=== PATIENT | female | born 1970 | race Caucasian/White ===

== ENCOUNTER 2017-05-15 08:30 | Outpatient (RCR) | payer OTHER, SELFPAY ==
--- NOTE | 2017-04-20 08:26 | HP.PTEVAL_ITS ---
Patient's Visit Information TYE XIE is a 47 year old F referred to Physical Therapy by Hal WHITEHEAD with a diagnosis of Plantarfasciitis. Date of Evaluation: 04/20/17 Physical Therapist: Mp Rivera DPT, OC - Visit Plan Frequency: one visit when orthotics Plan: Call when orthotics are in and fit to shoe. - Subjective Subjective: Chronic PFitis. Orthotics keep it away. Old orhtotics wearing out. R PFitis, L is OK. Since I got orthotics I have not needed injections. Old orhtotics are worn out and had them a year and a half. - Pain R heel pain. Pain Intensity (Out of 10): 1 Pain Intensity Range: 1, 2 - Objective Unremarkabkle frontal plane in feet. Walks I and Transfers I. Good PROm at ankle with finding subtalar neutral. - Goals Goal 1:: Fit for and I in the use of her noew orthotics. Goal Time Frame: 2-4 Weeks - Rehabilitation Potential Physical Therapy Diagnosis: Plantarfasciitis. Rehabilitation Potential: Fair - Anticipated Interventions Patient/Client Instruction: Educate patient on: Condition Comments: wean orhtotics and use of. For the Purpose of:: To decrease pain Orthotics: Shoe insert For the Purpose of:: To decrease pain Thank you for the opportunity to evaluate your patient. For Medicare and Medicare HMO plans, please review the plan of care and approve it. It will need to be FAXED BACK to us at [phone] for Medicare purposes. Please let me know if there are questions or concerns regarding this plan of care. Physician Signature: Date:
--- NOTE | 2017-05-15 09:07 | HP.PTDCSUM ---
HP - PT D/C Summary It has been my pleasure to treat TYE XIE under orders from DR.SBROWN Kashif for the diagnosis of Plantarfasciitis for a total of 2 visit(s). Discharge Date: Please see the following information for a summary of their discharge status. - Subjective Subjective: Pt excited to get orthotics - Pain R heel pain. Pain Intensity (Out of 10): 0 - Objective Objective/Function: Orthotics provided immediate relief for pt - Goals Goal 1:: Fit for and I in the use of her noew orthotics. Goal Progress: Goal Met - Plan Plan: Discharge - D/C Information If there are questions or concerns regarding this patient's physical therapy, please feel free to call me at [phone]. Thank you for the referral of this patient. Sincerely, Radames Waldrop, PT,
== END 2017-05-15 19:00 | disposition home or self-care (01) ==
LOC: PT 08:30
PROVIDERS: Family Provider Family Medicine; PCP Family Medicine; Visit Provider Family Medicine
DX: M72.2 Plantar fascial fibromatosis (principal)
CPT/HCPCS: 97161; 97760; 97763

== ENCOUNTER → 2017-11-16 07:43 | Outpatient (CLI) | payer OTHER, SELFPAY ==
[2017-11-16 08:48] LABS: Bilirubin, Direct 0.11 mg/dL (0.00-0.30)
== END ==
PROVIDERS: Family Provider Family Medicine; PCP Family Medicine; Visit Provider Family Medicine
DX: Z13.220 Encounter for screening for lipoid disorders (principal)
CPT/HCPCS: 36415; 82248

== ENCOUNTER → 2017-11-19 07:36 | Outpatient (CLI) | payer OTHER, SELFPAY ==
[2017-11-20 09:08] LABS: Vitamin D,25 Hydroxy 9.6 ng/mL (29.95-100.01)
== END ==
PROVIDERS: Family Provider Family Medicine; PCP Family Medicine; Visit Provider Family Medicine
DX: M77.9 Enthesopathy, unspecified (principal); Z13.220 Encounter for screening for lipoid disorders
CPT/HCPCS: 36415; 73110; 82306

== ENCOUNTER 2018-01-11 13:00 | Outpatient (RCR) | payer OTHER, SELFPAY ==
--- NOTE | 2017-12-23 08:22 | HP.OTEVAL ---
Patient's Visit Information TYE XIE is a 47 year old F, referred to Occupational Therapy by Hal Canchola, with a diagnosis of left wrist tendonitis. Date of Evaluation: 12/22/17 Occupational Therapist: Magaly Tang, MARCIA/Josefa, CHT - Subjective Subjective: Pt states prio to her vacation in September she started having pain. pt did take anti-inflamitory- pt then returned to drMaura and told to wear a brace on Nov.24. pt arrives with left wrist cock up brace- states she is unable to wear the brace at work. states she continues to have pain with some movements but most pain is after work. pt states she did try ice but it made her wrist stiff.pt would like to return to her PLOF - Pain left wrist 0 Pain Intensity Range: 0, 4 - ROM Forearm: right/left forearm sup is WNL Wrist: right 70/70 left 45/70 ROM Comments: pt demo left forearm pronation with pain at end range of motion-. Right RD/UD. Left RD 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 Goal:: Pt will demo an increase in wrist ROM equal to unaffected wrist to return pt to PLOF with grooming, dressing and home mtg tasks by D/C. Goal:: Pt will report pain no greater than 1/10 with use of affected hand with BADLs and IADLs by d/c. Goal:: Pt will demo understanding of work/lifting and carry ergonomics to decrease stress on tendons to increase pts ind. with ADLs and IADLS and work tasks by d/c. - Rehabilitation General Assessment: Pt demo with increase pain with resisitive wrist flex and ulnar deviations- symptoms consisitant with flexor ulnaris tendonitis. Pain, limited ROM, and weakness limits pts ind. with ADLS and IADls. pt also having ddifficulty performing job tasks without having pain. pt would benefit from skilled OT services 2x week for 4 weeks to decrease pain, ed. pt on work ergo. and increase pts functional strength to return pt to PLOF with ADLs, IADLs and work tasks. Rehabilitation Potential: Good - Anticipated Interventions Anticipated Interventions: A/AAROM/PROM, Strengthening, Triggerpoint Release, Modalities, Orthoses, Joint Protection/Energy Conservation, Ergonomic Education - Visit Plan Frequency: 2x /Week Duration: 4 Weeks TEXT: Thank you for the opportunity to evaluate your patient. For Medicare and Medicare HMO plans, please review the plan of care and approve it. It will need to be FAXED BACK to us at [phone] for Medicare purposes. Please let me know if there are questions or concerns regarding this plan of care. Physician Signature: Date:
--- NOTE | 2018-06-28 14:43 | HP.OT.NRP ---
HP - Discharge Summary - Patient Information TYE XIE was seen in my office for initial evaluation on 12/22/17. The following Plan of Care was established for this patient: Initial Frequency: 2x /Week Initial Duration: 4 Weeks Plan: US. STEVE PROM - Anticipated Interventions Anticipated Interventions: A/AAROM/PROM, Strengthening, Triggerpoint Release, Modalities, Orthoses, Joint Protection/Energy Conservation, Ergonomic Education This patient was last seen in our office 01/11/19. Pertinent comments regarding their Occupational therapy will appear below: Pt was seen for 2 visits with no change in her pain. Pt did not schedule further apts and is D/C due to timelapse in therapy services. At this point I will be discontinuing this patient from occupational therapy. I would be happy to see this patient again in the future if found appropriate by the physician. Thank you! Magaly Tang, OTR/L, CHT
== END 2018-01-11 19:00 | disposition home or self-care (01) ==
LOC: OT 13:00
PROVIDERS: Family Provider Family Medicine; PCP Family Medicine; Visit Provider Family Medicine
DX: M77.8 Other enthesopathies, not elsewhere classified (principal)
CPT/HCPCS: 97035; 97140; 97166; 97760

== ENCOUNTER → 2018-01-11 14:06 | Outpatient (CLI) | payer OTHER, SELFPAY ==
--- NOTE | 2018-01-11 14:16 | BI_ITS ---
MAMMOGRAPHY - UNILATERAL DIAGNOSTIC: LEFT BREAST REASON FOR EXAM: Female, 47 years old. Six-month follow-up for ultrasound guided left breast biopsy. PERTINENT HISTORY: Mother with breast cancer. TECHNIQUE: Digital unilateral breast keaton (3D mammographic acquisition) in the CC and MLO projections. 2-D mediolateral oblique (MLO) and craniocaudad (CC) views of both breasts were obtained. CAD: Full Field Digital Mammography with Computer Added Detection was performed. COMPARISON: Comparison is made with prior study dated March 04, 2017 and July 14, 2016. FINDINGS: Breast Composition: The breasts are heterogeneously dense, which may obscure small masses. There are no dominant masses or suspicious calcifications. A tissue clip marker from prior biopsy is seen in the deep upper lateral portion of the left breast. No mass lesion or clustered calcifications present. No other significant abnormalities are identified. There has been no significant change since the prior study. BI/DIAG MAMM W/CAD, UNILAT IMPRESSION: Stable unilateral diagnostic mammogram. One year follow-up mammogram recommended. (A) ASSESSMENT CATEGORY: BIRADS Category 2: Benign. A letter regarding these results will be sent to the patient by the facility within 30 days. Approximately 10% of breast cancers are not detected by mammography. A normal mammogram should not delay biopsy of a clinically suspicious abnormality. Electronically Signed: Vitaly Ventura MD at 12:09 EDT Tel [phone], Service support ,
== END ==
PROVIDERS: Family Provider Family Medicine; PCP Family Medicine; Referring Provider Obstetrics & Gynecology; Visit Provider Obstetrics & Gynecology
DX: Z51.89 Encounter for other specified aftercare (principal)
CPT/HCPCS: 77061; 77065; G0279

== ENCOUNTER → 2018-02-24 07:33 | Outpatient (CLI) | payer OTHER, SELFPAY ==
[2018-02-24 10:50] LABS: Vitamin D,25 Hydroxy 35.6 ng/mL (29.95-100.01)
== END ==
PROVIDERS: Family Provider Family Medicine; PCP Family Medicine; Referring Provider Family Medicine; Visit Provider Family Medicine
DX: E55.9 Vitamin D deficiency, unspecified (principal)
CPT/HCPCS: 36415; 82306

== ENCOUNTER → 2018-08-21 | Outpatient (CLI) | payer OTHER, SELFPAY ==
[2018-08-23 09:51] LABS: Vitamin D,25 Hydroxy 27.6 ng/mL (29.95-100.01)
== END | disposition home or self-care (01) ==
PROVIDERS: Family Provider Family Medicine; PCP Family Medicine; Referring Provider Family Medicine; Visit Provider Family Medicine
DX: E55.9 Vitamin D deficiency, unspecified (principal)
CPT/HCPCS: 36415; 82306

== ENCOUNTER → 2018-11-08 | Outpatient (CLI) | payer OTHER, SELFPAY ==
[2018-11-11 17:28] LABS: Vitamin D,25 Hydroxy 29.6 ng/mL (29.95-100.01)
== END | disposition home or self-care (01) ==
LOC: LAB 13:33
PROVIDERS: Family Provider Family Medicine; PCP Family Medicine; Referring Provider Family Medicine; Visit Provider Family Medicine
DX: E55.9 Vitamin D deficiency, unspecified (principal)
CPT/HCPCS: 36415; 82306

== ENCOUNTER → 2019-01-19 | Outpatient (CLI) | payer OTHER, SELFPAY ==
[2018-11-11 13:00] VITALS: BMI 41.5
--- NOTE | 2019-01-19 15:25 | BI_ITS ---
MAMMOGRAPHY - BILATERAL SCREENING REASON FOR EXAM: Female, 48 years old. Routine annual screening examination. PERTINENT HISTORY: Mother with breast cancer. Prior right and left breast biopsies. TECHNIQUE: Digital bilateral breast mary jo (3D mammographic acquisition) in the CC and MLO projections. 2-D mediolateral oblique (MLO) and craniocaudad (CC) views of both breasts were obtained. CAD: Full Field Digital Mammography with Computer Added Detection was performed. COMPARISON: Comparison is made with prior study dated March 04, 2017 and July 14, 2016. FINDINGS: Breast Composition: The breasts are heterogeneously dense, which may obscure small masses. There are no dominant masses or suspicious calcifications. A tissue clip marker is once again seen in the upper outer quadrant of the right breast as well as in the left breast. Stable appearance of the small bilateral axillary lymph nodes. No other significant abnormalities are identified. There has been no significant change since the prior study. BI/SCREEN MAMM (CAD) W/MARY JO BILAT IMPRESSION: Stable bilateral screening mammogram. Yearly follow-up mammogram recommended. (A) ASSESSMENT CATEGORY: BIRADS Category 2: Benign. A letter regarding these results will be sent to the patient by the facility within 30 days. Approximately 10% of breast cancers are not detected by mammography. A normal mammogram should not delay biopsy of a clinically suspicious abnormality. [id number] Electronically Signed: Vitaly Ventura, at 8:28 EDT , Service support ,
== END | disposition home or self-care (01) ==
LOC: OPBI 15:24
PROVIDERS: Family Provider Family Medicine; PCP Family Medicine; Referring Provider Nurse Practitioner Women's Health; Visit Provider Nurse Practitioner Women's Health
DX: Z12.31 Encounter for screening mammogram for malignant neoplasm of breast (principal)
CPT/HCPCS: 77063; 77067

== ENCOUNTER → 2019-03-14 07:58 | Outpatient (CLI) | payer OTHER, SELFPAY ==
[2018-11-11 13:00] VITALS: BMI 41.5
[2019-03-14 09:16] LABS: Vitamin D,25 Hydroxy 27.5 ng/mL (29.95-100.01)
== END ==
PROVIDERS: Family Provider Family Medicine; PCP Family Medicine; Referring Provider Family Medicine; Visit Provider Family Medicine
DX: E55.9 Vitamin D deficiency, unspecified (principal)
CPT/HCPCS: 36415; 82306

== ENCOUNTER 2019-03-23 03:41 | Outpatient (RCR) | payer OTHER, SELFPAY | END 2019-04-22 23:59 | LOC: LABSPEC 03:41 | PROVIDERS: PCP Family Medicine; Visit Provider Family Medicine Geriatric Medicine | DX: Z03.818 Encounter for observation for suspected exposure to other biological agents ruled out (principal) | CPT/HCPCS: 87426 ==

== ENCOUNTER 2019-06-09 16:41 | Emergency (ER) | payer OTHER, SELFPAY ==
[2019-05-31 17:53] VITALS: BMI 41.5
[2019-06-09 16:44] VITALS: BP 150/94; PULSE 106; RESP 20; TEMP 37.7; O2SAT 97; BMI 41.9
--- NOTE | 2019-06-09 17:06 | CT_ITS ---
STUDY: CT ABDOMEN AND PELVIS WITH CONTRAST REASON FOR EXAM: Female, 49 years old. ABDOMEN PAIN X 3 DAYS RADIATION DOSAGE (If Supplied By Facility): CTDIvol = ( 15.71 ) mGy, DLP = ( 1047.25 ) mGycm TECHNIQUE: Transaxial images were obtained from the dome of the diaphragm to the symphysis pubis without oral contrast. Oral and amp; IV Gastrografin and amp; 100mL Isovue-300 was administered. Sagittal and coronal images were reconstructed. Individualized dose optimization techniques were used for this CT. COMPARISON: None. FINDINGS: The visualized lung bases are unremarkable. The visualized portions of the heart are within normal limits. Normal liver. Normal gallbladder and extrahepatic biliary system. Normal spleen. Normal pancreas. Normal bilateral adrenal glands. Normal right kidney. Normal left kidney. Normal visualized stomach. Normal small intestine. Normal colon. There is non-visualization of the appendix. Normal abdominal aorta. Normal inferior vena cava. Normal retroperitoneum. Normal urinary bladder. Prominent lower uterine segment/cervix with a cystic structure measuring 1.4 cm may indicate a nabothian cyst. There is a small umbilical hernia containing fat. Normal osseous structures. CT/Abdomen/Pelvis WITH Contrast IMPRESSION: Prominent lower uterine segment/cervix with a cystic structure measuring 1.4 cm may indicate a nabothian cyst. This may be further assessed with a pelvic sonogram and/or gynecologic evaluation. Otherwise no acute process is identified within the abdomen or pelvis. Electronically Signed: Chirag García, at 19:38 EDT Tel , Service support ,
--- NOTE | 2019-06-09 17:07 | ED.DCSUM_ITS ---
- ER Visit Summary Date of Service: 06/09/19 Chief Complaint: Abdominal pain History of Present Illness: The patient is a 49 F who presents with abdominal pain that has been getting worse over the past 3 days. Patient states it is gradually gotten worse. Patient states the pain is worse over the left upper quadrant. Patient states the pain is worse when she pushes on the area. Patient describes her pain as dull. Patient states she has been having some nausea and vomiting. Patient states she tried to eat applesauce but was unable to keep that down. Patient denies any hematemesis or coffee-ground emesis. Patient denies any diarrhea, melena, or hematochezia. Patient denies any dysuria or hematuria. Physical Examination: Vital signs are stable except for a mild tachycardia of 106. Patient is afebrile. Patient is in no acute distress. Oral mucosa is pink and moist. Neck is supple. Trachea is midline. There is no JVD. Heart was regular rate and rhythm. Lungs are clear and equal bilaterally. Abdomen is soft. Bowel sounds are normal. There is left upper quadrant tenderness. There is some mild epigastric tenderness. There is no rebound or guarding noted. Cranial nerves II through XII are intact. There are no focal motor or sensory deficits. Test Results: CBC and comprehensive metabolic profile were obtained and were within normal limits. Urinalysis shows leukocyte esterase of 100 with 5-10 white blood cells, 0-5 epithelial cells, and 2+ bacteria. Urine culture was obtained. hCG was negative. CT scan of the abdomen and pelvis was obtained. There is no acute abnormality. This was interpreted by the radiologist and nini walters. Emergency Department Course and Treatment: Patient was given Zofran and morphine initially. Patient was given a repeat dose of Zofran. Patient was also given an injection of Toradol. Patient was given a prescription for Zofran. Patient was instructed to start with a liquid diet and advance as tolerated. Patient was instructed to return if worse in any way. Patient was instructed to follow- up with her primary care physician in 3 to 5 days. Patient understood and was agreeable with the plan. All questions were answered. Disposition: Discharge home Impression: Left upper quadrant abdominal pain This note was generated with [employer] software. It may contain incorrect words, spelling, and punctuation that were not noted in review of the chart prior to signing ED Disposition - Plan for ED Patient: Disposition: Home or Assisted Living Diagnosis: Left upper quadrant abdominal pain of unknown etiology Instructions: ABDOMINAL PAIN, Unknown Cause, (Female) Prescriptions: Ondansetron [Zofran Odt] 4 mg PO Q8H PRN PRN #10 tab PRN Reason: Nausea Transmission Status: Pending to [id number] Referrals: Hal Canchola [Primary Care Provider] - 3-5 Days
[2019-06-09] MEDS: 0.9% Normal Saline 1,000 ML 1000 ML IV (17:17)
[2019-06-09] MEDS: Morphine 4 MG/ML Syringe IV (17:17)
[2019-06-09] MEDS: Ondansetron 4 MG/2 ML Vial IV ×2 (17:17→18:17)
[2019-06-09 17:39] LABS: Absolute Lymphocyte Count 0.64 X10^3/uL (0.83-4.51); Absolute Neutrophil Count 6.8 X10^3/uL (2.0-7.7); Basophil# 0.01 X10^3/uL; Basophil% 0.1 % (0-1); Eosinophil# 0.06 X10^3/uL; Eosinophils% 0.7 % (0-5); Hematocrit 43.3 % (37-47); Hemoglobin 14.7 g/dL (12.0-15.0); Lymphocyte # 0.64 X10^3/ul (4.0); Lymphocyte % 7.8 % (19-41); Mean Corp Hgb Conc 33.9 g/dL (32-36); Mean Corpuscular Hgb 30.6 pg (27.0-32.0); Mean Platelet Vol. 8.7 fl (6.2-12.0); Monocyte# 0.62 X10^3/uL; Monocyte% 7.6 % (0-10); NRBC Flagged by Analyzer 0 % (0-5); Neutrophil # 6.84 X10^3/uL (2.7-7.7); Neutrophil % 83.3 % (47-70); Platelet Count 306 K/mm3 (150-450); RBC Distribution Width CV 11.9 % (11.6-14.6); RBC Distribution Width SD 39.5 fl (35.1-43.9); Red Blood Count 4.81 M/mm3 (4.2-5.4); White Blood Count 8.2 K/mm3 (4.4-11.0)
[2019-06-09 18:00] LABS: AST(SGOT) 23 U/L (15-37); Alanine Aminotransfer ALT/SGPT 26 U/L (13-56); Albumin, Serum 3.4 g/dL (3.2-5.0); Alkaline Phosphatase 60 U/L (45-117); Anion Gap 5 (5-15); BUN 20 mg/dL (7-18); BUN/Creat Ratio 23.6 RATIO (10-20); Calcium,Total 8.4 mg/dL (8.5-10.1); Chloride 109 mmol/L (98-107); Creatinine, Serum 0.85 mg/dL (0.55-1.02); EST Glomerular Filtration Rate 76 mL/min (>60); Est Glom Filt Rate - Afr Amer 92 mL/min (>60); Estimated Creatinine Clearance 58.77 ml/min; Globulin 3.5 g/dL (2.2-4.2); Glucose 107 mg/dL (74-106); Lipase 142 U/L (73-393); Potassium 3.9 mmol/L (3.5-5.1); Protein, Total 6.9 g/dL (6.4-8.2); Sodium Level 139 mmol/L (136-145)
[2019-06-09 18:24] LABS: Internal QC Validated? YES +Cl - CLEAR BKGD; Pregnancy, Serum, hCG Quali. NEGATIVE Negative
[2019-06-09 18:36] LABS: Red Blood Cells-Urine 0 SEEN /hpf (0-5)
[2019-06-09 18:42] LABS: Color, Urine Yellow (Yellow); Glucose, Dipstick Normal (Normal); Leukocyte Esterase-Dipstick 100 /ul (Negative); Nitrite-Dipstick Negative (Negative); Occult Blood-Urine Negative /ul (Negative); Protein-Dipstick 15 mg/dl (Negative); Urine Clarity Cloudy (Clear); Urine Urobilinogen 1 mg/dl (Normal)
[2019-06-09 18:50] LABS: Urine Bilirubin Dipstick 3 mg/dL (Negative)
[2019-06-09 18:51] LABS: Ketone-Dipstick 150 mg/dl (Negative)
[2019-06-09 18:52] LABS: Mucous, Urine 2+ /hpf (<or=2+); Squamous Epithelial Cells - UA 0-5 SEEN /hpf (5-10)
[2019-06-09 18:55] LABS: Bacteria 2+ /hpf (None Seen); White Blood Cells 5-10 SEEN /hpf (0-5)
[2019-06-09 19:29] VITALS: BP 158/77; PULSE 88; RESP 16; O2SAT 99
[2019-06-09] MEDS: Ketorolac 30 MG/ML Syringe IV (20:39)
[2019-06-09 20:49] VITALS: BP 158/77; PULSE 88; RESP 16; O2SAT 99
== END 2019-06-09 20:51 | disposition home or self-care (01) ==
PROVIDERS: Emergency Provider Emergency Medicine; PCP Family Medicine
DX: R10.12 Left upper quadrant pain (principal); E66.9 Obesity, unspecified; F41.9 Anxiety disorder, unspecified; F32.9 Major depressive disorder, single episode, unspecified; Z79.899 Other long term (current) drug therapy
CPT/HCPCS: 74177; 80053; 81001; 83690; 84703; 85025; 96361; 96374; 96375; 96376; 99283; J7030; Q9967; A4216; J2405

== ENCOUNTER → 2019-10-05 | Outpatient (CLI) | payer OTHER, SELFPAY ==
[2019-10-05 10:16] LABS: Vitamin D,25 Hydroxy 58.8 ng/mL
== END | disposition home or self-care (01) ==
LOC: LAB 07:30
PROVIDERS: PCP Family Medicine; Referring Provider Family Medicine; Visit Provider Family Medicine
DX: E55.9 Vitamin D deficiency, unspecified (principal)
CPT/HCPCS: 36415; 82306

== ENCOUNTER → 2020-02-07 | Outpatient (CLI) | payer OTHER, SELFPAY | END | disposition home or self-care (01) | LOC: LABSPEC 22:50 | PROVIDERS: PCP Family Medicine; Visit Provider Family Medicine Geriatric Medicine | DX: Z03.818 Encounter for observation for suspected exposure to other biological agents ruled out (principal) | CPT/HCPCS: 87426 ==

== ENCOUNTER 2020-02-08 11:43 | Outpatient (RCR) | payer OTHER, SELFPAY | END 2020-02-20 23:59 | LOC: LABSPEC 11:43 | PROVIDERS: PCP Family Medicine; Visit Provider Family Medicine Geriatric Medicine | DX: Z03.818 Encounter for observation for suspected exposure to other biological agents ruled out (principal) ==

== ENCOUNTER → 2020-02-27 | Outpatient (CLI) | payer OTHER, SELFPAY ==
[2020-02-27 13:17] VITALS: BMI 42.7
[2020-03-02 06:21] LABS: HPV APTIMA, High Risk Negative (Negative)
== END | disposition home or self-care (01) ==
LOC: LABSPEC 16:57
PROVIDERS: PCP Family Medicine; Visit Provider Obstetrics & Gynecology
DX: Z12.4 Encounter for screening for malignant neoplasm of cervix (principal)
CPT/HCPCS: 87624; 88175; G0145

== ENCOUNTER 2020-04-16 01:44 | Outpatient (RCR) | payer OTHER, SELFPAY ==
[2020-02-27 13:17] VITALS: BMI 42.7
== END 2020-04-22 23:59 ==
LOC: LABSPEC 01:44
PROVIDERS: PCP Family Medicine; Visit Provider Family Medicine Geriatric Medicine
DX: Z03.818 Encounter for observation for suspected exposure to other biological agents ruled out (principal)
CPT/HCPCS: 87426

== ENCOUNTER → 2020-05-10 00:23 | Outpatient (CLI) | payer OTHER, SELFPAY ==
--- NOTE | 2020-05-10 00:26 | RAD_ITS ---
HISTORY: C/O MUSCLE SPASMS AND PAIN AREA OF RT POSTERIOR -LATERAL MID-LOWER RIB CAGE X 3 MONTHSNKI ADDITIONAL HISTORY: None provided. EXAMINATION/TECHNIQUE: XR Spine Lumbar Min 4 Views Number of images including paperwork: 5 COMPARISON: None FINDINGS: VERTEBRAE: No acute fracture. VERTEBRAL ALIGNMENT: No traumatic subluxation. DISKS AND JOINTS: Lumbar disc heights relatively well maintained. Anterior osteophytes. Facet arthropathy. SOFT TISSUES: Unremarkable paraspinous soft tissues. RAD/L/S Spine Min 4 Views IMPRESSION: No acute findings. at 0231 Reported and signed by: Holly Hammer MD Electronically Signed: Holly Hammer MD at 2:31 EST Tel , Service support ,
--- NOTE | 2020-05-10 00:26 | RAD_ITS ---
HISTORY: C/O MUSCLE SPASMS AND PAIN AREA OF RT POSTERIOR -LATERAL MID-LOWER RIB CAGE X 3 MONTHSNKI ADDITIONAL HISTORY: None provided. EXAMINATION/TECHNIQUE: XR Spine Thoracic 3 Views Number of images including paperwork: 3 COMPARISON: None FINDINGS: VERTEBRAE: No acute fracture. VERTEBRAL ALIGNMENT: No traumatic subluxation. DISKS AND JOINTS: Mild to moderate multilevel discogenic degenerative changes. SOFT TISSUES: Unremarkable paraspinous soft tissues. RAD/Thoracic Spine 3 Views IMPRESSION: No acute findings. Degenerative changes. at 0232 Reported and signed by: Holly Hammer MD Electronically Signed: Holly Hammer MD at 2:32 EST Tel , Service support ,
--- NOTE | 2020-05-10 08:37 | RAD_ITS ---
STUDY: X-RAY - UNILATERAL RIBS ( RIGHT ) WITH CHEST REASON FOR EXAM: Female, 50 years old. Right posterior rib/back pain -- started in February, getting worse -- unsure of injury TECHNIQUE - RIBS: 4 view(s) of the ribs. TECHNIQUE - CHEST: Single PA view of the chest. COMPARISON: None. FINDINGS - RIBS: Normal visualized ribs without a demonstrated fracture. FINDINGS - CHEST: The lungs are clear and expanded. There is no demonstrated pleural abnormality. Normal size heart. Normal mediastinum and greyson. Normal visualized pulmonary arteries. Normal visualized aortic arch and descending thoracic aorta. Normal visualized thoracic spine. Normal visualized ribs, clavicles, and shoulders. There is no demonstrated abnormality of the visualized soft tissue structures of the upper abdomen. RAD/Ribs Uni Min 3V w/PA Chest IMPRESSION: RIBS: Normal x-ray examination of the ribs. CHEST: Normal x-ray examination of the chest. Electronically Signed: Vitaly Ventura MD at 15:17 EST , Service support ,
== END ==
PROVIDERS: PCP Family Medicine; Referring Provider Physician Assistant; Visit Provider Physician Assistant
DX: R07.81 Pleurodynia (principal); M54.5 Low back pain; M54.6 Pain in thoracic spine
CPT/HCPCS: 71101; 72072; 72110

== ENCOUNTER 2020-05-15 07:03 | Outpatient (RCR) | payer OTHER, SELFPAY ==
[2020-04-03 08:15] VITALS: BMI 43.8
== END 2020-05-20 23:59 ==
LOC: EMPH 07:03
PROVIDERS: Visit Provider Family Medicine Geriatric Medicine
DX: Z03.818 Encounter for observation for suspected exposure to other biological agents ruled out (principal)
CPT/HCPCS: 87426

== ENCOUNTER → 2020-08-17 07:40 | Outpatient (CLI) | payer OTHER, SELFPAY ==
--- NOTE | 2020-08-17 07:52 | RAD_ITS ---
STUDY: X-RAY - PELVIS AND LEFT HIP REASON FOR EXAM: Female, 50 years old. Right hip pain. Patient relates history of surgery on left hip 8 years ago. Recently developed marked pain. TECHNIQUE: 3 views of the pelvis and hip. COMPARISON: 06/14/2015. FINDINGS: There is a non-specific bowel gas pattern. Normal visualized soft tissue structures. There is absence of the IUD seen on the previous examination. Stable bilateral iliac wings, sacroiliac joints and visualized sacrum. Normal bilateral superior and inferior pubic rami. Normal pubic symphysis. Normal bilateral ischial tuberosities. Stable degenerative changes of the right hip. There are osteoarthritic changes of the left femoral head with marginal osteophyte formation. There is osteoarthritic spur formation of the left acetabular rim. There is moderate articular joint space narrowing of the left hip. RAD/HIP, UNI W/ Pelvis 2-3 Views IMPRESSION: Degenerative changes of the left hip. The findings appear stable when compared to 06/14/2015. Electronically Signed: Farhat Chavis DO at 17:00 EDT Tel [phone], Service support ,
== END ==
PROVIDERS: PCP Family Medicine; Referring Provider Family Medicine; Visit Provider Family Medicine
DX: M25.552 Pain in left hip (principal)
CPT/HCPCS: 73502

== ENCOUNTER → 2020-09-28 12:01 | Outpatient (CLI) | payer OTHER, SELFPAY ==
[2020-02-27 13:17] VITALS: BMI 42.7
[2020-04-03 08:15] VITALS: BMI 43.8
--- NOTE | 2020-09-28 12:01 | BI_ITS ---
MAMMOGRAPHY - BILATERAL SCREENING REASON FOR EXAM: Female, 50 years old. Routine annual screening examination. PERTINENT HISTORY: Mother with breast cancer. Prior bilateral needle breast biopsies. TECHNIQUE: Digital bilateral breast mary jo (3D mammographic acquisition) in the CC and MLO projections. 2-D mediolateral oblique (MLO) and craniocaudad (CC) views of both breasts were obtained. CAD: Full Field Digital Mammography with Computer Added Detection was performed. COMPARISON: Comparison is made with prior study dated 01/19/2019 and 03/04/2017. FINDINGS: Breast Composition: The breasts are heterogeneously dense, which may obscure small masses. There are no dominant masses or suspicious calcifications. A tissue clip marker is seen in the deep upper lateral portion of the left breast. A tissue clip marker is also seen in the central upper aspect of the right breast. No other significant abnormalities are identified. There has been no significant change since the prior study. BI/SCRN MAMM (CAD)W/MARY JO BILAT IMPRESSION: Stable bilateral screening mammogram. Yearly follow-up mammogram recommended. (A) ASSESSMENT CATEGORY: BIRADS Category 2: Benign. A letter regarding these results will be sent to the patient by the facility within 30 days. Approximately 10% of breast cancers are not detected by mammography. A normal mammogram should not delay biopsy of a clinically suspicious abnormality. [id number] Electronically Signed: Vitaly Ventura MD at 13:02 EDT , Service support ,
== END ==
PROVIDERS: PCP Family Medicine; Referring Provider Obstetrics & Gynecology; Visit Provider Obstetrics & Gynecology
DX: Z12.31 Encounter for screening mammogram for malignant neoplasm of breast (principal)
CPT/HCPCS: 77063; 77067

== ENCOUNTER 2020-10-01 08:08 | Outpatient (RCR) | payer OTHER, SELFPAY ==
[2020-04-03 08:15] VITALS: BMI 43.8
== END 2020-10-20 23:59 ==
LOC: EMPH 08:08
PROVIDERS: PCP Family Medicine; Referring Provider Family Medicine Geriatric Medicine; Visit Provider Family Medicine Geriatric Medicine
DX: Z03.818 Encounter for observation for suspected exposure to other biological agents ruled out (principal)
CPT/HCPCS: 87426

== ENCOUNTER → 2020-10-04 09:57 | Outpatient (CLI) | payer OTHER, SELFPAY ==
[2020-10-04 11:26] LABS: Vitamin D,25 Hydroxy 25.8 ng/mL
== END ==
PROVIDERS: PCP Family Medicine; Referring Provider Family Medicine; Visit Provider Family Medicine
DX: E55.9 Vitamin D deficiency, unspecified (principal)
CPT/HCPCS: 36415; 82306

== ENCOUNTER 2020-11-07 08:30 | Outpatient (RCR) | payer OTHER, SELFPAY ==
--- NOTE | 2020-08-31 09:37 | HP.PTEVAL ---
Patient's Visit Information TYE XIE is a 50 year old F referred to Physical Therapy by Dr. Hal Canchola MD with a diagnosis of L hip pain acute. Date of Evaluation: 08/31/20 Physical Therapist: Mp Rivera DPT, OCS, CSCS - Visit Plan Frequency: 2-3x /Week Duration: 4-6 Weeks Plan: Start with 5 visits in pool to teach hip ROM flexion and ext rotation, stretching of quad adn pirifromis and HS and hip flexors and hip strengthening(pt has pool at home and can progress to I with these. Then likely will see for manual therapy on land after I in pool. - Subjective H/o hip problems. But was doing good. 2015 started steroid injections and usually only painful with ext rotation. Controllable with advil and injections now and then but it had 18 months. In February pain moved to front of hip and it hurts to sit and pull knee up or lifting leg as to get in car. Went back to [facility] who injected her which helped for two weeks and then it started get rodrigo locke. Waited 3 months and got another injection in July 16 which did not help at all. Hurts to sit and lean forward. Went to PCP who did x ray in july and shows osteophytes adn spurs in hip joint and OA in L hip. Pain is anterior L hip dialy to 9 for a moment with hip flexion or a sharp turn. Will see ortho September 20 for possible labral tear. No MRI yet. Sleep is not a problem very often, maybe once int he past if she turned to right. Geenerally aches some of time. Worse if on it all day. 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 End of day /. Activities at home are putting socks and shoes on are hard and needs to leverage ext rotation to get them on. Enjoys hiking and did 4 miles the other day but it hurt. - Pain L anterior hip pain. Pain Intensity (Out of 10): 9 Pain Intensity Range: 1 - Objective Stays leaned back in chair. Walks wtih only slight L antalgia and I. Trasnfers I but hard to shift weight FW in chair without pain due to limited hip fexion L. Steps reciprocal without increased pain but slightly harder to ascend using L. sensation LE WNL to gross light touch. reflexes 2/3 patella and achilles. Strength knee flex ext 4 with some slight pain L quad in hip. ankles ROM WFL and no pain with resisted movements at 4+/5. R hip is WFL 15 ext, 25 abd, 110 flexion without pain. L hip to 90 flexion and 15 abd and 8 ext and ext rotation 38 adn IR 5 all limited by pain in flexion, rotations. + L FADDIR, + MARCI, + hip scour L. L hip - Goals Goal 1:: 45 ext rotation and 105 flexion without pain to help don shoes withotu pain Goal Time Frame: 4-6 Weeks Goal 2:: I appropr HEP to limit future problems Goal Time Frame: 4-6 Weeks Goal 3:: Tolerate 12 hour shift at work with no more than 2/10 pain Goal Time Frame: 4-6 Weeks Goal 4:: LEFS score 65+ Goal Time Frame: 4-6 Weeks - Rehabilitation Potential Physical Therapy Diagnosis: L hip pain limiting function likely degenerative in nature. Rehabilitation Potential: Fair - Anticipated Interventions Patient/Client Instruction: Educate patient on: Condition, Plan of Care For the Purpose of:: To decrease pain, To increase ROM, To improve muscle performance and motor function, To improve ability to perform ADL's, To improve ability of physical actions for home/community/work/leisure Therapeutic Exercise to Include: Strength training, Flexibilty training, Gait and locomotor training, In an aquatic setting, Passive ROM, Active ROM For the Purpose of:: To decrease pain, To increase ROM, To improve muscle performance and motor function, To improve performance and independence with ADL's, To improve ability of physical actions for home/community/work/leisure, To improve gait and locomotor functions Manual Therapy Techniques to Include: Mobilization, Passive ROM, Soft tissue mobilization For the Purpose of:: To decrease pain, To increase ROM, To improve muscle performance and motor function Thank you for the opportunity to evaluate your patient. For Medicare and Medicare HMO plans, please review the plan of care and approve it. It will need to be FAXED BACK to us at [phone] for Medicare purposes. For Medicare only, by signing this I certify the plan of care. Please let me know if there are questions or concerns regarding this plan of care. Physician Signature: Date:
--- NOTE | 2020-09-26 09:06 | HP.PTREVAL ---
Dr. Hal Canchola MD, It has been my pleasure to treat TYE XIE over the last 7 visits for L hip pain acute. Please see the progress note below for an update on the physical therapy plan of care! Subjective: Pool treated her OK. Pool is helpful, feels more mobile in L hip. Has soreness and tolerable achiness but much less severe sharp pains. Feels like she can do the pool exercise at home in her pool. Push mowed 2 acre yard yesterday adn was a little sore. Saw ortho and no other options other than PT and pain management. No replacement yet, no nlabral options. Sees Basali and had injections end July adn did not help. Objective/Function: 50 AROM ext rotation hip, 95 flexion 5 ext. Walking well today with just some avoidance of hip ext L causing pelvic rotation. Overall feeling sharee she is slowly improving . Willing to continue water ex I 4-6x week at home pool and continue stretching at home. Wants manual and land strength for when pool closes and due to being no other options from ortho and pain injections not being helpful. Plan Plan: Pt to do water ex at home 4-6x/week. In clinic please do manual therapy with leg pull, PROM L hip and belted hip mobs L. also progress to home strengthening NWB to WB( pt bisi likely want home ex but can do machines if she decides going to a gym is realistic.) Goals Goal 1:: 45 ext rotation and 105 flexion without pain to help don shoes withotu pain Goal Time Frame: 4-6 Weeks Goal Progress: Progressing Goal 2:: I appropr HEP to limit future problems Goal Time Frame: 4-6 Weeks Goal Progress: Goal Met Goal 3:: Tolerate 12 hour shift at work with no more than 2/10 pain Goal Time Frame: 4-6 Weeks Goal Progress: 4/10 after shift. Goal 4:: LEFS score 65+ Goal Time Frame: 4-6 Weeks Anticipated Interventions Patient/Client Instruction: Educate patient on: Condition, Plan of Care For the Purpose of:: To decrease pain, To increase ROM, To improve muscle performance and motor function, To improve ability to perform ADL's, To improve ability of physical actions for home/community/work/leisure Therapeutic Exercise to Include: Strength training, Flexibilty training, Gait and locomotor training, In an aquatic setting, Passive ROM, Active ROM For the Purpose of:: To decrease pain, To increase ROM, To improve muscle performance and motor function, To improve performance and independence with ADL's, To improve ability of physical actions for home/community/work/leisure, To improve gait and locomotor functions Manual Therapy Techniques to Include: Mobilization, Passive ROM, Soft tissue mobilization For the Purpose of:: To decrease pain, To increase ROM, To improve muscle performance and motor function Please do not hesitate to contact me at [phone] by phone or if you have questions or concerns regarding this new plan of care! Sincerely, Mp Rivera, LUIST, OCS, CSCS
--- NOTE | 2020-10-26 09:00 | HP.PTREVAL ---
Dr. Hal Canchola MD, It has been my pleasure to treat TYE XIE over the last 15 visits for L hip pain acute. Please see the progress note below for an update on the physical therapy plan of care! Subjective: Was doing OK until this week. Just started hurting this week for no apparent reason. This week pain is 1 at rest but snags to 8/10 and doesn't linger for too long. Did hike at [facility]. Last week was much better adn pain stayed at 1/10. Was 50% better last week and this week is 20% better. No f/u scheduled with Dr. Ramirez but hip replacement is only option and she is too young for that. Had injection in July and will have another one next week. Some days at work better than others especially worse if she standsmore at work. Pt says there are no other surgical options for her according to two doctors. Objective/Function: ROM L hip 45 ext rot, 100 flexion, 10 ext without increased pain today. Walks normal at this point, steps slightly painful with L but would not have been last week. Pt is worse this week for unknown reason. Will have injection Thursday and continue with HEP adn call if need s more manua therapy prior to f/u in two weeks. Plan Plan: f/u two weeks for d/c if doing better or continue manual if no other options. Balance/Gait/Functional tests - Balance/Special Test Scores Lower Extremity Functional Score: 56 Goals Goal 1:: 45 ext rotation and 105 flexion without pain to help don shoes withotu pain Goal Time Frame: 4-6 Weeks Goal Progress: near met and functional Goal 2:: I appropr HEP to limit future problems Goal Time Frame: 4-6 Weeks Goal Progress: Goal Met Goal 3:: Tolerate 12 hour shift at work with no more than 2/10 pain Goal Time Frame: 4-6 Weeks Goal Progress: up and down. Goal 4:: LEFS score 65+ Goal Time Frame: 4-6 Weeks Goal Progress: Progressing Goal 5:: Goal: maintain pain 0-1/10 at all times for two weeks with just HEP Goal Time Frame: NEW GOAL Anticipated Interventions Patient/Client Instruction: Educate patient on: Condition, Plan of Care For the Purpose of:: To decrease pain, To increase ROM, To improve muscle performance and motor function, To improve ability to perform ADL's, To improve ability of physical actions for home/community/work/leisure Therapeutic Exercise to Include: Strength training, Flexibilty training, Gait and locomotor training, In an aquatic setting, Passive ROM, Active ROM For the Purpose of:: To decrease pain, To increase ROM, To improve muscle performance and motor function, To improve performance and independence with ADL's, To improve ability of physical actions for home/community/work/leisure, To improve gait and locomotor functions Manual Therapy Techniques to Include: Mobilization, Passive ROM, Soft tissue mobilization For the Purpose of:: To decrease pain, To increase ROM, To improve muscle performance and motor function Please do not hesitate to contact me at [phone] by phone or if you have questions or concerns regarding this new plan of care! Sincerely, Mp Rivera, DPT, OCS, CSCS
--- NOTE | 2020-11-07 09:00 | HP.PTDCSUM_ITS ---
It has been my pleasure to treat TYE XIE referred by Dr. Hal Canchola MD, with the diagnosis of L hip pain acute for a total of 16 visit(s). Discharge Date: 11/07/20 Please see the following information for a summary of their discharge status. Subjective: Was painfree that night upon waking and for 3 days. Saw Basali that next thursday as pain started to return and scheduled injection. Maintained very low level of pain since injection. Nerve block may be next step if pain returns. HEP going well without a problem. L anterior hip pain. Pain Intensity (Out of 10): 1 % Improvement: 65 Objective/Function: 110 flexion, 10 ext and 20 abd today withonly end chris fl exion slight pain. Walking is without antalgia. Steps are reciprocal without rail.. Overall doing significantly better Goal 1:: 45 ext rotation and 105 flexion without pain to help don shoes withotu pain Goal Progress: Goal Met Goal 2:: I appropr HEP to limit future problems Goal Progress: Goal Met Goal 3:: Tolerate 12 hour shift at work with no more than 2/10 pain Goal Progress: Goal Met Goal 4:: LEFS score 65+ Goal Progress: Progressing Goal 5:: Goal: maintain pain 0-1/10 at all times for two weeks with just HEP Goal Progress: one week plus. Plan: d/c, pt can be sent back if needed in the future for intermittent manual therapy. If there are questions or concerns regarding this patient's physical therapy, please feel free to call me at [phone]. Thank you for the referral of this patient. Sincerely, Mp Rivera, DPT, OCS, CSCS Balance/Gait/Functional tests - Balance/Special Test Scores Lower Extremity Functional Score: 56
== END 2020-11-07 12:57 | disposition home or self-care (01) ==
LOC: PT 08:30
PROVIDERS: PCP Family Medicine; Visit Provider Family Medicine
DX: M25.552 Pain in left hip (principal)
CPT/HCPCS: 87426; 97110; 97113; 97140; 97162; 97164; 97530

== ENCOUNTER → 2020-11-23 07:34 | Outpatient (CLI) | payer OTHER, SELFPAY ==
--- NOTE | 2020-11-23 07:38 | MRI_ITS ---
STUDY: MRI LEFT HIP REASON FOR EXAM: Female, 50 years old. LEFT HIP PAIN, prior surgery 2007 TECHNIQUE: Standardized fat and water weighted pulse sequences were obtained in all 3 orthogonal planes. COMPARISON: 10/18/2016. FINDINGS: Mild/moderate cartilage loss at the bilateral hips predominantly superior laterally. Reactive bone marrow edema/contusion at the left acetabulum (coronal image 18 series 5). Bilateral hip labral generation with tiny left-sided tear (coronal image 18 series 5). Capsular ligaments are intact. Trace left hip joint effusion. No acute fracture line. No acute dislocation. No acute bone destruction. Mild pubic symphysis arthrosis. Normal sacroiliac joints. Normal lumbar spine. Minimal gluteus medius/minimus insertional tendinosis. Normal iliopsoas tendon. No trochanteric, iliopsoas or iliopectineal bursitis. Normal superior and inferior pubic rami. Normal pubic symphysis. Normal ischial tuberosity. Normal origin of the hamstring tendons. Normal visualized iliac wing, sacroiliac joint, and sacral ala. Distended endometrial canal. Cervical cysts. Small bilateral cystic adnexa, MRI/Lower Ext Joint Only (Routine) IMPRESSION: Mild/moderate bilateral hip cartilage loss with trace left hip joint effusion Left acetabulum bone marrow edema/contusion (statistically reactive/degenerative) Bilateral hip labral degeneration with tiny left-sided labral tear Minimal gluteus medius/minimus insertional tendinosis [employer] findings statistically physiologic (correlate cycle timing and ultrasound as clinically necessary) Electronically Signed: Mp Foster DO at 10:55 EDT Tel , Service support ,
== END ==
PROVIDERS: PCP Family Medicine; Referring Provider Family Medicine; Visit Provider Family Medicine
DX: M25.552 Pain in left hip (principal)
CPT/HCPCS: 73721

== ENCOUNTER 2021-04-09 17:32 | Outpatient (CLI) | payer OTHER, SELFPAY ==
[2021-04-09 17:46] VITALS: BP 175/99; PULSE 80; RESP 16; TEMP 36.6; O2SAT 100; BMI 42.0
[2021-04-09] MEDS: 0.9% Saline Lock 10 ML Syringe IV (17:50)
[2021-04-09 18:22] VITALS: BP 155/94; PULSE 69; RESP 16; TEMP 36.6; O2SAT 98
[2021-04-09 19:21] VITALS: BP 156/91; PULSE 64; RESP 16; TEMP 36.4; O2SAT 100
== END 2021-04-09 23:59 | disposition home or self-care (01) ==
LOC: MS3OUT 17:32 → MS3 17:33
PROVIDERS: PCP Family Medicine; Referring Provider Nurse Practitioner Adult Health; Visit Provider Nurse Practitioner Adult Health
DX: Z23 Encounter for immunization (principal); Z68.41 Body mass index [BMI] 40.0-44.9, adult; U07.1 COVID-19; E66.9 Obesity, unspecified
CPT/HCPCS: J7050; M0245; Q0245; A4216

== ENCOUNTER 2021-06-25 00:57 | Outpatient (CLI) | payer OTHER, SELFPAY | END 2021-06-25 23:59 | disposition home or self-care (01) | LOC: LAB 00:58 | PROVIDERS: PCP Family Medicine; Visit Provider Specialist | DX: Z01.818 Encounter for other preprocedural examination (principal); Z01.810 Encounter for preprocedural cardiovascular examination ==

== ENCOUNTER 2021-06-26 07:41 | Outpatient (CLI) | payer OTHER, SELFPAY ==
[2021-06-26 09:26] LABS: Vitamin D,25 Hydroxy 47.3 ng/mL
== END 2021-06-26 23:59 | disposition home or self-care (01) ==
LOC: LAB 07:43
PROVIDERS: PCP Family Medicine; Referring Provider Family Medicine; Visit Provider Family Medicine
DX: E55.9 Vitamin D deficiency, unspecified (principal)
CPT/HCPCS: 36415; 82306

== ENCOUNTER 2021-06-28 12:30 | Outpatient (RCR) | payer OTHER, SELFPAY ==
--- NOTE | 2021-05-30 18:17 | HP.PTEVAL_ITS ---
Patient's Visit Information TYE XIE is a 51 year old F referred to Physical Therapy by Dr. Moe Trent MD with a diagnosis of L hip Primary OA. Date of Evaluation: 05/30/21 Physical Therapist: Mp Rivera, DPT, OCS, CSCS - Visit Plan Frequency: 3x /Week Duration: 4-6 Weeks Plan: 3x/week for 4-6 weeks for. aquatic therapy for Hip ROM flex, rotation and ext. Hip and core strengthening aggressively as tolerated. - Subjective L hip hurt long time and has OA. Saw [facility]ar at [facility] after therapy last year. Had x ray and still had cartilage back in September. worked alot last December thru February and hip got worse and worse due to mandatory overtime. Doctor said last year she needed labral repair. With increased pain went to see other ortho surgeon and did another x ray. Has alot of OA and recommended hip replacement. ADLS are hard, muscles are weakening and has tendonosis in hips. Pt is miserable. Recommended NENO and sent to Dr. Trent. Will have L NENO 07/17 anterior approach if all goes well. Doctor wants her to be stronger and have aquatic therapy before surgery but no land therapy. Pain now is daily but 1/10 at rest and minimal walking in straight line. Turning, bending, sit to stand, pushing is up to 7/10. Sleep is interrupted when she turns it catches and hurts. 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 Wants to be able to put shoes and socks on herself. R hip is good. Sees Basali for hip. - Pain L hip Pain Intensity (Out of 10): 1 Pain Intensity Range: 1, 7 - Objective Walks slowly but I with L antalgia, careful not to twist or pivot. Uses UE to trasnfer chair and bed. Painful with bed trasnfers. Steps are reciprocal up and down with two rails. unable to reach L shoe or sock bending or elevating L LE. + L hip scour and MARCI and FADDIR. L hip AROM very limited vs R at er 40 and IR to neutral limited by pain. Flexion to 90 on L and 115 on R. extension to 5 L and 10 R. Abduction at 12 L and 22 R. sensation WNL to gross light touch in LE. Knee strength 5/5 flex and ext B, ankle 4+/5 B. Hip strength abd L 3+ and R 4-, extension l 3 and R 3+, flexion 3+ and pain L and 4- R. - Balance/Special Test Scores Lower Extremity Functional Score: 44 - Goals Goal 1:: I approp water ex program to strengthen Goal Time Frame: 4-6 Weeks Goal 2:: Pain 0-3/10 at worst at all times Goal Time Frame: 4-6 Weeks Goal 3:: Patient reach L shoe and sock to help with ADLS Goal Time Frame: 6-8 Weeks Goal 4:: Sleep without waking when rolling Goal Time Frame: 4-6 Weeks - Rehabilitation Potential Physical Therapy Diagnosis: L hip OA limiting funciton and ADLS Rehabilitation Potential: Fair - Anticipated Interventions Patient/Client Instruction: Educate patient on: Condition, Plan of Care For the Purpose of:: To decrease pain, To increase ROM, To improve muscle performance and motor function Therapeutic Exercise to Include: Strength training, Flexibilty training, In an aquatic setting, Passive ROM, Active ROM For the Purpose of:: To decrease pain, To increase ROM, To improve muscle performance and motor function Thank you for the opportunity to evaluate your patient. For Medicare and Medicare HMO plans, please review the plan of care and approve it. It will need to be FAXED BACK to us at [phone] for Medicare purposes. For Medicare only, by signing this I certify the plan of care. Please let me know if there are questions or concerns regarding this plan of care. Physician Signature:__ Date:
--- NOTE | 2021-09-03 18:23 | HP.PT.NRP ---
TYE XIE was seen in my office for initial evaluation on 05/30/21. The following Plan of Care was established for this patient: Initial Frequency: 3x /Week Initial Duration: 4-6 Weeks Patient/Client Instruction: Educate patient on: Condition, Plan of Care For the Purpose of:: To decrease pain, To increase ROM, To improve muscle performance and motor function Therapeutic Exercise to Include: Strength training, Flexibilty training, In an aquatic setting, Passive ROM, Active ROM For the Purpose of:: To decrease pain, To increase ROM, To improve muscle performance and motor function This patient was last seen in our office 06/28/21. Pertinent comments regarding their Physical therapy will appear below: Pt seen 10 visits of POC and then had surgery. she has been rehabbed from that surgery on a different chart and i will discontinue this chart. At this point I will be discontinuing this patient from physical therapy. I would be happy to see this patient again in the future if found appropriate by the physician. Thank you! Mp Rivera, DPT, OCS, CSCS Balance/Gait/Functional tests - Balance/Special Test Scores Lower Extremity Functional Score: 38
== END 2021-06-28 19:00 | disposition home or self-care (01) ==
LOC: PT 12:30
PROVIDERS: PCP Family Medicine; Referring Provider Specialist; Visit Provider Specialist
DX: M16.12 Unilateral primary osteoarthritis, left hip (principal); M25.552 Pain in left hip; E66.8 Other obesity
CPT/HCPCS: 97113; 97161

== ENCOUNTER 2021-07-03 07:02 | Observation (INO) | payer OTHER, SELFPAY ==
--- NOTE | 2021-06-20 21:46 | HP.PCM_ITS ---
History and Physical History and Physical [facility] Patient Name: Floridalma Gannon : 1970 From: JU PACHECO PA-C DATE OF SURGERY: 07/17/2021 SCHEDULED PROCEDURE: left total hip arthroplasty HISTORY OF PRESENT ILLNESS: Preoperative history and physical exam was performed on June 20, 2021. This is a 51-year-old female who has been having ongoing pain in her left hip since 2017. Patient has previous history of left hip arthroscopy with labral repair. Patient's pain has been constant, intermittent, dull, aching, sharp, sore. She has difficulty getting dressed secondary to the pain. She has difficulty with sleeping, yardwork, heavy lifting, bending, twisting and trying to pick things up off the floor. She also feels unsafe with ladders and stools. Patient states the pain does awaken her at nighttime. Patient does perceive the affected leg is shorter than the other. Previous treatments include cortisone injections, previous hip arthroscopy, physical therapy, rest, activity modification. After failing conservative measures and discussing treatment options, the patient does wish to proceed with a left total hip arthroplasty. 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 She currently denies any recent chest pain, shortness of breath, fevers chills or recent infections. She has a medical history for vitamin D deficiency, depression, chronic migraines. We have obtain surgical clearance from the primary care physician Dr. Hal Canchola. We will undergo preoperative lab work, EKG. REVIEW OF SYSTEMS: Review Of Systems: Constitutional: Denies change in appetite, fever and weight change. Cardiovasular: Denies chest pain, heart murmur and irregular heartbeat. Respiratory: Denies cough, pneumonia, shortness of breath, tuberculosis and wheezing. Gastrointestinal: Denies constipation, diarrhea, heartburn, nausea, rectal itching, bloody stools and vomiting. Genitourinary: Reports irregular menstrual periods. Denies incontinence. Musculoskeletal: Reports gait disturbance, trouble walking and weakness, but denies leg swelling and pain. Skin: Denies Raynaud's, history of shingles and tattoo. Neurological: Reports numbness/tingling but denies ambulatory dysfunction, dizziness and tremor. Psychiatric: Reports anxiety, but denies insomnia and stress. Hematologic/Lymphatic: Denies anemia, bleeding/bruising tendency and past transfusion. Reviewed, no changes. PAST MEDICAL HISTORY: Advance Care Plan: No Advance Directives Effective Date: 05/27/2021 Past Medical History: Medical Problems: Depression, Chronic Migraines, Vitamin D Deficiency Accidents: None Surgical Hx: Tonsillectomy - (1990) [facility] Hip Arthroscopy - (2007) [facility] Anesthesia Complications: None Assistive Devices: Glasses Reviewed and updated. 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 Personal Habits: Cigarette Use: Former.Smokeless Tobacco: Never Used Smokeless Tobacco.E-Cigarette Use: Never used.Alcohol: Occasionally.Drug Use: Denies Use.Enjoy Exercising: Exercises 1-3 X/Week. Reviewed, no changes. VITALS: Ht: 61 Wt: 220lb Wt k.792 BMI: 41.6 BP: 138/78 Pulse: 85 T: 98.0 T: 36.7C Pain Level: 3 O2SatR: 100 ALLERGIES: Penicillins - Hives Oxycodone - Itching/ Rash MEDICATIONS: Wellbutrin XL 300 mg 1 by mouth every day, Mobic 7.5 mg 1 by mouth twice a day, PRN, Tylenol Extra Strength 500 mg 2 by mouth every 8 hours, Glucosamine Chondroitin 1500 Complex 1500 Com as directed on bottle, Centrum Women 1po qday, Airborne daily, Vitamin D3 50 mcg (2000 Ut) 1 by mouth every day, Tramadol HCL 50 mg 1-2 by mouth as needed pain PRE-OP EXAM: General appearance:NORMAL Other: Eyes: Conjunctivae and lids: NORMAL Pupils: ERR Ears, Nose, Mouth, and Throat: NORMAL Other: Inspection of lips, teeth and gums: NORMAL Other: Neck: Examination of neck: no masses noted. Respiratory: Assessment of respiratory effort: NORMAL Other: Auscultation of lungs: clear to auscultation no wheezes, rhonchi or rales. Cardiovascular: Auscultation of heart: regular rate and rhythm, no murmurs, gallops or rubs. PHYSICAL EXAMINATION: She does walk with an antalgic gait. Left hip is cool to touch. Flexion 90, internal rotation 20, external rotation 40 on the right hip. Left hip has flexion to 45 with obligatory external rotation, internal rotation to neutral, external rotation 20 with increased pain. Sensation intact to light touch. IMAGING STUDIES: Previous x-rays and MRI of the left hip are consistent with degenerative changes with bony edema. Most recent x-rays reveal moderate to severe joint space narrowing with subchondral sclerosis with cam lesion on the femoral head with worsening osteophyte. IMPRESSION: 1. Left hip osteoarthritis 2. Depression 3. Chronic migraines 4. Vitamin D deficiency PLAN: Dr. Moe Trent did discuss and review with the patient all treatment options including surgical versus nonsurgical options. Patient does wish to proceed with the above-stated procedure. Potential risks, benefits, and complications of the procedure were discussed in detail including but not limited to , infection, nerve and blood vessel damage, persistent pain, numbness, tingling, paresthesias, blood clot, pulmonary embolism, and requirement for possible further surgery. The patient expressed full understanding and has no further questions for the doctor. Patient does agree to proceed with the above-stated procedure and has signed the surgery consent form. We discussed the current risks associated with COVID 19. This does include the risk of exposure while in the hospital. Patient was reassured local hospitals have low infection rates and are taking all necessary precautions to avoid exposure to patients. In addition, we discussed strategies that can be used to help limit exposure including those that limit the patient's time in the hospital. Also using strategies to limit the patient's need for continued inpatient services after being discharged from the hospital. Patient was notified that we will need to comply with any screening or testing the hospital wishes to perform or that surgery may be delayed for any positive results. This dictation was created using voice recognition software. Phonetic and/or grammatical errors may exist. ___ I have re-examined the patient. There are no clinical changes since date of exam. ___ See progress notes for changes. ___ Dictated on admission Date: Time: Signature:
--- NOTE | 2021-06-25 07:07 | EKG12_ITS ---
Test Reason : PREOP Blood Pressure : / mmHG Vent. Rate : 079 BPM Atrial Rate : 079 BPM P-R Int : 190 ms QRS Dur : 098 ms QT Int : 378 ms P-R-T Axes : 053 086 040 degrees QTc Int : 433 ms Normal sinus rhythm Normal ECG Confirmed by ANGÉLICA DAO, VIRGINIA ([id number]), videotape editor OCTAVIO LOWERY ([id number]) on 06/26/2021 11:39:43 AM Referred By: MICKIE Confirmed By:VIRGINIA LINDSAY MD
[2021-06-25 07:18] LABS: Basophil# 0.08 X10^3/uL; Eosinophil# 0.15 X10^3/uL; Eosinophils% 1.9 % (0-5); Hematocrit 39.3 % (37-47); Hemoglobin 13.5 g/dL (12.0-15.0); Lymphocyte % 37.2 % (19-41); Mean Corp Hgb Conc 34.4 g/dL (32-36); Mean Corpuscular Hgb 31.4 pg (27.0-32.0); Mean Corpuscular Volume 91.4 fL (81-99); Mean Platelet Vol. 8.8 fl (6.2-12.0); Monocyte# 0.64 X10^3/uL; Monocyte% 8.2 % (0-10); NRBC Flagged by Analyzer 0 % (0-5); Neutrophil # 4.01 X10^3/uL (2.7-7.7); Neutrophil % 51.4 % (47-70); Platelet Count 352 K/mm3 (150-450); RBC Distribution Width CV 11.9 % (11.6-14.6); RBC Distribution Width SD 39.8 fl (35.1-43.9); White Blood Count 7.8 K/mm3 (4.4-11.0)
[2021-06-25 07:55] LABS: Magnesium 1.7 mg/dL (1.6-2.6)
[2021-06-25 08:02] LABS: Albumin, Serum 3.9 g/dL (3.2-5.0); Anion Gap 3 (5-15); BUN 20 mg/dL (7-18); BUN/Creat Ratio 23.5 RATIO (10-20); Calcium,Total 9.5 mg/dL (8.5-10.1); Chloride 106 mmol/L (98-107); Creatinine, Serum 0.85 mg/dL (0.55-1.02); EST Glomerular Filtration Rate 76 mL/min (>60); Est Glom Filt Rate - Afr Amer 91 mL/min (>60); Glucose 88 mg/dL (74-106); Potassium 3.8 mmol/L (3.5-5.1); Sodium Level 138 mmol/L (136-145)
[2021-07-03] VITALS (14 sets, daily range): BP systolic 124–154; BP diastolic 48–89; PULSE 66–90; RESP 16–24; TEMP 36.2–37.4; O2SAT 93–100; BMI 43.4
[2021-07-03 06:49] LABS: Internal QC Validated? YES +Cl - CLEAR BKGD; Pregnancy, Urine Negative Negative
[2021-07-03] MEDS: Lactated Ringers 1,000 ML 999 ML IV ×2 (07:06→09:00)
[2021-07-03] MEDS: Gabapentin 600 MG Tablet PO (07:07)
[2021-07-03] MEDS: Acetaminophen 500 MG Tablet 1000 MG PO (07:07)
[2021-07-03] MEDS: Scopolamine 1mg/72hr Patch 1 PATCH TD (07:08)
--- NOTE | 2021-07-03 07:11 | PCM.OPRPT ---
Report of Operation Date of Procedure: 07/03/21 Pre-Operative Diagnosis: Left hip primary osteoarthritis Post-Operative Diagnosis: Left hip primary osteoarthritis Surgery/Procedure Performed:: Left minimally invasive direct anterior hip replacement Description of Surgical Findings:: Stable hip with equal leg lengths Surgeon: Moe Trent cashier payments received: Hemanth Guillermo Type of Anesthesia: Spinal Special Medications: 2 g Ancef, 1 g TXA at incision, 1 g TXA closure, 10 mg Decadron, joint cocktail (5 mg Duramorph, 30 mL of 0.5% Ropivicaine, 1000 units of epinephrine, 30 mg of Toradol) Specimen's removed: Bony cuts Estimated Blood Loss (mL): 350 Fluids Replaced: 1400 Description of Procedure: Components used: 1. Accolade 2 Mcdaniels femoral stem size 2 127? 2. Mcdaniels trident 2 acetabular shell size 48 mm 3. Mcdaniels X3 polyethylene MDM outer liner 4. Shayna Biolox delta 22.2mm, 3mm femoral head 5. Mcdaniels MDM metal shell alpha code D Brief history operative indications: 51 yo f who failed conservative measures for their hip osteoarthritis. X-rays were consistent with osteoarthritis including joint space narrowing, osteophyte formation and subchondral cysts. Total hip replacement was discussed with the patient with risks and benefits including but not limited to blood loss, DVTs, PEs, neurovascular damage, dislocation, general risks of anesthesia including loss of life. Patient demonstrated an understanding medical clearance is obtained the patient was consented for surgery. Procedure: On the date of procedure the patient's L hip was marked in the preoperative area. Patient was then taken back to the operating room where anesthesia assumed control of the C-spine and airway and administered anesthetic. Patient was transferred to the operating table and placed in the supine position. The hips were placed at the break of the bed and a sacral bump was placed. L The lower extremity was then prepped out in a sterile fashion using chlorhexidine while the surgeon scrubbed. The PA was vital in the positioning of the patient. Upon reentering the room the left lower extremity was draped in the standard orthopedic fashion and the incision was marked. A timeout was called and everyone agreed upon the side, the site, the procedure be performed, antibody given, and patient's identity. At this time incision was made through skin, subcutaneous tissue, and fat down to fascia. The fascia was then incised and the TFL was retracted laterally. A retractor was placed on the lateral border of the femoral neck. Attention was directed to the inferior portion of the approach and all crossing vessels were identified and appropriately coagulated. A retractor was then placed on the medial portion of the femoral neck. The anterior capsule was then cleared of all soft tissue and then H shaped capsulotomy was made. The retractors were then placed inside the capsule. The femoral neck was identified and a cleanup cut was made. At this time a power corkscrew was used to remove the femoral head. Attention was then turned toward the acetabulum where the soft tissues were appropriately retracted and the acetabulum was sequentially reamed to 48 mm. A 48 mm cup was then selected and impacted into place. Acetabular liner was impacted into place and locking mechanism was verified. The position of the acetabular cup was then verified under live fluoroscopy. Attention was then turned to the femur. Soft tissue releases on the medial and lateral femoral neck were appropriately done, the leg was externally rotated and lateralized. A Watkins retractor was placed medially and proximally to the greater trochanter this allowed appropriate visualization and exposure of the femoral canal. Rongeour was then used to remove excess lateral bone. A canal finder and entry broach were used to open the proximal canal. Once we verified we were down the femoral canal we subsequently broached up to a size 2 femur. The appropriate neck was placed in the previously selected head was trialed with a 3 mm neck. Traction was pulled and the hip was reduced with internal rotation. Once it was appropriately reduced and stability was checked. There was minimal shuck, equal leg lengths and appropriate stability with hyperextension and external rotation as well as with 90? flexion and internal rotation. Fluoroscopy was then also used to verify the position of the components and leg lengths using the contralateral side for comparison. The trial components were then dislocated the proximal femur was again exposed and the components were removed from the wound. The final components were verified and opened. The wound was copiously irrigated out with normal saline. The acetabulum was checked for any residual debris. The final components were placed and impacted. Traction and internal rotation were again used to reduce the hip. After adequate reduction the hip remained stable with appropriate leg lengths. The final components were once again checked with live fluoroscopy and were found to be satisfactory. The wound was then copiously irrigated with normal saline once more, and hemostasis was obtained. Closure was then done using #1 Vicryl runner to close the fascia. A 2-0 vicryl interuppted sutures were used to close the subcutaneous skin. A 3-0 Monocryl and Steri-Strips were used for final skin closure. A Silverlon dressing was placed. Patient was awakened by anesthesia and transferred to the [facility]. Patient was then transferred to the PACU for recovery. Patient will be placed on 2 weeks of postoperative doxycycline due to high risks related to BMI of 43. During the course of the procedure the physician aircraft landing gear inspector (PE) played a vital role. Their intimate knowledge of my steps in the procedure aided in safe and expedient completion of the procedure. The PE played a vital rolls in positioning particularly in obtaining the appropriate positioning of the sacral bump. The PE was also vital in the retraction of soft tissues during the exposure and especially the femoral work as this is a vital part of the procedure to prevent complications and fractures. The PE was also vital and protecting soft tissues during times of bony cuts and reaming. He also played a vital role in closure with my direct supervision. The PE was also important during reduction and dislocation of the joint and trials intraoperatively. Postoperative plan: Patient will get 24 hours postop antibiotics. Patient will get in-house physical therapy and will be weight-bear as tolerated. Patient will follow up in office in 2 weeks for a wound check and x-rays. Aspirin 81 mg twice daily. Complications No intraoperative complications Admit VTE Documentation VTE Present on Admission: No VTE Mechan Device Prophylaxis: SCD's and Thigh High AUDREY Hose VTE Pharm Prophylaxis ordered?: Yes
[2021-07-03 07:41] LABS: Bedside Glucose 91 mg/dL (74-106)
[2021-07-03] MEDS: Ondansetron 4 MG/2 ML Vial IV (08:12)
--- NOTE | 2021-07-03 08:45 | RAD_ITS ---
STUDY: X-RAY - PELVIS AND LEFT HIP REASON FOR EXAM: Intraoperative fluoroscopy for left hip arthroplasty. TECHNIQUE: 6 intraoperative images of the pelvis and hip. COMPARISON: Radiographs 08/11/2020. FINDINGS: There is a left hip arthroplasty without evidence of complication. 5.5 seconds of fluoroscopy time was used. Electronically Signed: Bertram Emerson MD at 14:52 EDT , RAD/Hip 1 view with Pelvis
[2021-07-03] MEDS: Cefazolin 2 GM in 0.9% Normal Saline 100 ML IV (08:56)
[2021-07-03] MEDS: TXA 1000mg in NS100 100ml (IVPB at Incision) 660 MG IV (09:10)
[2021-07-03] MEDS: TXA 1000mg in NS100 100ml (IVPB at Closure) 660 MG IV (10:30)
--- NOTE | 2021-07-03 11:30 | RAD_ITS ---
STUDY: X-RAY - PELVIS AND LEFT HIP REASON FOR EXAM: Postoperative evaluation of left hip arthroplasty. TECHNIQUE: 2 views of the pelvis and hip. COMPARISON: Radiographs 08/11/2020. FINDINGS: There is postoperative gas in the soft tissues. There is a left hip arthroplasty without evidence of complication. RAD/Hip Min 2 Views (Portable) IMPRESSION: Uncomplicated left hip arthroplasty. Electronically Signed: Bertram Emerson MD at 12:14 EDT ,
[2021-07-03] MEDS: Lactated Ringers 1,000 ML 125 ML IV (13:10)
[2021-07-03] MEDS: Cefazolin 1 GM/50 ML BAG IV ×2 (14:28→20:51)
--- NOTE | 2021-07-03 14:28 | PN.HOSP_ITS ---
Documented by User: Sharon Tran NP, MUD MIXER OPERATOR-C 07/03/21 15:31 Subjective Subjective Patient seen and examined. Underwent left hip replacement secondary to primary osteoarthritis. Hospitalist services consulted for medical management. Pain currently controlled. Denies other symptoms or complaints. Objective Data Objective Data Vital Signs: Vital Signs Temp Pulse Resp BP Pulse Ox 97.4 F L 66 16 150/70 H 93 07/03/21 13:27 07/03/21 13:27 07/03/21 13:27 07/03/21 13:27 07/03/21 13:27 Oxygen Flow Rate (L/min) 4 Oxygen Delivery Method Room Air Weight: 222 lb 10.67 oz Body Mass Index (BMI) 43.4 Intake & Output: Intake and Output for Last 24 Hours 07/01/21 07/02/21 07/03/21 23:59 23:59 23:59 Intake Total 2434 / 2434 Balance 2434 / 2434 Lab / Micro Data Result Diagrams: 06/25/21 06:33 06/25/21 06:33 Labs: Laboratory Results - last 24 hr 07/03/21 06:40: Urine Test Negative 07/03/21 06:49: POC Glucose 91 Micro: Microbiology 06/25/21 06:33 Swab (Method) Nasal Screen MRSA/MSSA - Final Radiography Diagnostic Testing: Radiology Impression Hip X-Ray 07/03/21 11:30 IMPRESSION: Uncomplicated left hip arthroplasty. Electronically Signed: Bertram Emerson MD at 12:14 EDT Reading Location ID and State: [address] [place] [address] Tel , Service support , Physical Exam Const alert, oriented x3 and no apparent distress Orientation / Consciousness: awake, oriented to person, oriented to place and oriented to time HEENT normocephalic and moist oral mucous membranes Eyes PERRL, EOMs intact bilaterally and conjunctivae normal Neck no lymphadenopathy Resp normal respiratory effort and clear to auscultation bilaterally Cardio regular rate, regular rhythm and no murmurs Peripheral Pulses: pulses 2+ throughout GI normal to inspection, nondistended, normoactive bowel sounds, non-tender and non-distended Extremity normal to inspection Skin no rashes or lesions noted Lesions: no lesions Rashes: no rashes Trauma: no lacerations or abrasions Neuro CN's II-XII intact bilaterally, no focal motor deficits, no sensory deficits noted and deep tendon reflexes 2+ bilaterally Psych mental status grossly normal and affect normal Assessment & Plan Assessment/Plan (1) Hip osteoarthritis: PLAN: 1. Left hip primary osteoarthritis status post left hip replacement-management per orthopedic medicine. PT/OT. As needed pain regimen. 2. Anxiety/depression-on bupropion, as needed Ativan. 3. Chronic migraines-continue home regimen. 4. Vitamin D deficiency-continue supplementation. 5. Obesity-BMI 43. Encouraged diet and lifestyle modifications. DVT prophylaxis- aspirin BID This patient was seen by SAIDA Santiago under the supervision of Dr. Valadez. Time spent examining patient, reviewing data and subsequent management of care: 11 minutes Documented by User: Dr. Nathan Valadez MD 07/03/21 15:46 Objective Data Lab / Micro Data Result Diagrams: 06/25/21 06:33 06/25/21 06:33 Charges/Coding Addendum Addendum: Dr. Valadez: I personally reviewed the chart and examined the patient, and agree with the above findings. 51-year-old female presents for medical management after left total hip replacement for osteoarthritis. She denies any changes in her medications. She is on atenolol and Wellbutrin which will be continued here. Pain management per primary. Clinical time spent in all aspects of patient care: 15 minutes Visit Charges OBSV E&M: 24948 Subsequent observation care L2
[2021-07-03] MEDS: Famotidine 20 MG Tablet PO (17:15)
[2021-07-03] MEDS: buPROPion (XL) 300 MG TABLET.XL PO (17:16)
[2021-07-03] MEDS: Ensure Surgery 237 ML LIQUID PO (17:19)
[2021-07-03] MEDS: Senna/Docusate Sodium 1 Tablet 2 TABLET PO (20:50)
[2021-07-03] MEDS: Aspirin 81 MG TAB.CHEW PO (20:51)
[2021-07-03] MEDS: Ketorolac 15 MG/ML Vial IV (20:51)
[2021-07-03] MEDS: 0.9% Saline Lock 10 ML Syringe IV (20:52)
[2021-07-03] MEDS: HYDROcodone Bitartrate/Apap 5/325 Tablet PO (22:37)
[2021-07-04 03:13] VITALS: BP 131/72; PULSE 91; RESP 18; TEMP 37.1; O2SAT 99
[2021-07-04] MEDS: Ketorolac 15 MG/ML Vial IV ×2 (03:22→09:30)
[2021-07-04] MEDS: 0.9% Saline Lock 10 ML Syringe IV (03:23)
[2021-07-04 06:04] LABS: Hematocrit 31.7 % (37-47); Hemoglobin 10.7 g/dL (12.0-15.0); Mean Corp Hgb Conc 33.8 g/dL (32-36); Mean Corpuscular Hgb 31.6 pg (27.0-32.0); Mean Corpuscular Volume 93.5 fL (81-99); Platelet Count 265 K/mm3 (150-450); RBC Distribution Width CV 11.9 % (11.6-14.6); RBC Distribution Width SD 40.8 fl (35.1-43.9); Red Blood Count 3.39 M/mm3 (4.2-5.4); White Blood Count 7.4 K/mm3 (4.4-11.0)
[2021-07-04 06:39] LABS: Anion Gap 5 (5-15); BUN 11 mg/dL (7-18); BUN/Creat Ratio 13.2 RATIO (10-20); Calcium,Total 7.9 mg/dL (8.5-10.1); Chloride 108 mmol/L (98-107); Creatinine, Serum 0.83 mg/dL (0.55-1.02); EST Glomerular Filtration Rate 78 mL/min (>60); Est Glom Filt Rate - Afr Amer 94 mL/min (>60); Estimated Creatinine Clearance 58.89 ml/min; Glucose 127 mg/dL (74-106); Potassium 3.8 mmol/L (3.5-5.1); Sodium Level 139 mmol/L (136-145)
[2021-07-04] MEDS: HYDROcodone Bitartrate/Apap 5/325 Tablet PO ×2 (06:51→12:55)
[2021-07-04 09:15] VITALS: BP 155/76; PULSE 88; RESP 17; TEMP 37; O2SAT 97
[2021-07-04] MEDS: Ensure Surgery 237 ML LIQUID PO ×2 (09:31→12:55)
[2021-07-04] MEDS: Multivitamins,Ther W-Minerals Tablet 1 TABLET PO (09:32)
[2021-07-04] MEDS: Aspirin 81 MG TAB.CHEW PO (09:32)
[2021-07-04] MEDS: Doxycycline 100 MG CAPSULE PO (09:33)
[2021-07-04] MEDS: Famotidine 20 MG Tablet PO (09:33)
[2021-07-04] MEDS: Ascorbic Acid 500 MG Tablet PO (09:34)
[2021-07-04] MEDS: Senna/Docusate Sodium 1 Tablet 2 TABLET PO (09:34)
[2021-07-04] MEDS: Cholecalciferol (VIT D3) 25 MCG TABLET (1,000 UNITS) 50 MCG PO (09:34)
[2021-07-04] MEDS: buPROPion (XL) 300 MG TABLET.XL PO (09:35)
--- NOTE | 2021-07-04 10:01 | PN.ORTHO_ITS ---
Subjective Subjective The patient was sitting in bedside chair upon examination in which she just finished physical therapy. Patient denies any chest pain, shortness of breath, dizziness, lightheadedness, nausea or vomiting, or calf pain. No adverse overnight events. Patient's left hip is doing well. She has some generalized soreness in the thigh. She is tolerating physical therapy. Patient is wishing to be discharged home today. She has outpatient physical therapy established. Patient has been following with Dr. Merchant for pain in the hip. She reports that she has not any pain contract. She has used occasional tramadol preoperatively. Objective Data Objective Data Vital Signs: Vital Signs Temp Pulse Resp BP Pulse Ox 98.6 F 88 17 155/76 H 97 07/04/21 09:15 07/04/21 09:15 07/04/21 09:15 07/04/21 09:15 07/04/21 09:15 Oxygen Flow Rate (L/min) 2 Oxygen Delivery Method Room Air Weight: 101 kg Body Mass Index (BMI) 43.4 Intake & Output: Intake and Output for Last 24 Hours 07/02/21 07/03/21 07/04/21 23:59 23:59 23:59 Intake Total 4034 / 4034 Balance 4034 / 4034 Lab / Micro Data Result Diagrams: 07/04/21 05:24 07/04/21 05:24 Labs: Laboratory Results - last 24 hr 07/04/21 05:24: WBC 7.4, RBC 3.39 L, Hgb 10.7 L, Hct 31.7 L, MCV 93.5, MCH 31.6, MCHC 33.8, RDW Std Deviation 40.8, RDW Coeff of Pepito 11.9, Plt Count 265, MPV 9.0 07/04/21 05:24: Sodium 139, Potassium 3.8, Chloride 108 H, Carbon Dioxide 26.0, Anion Gap 5, BUN 11, Creatinine 0.83, Estim Creat Clear Calc 58.89, Est GFR (MDRD) Af Amer 94, Est GFR (MDRD) Non-Af 78, BUN/Creatinine Ratio 13.2, Glucose 127 H, Calcium 7.9 L Micro: Microbiology 06/25/21 06:33 Swab (Method) Nasal Screen MRSA/MSSA - Final Radiography Diagnostic Testing: Radiology Impression Hip/Pelvis X-Ray 07/03/21 08:45 Hip X-Ray 07/03/21 11:30 IMPRESSION: Uncomplicated left hip arthroplasty. Electronically Signed: Bertram Emerson MD at 12:14 EDT , Physical Exam Narrative Vital signs stable and afebrile. Patient is able to plantarflex and dorsiflex actively. Sensation is intact to light touch to saphenous, sural, superficial and deep peroneal, and tibial distribution. Dressing is clean dry and intact. Negative Homans bilaterally, negative signs and symptoms of DVT. Const alert, oriented x3 and no apparent distress Assessment & Plan Assessment/Plan (1) S/P total left hip arthroplasty: PLAN: 1. S/P left direct anterior total hip arthroplasty POD #1 2. Continue Pain Medications: [place], patient was instructed not to combine tram adol at home with any [place]. She reports to me that she has not in any pain contract. She will not take more than 3000 mg Tylenol in a 24-hour period. 3. DVT Prophylaxis: Take 81 mg aspirin twice daily for 4 weeks postoperatively for DVT prophylaxis 4. PT/OT: Weightbearing as tolerated with walker 5. H & H: 10.7/31.7, asymptomatic. Postoperative anemia secondary to acute blood loss from surgery without any intra operative complications. 6. Continue antibiotic 2 weeks postoperatively: Currently on doxycycline due to high risk related to BMI of 43 7. Encouraged Incentive Spirometry 8. Continue postoperative medical management per medicine: Case discussed with medicine and they are okay with discharge home today 9. Disposition: Plan will be for discharge home today. Patient is orth opedically stable. Prescriptions will be [facility] scrib[facility] to [facility]. She will follow-up per postop instructions. Patient has outpatient physical therapy established. She will contact orthopedics upon discharge with any concerns or questions. I have reviewed the [place] Automated Rx Reporting System (OARRS) report for this patient for refill pattern and other prescriber involvement as part of the appropriate surveillance for the provision of acute and chronic controlled medications. The report was requested and reviewed on the date of this entry and was considered in the prescribing process.
--- NOTE | 2021-07-04 10:07 | DCINST_ITS ---
Discharge Instructions Diet Discharge Diet: No restrictions Activity Discharge Activity: May Not Drive (while taking narcotic pain medications.) and May Shower (Do not submerge underwater for 6 weeks postoperatively) May shower in (days): 1 (only if incision is dry and without drainage. Do NOT soak/submerge in tub/pool/viera/stream/hot tub.)) Ice area for (Minutes): 20 (Every 1-2 hours while awake[address] barrier between ice and skin.) Weight Bearing Status: Weight bearing as tolerated Keep extremity elevated above heart level: Operative Extremity Dressing / Incision Call your doctor if your incision/area has: Continuous Slow Oozing, Sudden Increased Bleeding, Increased Pain/ Swelling, Increased Redness and Foul Sme lling Discharge Call your doctor if you observe: Fever of 101 or Higher, Shortness of breath, Chest pain, Calf discomfort and Uncontrolled pain Remove Dressing in: 4 days (Okay to remove dressing on July 08, 2021) Additional Dressing/Incision Instructions:: Follow [facility] Post-op Instructions. Once postoperative dressing has been removed, only use gentle soap and water over the incision. Do not use any ointments, Neosporin, salves, alcohol pads over the incision for 6 weeks postoperatively. Do not submerge underwater for 6 weeks postoperatively. Continue with AUDREY hose/elastic stockings for 2 weeks postoperatively. May remove at nighttime but needs to be placed back on the leg during the day. Do NOT use alcohol with narcotic pain medication. Do NOT make important decisions while taking narcotic medication. If you have problems with taking your medication (rash, itching, nausea, etc.) call the office at once. Follow Up Care Test Results: Test results from this visit will be discussed in further detail at your follow-up appointment, if applicable. Discharge Plan Admission Admit Date/Time: 07/03/21 07:02 Attending Provider: Moe Trent Primary Care Provider: Hal Canchola Consulting Providers: Nathan Valadez Discharge Orders/Prescriptions Prescriptions: New doxycycline monohydrate 100 mg Capsule 100 mg PO BID 14 Days Qty: 28 RF: 0 aspirin 81 mg Tablet,Chewable 81 mg PO BID 30 Days Qty: 60 RF: 0 famotidine 20 mg Tablet 20 mg PO DAILY 30 Days Qty: 30 RF: 0 hydrocodone-acetaminophen 5-325 mg Tablet 2 tab PO Q6H PRN PRN (Reason: Pain Score 6-10) 6 Days Qty: 48 RF: 0 sennosides-docusate sodium [Stool Softener-Stimulant Laxat] 8.6-50 mg Tablet 2 tab PO BID 3 Days Qty: 12 RF: 0 meloxicam 7.5 mg Tablet 7.5 mg PO BID 30 Days Qty: 60 RF: 0 Continued cholecalciferol (vitamin D3) 50 mcg (2,000 unit) capsule 50 mcg PO DAILY RF: 0 ascorbate calcium (vitamin C) 500 mg tablet 500 mg PO DAILY RF: 0 ascorbic acid-elderberry fruit [Airborne (elderberry)] 100-50 mg tablet,chewable 100 tab PO DAILY RF: 0 elderberry fruit 200 mg capsule 200 mg capsule 200 mg PO DAILY RF: 0 zinc 50 mg tablet 50 mg PO DAILY RF: 0 multivitamin,rx-nkwt-yoffewdu tablet 1 tab PO DAILY RF: 0 bupropion HCl 300 MG tablet extended release 24 hr 300 mg PO DAILY RF: 0 atenolol 25 mg tablet 25 mg PO DAILY PRN (Reason: MIGRAINES) RF: 0 tramadol [Ultram] 50 mg Tablet 50 mg PO TID PRN (Reason: Pain) RF: 0 lorazepam [Ativan] 0.5 mg Tablet 0.5 mg PO TID PRN (Reason: Anxiety) RF: 0 acetaminophen 500 mg Tablet 1,000 mg PO Q6H PRN (Reason: Pain) Qty: 0 RF: 0 Referrals / Follow Up: Physical,Therapy [Other] - 07/08/21 Hal Canchola MD [Primary Care Provider] - Hemanth Guillermo PA-C [PHYSICIAN BASE DRAW OPERATOR] - 07/18/21 2:45 pm Disposition Disposition (needs filled in before D/C Order can be placed): Home, Self Care
--- NOTE | 2021-07-04 10:19 | PCM.PN.HOSP ---
Subjective Subjective Patient states she is feeling well today. No issues overnight. Plan is for home-going later today. Objective Data Objective Data Vital Signs: Vital Signs Temp Pulse Resp BP Pulse Ox 98.6 F 88 17 155/76 H 97 07/04/21 09:15 07/04/21 09:15 07/04/21 09:15 07/04/21 09:15 07/04/21 09:15 Oxygen Flow Rate (L/min) 2 Oxygen Delivery Method Room Air Weight: 101 kg Body Mass Index (BMI) 43.4 Intake & Output: Intake and Output for Last 24 Hours 07/02/21 07/03/21 07/04/21 23:59 23:59 23:59 Intake Total 4034 / 4034 Balance 4034 / 4034 Lab / Micro Data Result Diagrams: 07/04/21 05:24 07/04/21 05:24 Labs: Laboratory Results - last 24 hr 07/04/21 05:24: WBC 7.4, RBC 3.39 L, Hgb 10.7 L, Hct 31.7 L, MCV 93.5, MCH 31.6, MCHC 33.8, RDW Std Deviation 40.8, RDW Coeff of Pepito 11.9, Plt Count 265, MPV 9.0 07/04/21 05:24: Sodium 139, Potassium 3.8, Chloride 108 H, Carbon Dioxide 26.0, Anion Gap 5, BUN 11, Creatinine 0.83, Estim Creat Clear Calc 58.89, Est GFR (MDRD) Af Amer 94, Est GFR (MDRD) Non-Af 78, BUN/Creatinine Ratio 13.2, Glucose 127 H, Calcium 7.9 L Micro: Microbiology 06/25/21 06:33 Swab (Method) Nasal Screen MRSA/MSSA - Final Radiography Diagnostic Testing: Radiology Impression Hip/Pelvis X-Ray 07/03/21 08:45 Hip X-Ray 07/03/21 11:30 IMPRESSION: Uncomplicated left hip arthroplasty. Electronically Signed: Bertram Emerson MD at 12:14 EDT , Physical Exam Const alert, oriented x3, no apparent distress, healthy appearing and well nourished Constitutional Narrative: Obese middle-aged white female sitting up in a chair with a visitor at the bedside and multiple people from therapy services in the room, patient appears comfortable and nontoxic Exam Limitations: no limitations Nutritional Appearance: morbidly obese HEENT head/scalp atraumatic and moist oral mucous membranes Head and Scalp: normocephalic Resp normal respiratory effort, no retractions, no use of accessory muscles and clear to auscultation bilaterally Auscultation: Negative for crackles, rales, rhonchi or wheezes Cardio regular rate, regular rhythm, S1 normal heart sound, S2 normal heart sound, no murmurs, no rub, no gallops, no clicks and no JVD GI normal to inspection, nondistended, normoactive bowel sounds, soft to palpation, non-tender and non-distended Extremity no clubbing, cyanosis or edema Extremity Narrative: Bilateral lower extremity AUDREY hose in place, dressing on left hip surgical incision-clean dry and intact Peripheral Pulses: Yes pulses 2+ throughout Neuro oriented x3, CN's II-XII intact bilaterally, moves all extremities and no focal motor deficits Neuro Narrative: Limited left lower extremity strength secondary to recent surgery Sensorium / Orientation: awake and alert Speech: speech normal Psych affect normal Assessment & Plan Assessment/Plan (1) Hip osteoarthritis: (2) S/P total left hip arthroplasty: PLAN: Left hip osteoarthritis -Postop day 1 total left hip replacement -Management per primary service -PT OT -Pain management per primary -Recommend bowel regimen -Medically stable for discharge home later today if okay with orthopedic surgery Vitamin D deficiency -Continue home supplementation History of migraines -Continue home regimen Anxiety/depression -Continue home Wellbutrin Morbid obesity -BMI still 43 -Encourage diet and lifestyle modifications for weight loss -Complicates treatment, prognosis, outcomes DVT prophylaxis -Aspirin 81 mg p.o. twice daily per orthopedic surgery Dispo: Medically stable for discharge Charges/Coding Visit Charges Inpatient E&M: 27938 Subs Hosp L2
--- NOTE | 2021-07-04 10:30 | CASEMGMT ---
RN CM INSURANCE WRITER CM to room to meet with patient for initial transition planning/care coordination assessment. RN PREETI introduced self and role at [facility]. Pt voices understanding and consents to assessment at this time. Pt resting in bed in no distress at this time. Significant other/POA, Madelin, @ bedside. Pt is A/O at this time and answers all questions appropriately. Care providers, pharmacy, and demographics verified/updated at this time. PCP: Dr Canchola Specialists: Dr Trent--ortho Preferred Pharmacy: [facility] Retail Insurance: [facility] [employer] Prescription Benefit: Yes Living Will/HPOA: Has both LW and HPOA, who is her sig other, Madelin. LNOK: SO, Madelin Living Arrangements: Lives w/Madelin in 2-story home. Bedroom and shower on 2nd floor, but plans to stay on first floor while recovering. Plans to shower @ [facility] after therapy. Madelin taking time off of work and able to assist pt as needed. Transportation: Pt and Madelin DME: [facility] has the following DME: borrowed walker, shoe horn, general science teacher, sock aide, polar care. Pt would like another WW so has one on both floor. Denies preference of DME co. Script obtained for WW and faxed to [facility]. [facility]i to deliver walker to pt's room today. HHC/SNF: No hx of either. No needs identified. Pt plans to do OP therapy @ [facility]. Per pt, 1st appt scheduled for tomorrow 07/05 @ 2 PM. Pt wishes to return home and states has no concerns with going home at time of discharge. CM to follow for any further discharge planning/needs. Pt voices no further concerns/needs at this time. Advised pt to ask for CM if any further questions/concerns/needs arise. Voices understanding. PLAN: Home w/OP therapy @ [facility] and support of sig other. WW to be delivered to pt's room Ever STANFORD RN, CM
[2021-07-04 13:39] VITALS: BP 141/80; PULSE 90; RESP 14; TEMP 37; O2SAT 98
== END 2021-07-04 13:46 | disposition home or self-care (01) ==
LOC: SDC 08:31 → MS3 08:31
PROVIDERS: Anesthesiology; Admitting Provider Specialist; PCP Family Medicine; Referring Provider Specialist; Visit Provider Specialist
PROC: (CPT 27284; principal; 2021-07-03 08:20)
DX: M16.12 Unilateral primary osteoarthritis, left hip (principal); Z68.41 Body mass index [BMI] 40.0-44.9, adult; E66.01 Morbid (severe) obesity due to excess calories; F17.210 Nicotine dependence, cigarettes, uncomplicated; G43.709 Chronic migraine without aura, not intractable, without status migrainosus; F32.A Depression, unspecified; E55.9 Vitamin D deficiency, unspecified; Z79.899 Other long term (current) drug therapy; Z86.16 Personal history of COVID-19; M99.03 Segmental and somatic dysfunction of lumbar region; M99.05 Segmental and somatic dysfunction of pelvic region; F41.9 Anxiety disorder, unspecified
CPT/HCPCS: 27130; 01214; 36415; 73501; 73502; 76000; 80048; 81025; 82040; 82962; 83735; 85025; 85027; 87081; 93005; 96361; 96365; 96366; 96376; 97110; 97162; 97166; 97530; 97535; 99218; 99251; C1776; J7120; A4216; G0378; G0463; J2405

== ENCOUNTER 2021-09-03 16:00 | Outpatient (RCR) | payer OTHER, SELFPAY ==
--- NOTE | 2021-07-05 14:56 | HP.PTEVAL_ITS ---
Patient's Visit Information TYE XIE is a 51 year old F referred to Physical Therapy by John Guillermo PA-C with a diagnosis of L NENO 07/03 anterior approach, hip OA. Date of Evaluation: 07/05/21 Physical Therapist: Mp Rivera, DPT, OCS, CSCS - Visit Plan Frequency: 3x /Week Duration: 4-6 Weeks Plan: 3x/weeek for 4-6 weeks for. 1. L hip ROM(ant hip precautions) stretch quad. 2. L hip strength and LE strength. 3. Gait training decreasing device to tolerance and steps. 4. ice as needed(pt has polarcare at home) - Subjective Two days ago had NENO L anterior approach. Pain level is 1/10 at rest, 2/10 with walking. Using wh walker to get around. On pain meds with norco adn tylenol and mobic and flexeril. Sleep is interrupted with pain in the hip and difficulty moving. 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 Dresses self today. Showers is on second floor. 5 steps to get down with assist sideways. Wants to hike again. Hip has not felt good in 6 months. HEP : QS , AP,. SLR, HS with sheet assist, GS - Pain L hip Pain Intensity (Out of 10): 1 Pain Intensity Range: 0, 2 - Objective Walks with wh walker back to PT with good gait pattern. Trasnfers utilizing UE I. Bed trasnfers moving L LE with R is I obeying precaution. Steps are using R only with two hands on rail up and down sideways. SLR not able L, can bent leg raise. knee aROM L 0-90 and R 0-110. AROM L hip 0 ext to 90 flexion, rotations not tested, abduction to 25 PROM. L hip strength 51 ext adn 15 flexion pounds. TUG 19 sec. ankle movements WNL and strength 4+, knee strength 4+/5 HS, 3 l quad and 4+ r quad. sensation LE WNL to gross light touch. Overal able to ambulate with decent gait pattern without AD 200 feet. Standing balance with ec I romberg. - Balance/Special Test Scores WOMAC Total Score: 59 WOMAC Percentatge: 38.5500 - Goals Goal 1:: Walk without AD I in community safe and I without pain Goal Time Frame: 4-6 Weeks Goal 2:: Up and down steps reciprocally with one rail Goal Time Frame: 4-6 Weeks Goal 3:: Pain 0/10 with normal daily activities Goal Time Frame: 4-6 Weeks Goal 4:: Plan to return to work Goal Time Frame: 4-6 Weeks Goal 5:: <10 WOMAC score Goal Time Frame: 4-6 Weeks - Rehabilitation Potential Physical Therapy Diagnosis: s/p L NENO Rehabilitation Potential: Good - Anticipated Interventions Patient/Client Instruction: Educate patient on: Condition, Plan of Care For the Purpose of:: To decrease pain, To increase ROM, To improve muscle perfor gibran and motor function, To improve gait and locomotor functions Therapeutic Exercise to Include: Strength training, Balance training, Gait and locomotor training, Passive ROM, Active ROM For the Purpose of:: To decrease pain, To increase ROM, To improve muscle performance and motor function, To increase tolerance to activity/condition/position, To improve ability of physical actions for home/community/work/leisure, To improve gait and locomotor functions Manual Therapy Techniques to Include: Passive ROM For the Purpose of:: To decrease pain Thank you for the opportunity to evaluate your patient. For Medicare and Medicare HMO plans, please review the plan of care and approve it. It will need to be FAXED BACK to us at [phone] for Medicare purposes. For Medicare only, by signing this I certify the plan of care. Please let me know if there are questions or concerns regarding this plan of care. Physician Signature: Date:
--- NOTE | 2021-08-02 12:32 | HP.PTREVAL ---
John Guillermo PA-C, It has been my pleasure to treat TYE XIE over the last 13 visits for L NENO 07/03 anterior approach, hip OA. Please see the progress note below for an update on the physical therapy plan of care! Subjective: Nearly fell on steps straining quad. Still can't put shoes on herself but did get sock on. Uses shoehorn. 04/01 quad L coming in today. Almost fall on steps caused that. Sleep is Ok, almost on L side. Objective/Function: Much better gait without post L rotating pelvis today, no antlagi. Steps reciprocal with one rail, weakness noted L descending. ROM hip ext L 8 and flexion to 105. Improving strength and gait and steps. Pt needs to be on feet all day at work in 8 weeks and will need more strength, appropriate to cotninue POC with fair prognosis. Plan Plan: 2x/week for 4 weeks for. 1. functional strength progression L hip. 2. continue L hip ext and flexion and ext rot ROM to facilitate donning shoes. Progress HEP Balance/Gait/Functional tests - Balance/Special Test Scores WOMAC Total Score: 11 WOMAC Percentage: 88.5500 Goals Goal 1:: Walk without AD I in community safe and I without pain Goal Time Frame: 4-6 Weeks Goal Progress: Goal Met Goal 2:: Up and down steps reciprocally with one rail Goal Time Frame: 4-6 Weeks Goal Progress: Goal Met Goal 3:: Pain 0/10 with normal daily activities Goal Time Frame: 4-6 Weeks Goal Progress: Goal Met Goal 4:: Plan to return to work Goal Time Frame: 4-6 Weeks Goal Progress: Progressing Goal 5:: <10 WOMAC score Goal Time Frame: 4-6 Weeks Goal Progress: Progressing Goal 6:: down steps without railing with good strength Goal Time Frame: 2-4 Weeks Goal Progress: NEW GOAL Anticipated Interventions Patient/Client Instruction: Educate patient on: Condition, Plan of Care For the Purpose of:: To decrease pain, To increase ROM, To improve muscle performance and motor function, To improve gait and locomotor functions Therapeutic Exercise to Include: Strength training, Balance training, Gait and locomotor training, Passive ROM, Active ROM For the Purpose of:: To decrease pain, To increase ROM, To improve muscle performance and motor function, To increase tolerance to activity/condition/position, To improve ability of physical actions for home/community/work/leisure, To improve gait and locomotor functions Manual Therapy Techniques to Include: Passive ROM For the Purpose of:: To decrease pain Please do not hesitate to contact me at [phone] by phone or if you have questions or concerns regarding this new plan of care! Sincerely, Mp Rivera, DPT, OCS, CSCS
--- NOTE | 2021-09-03 16:21 | HP.PTDCSUM ---
It has been my pleasure to treat TYE XIE referred by John Guillermo PA-C, with the diagnosis of L NENO 07/03 anterior approach, hip OA for a total of 21 visit(s). Discharge Date: 09/03/21 Please see the following information for a summary of their discharge status. Subjective: Doing well. No pain over the weekend. Worked out at [employer] and did fine. Sleep is OK. Back to work in 3 weeks. L hip Pain Intensity (Out of 10): 0 % Improvement: 90 Objective/Function: 10 extension and 110 flexion today. strength is 4+ flexion and extension, unable to use dynomometer as it will not register today. Walks without antalgia. Steps reciprocally without rail easily. touches floor easily. crosses legs to put on shoes tight but can do. Transfers I. Goal 1:: Walk without AD I in community safe and I without pain Goal Progress: Goal Met Goal 2:: Up and down steps reciprocally with one rail Goal Progress: Goal Met Goal 3:: Pain 0/10 with normal daily activities Goal Progress: Goal Met Goal 4:: Plan to return to work Goal Progress: Goal Met Goal 5:: <10 WOMAC score Goal Progress: Goal Met Goal 6:: down steps without railing with good strength Goal Progress: Goal Met Plan: d/c If there are questions or concerns regarding this patient's physical therapy, please feel free to call me at [phone]. Thank you for the referral of this patient. Sincerely, Mp Rivera, DPT, OCS, CSCS Balance/Gait/Functional tests - Balance/Special Test Scores Lower Extremity Functional Score: 59 TUG Test Time Seconds: 6 WOMAC Total Score: 8 WOMAC Percentage: 91.6700
== END 2021-09-03 19:00 | disposition home or self-care (01) ==
LOC: PT 16:00
PROVIDERS: PCP Family Medicine; Referring Provider Physician Assistant Surgical; Visit Provider Physician Assistant Surgical
DX: M16.12 Unilateral primary osteoarthritis, left hip (principal); Z47.1 Aftercare following joint replacement surgery; Z96.642 Presence of left artificial hip joint
CPT/HCPCS: 97110; 97113; 97140; 97161; 97164

== ENCOUNTER → 2021-11-14 | Outpatient (CLI) | payer OTHER, SELFPAY ==
--- NOTE | 2021-11-14 07:33 | BI_ITS ---
MAMMOGRAPHY - BILATERAL SCREENING REASON FOR EXAM: Female, 51 years old. Routine annual screening examination. PERTINENT HISTORY: Mother with breast cancer. Prior left ultrasound-guided breast biopsy. TECHNIQUE: Digital bilateral breast mary jo (3D mammographic acquisition) in the CC and MLO projections. 2-D mediolateral oblique (MLO) and craniocaudad (CC) views of both breasts were obtained. CAD: Full Field Digital Mammography with Computer Added Detection was performed. COMPARISON: Comparison is made with prior study dated 09/28/2020 and 01/19/2019. FINDINGS: Breast Composition: The breasts are heterogeneously dense, which may obscure small masses. There are no dominant masses or suspicious calcifications. A tissue clip marker is once again seen in the deep upper lateral portion of the left breast. A tissue clip marker is also seen in the upper central portion of the right breast No other significant abnormalities are identified. There has been no significant change since the prior study. BI/SCRN MAMM (CAD)W/MARY JO BILAT IMPRESSION: Stable bilateral screening mammogram. Yearly follow-up mammogram recommended. (A) ASSESSMENT CATEGORY: BIRADS Category 2: Benign. A letter regarding these results will be sent to the patient by the facility within 30 days. Approximately 10% of breast cancers are not detected by mammography. A normal mammogram should not delay biopsy of a clinically suspicious abnormality. [id number] Electronically Signed: Vitaly Ventura MD at 8:38 EDT ,
== END | disposition home or self-care (01) ==
PROVIDERS: PCP Family Medicine; Visit Provider Family Medicine
DX: Z12.31 Encounter for screening mammogram for malignant neoplasm of breast (principal); Z80.3 Family history of malignant neoplasm of breast
CPT/HCPCS: 77063; 77067

== ENCOUNTER → 2022-01-14 | Outpatient (CLI) | payer OTHER, SELFPAY | END | disposition home or self-care (01) | LOC: LABSPEC 01-15 09:19 | PROVIDERS: PCP Family Medicine; Referring Provider Nurse Practitioner Women's Health; Visit Provider Nurse Practitioner Women's Health | DX: N89.8 Other specified noninflammatory disorders of vagina (principal) | CPT/HCPCS: 87070; 87205 ==

== ENCOUNTER → 2022-01-22 | Outpatient (CLI) | payer OTHER, SELFPAY ==
--- NOTE | 2022-01-22 15:59 | US_ITS ---
INDICATION: AUB EXAMINATION: Ultrasound US Transvaginal Non-OB TECHNIQUE: Transvaginal (for optimal evaluation of the adnexa) pelvic ultrasound was performed. Grayscale, spectral waveform, and color flow Doppler evaluation of the adnexa. COMPARISON: Transabdominal ultrasound January 22, 2022. December 13, 2012 ultrasound. FINDINGS: UTERUS: Anteverted. The uterus measures 9.4 x 3.7 x 5.3cm. Right uterine body 0.8 cm hypoechoic fibroid, mostly myometrial with less than 50% submucosal component suggested. Posterior uterine body myometrial 1.1 cm hypoechoic fibroid. Fundal 1.3 cm hypoechoic mostly myometrial fibroid with small submucosal component. Posterior lower uterine segment hypoechoic 1.4cm fibroid, predominantly myometrial with small exophytic subserosal component The endometrial stripe measures 5 mm in AP diameter which is within normal limits. Multiple anechoic nabothian cysts up to 1.7 cm. 1.3 cm likely complex nabothian cyst with internal thin-walled daughter cyst and layering debris. RIGHT OVARY: 2.2 x 1.4 x 1.5 cm. Non-enlarged, normal echogenicity. Limited Doppler assessment, possibly due to location. LEFT OVARY: 2.3 x 0.9 x 1.5 cm with dominant 9 mm follicle. Limited Doppler assessment, possibly due to location. FREE FLUID: None. US/Transvaginal Non- IMPRESSION: Multi fibroid uterus as above, predominantly myometrial with small submucosal and subserosal components. Multiple chronic nabothian cysts with increased size and complexity within one cyst. No suspicious vascular nodularity is seen. Would ensure currency of cervical cancer screening. Ultrasound follow-up may be obtained as clinically indicated. Normal ovarian morphology. Doppler assessment is limited, possibly due to position of the ovaries. Electronically Signed: Curt Buckley MD at 20:14 EDT ,
--- NOTE | 2022-01-22 15:59 | US_ITS ---
INDICATION: AUB EXAMINATION: Ultrasound US Transvaginal Non-OB TECHNIQUE: Transvaginal (for optimal evaluation of the adnexa) pelvic ultrasound was performed. Grayscale, spectral waveform, and color flow Doppler evaluation of the adnexa. COMPARISON: Transabdominal ultrasound January 22, 2022. December 13, 2012 ultrasound. FINDINGS: UTERUS: Anteverted. The uterus measures 9.4 x 3.7 x 5.3cm. Right uterine body 0.8 cm hypoechoic fibroid, mostly myometrial with less than 50% submucosal component suggested. Posterior uterine body myometrial 1.1 cm hypoechoic fibroid. Fundal 1.3 cm hypoechoic mostly myometrial fibroid with small submucosal component. Posterior lower uterine segment hypoechoic 1.4cm fibroid, predominantly myometrial with small exophytic subserosal component The endometrial stripe measures 5 mm in AP diameter which is within normal limits. Multiple anechoic nabothian cysts up to 1.7 cm. 1.3 cm likely complex nabothian cyst with internal thin-walled daughter cyst and layering debris. RIGHT OVARY: 2.2 x 1.4 x 1.5 cm. Non-enlarged, normal echogenicity. Limited Doppler assessment, possibly due to location. LEFT OVARY: 2.3 x 0.9 x 1.5 cm with dominant 9 mm follicle. Limited Doppler assessment, possibly due to location. FREE FLUID: None. US/Pelvic (Non ) IMPRESSION: Multi fibroid uterus as above, predominantly myometrial with small submucosal and subserosal components. Multiple chronic nabothian cysts with increased size and complexity within one cyst. No suspicious vascular nodularity is seen. Would ensure currency of cervical cancer screening. Ultrasound follow-up may be obtained as clinically indicated. Normal ovarian morphology. Doppler assessment is limited, possibly due to position of the ovaries. Electronically Signed: Curt Buckley MD at 20:14 EDT ,
== END | disposition home or self-care (01) ==
LOC: US 15:58
PROVIDERS: PCP Family Medicine; Referring Provider Nurse Practitioner Women's Health; Visit Provider Nurse Practitioner Women's Health
DX: N93.9 Abnormal uterine and vaginal bleeding, unspecified (principal)
CPT/HCPCS: 76830; 76856

== ENCOUNTER → 2022-02-28 | Outpatient (CLI) | payer OTHER, SELFPAY ==
[2022-02-28 10:41] LABS: Absolute Neutrophil Count 4.6 X10^3/uL (2.0-7.7); Basophil# 0.08 X10^3/uL; Basophil% 0.9 % (0-1); Eosinophil# 0.22 X10^3/uL; Eosinophils% 2.4 % (0-5); Hematocrit 41.8 % (37-47); Hemoglobin 13.8 g/dL (12.0-15.0); Lymphocyte % 38.5 % (19-41); Mean Corpuscular Hgb 30.6 pg (27.0-32.0); Mean Corpuscular Volume 92.7 fL (81-99); Mean Platelet Vol. 8.8 fl (6.2-12.0); Monocyte# 0.63 X10^3/uL; Monocyte% 6.9 % (0-10); NRBC Flagged by Analyzer 0 % (0-5); Neutrophil # 4.64 X10^3/uL (2.7-7.7); Neutrophil % 51.1 % (47-70); Platelet Count 403 K/mm3 (150-450); RBC Distribution Width SD 41.1 fl (35.1-43.9); Red Blood Count 4.51 M/mm3 (4.2-5.4); White Blood Count 9.1 K/mm3 (4.4-11.0)
[2022-02-28 11:20] LABS: Thyroid Stim Hormone (TSH) 4.53 uIU/mL (0.358-3.74)
[2022-03-09 14:21] LABS: HPV APTIMA, High Risk Negative (Negative)
== END | disposition home or self-care (01) ==
LOC: LAB 15:02 → LABSPEC 15:02
PROVIDERS: PCP Family Medicine; Referring Provider Obstetrics & Gynecology; Visit Provider Obstetrics & Gynecology
DX: N93.9 Abnormal uterine and vaginal bleeding, unspecified (principal); E03.9 Hypothyroidism, unspecified; Z12.4 Encounter for screening for malignant neoplasm of cervix
CPT/HCPCS: 36415; 84439; 84443; 85025; 87624; 88175; G0145

== ENCOUNTER → 2022-05-29 | Outpatient (CLI) | payer OTHER, SELFPAY ==
[2022-05-29 08:39] LABS: T4 Free Direct 0.86 ng/dL (0.76-1.46)
[2022-05-31 01:07] LABS: Thyroid Peroxidase AB < 9 IU/mL (0-34)
[2022-05-31 12:38] LABS: Thyroglobulin Antibody < 1.0 IU/mL (0.0-0.9)
== END | disposition home or self-care (01) ==
LOC: LAB 07:41
PROVIDERS: PCP Family Medicine; Visit Provider Obstetrics & Gynecology
DX: R94.6 Abnormal results of thyroid function studies (principal)
CPT/HCPCS: 36415; 84439; 84443; 86376; 86800

== ENCOUNTER 2022-06-24 14:00 | Outpatient (RCR) | payer OTHER, SELFPAY ==
--- NOTE | 2022-06-13 09:41 | HP.PTEVAL ---
Patient's Visit Information TYE XIE is a 52 year old F referred to Physical Therapy by John Guillermo PA-C with a diagnosis of presence L artificial hip. Date of Evaluation: 06/13/22 Physical Therapist: Mp Rivera, DPT, OCS, CSCS - Visit Plan Frequency: 2-3x /Week Duration: 4-6 Weeks Plan: f/u in a week to check ex [id number] will see as needed 2x/week for 4-6 weeks for... 1. progression of eccentric hip flexion, rollout quad and psoas DTR, stretch same. hip strength to toleranceL - Subjective About two months ago slipped on ice and L hip went backwards. Hurts since . Waited 7 weeks to see doctor. Doctor gave medrol pack and sent for PT. medrol helped 60%. Pain this week is in L hip to 4/10, this happens getting in car with L foot planted. No pain at rest. Walking not a problem. Sore easier. Went to [place] 2 weeks ago and walked alot and did OK. Pain is anterior at hip. Sleep is fine. Tugs if rolls R. work is fine. Putting on sock hurts a bit . Steps can be tender at times. - Pain L hip Pain Intensity (Out of 10): 0 Pain Intensity Range: 0, 4 - Objective Walks I in adn out of PT without pain or antalgia. Trasnfers I but has pain lifting to flex L hip actively. Steps are reciprocal with rail and hurts to elevate L knee to net step transiently. Tender to palpation at L ASIS and into quad tendon, deeper into psoas on L moderately. SLR is painful in anterior L hip and hesitant, bent leg raise is better. Strength L hip flexion 3, R 4, other hip motions 4 on L, knee and ankle 4+. 100 AROM L hip flexion with pain, better passively pain [place]. Tight in quad and psoas L with pain anterior hip on stretch. knee and ankle aROM and strength WFL B. reflexes 2/3 patella and achilles B. Sensation LE WNL to gross light touch B LE. Much more pain with knee flexion and hip extension L ant hip vs R and worse then with hip in neutral. - Balance/Special Test Scores Oswestry Low Back Score: 8 - Goals Goal 1:: steps and get into car with pain 1/10 at worst Goal Time Frame: 4-6 Weeks Goal 2:: patient feel 80% better in overall pain and I in management with ex Goal Time Frame: 4-6 Weeks Goal 3:: oswestry score 4 or better Goal Time Frame: 4-6 Weeks - Rehabilitation Potential Physical Therapy Diagnosis: L hip flexor tendonitis/strain. limiting mobility Rehabilitation Potential: Fair - Anticipated Interventions Patient/Client Instruction: Educate patient on: Condition, Plan of Care For the Purpose of:: To decrease pain, To increase ROM, To improve nutrient delivery to tissue, To improve muscle performance and motor function, To increase tolerance to activity/condition/position Therapeutic Exercise to Include: Strength training, Flexibilty training, Gait and locomotor training, Passive ROM, Active ROM For the Purpose of:: To decrease pain, To increase ROM, To improve nutrient delivery to tissue, To improve muscle performance and motor function Manual Therapy Techniques to Include: Soft tissue mobilization For the Purpose of:: To decrease pain, To increase ROM, To improve nutrient delivery to tissue Thank you for the opportunity to evaluate your patient. For Medicare and Medicare HMO plans, please review the plan of care and approve it. It will need to be FAXED BACK to us at [phone] for Medicare purposes. For Medicare only, by signing this I certify the plan of care. Please let me know if there are questions or concerns regarding this plan of care. Physician Signature: Date:
--- NOTE | 2022-09-09 11:34 | HP.PT.NRP ---
TYE XIE was seen in my office for initial evaluation on 06/13/22. The following Plan of Care was established for this patient: Initial Frequency: 2-3x /Week Initial Duration: 4-6 Weeks Patient/Client Instruction: Educate patient on: Condition, Plan of Care For the Purpose of:: To decrease pain, To increase ROM, To improve nutrient delivery to tissue, To improve muscle performance and motor function, To increase tolerance to activity/condition/position Therapeutic Exercise to Include: Strength training, Flexibilty training, Gait and locomotor training, Passive ROM, Active ROM For the Purpose of:: To decrease pain, To increase ROM, To improve nutrient delivery to tissue, To improve muscle performance and motor function Manual Therapy Techniques to Include: Soft tissue mobilization For the Purpose of:: To decrease pain, To increase ROM, To improve nutrient delivery to tissue This patient was last seen in our office 06/24/22. Pertinent comments regarding their Physical therapy will appear below: Pt seen for two visits of HEP instruct for her hip and was much better at her second f/u. She was to follow up one more time to ensure progress but did not schedule or attend that visit. at this point, it has been over two months and I will discontinue from my care. At this point I will be discontinuing this patient from physical therapy. I would be happy to see this patient again in the future if found appropriate by the physician. Thank you! Mp Rivera, DPT, OCS, CSCS Balance/Gait/Functional tests - Balance/Special Test Scores Oswestry Low Back Score: 8
== END 2022-06-24 19:00 | disposition home or self-care (01) ==
LOC: PT 14:00
PROVIDERS: PCP Family Medicine; Referring Provider Physician Assistant Surgical; Visit Provider Physician Assistant Surgical
DX: Z47.1 Aftercare following joint replacement surgery (principal); Z96.642 Presence of left artificial hip joint; M16.12 Unilateral primary osteoarthritis, left hip
CPT/HCPCS: 97110; 97140; 97161

== ENCOUNTER → 2022-10-11 | Outpatient (CLI) | payer OTHER, SELFPAY ==
[2022-10-13 08:22] LABS: Vitamin D,25 Hydroxy 25.2 ng/mL
== END | disposition home or self-care (01) ==
LOC: LAB 07:10
PROVIDERS: PCP Family Medicine; Referring Provider Family Medicine; Visit Provider Family Medicine
DX: E55.9 Vitamin D deficiency, unspecified (principal); Z13.220 Encounter for screening for lipoid disorders; Z13.1 Encounter for screening for diabetes mellitus
CPT/HCPCS: 36415; 80053; 80061; 82306

== ENCOUNTER → 2023-01-12 | Outpatient (CLI) | payer OTHER, SELFPAY ==
--- NOTE | 2023-01-12 15:06 | BI_ITS ---
MAMMOGRAPHY - BILATERAL SCREENING REASON FOR EXAM: Female, 52 years old. Routine annual screening examination. PERTINENT HISTORY: Mother with breast cancer. History of prior right breast biopsies. TECHNIQUE: Digital bilateral breast mary jo (3D mammographic acquisition) in the CC and MLO projections. 2-D mediolateral oblique (MLO) and craniocaudad (CC) views of both breasts were obtained. CAD: Full Field Digital Mammography with Computer Added Detection was performed. COMPARISON: Comparison is made with prior study dated November 14, 2021 and September 28, 2020. FINDINGS: Breast Composition: The breasts are heterogeneously dense, which may obscure small masses. There are no dominant masses or suspicious calcifications. A tissue clip marker is once again seen in the deep upper lateral portion of the left breast. A tissue clip marker is also seen in the upper central portion of the right breast. Stable small benign-appearing bilateral axillary lymph nodes. No other significant abnormalities are identified. There has been no significant change since the prior study. BI/SCRN MAMM (CAD)W/MARY JO BILAT IMPRESSION: Stable bilateral screening mammogram. Yearly follow-up mammogram recommended. (A) ASSESSMENT CATEGORY: BIRADS Category 2: Benign. A letter regarding these results will be sent to the patient by the facility within 30 days. Approximately 10% of breast cancers are not detected by mammography. A normal mammogram should not delay biopsy of a clinically suspicious abnormality. [id number] Electronically Signed: Vitaly Ventura MD at 15:49 EDT ,
== END | disposition home or self-care (01) ==
LOC: OPBI 15:05
PROVIDERS: PCP Family Medicine; Referring Provider Obstetrics & Gynecology; Visit Provider Obstetrics & Gynecology
DX: Z12.31 Encounter for screening mammogram for malignant neoplasm of breast (principal); Z80.3 Family history of malignant neoplasm of breast
CPT/HCPCS: 77063; 77067

== ENCOUNTER → 2023-08-07 | Outpatient (CLI) | payer OTHER, SELFPAY ==
--- NOTE | 2023-08-07 18:04 | RAD_ITS ---
INDICATION: COUGH EXAMINATION/TECHNIQUE: X-RAY - XR Chest 2 Views COMPARISON: None. FINDINGS: LINES/DEVICES: None. LUNGS: No consolidation, edema or effusion. No pneumothorax. MEDIASTINUM AND CARDIOVASCULAR STRUCTURES: Cardiac silhouette not enlarged. BONES AND SOFT TISSUES: Unremarkable. RAD/Chest PA and Lateral IMPRESSION: No radiographic evidence of acute cardiopulmonary disease. Electronically Signed: Curt Buckley MD at 18:58 EDT ,
== END | disposition home or self-care (01) ==
PROVIDERS: PCP Family Medicine
DX: R05.9 Cough, unspecified (principal)
CPT/HCPCS: 71046

== ENCOUNTER → 2023-11-16 | Outpatient (CLI) | payer OTHER, SELFPAY ==
[2023-11-16 12:10] LABS: Estradiol < 11.0 pg/mL; Follicle Stimulating Hormone 70.5 mIU/mL
[2023-11-20 10:09] LABS: HPV APTIMA, High Risk Negative (Negative)
== END | disposition home or self-care (01) ==
PROVIDERS: PCP Family Medicine; Referring Provider Obstetrics & Gynecology; Visit Provider Obstetrics & Gynecology
DX: Z12.4 Encounter for screening for malignant neoplasm of cervix (principal); N93.9 Abnormal uterine and vaginal bleeding, unspecified
CPT/HCPCS: 36415; 82670; 83001; 87624; 88175; G0145

== ENCOUNTER → 2023-11-26 | Outpatient (CLI) | payer OTHER, SELFPAY ==
--- NOTE | 2023-11-26 17:14 | US_ITS ---
INDICATION: AUB EXAMINATION: Ultrasound US Pelvis Non OB Complete With Transvaginal Imaging COMPARISON: Pelvic ultrasound 01/22/2022. FINDINGS: 95 grayscale ultrasound images of the pelvis obtained both transabdominally and transvaginally. Suboptimal secondary to overlying bowel gas. UTERUS: Uterus measures : 7.4 x 3.1 x 4.6 cm. Endometrial thickness of 0.1 cm. Nabothian cysts, largest measuring up to 1.3 cm. Subcentimeter intramural level right anterior as well as right posterior hypoattenuating lesions, measuring up to 0.9 cm, consistent with uterine fibroids. ADNEXA: Bilateral ovaries are not visualized. No significant free fluid. URINARY BLADDER: Adequately distended urinary bladder is unremarkable, 155 cc volume. US/Pelvic w/ Transvaginal IMPRESSION: Bilateral ovaries are not visualized. Few subcentimeter intramural uterine fibroids. Electronically Signed: Santiago Colón MD at 2:41 EDT ,
== END | disposition home or self-care (01) ==
LOC: US 17:13
PROVIDERS: PCP Family Medicine; Referring Provider Obstetrics & Gynecology; Visit Provider Obstetrics & Gynecology
DX: N93.9 Abnormal uterine and vaginal bleeding, unspecified (principal)
CPT/HCPCS: 76830; 76856

== ENCOUNTER → 2024-01-21 | Outpatient (CLI) | payer OTHER, SELFPAY ==
--- NOTE | 2024-01-21 07:31 | BI_ITS ---
MAMMOGRAPHY - BILATERAL SCREENING REASON FOR EXAM: Female, 53 years old. Routine annual screening examination. PERTINENT HISTORY: Mother with breast cancer. Remote left ultrasound-guided breast biopsy. TECHNIQUE: Digital bilateral breast mary jo (3D mammographic acquisition) in the CC and MLO projections. 2-D mediolateral oblique (MLO) and craniocaudad (CC) views of both breasts were obtained. CAD: Full Field Digital Mammography with Computer Added Detection was performed. COMPARISON: Comparison is made with prior study January 12, 2023 and November 14, 2021. FINDINGS: Breast Composition: The breasts are heterogeneously dense, which may obscure small masses. There are no dominant masses or suspicious calcifications. A tissue clip marker is once again seen in the upper deep lateral aspect of the left breast. A tissue clip marker is also seen in the upper central portion of the right breast. Stable small bilateral axillary lymph nodes. No other significant abnormalities are identified. There has been no significant change since the prior study. BI/SCRN MAMM (CAD)W/MARY JO BILAT IMPRESSION: Stable bilateral screening mammogram. Yearly follow-up mammogram recommended. (A) ASSESSMENT CATEGORY: BIRADS Category 2: Benign. A letter regarding these results will be sent to the patient by the facility within 30 days. Approximately 10% of breast cancers are not detected by mammography. A normal mammogram should not delay biopsy of a clinically suspicious abnormality. [id number] Electronically Signed: Vitaly Ventura MD at 8:37 EDT ,
== END | disposition home or self-care (01) ==
LOC: OPBI 07:31
PROVIDERS: PCP Family Medicine; Referring Provider Obstetrics & Gynecology; Visit Provider Obstetrics & Gynecology
DX: Z12.31 Encounter for screening mammogram for malignant neoplasm of breast (principal); Z80.3 Family history of malignant neoplasm of breast
CPT/HCPCS: 77063; 77067

== ENCOUNTER → 2024-08-12 | Outpatient (CLI) | payer OTHER, SELFPAY | END | disposition home or self-care (01) | LOC: LABSPEC 11:23 | PROVIDERS: PCP Family Medicine; Referring Provider Obstetrics & Gynecology; Visit Provider Obstetrics & Gynecology | DX: N89.8 Other specified noninflammatory disorders of vagina (principal) | CPT/HCPCS: 87070; 87205 ==

== ENCOUNTER → 2024-09-27 | Outpatient (CLI) | payer OTHER, SELFPAY ==
[2024-09-27 10:16] LABS: AST(SGOT) 25 U/L (<=31); Alanine Aminotransfer ALT/SGPT 29 U/L (<=34); Albumin, Serum 4.2 g/dL (3.5-5.0); Alkaline Phosphatase 71 U/L (35-104); Anion Gap 11 (5-15); BUN 15 mg/dL (4-19); BUN/Creat Ratio 15.7 RATIO (10-20); Calcium,Total 9.7 mg/dL (7.6-11.0); Carbon Dioxide 26.0 mmol/L (21.0-32.0); Chloride 103 mmol/L (98-108); Globulin 3.0 g/dL (2.2-4.2); Glucose 85 mg/dL (70-99); Potassium 4.2 mmol/L (3.3-5.1); Vitamin D,25 Hydroxy 26.4 ng/mL (30-100)
== END | disposition home or self-care (01) ==
LOC: LAB 07:40
PROVIDERS: PCP Family Medicine; Referring Provider Family Medicine; Visit Provider Family Medicine
DX: Z13.220 Encounter for screening for lipoid disorders (principal); Z13.1 Encounter for screening for diabetes mellitus; E55.9 Vitamin D deficiency, unspecified
CPT/HCPCS: 36415; 80053; 82306

== ENCOUNTER 2024-10-21 09:08 | Emergency (ER) | payer OTHER, SELFPAY ==
[2024-10-21 09:10] VITALS: BP 161/97; PULSE 80; RESP 16; TEMP 36.7; O2SAT 99; BMI 45.0
--- NOTE | 2024-10-21 09:49 | EKG12_ITS ---
Test Reason : Blood Pressure : */* mmHG Vent. Rate : 67 BPM Atrial Rate : 67 BPM P-R Int : 218 ms QRS Dur : 98 ms QT Int : 418 ms P-R-T Axes : 47 75 50 degrees QTcB Int : 441 ms Sinus rhythm with 1st degree A-V block Otherwise normal ECG Confirmed by RADHIKA DAO, SHARON ([id number]), scientific editor OCTAVIO LOWERY ([id number]) on 10/24/2024 6:57:39 AM Referred By: Confirmed By: SHARON GARRIDO MD
--- NOTE | 2024-10-21 09:49 | CT_ITS ---
PROCEDURE: CTA HEAD AND NECK W/ CONTRAST N/A REASON FOR EXAM: HEADACHE Neck pain. TECHNIQUE: CTA HEAD AND NECK W/ CONTRAST Multiplanar Sagittal and Coronal images were obtained. CONTRAST: Isovue 370 VOLUME: 100 mL One or more dose reduction techniques were used (e.g., Automated exposure control, adjustment of the mA and/or kV according to patient size, use of iterative reconstruction technique). RADIATION DOSE SUMMARY: CTDlvol: 27 mGy DLP: 1554.22 mGycm COMPARISON: None FINDINGS: Aortic Arch: Normal size and branching pattern. No significant atherosclerotic plaque. Brachiocephalic and Subclavians: Unremarkable RIGHT Carotid: Right CCA: Unremarkable. Right ICA: Unremarkable. Right ECA: Unremarkable. LEFT Carotid: Left CCA: Unremarkable. Left ICA: Unremarkable. Left ECA: Unremarkable. Vertebrals: Dominant left vertebral artery. RIGHT Vertebral: Unremarkable. LEFT Vertebral: Unremarkable. Anatomy: Kiana of Crane anatomy is normal. Aneurysm or avm: No intracranial aneurysms or large vascular malformations are identified. Anterior cerebral arteries: Unremarkable: Middle cerebral arteries: Unremarkable. Basilar artery: Unremarkable. Posterior cerebral arteries: Unremarkable. Other major branches of the posterior circulation: Unremarkable. Major venous structures: Unremarkable. Other findings: Unenhanced images of the brain shows no acute abnormalities. Hyperostosis frontalis interna. CT/CTA Head AND Neck W/ Contrast IMPRESSION: No significant abnormality is seen. Reading Location: [id number]
[2024-10-21 10:00] LABS: Hematocrit 40.6 % (37-47); Hemoglobin 13.9 g/dL (12.0-15.0); Immature Granulocytes Count 0.010 X10^3/uL (0.0-0.0); Mean Corp Hgb Conc 34.2 g/dL (32-36); Mean Corpuscular Volume 89.8 fL (81-99); Mean Platelet Vol. 8.9 fl (6.2-12.0); NRBC Flagged by Analyzer 0 % (0-5); Platelet Count 310 K/mm3 (150-450); RBC Distribution Width CV 12.1 % (11.6-14.6); RBC Distribution Width SD 39.8 fl (35.1-43.9); Red Blood Count 4.52 M/mm3 (4.2-5.4); White Blood Count 7.0 K/mm3 (4.4-11.0)
[2024-10-21] MEDS: 0.9% Normal Saline (1000mL) 1,000 ML 999 ML IV (10:10)
--- NOTE | 2024-10-21 10:12 | EX.ED.GENINJ ---
HPI History of Present Illness Chief Complaint: Other, Pain/Inj Narrative Narrative: Patient is a 54-year-old female with past medical history of migraine headache, anxiety, depression who presents to the emergency department with a chief complaint of headache. Patient states that on Thursday while at work she developed a sharp pain in her head that started in the back of her head and radiated to the front. She states that she has tried all her migraine medications and noted that this did not help the pain. Patient notes that she has also tried Robaxin as she is also complaining of some neck pain associate with this. States that she has been having trouble with double vision since July and saw her eye doctor for this they noted that since she was under a lot of stress they would give this time to see if this improves. She states that since Thursday when her pain was onset she noted that she had some worsening double vision again. Patient states that she tried to get some rest yesterday and was not able to do so and tried several different positions of comfort however this did not help prompting her to come here for further evaluation management. [facility] Medical History Wears glasses Alcohol use History of steroid therapy Arthritis Non-smoker Shortness of breath on exertion History of pain when walking Cardiology follow-up encounter Hay fever Migraine Anxiety Depression Home Medications ?Medication ?Instructions ?Recorded ?Last Taken ?Type multivitamin,[id number] 1 tab PO DAILY 02/27/20 07/02/21 History (Complete Multivitamin tablet) lorazepam 0.5 mg tablet (Ativan) 0.5 mg PO TID PRN Anxiety 06/24/21 07/02/21 History acetaminophen 500 mg tablet 1,000 mg (2 x 500 mg) PO Q6H PRN 07/04/21 07/03/21 00:00 Rx Pain #0 tabs atenolol 25 mg tablet 25 mg PO DAILY PRN MIGRAINES #30 06/19/23 Unknown Rx tabs bupropion HCl 300 mg 24 hr tablet, 450 mg PO DAILY 08/12/24 Unknown History extended release cyclobenzaprine 10 mg tablet 10 mg PO TID PRN muscle spasm #14 10/21/24 Unknown Rx tabs prednisone 50 mg tablet 50 mg PO DAILY 4 days #4 tabs 08/01/25 Unknown Rx Allergy/AdvReac Type Severity Reaction Status Date / Time oxycodone HCl (From Percocet) Allergy Itching Verified 10/21/24 09:49 Penicillins (PCN) Allergy Rash Verified 10/21/24 09:49 acyclovir AdvReac Diarrhea Verified 10/21/24 09:49 Family History Mother Breast cancer Hypertension COPD (chronic obstructive pulmonary disease) CVA (cerebral vascular accident) Father Heart disease Hypertension Other CHF (congestive heart failure) Diabetes MONICA (obstructive sleep apnea) Surgical History History of hip surgery History of tonsillectomy and adenoidectomy S/P breast biopsy, right Status post arthroscopy of hip S/P LASIK surgery Social History Smoking Status: Never smoker alcohol intake: current alcohol intake frequency: holidays/special occasions only details: social substance use type: does not use caffeine: Yes what type of physical activity do you participate in: walking seatbelt use: always do you feel safe at home: Yes 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 [employer] ROS ROS ED ROS Narrative Constitutional: Denies any fevers, chills, dizziness Eyes: Complains of double vision as noted above this has been going on since July Cardiovascular: Denies chest pain or palpitations Respiratory: Denies coughing wheezing shortness of breath Abdomen: Denies abdominal pain nausea vomit diarrhea : Denies any urinary symptoms Neurological: Denies any numbness, wheeze, tingling Musculoskeletal: Denies back pain Skin: Denies any rashes or lesions EXAM Physical Exam Narrative Exam Narrative: General: Patient was lying in bed rest comfortably did not appear to be acute distress Head: Atraumatic, normocephalic Eyes: PERRL bilaterally, EOMI blood, no conjunctival injection noted Neck: Soft, supple, trachea midline Cardiovascular: Regular in rhythm Respiratory: Clear to auscultation bilaterally Abdomen: Soft, nondistended, Extremities: +5 system strength noted in the bilateral upper and lower extremities, radial pulse +2/4 in bilateral upper extremities, Neurological: Patient follow commands that she was at [facility] year is 2024. NIH of 0 GCS 15 Skin: Warm, dry, tact no rashes or lesions noted Const Vital Signs: 10/21/24 09:10 10/21/24 09:49 10/21/24 11:09 Temperature 98.1 F Temperature Source Temporal Pulse Rate 80 75 Respiratory Rate 16 16 Respiratory Effort Normal Respiratory Pattern Normal Blood Pressure 161/97 H 142/78 H Blood Pressure Mean 118 99 Pulse Ox 99 98 Oxygen Delivery Method Room Air Room Air 10/21/24 13:00 10/21/24 15:00 Temperature Temperature Source Pulse Rate 90 85 Respiratory Rate 16 15 Respiratory Effort Respiratory Pattern Blood Pressure 166/84 H 141/78 H Blood Pressure Mean 111 99 Pulse Ox 98 99 Oxygen Delivery Method Room Air Room Air MDM MDM MDM Narrative Medical decision making narrative: Patient is a 54-year-old female who presented to the emergency department chief complaint of headache. On differential diagnose includes but not limited to migraine headache, tension headache, aneurysm, carotid artery dissection, intracranial hemorrhage. Once workup is obtained and reviewed she will be reevaluated. Patient be given IV fluids and Reglan. Patient CBC reviewed showed no evidence leukocytosis white blood count normal at 7, hemoglobin was 13.9, platelet count was 310. Patient sodium 139, potassium normal 3.9, creatinine normal at 1. Patient's AST normal at 27 ALT normal at 28. Patient's urinalysis reviewed and showed 500 leukocyte esterase 10-25 white cells with no bacteria this will be sent for culture she is not have any urinary symptoms at this point time. Patient's CT head CTA head and neck were reviewed and showed no acute abnormalities identified. Patient still complained of pain therefore she was given Toradol. She was then observed. Patient still complain of pain she is given oral Valium. States that she was starting to feel slightly better and wants to go home at this point in time. Patient was inquiring about steroids which will be given a dose here as well as prescription. Patient will be given a prescription for prednisone as well. She is advised to follow-up with her doctor in the outpatient setting and return with worsening symptoms or other concerns. She is advised to rotate Tylenol and ibuprofen [id number]. All question concerns answered she was discharged home in stable condition. Lab Data Labs: Laboratory Results - last 24 hr 10/21/24 10/21/24 09:54 10:46 WBC 7.0 RBC 4.52 Hgb 13.9 Hct 40.6 MCV 89.8 MCH 30.8 MCHC 34.2 RDW Std Deviation 39.8 RDW Coeff of Pepito 12.1 Plt Count 310 MPV 8.9 Immature Gran % (Auto) 0.100 Neut % (Auto) 50.3 Lymph % (Auto) 37.2 Guthrie % (Auto) 8.8 Eos % (Auto) 2.7 Baso % (Auto) 0.9 Absolute Neuts (auto) 3.5 Absolute Lymphs (auto) 2.61 Nucleated RBC % 0 Sodium 139 Potassium 3.9 Chloride 104 Carbon Dioxide 23.4 Anion Gap 12 BUN 16 Creatinine 1.00 Estim Creat Clear Calc 71.83 Est GFR (MDRD) Non-Af 68 BUN/Creatinine Ratio 16.0 Glucose 89 Calcium 9.5 Total Bilirubin 0.33 AST 27 ALT 28 Alkaline Phosphatase 69 Total Protein 7.0 Albumin 4.3 Globulin 2.7 Albumin/Globulin Ratio 1.6 Urine Color Yellow Urine Clarity Sl. Cloudy Urine pH 5.0 Ur Specific Hunter 1.030 Urine Protein 30 H Urine Glucose (UA) Normal Urine Ketones Negative Urine Occult Blood 10 H Urine Nitrite Negative Urine Bilirubin Negative Urine Urobilinogen Normal Ur Leukocyte Esterase 500 H Urine RBC 0 SEEN Urine WBC 10-25 SEEN Ur Squamous Epith Cells 0-5 SEEN Urine Bacteria 0 SEEN Urine Mucus 1+ Radiography Diagnostic Testing: Clinical Impression(s) from Imaging Studies Head/Neck CTA 10/21/24 09:49 IMPRESSION: No significant abnormality is seen. Reading Location: [facility] Discharge Plan Triage Chief Complaint: Other, Pain/Inj ED Provider: Junaid Keating Dx/Rx/DC Orders Clinical Impression: Headache, Changes in vision, History of migraine Prescriptions: New cyclobenzaprine 10 mg tablet 10 mg PO TID PRN (Reason: muscle spasm) Qty: 14 0RF prednisone 50 mg tablet 50 mg PO DAILY 4 Days Qty: 4 0RF No Action Complete Multivitamin Tablet 1 tab PO DAILY bupropion HCl 300 mg tablet extended release 24 hr 450 mg PO DAILY lorazepam [Ativan] 0.5 mg Tablet 0.5 mg PO TID PRN (Reason: Anxiety) acetaminophen 500 mg Tablet 1,000 mg PO Q6H PRN (Reason: Pain) Qty: 0 0RF Rx Instructions: Do not take more than 3000 mg Tylenol in a 24-hour period. atenolol 25 mg tablet 25 mg PO DAILY PRN (Reason: MIGRAINES) Qty: 30 6RF Primary Care Provider: Hal Canchola Referrals: Hal Canchola MD [Primary Care Provider] - Activity Restrictions/Additional Instructions: Follow-up your doctor in outpatient setting. Your CTA head and neck did not show any acute findings your blood work did not show any acute findings. Rotate Tylenol and I Profen [id number] when you do this you take something every 3 hours for pain max dose Tylenol in 24 hours 4000 mg. Max dose of ibuprofen in 24 hours 3200 mg. Do not take the cyclobenzaprine if you are going to take Robaxin. Follow-up and urine culture with your doctor. Print Language: Maldivian Disposition Disposition: Home, Self Care
[2024-10-21 10:37] LABS: AST(SGOT) 27 U/L (<=31); Alanine Aminotransfer ALT/SGPT 28 U/L (<=34); Albumin, Serum 4.3 g/dL (3.5-5.0); Alkaline Phosphatase 69 U/L (35-104); Anion Gap 12 (5-15); BUN 16 mg/dL (4-19); BUN/Creat Ratio 16.0 RATIO (10-20); Calcium,Total 9.5 mg/dL (7.6-11.0); Carbon Dioxide 23.4 mmol/L (21.0-32.0); Chloride 104 mmol/L (98-108); Estimated Creatinine Clearance 71.83 ml/min (50-250); Globulin 2.7 g/dL (2.2-4.2); Glucose 89 mg/dL (70-99); Potassium 3.9 mmol/L (3.3-5.1)
[2024-10-21 10:49] LABS: Red Blood Cells-Urine 0 SEEN /hpf (0-5)
[2024-10-21 11:05] LABS: Color, Urine Yellow (Yellow); Glucose, Dipstick Normal (Normal); Ketone-Dipstick Negative (Negative); Leukocyte Esterase-Dipstick 500 /ul (Negative); Nitrite-Dipstick Negative (Negative); Occult Blood-Urine 10 /ul (Negative); Protein-Dipstick 30 mg/dl (Negative); Specific Gravity, Urine 1.030 (1.002-1.030); Urine Bilirubin Dipstick Negative (Negative)
[2024-10-21 11:09] VITALS: BP 142/78; PULSE 75; RESP 16; O2SAT 98
[2024-10-21 11:24] LABS: Mucous, Urine 1+ /hpf (<or=2+); Squamous Epithelial Cells - UA 0-5 SEEN /hpf (5-10)
[2024-10-21 13:00] VITALS: BP 166/84; PULSE 90; RESP 16; O2SAT 98
[2024-10-21] MEDS: DiphenhydrAMINE 50 MG/ML Syringe 25 MG IV (13:09)
[2024-10-21] MEDS: Ketorolac 30 MG/ML Syringe IV (13:47)
[2024-10-21 15:00] VITALS: BP 141/78; PULSE 85; RESP 15; O2SAT 99
[2024-10-21] MEDS: Orphenadrine 60 MG/2 ML Ampul 30 MG IV (15:38)
[2024-10-21 15:47] VITALS: BP 141/78; PULSE 85; RESP 15; TEMP 36.8; O2SAT 99
== END 2024-10-21 15:48 | disposition home or self-care (01) ==
PROVIDERS: Emergency Provider Emergency Medicine; PCP Family Medicine; Visit Provider Emergency Medicine
DX: R51.9 Headache, unspecified (principal); F32.A Depression, unspecified; Z79.899 Other long term (current) drug therapy; H53.9 Unspecified visual disturbance
CPT/HCPCS: 70496; 70498; 80053; 81001; 85025; 87086; 87088; 93005; 96361; 96374; 96375; 99283; Q9967; A4216

== ENCOUNTER → 2024-10-26 | Outpatient (CLI) | payer OTHER, SELFPAY ==
[2024-10-27 14:09] LABS: Lyme Scn Total Ab w/Rflx Negative (Negative)
== END | disposition home or self-care (01) ==
LOC: LAB 09:12
PROVIDERS: PCP Family Medicine; Referring Provider Student in an Organized Health Care Education/Training Program; Visit Provider Student in an Organized Health Care Education/Training Program
DX: R51.9 Headache, unspecified (principal)
CPT/HCPCS: 36415; 86618

== ENCOUNTER → 2024-10-28 | Outpatient (CLI) | payer OTHER, SELFPAY ==
--- NOTE | 2024-10-28 10:55 | MRI_ITS ---
PROCEDURE: BRAIN W/WO CONTRAST 10/28/2024 REASON FOR EXAM: HEADACHE TECHNIQUE: BRAIN W/WO CONTRAST Multiplanar and multisequence images were obtained. CONTRAST: Clariscan VOLUME: 21 mL COMPARISON: None. FINDINGS: Brain: Few foci of hyperintense signal on T2 and FLAIR in the white matter which are nonspecific but most likely due to chronic small-vessel ischemia. No restricted diffusion. No hemorrhage. No mass-effect or midline shift. Diffusion: No restricted diffusion. Ventricles: No ventriculomegaly. Major Intracranial Vessels: Patent. Sinuses: Clear. Mastoids: Clear MRI/Brain W/WO Contrast IMPRESSION: No acute brain abnormalities or abnormal enhancement. Minimal white matter changes which are nonspecific but most likely due to chron ic small-vessel ischemia. Reading Location: [id number]
--- NOTE | 2024-10-28 10:55 | MRI_ITS ---
PROCEDURE: BRAIN W/WO CONTRAST 10/28/2024 REASON FOR EXAM: HEADACHE TECHNIQUE: BRAIN W/WO CONTRAST Multiplanar and multisequence images were obtained. CONTRAST: Clariscan VOLUME: 21 mL COMPARISON: None. FINDINGS: Brain: Few foci of hyperintense signal on T2 and FLAIR in the white matter which are nonspecific but most likely due to chronic small-vessel ischemia. No restricted diffusion. No hemorrhage. No mass-effect or midline shift. Diffusion: No restricted diffusion. Ventricles: No ventriculomegaly. Major Intracranial Vessels: Patent. Sinuses: Clear. Mastoids: Clear MRI/Brain W/WO Contrast IMPRESSION: No acute brain abnormalities or abnormal enhancement. Minimal white matter changes which are nonspecific but most likely due to chron ic small-vessel ischemia. Reading Location: [id number]
== END | disposition home or self-care (01) ==
LOC: OPMRI 10:22
PROVIDERS: PCP Family Medicine; Referring Provider Physician Assistant; Visit Provider Physician Assistant
DX: R51.9 Headache, unspecified (principal)
CPT/HCPCS: 70553; A9575

== ENCOUNTER 2024-11-01 11:27 | Outpatient (RCR) | payer SELFPAY | END 2024-11-01 19:00 | disposition home or self-care (01) | LOC: PT 11:27 | PROVIDERS: PCP Family Medicine | DX: R51.9 Headache, unspecified (principal) ==

== ENCOUNTER → 2024-11-08 | Outpatient (CLI) | payer OTHER, SELFPAY ==
[2024-11-08 09:41] LABS: CRP 3.59 mg/L (0.0-3.0)
[2024-11-09 14:08] LABS: ANTINUCLEAR ANTIBODIES DIRECT Negative (Negative)
== END | disposition home or self-care (01) ==
LOC: LAB 07:20
PROVIDERS: PCP Family Medicine; Referring Provider Family Medicine; Visit Provider Family Medicine
DX: M54.81 Occipital neuralgia (principal); G44.52 New daily persistent headache (NDPH)
CPT/HCPCS: 36415; 85652; 86038; 86140; 86235

== ENCOUNTER → 2024-12-07 | Outpatient (CLI) | payer OTHER, SELFPAY ==
--- NOTE | 2024-12-07 08:56 | RAD_ITS ---
PROCEDURE: CERV SPINE 2 OR 3 VIEWS 12/07/2024 REASON FOR EXAM: NECK PAIN/BOOKER TECHNIQUE: Procedure Code: RADSPCL Modality: DX Procedure: CERV SPINE 2 OR 3 VIEWS FINDINGS: No evidence of acute fracture or dislocation. Vertebral body heights are maintained. Mild degenerative changes of the visualized spine. Normal alignment. RAD/Cerv Spine 2 or 3 Views IMPRESSION: Mild spondylosis. Disclaimer: Reading Location: [id number]
== END | disposition home or self-care (01) ==
LOC: MTRAD 08:53
PROVIDERS: PCP Family Medicine; Referring Provider Chiropractor; Visit Provider Chiropractor
DX: R51.9 Headache, unspecified (principal); M54.2 Cervicalgia
CPT/HCPCS: 72040

== ENCOUNTER → 2025-01-23 | Outpatient (CLI) | payer OTHER, SELFPAY ==
[2025-01-23 16:20] LABS: Hematocrit 40.0 % (37-47); Hemoglobin 13.7 g/dL (12.0-15.0); Immature Granulocytes Count 0.010 X10^3/uL (0.0-0.0); Mean Corp Hgb Conc 34.3 g/dL (32-36); Mean Corpuscular Volume 91.5 fL (81-99); Mean Platelet Vol. 9.0 fl (6.2-12.0); NRBC Flagged by Analyzer 0 % (0-5); Platelet Count 316 K/mm3 (150-450); RBC Distribution Width CV 12.1 % (11.6-14.6); RBC Distribution Width SD 41.1 fl (35.1-43.9); Red Blood Count 4.37 M/mm3 (4.2-5.4); White Blood Count 5.6 K/mm3 (4.4-11.0)
[2025-01-23 17:26] LABS: CRP 8.30 mg/L (0.0-3.0)
== END | disposition home or self-care (01) ==
LOC: LAB 15:22
PROVIDERS: PCP Family Medicine; Referring Provider Specialist; Visit Provider Specialist
DX: T84.84XA Pain due to internal orthopedic prosthetic devices, implants and grafts, initial encounter (principal); Z96.642 Presence of left artificial hip joint; Y79.2 Prosthetic and other implants, materials and accessory orthopedic devices associated with adverse incidents
CPT/HCPCS: 36415; 85025; 85652; 86140

== ENCOUNTER → 2025-02-01 | Outpatient (CLI) | payer OTHER, SELFPAY ==
--- OUTSIDE RECORDS SUMMARY | 2025-02-01 06:58 | XMS RPT_ITS | CCD ---
Author Organization [facility] Care Team Providers Care Manager Float Name Role Phone BRIDGESNATE Bedoya Maicol Unavailable Unavailable HAL MIMS Unavailable Unavailable Dr. Hal Mims Primary Care Provider [phone] Dr. Hal Mims Referring Provider [phone]([facility])[phone] Paul Heredia Attending Provider Hermann STEINBERG, PA Marques Attending Provider Dr. Toña Jeffries Attending Provider [phone]([facility])[phone] Moe Trent Admit Provider Dr. Moe Trent Referring Provider Dr. Moe Trent Other Provider Dr. Nathan Valadez Other Provider Marc ROVING SIZER, ROVING SIZER-C Sharon Attending Provider Dr. Mavis Steel Attending Provider Dr. Hal Mims Primary Care Provider [phone] Dr. Barber Worley Attending Provider [phone] Moe Trent Referring Provider Dr. Nathan Valadez Attending Provider Dr. Hal Mims Primary Care Provider [phone] Dr. Hal Mims Referring Provider Manav ROVING SIZER, ROVING SIZER-C Arina Attending Provider Dr. Hal Mims Primary Care Provider Dr. Hal Mims Referring Provider 1([facility])[phone] Manav ROVING SIZER, ROVING SIZER-C Arina Attending Provider [phone] Dr. Hal Mims Primary Care Provider Dr. Hal Mims Referring Provider Dr. Kait Zacarias Attending Provider [phone] Dr. Hal Mims Primary Care Provider [phone] Dr. Hal Mims Referring Provider [phone] IDRIS Lyles Attending Provider Sushant DAO, Hal Shepard Unavailable Dr. Moe Trent Unavailable Orthopedic Provider Unavailable Unavailable Xuan DOA ([place]), Dr. Burks Unavailable [phone] [facility], Physical Therapy Unavailable Dr. Nate Bridges MD Unavailable [facility] Orthoped[facility] Unavailable [facility] Unavailable Dr. Rachele Sullivan Unavailable [facility], Occupational Therapy Unavailable Dr. Alexia Merchant MD Unavailable Cade MCDERMOTT, Dr. Jayla Rachel Unavailable Dr. Rachele Person DO Unavailable Isabella DAO, Leann Bedoya Unavailable Robbin DAO, Paul Milian Unavailable Marco Antonio Mendez MD Unavailable Cami Brooks PA-C Unavailable Hemal GRAPHICS MANAGER, Alexandra Unavailable Jessica RN, Linda L Unavailable Unavail able Vess GRAPHICS MANAGER, Neiane L Unavailable Unavailable Giorgi GRAPHICS MANAGER, Vera E Unavailable Unavailable Deysi DALE, Floridalma Heard Unavailable Unavailable Covel GRAPHICS MANAGER, Rosmery Unavailable Unavailab payton Coleman GRAPHICS MANAGER, Jerri Unavailable Unavailkaron Katz PA-C, Herlinda Bernardo Unavailable Cami Quiles RN Unavailable Unavaila ble Mutersbaugh GRAPHICS MANAGER, Franca K Unavailable Unavai lable Mcelroy GRAPHICS MANAGER, Jayla Unavailable Unavailable Vanaman, Ashley A Unavailable Unavailable Rodney GRAPHICS MANAGER, Magaly Unavailable Unavailable Paz GRAPHICS MANAGER, Sil Unavailable Unavailable Abe AGRAWAL, Pretty Unavailable Unavailable Jessica DEVINE, Susanneke E Unavailable Maxim CHIP WASHER, Gris Unavailable Unavailable Gwendolyn MA, Magaly Unavailable Unavailable Leighton GRAPHICS MANAGER, Wilner Unavailable Unavailable Unavailable Unavailable Unavailable Unavailable Donell DEVINE, Liberty J Unavailable Sandi AGRAWAL Demetria Unavailable Unavailable Sushant DAO, Dr. Hong Primary Care Provider Sushant DAO, Dr. Hong Referring Provider Rell DAO, Dr. Carballo Attending Provider [phone] Rell DAO, Dr. Carballo Referring Provider [phone] Sushant DAO, Dr. Hong Attending Provider Assessment, Health Risk Attending Provider Unava ilable Assessment, Health Risk Referring Provider Unava ilable Nicole Vazquez Unavailable Unavailabl e Marques Lyles Attending Provider [phone] Dr. Junaid Keating DO Emergency Provider Ravinder Butcher PA-C R Unavailable [phone] Iveth Lindo Unavailable Unavailable Ravinder Butcher PA-C Attending Provider Ravinder Butcher PA-C Referring Provider Wander Rivera Attending Provider Wander Rivera Referring Provider Referred, Self Attending Provider Unavailable Referred, Self Referring Provider Unavailable Dr. Junaid Keating DO Attending Provider Hal Mims MD Primary Care Provider Kaya DAO, Dr. Guthrie Attending Provider Dr. Jerri Awan MD Referring Provider [phone] Dr. Hal Mims MD Primary Care Physician Rell DAO, Dr. Carballo Attending Physician Sushant DAO, Dr. Hong Attending Physician Assessment, Health Risk Attending Physician Unav ailable Hermann STEINBERG, Marques Attending Physician Zuri HUERTAS, Dr. Quiroga Attending Physician Dr. Junaid Keating DO Emergency Department Physic vanessa Ravinder Butcher PA-C Attending Physician [phone] Wander Rivera Attending Physician Referred, Self Attending Physician Unavailable Kaya DAO, Dr. Guthrie Attending Physician Dossi DC, Dr. Ding Attending Physician Dossi DC, Dr. Ding Referring Provider Sushant DAO, Dr. Hong Primary Care Physician Sushant DAO, Dr. Hong Referring Provider JERRI AWAN Attending Unavailable BROWN, HAL F Primary Care Unavailable RACHELE RANDOLPH Attending Unavailable JERRI AWAN Referring Unavailable BROWN, HAL F Primary Care Unavailable JERRI AWAN Attending Unavailable JERRI AWAN Referring Unavailable BROWN, HAL F Primary Care Unavailable Brown, Hal Primary Care Unavailable Assessment, Health Risk Referring Unavaila ble Assessment, Health Risk Attending Unavaila ble Brown, Hal Primary Care Unavailable Referred, Self Referring Unavailable Referred, Self Attending Unavailable Brown, Hal Primary Care Unavailable Kait Zacarias Referring Unavailable Kait Zacarias Attending Unavailable Brown, Hal Primary Care Unavailable Brown, Hal Referring Unavailable DosToña butterfield Attending Unavailable DosToña butterfield Attending Unavailable Brown, Hal Primary Care Unavailable Brown, Hal Referring Unavailable DossiToña Attending Unavailable Brown, Hal Primary Care Unavailable Brown, Hal Referring Unavailable DossiToña Attending Unavailable Brown, Hal Primary Care Unavailable Brown, Hal Referring Unavailable Brown, Hal Primary Care Unavailable Brown, Hal Referring Unavailable Kait Zacarias Attending Unavailable Brown, Hal Primary Care Unavailable Brown, Hal Referring Unavailable Marques Lyles Attending Unavailable DossiToña Attending Unavailable Brown, Hal Primary Care Unavailable Brown, Hal Referring Unavailable Brown, Hal Attending Unavailable Brown, Hal Primary Care Unavailable Hal Mims Referring Unavailable Sushant, Hal Primary Care Unavailable Ravinder Butcher Referring Unavailable Ravinder Butcher Attending Unavailable Sushant, Hal Primary Care Unavailable Wander Lopez Referring Unavailable Wander Lopez Attending Unavailable Sushant, Hal Primary Care Unavailable Jerri Awan Referring Unavailable Jerri Awan Attending Unavailable Sushant, Hal Primary Care Unavailable Junaid Keating Attending Unavailable Toña Jeffries Attending Unavailable Sushant, Hal Primary Care Unavailable DosToña butterfield Referring Unavailable Sushant, Hal Primary Care Unavailable Moe Trent Attending Unavailable Miley, Moe Referring Unavailable Sushant, Hal Primary Care Unavailable Miley, Moe Referring Unavailable Moe Trent Attending Unavailable Allergies Allergy Classification Reported Allergen(s) Allergy Type Date of Onset Reaction(s) Facility (3 sources) acetaminophen / oxyCODONE; Translations: [OXYCODONE-ACETAMI NOPHEN] Drug Allergy 4 Itching [facility] Repository (1 source) penicillin; Translations: [PENICILLIN G] Drug Allergy 4 AOF [facility] Repository (20 sources) oxyCODONE; Translations: [oxycodone HCl] Drug Allergy 2 Itching [facility] (20 sources) Penicillins; Translations: [PENICILLINS] Allergy to substance 2 Rash [facility] (20 sources) Acetaminophen / oxyCODONE Drug Allergy Itching [facility] ([facility] sources) oxyCODONE Drug Allergy [address] [facility], [place]. (20 sources) Penicillin V Drug [facility]ergy [facility] [place]. (14 sources) Acyclovir; Translations: [ACYCLOVIR] Drug Allergy 5 GI bleeding [facility] Comment on above: gi bleed (2 sources) Benzoyl Peroxide; Translations: [BENZOYL PEROXIDE] Drug Allergy 1 Other [facility] (1 source) oxyCODONE; Translations: [OXYCODONE] Drug Allergy 5 [place] [address] Repository (1 source) Acyclovir Drug Allergy 5 [facility] Repository Medications Current Medications Medication Drug Class(es) Dates Sig (Normalized) Sig (Original) acetaminophen 500 mg oral tablet (20 sources) Start: 07-04-2021 Acetaminophen 500 mg Tablet Active 1000 mg PO EVERY 6 HOURS as needed for Pain 0 0 July 04, 2021 10:16am Do not take more than 3000 mg Tylenol in a 24-hour period. Complies with drug therapy Start: 07-04-2021 take 3000 mg by mout h every six hours Acetaminophen Active 1000 MG PO EVERY 6 HOURS 0 July 04, 2021 9:16am Do not take more than 3000 mg Tylenol in a 24-hour period. Start: 07-03-2021 End: 07-04-2021 take 2 tablets by mouth every six hours as needed for pain Acetaminophen 500 mg Tablet Discontinued 1000 mg PO EVERY 6 HOURS as needed for Pain July 03, 2021 12:00am July 04, 2021 10:16am Start: 07-03-2021 End: 07-04-2021 take 1000 mg by mouth every six hours Acetaminophen Discontinued 1000 MG PO EVERY 6 HOURS July 02, 2021 11:00pm July 04, 2021 9:16am take 1 tablet by hu th twice daily as needed TYLENOL, 325MG (Oral Tablet) ; 1 two times daily, as needed (325 MG) Comments: Medication taken as needed. Comment on above: Medication taken as needed. Ascorbic Acid-Elderberry Fruit (Airborne (Elderberry)) 100-50 mg tablet,chewable (20 sources) Start: 02-27-2020 take 1 tablet by mouth once daily Ascorbic Acid-Elderberry Fruit (Airborne (Elderberry)) 100-50 mg tablet,chewable Active 100 TABLET PO DAILY February 27, 2020 2:19pm Start: 02-27-2020 End: 01-14-2022 Ascorbic Acid-Elderberry Fru it (Airborne (Elderberry)) 100-50 mg tablet,chewable Discontinued 100 {tbl} PO DAILY February 27, 2020 1:00am January 14, 2022 3:25pm Start: 02-27-2020 End: 01-14-2022 take 1 tablet by mouth once daily Ascorbic Acid-Elderberry Fruit (Airborne (Elderberry)) 100-50 mg tablet,chewable Discontinued 100 TABLET PO DAILY February 27, 2020 12:00am January 14, 2022 2:25pm Start: 02-27-2020 End: 01-14-2022 take 1 tablet by mouth once daily Ascorbic Acid-Elderberry Fruit (Airborne (Elderberry)) 100-50 mg tablet,chewable Discontinued 100 TABLET PO DAILY February 27, 2020 1:00am January 14, 2022 3:25pm Start: 02-27-2020 take 1 tablet by hu th once daily Ascorbic Acid-Elderberry Fruit (Airborne (Elderberry)) 100-50 mg tablet,chewable Active 100 TABLET PO DAILY February 27, 2020 1:00am 24 hr buPROPion hydrochloride 300 mg extended release oral tablet (20 sources) Aminoketone Start: 07-18-2024 buPROPion HCL XL 150 mg 24 hr tablet, extended release ; 1 (one) tablet qd for 0 days Quantity: 90 {Tablet} Refills: 1 Ordered: 18-Jul-2024 MD Hal Mims Start: 18-Jul-2024 Comments: Take in addition to 300mg tabs as well Start: 03-21-2024 Bupropion Hcl 300 mg tablet extended release 24 hr Active 450 mg PO DAILY August 12, 2024 10:29am Complies with drug therapy Start: 02-08-2024 buPROPion HCL XL 300 mg 24 hr tablet, extended release ; 1 (one) tablet qd for 0 days Quantity: 30 {Tablet} Refills: 5 Ordered: 08-Feb-2024 MD Hal Mims Start: 08-Feb-2024 Start: 07-16-2023 buPROPion HCL XL 150 mg 24 hr tablet, extended release ; 1 (one) tablet qd for 0 days Quantity: 90 {Tablet} Refills: 1 Ordered: 21-Mar-2024 MD Hal Mims Start: 21-Mar-2024 Start: 07-16-2023 buPROPion HCL XL 300 mg 24 hr tablet, extended release ; 1 (one) tablet qd for 0 days Quantity: 30 {Tablet} Refills: 5 Ordered: 16-Jul-2023 NGHIA Junior Start: 16-Jul-2023 Start: 07-07-2023 End: 07-16-2023 buPROPion HCL XL 450 mg 24 h r tablet, extended release ; 1 (one) tablet qd for 0 days Quantity: 90 {Tablet} Refills: 1 Ordered: 16-Jul-2023 MD Hal Mims Start: 07-Jul-2023 End: 16-Jul-2023 Status: Inactive Start: 06-12-2016 End: 08-12-2024 take 1 tablet by mouth once daily Bupropion Hcl 300 mg tablet extended release 24 hr Discontinued 300 mg PO DAILY January 14, 2022 3:25pm February 28, 2022 10:40am Start: 03-10-2016 End: 09-15-2016 BuPROPion HCl ER (SR) 150 MG Oral Tablet Extended Release 12 Hour ; 1 (one) Tablet ER 12HR bid for 0 days Quantity: 60 {Tablet} Refills: 5 Ordered: 15-Sep-2016 ROSALEE Rand Start: 10-Mar-2016 End: 15-Sep-2016 Status: Inactive Comment on above: Take in addition to 300mg tabs as well cyclobenzaprine hydrochloride 10 mg oral tablet (20 sources) Muscle Relaxant Start: 10-22-19 take 1 tablet by mouth three times daily as needed for muscle spasms Cyclobenzaprine 10 mg tablet Active 10 mg PO THREE TIMES A DAY as needed for muscle spasm 14 0 October 21, 2024 12:00am Complies with drug therapy cyclobenzaprine 10 mg tablet ; 1 tab every 8 hours as needed (10 mg) Comments: Medication taken as needed. Comment on above: Medication taken as needed. [id number] 0.3 ml EPINEPHrine 1 mg/ml auto-injector (20 sources) alpha-Adrenergic Agonist, beta-Adrenergic Agonist, Catecholamine EPIPEN 2-GENARO, 0.3MG/0.3ML (Injection Solution Auto-injector) ; (0.3 MG/0.3ML (1:1000)) esomeprazole 40 mg delayed release oral capsule (1 source) Proton Pump Inhibitor Start: End: take 1 capsule by mouth once daily before mealtime esomeprazole (NexIUM) [address] capsule Indications: Gastroesophageal reflux disease without esophagitis Take 1 capsule (40 mg) by mouth once daily in the morning. Take before meals. Do not open capsule. 30 capsule 12/20/2024 12/20/2025 Active gabapentin 100 mg oral capsule (6 sources) Anti-epileptic Agent Start: End: take 1 capsule by mouth three times daily Gabapentin 100 mg capsule Active 100 mg PO THREE TIMES A DAY December 07, 2024 12:00am Complies with drug therapy indomethacin 75 mg extended release oral capsule (7 sources) Nonsteroidal Anti-inflammatory Drug Start: 025 End: 026 take 1 capsule by mouth twice daily indomethacin SR (Indocin SR) 75 mg ER capsule Indications: New daily persistent headache , Hemicrania continua Take 1 capsule (75 mg) by mouth 2 times daily (morning and late afternoon). Do not crush or chew. 180 capsule 1 12/20/2024 06/18/2025 Active Start: 12-07-2024 Indomethacin 2 5 mg capsule Active mg PO December 07, 2024 12:00am Complies with drug therapy Start: 11-28-2024 End: 12-20-2024 take 3 capsules by mouth three times daily indomethacin (Indocin) 25 mg capsule Indications: New daily persistent headache Take 3 capsules (75 mg) by mouth 3 times daily (morning, midday, late afternoon). 130 capsule 11/28/2024 12/20/2024 Discontinued (Dose adjustment) Start: 11-03-2024 indomethacin ( Indocin) 25 mg capsule Indications: New daily persistent headache Take 25mg three times a day for 1 week, then increase to 50mg three times a day for 1 week, then increase to 75mg three times a day 130 capsule 11/03/2024 Active LORazepam 0.5 mg oral tablet (20 sources) Benzodiazepine Start: 06-24-2021 take 1 tablet by mouth three times daily as needed for anxiety Lorazepam (Ativan) 0.5 mg Tablet Active 0.5 mg PO THREE TIMES A DAY as needed for Anxiety June 24, 2021 12:00am Complies with drug therapy Start: 06-12-2016 End: 07-13-2017 take 1 tablet by mouth twice daily as needed for anxiety Lorazepam 0.5 MG tablet Discontinued 0.5 mg PO TWICE DAILY NEEDED as needed for Anxiety June 12, 2016 12:00am July 13, 2017 10:46am Comment on above: Medication taken as needed. [facility]12/05/2022 Medication taken as needed. OARRS08/22/2024 multivitamin tablet (2 sources) take 1 tablet by mouth once daily multivitamin tablet Take 1 tablet by mouth once daily. Active multivitamin,tx-iro n-minerals (11 sources) Start: 2019 take 1 tablet by mouth once daily multivitamin,tx-ir on-minerals Active 1 TABLET PO DAILY February 27, 2020 2:19pm Start: 02-27-2020 take 1 tablet by hu th once daily multivitamin,gd-xxzx-skdcuyiy Active 1 T ABLET PO DAILY February 27, 2020 12:00am Start: 02-27-2020 take 1 tablet by hu th once daily multivitamin,mh-klnt-wjggvihz Active 1 T ABLET PO DAILY February 27, 2020 1:00am Multivitamin,Qr-Pxly-Hgtzbtl s (Complete Multivitamin) tablet (11 sources) Start: 02-27-2020 Multivitamin,Ev-Nolq-Msbqraq s (Complete Multivitamin) tablet Active 1 {tbl} PO DAILY February 27, 2020 1:00am Complies with drug therapy Start: 02-27-2020 Start: 02-27-2020 Multivitamin,T v-Snlw-Iqgcasgl (Complete Multivitamin) tablet Active 1 {tbl} PO DAILY February 27, 2020 1:00am predniSONE 50 mg oral tablet (20 sources) Start: 10-21-2024 take 1 tablet by mouth once daily Prednisone 50 mg tablet Active 50 mg PO DAILY 4 4 0 October 21, 2024 12:00am Complies with drug therapy Start: 07-19-2023 End: 08-03-2023 Prednisone 10 mg tablet Disc ontinued 10 mg PO .COMPLEX 35 15 0 July 19, 2023 12:00am August 02, 2023 12:00am August 03, 2023 12:06am 10 mg orally; 40mg x5 days, 20mg x5 days, 10mg x5 days Start: 09-27-2021 End: 10-11-2021 take 1 tablet by mouth once daily predniSONE 20 MG Oral Tablet ; 1 Tablet daily for 14 days Quantity: 14 {Tablet} Refills: 0 Ordered: 27-Sep-2021 NILSON Lopez Start: 27-Sep-2021 End: 11-Oct-2021 Status: Inactive Start: 02-20-2021 End: 06-19-2021 take 3 tablets by mouth once daily, then take 2 tablets by mouth once daily, then take 1 tablet by mouth once daily, then take 0.5 tablet by mouth once daily predniSONE 20 MG Oral Tablet ; 1 (one) Tablet as directed in notes for 0 days Quantity: 20 {Tablet} Refills: 0 Ordered: 19-Jun-2021 ROSALEE Stevens Magaly Start: 20-Feb-2021 End: 19-Jun-2021 Status: Inactive Comments: Take 3tabs qd for 3 days thenTake 2tabs qd for 3 days thenTake 1tab qd for 3 days thenTake 1/2tab qd for 4 days. Comment on above: Take 3tabs qd for 3 days thenTake 2tabs qd for 3 days thenTake 1tab qd for 3 days thenTake 1/2tab qd for 4 days. rizatriptan 10 mg disintegrating oral tablet (20 sources) Serotonin-1b and Serotonin-1d Receptor Agonist Start: 07-04-2024 Maxalt-NON DESTRUCTIVE TESTING INSPECTOR 10 mg disintegrating tablet ; 1 (one) Tablet q6hrs prn for 0 days Quantity: 6 {Tablet} Refills: 5 Ordered: 04-Jul-2024 MD Hal Mims Start: 04-Jul-2024 Start: 11-26-2022 Maxalt-NON DESTRUCTIVE TESTING INSPECTOR 10 mg disintegrating tablet ; 1 (one) Tablet q6hrs prn for 0 days Quantity: 6 {Tablet} Refills: 5 Ordered: 26-Nov-2022 MD Hal Mims Start: 26-Nov-2022 Start: 10-13-2017 End: 01-29-2018 take 1 tablet by mouth every two hours Maxalt 10 MG Oral Tablet ; 1 Tablet at onset of headache for 0 days Quantity: 6 {Tablet} Refills: 2 Ordered: 29-Jan-2018 MD Hal Mims Start: 13-Oct-2017 End: 29-Jan-2018 Status: Inactive Comments: may repeat one tablet in 2 hours if no relief Comment on above: may repeat one table t in 2 hours if no relief Zinc (20 sources) Start: 02-27-2020 take 50 mg by mouth once daily Zinc Active 50 MG PO DAILY February 27, 2020 2:19pm Start: 02-27-2020 End: 01-14-2022 take 1 tablet by mouth once daily Zinc 50 mg tablet Discontinued 50 mg PO DAILY February 27, 2020 1:00am January 14, 2022 3:27pm Start: 02-27-2020 End: 01-14-2022 take 50 mg by mouth once daily Zinc Discontinued 50 MG PO DAILY February 27, 2020 12:00am January 14, 2022 2:27pm Start: 02-27-2020 End: 01-14-2022 take 50 mg by mouth once daily Zinc Discontinued 50 MG PO DAILY February 27, 2020 1:00am January 14, 2022 3:27pm Start: 02-27-2020 take 50 mg by mouth once daily Zinc Active 50 MG PO DAILY February 27, 2020 1:00am Completed/Discontinued Medications Medication Drug Class(es) Dates Sig (Normalized) Sig (Original) acetaminophen 325 mg / HYDROcodone bitartrate 5 mg oral tablet (20 sources) Opioid Agonist Start: 10-28-2024 End: 11-04-2024 HYDROcodone 5 mg-acetaminophen 325 mg tablet ; 1 (one) tablet three times daily as needed for 7 days Quantity: 21 {Tablet} Refills: 0 Ordered: 28-Oct-2024 NILSON Butcher Start: 28-Oct-2024 End: 04-Nov-2024 Status: Inactive Comments: Medication taken as needed. 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 OARRS reviewed 10/28/24 acyclovir 800 mg oral tablet (11 sources) Herpesvirus Nucleoside Analog DNA Polymerase Inhibitor, Herpes Simplex Virus Nucleoside Analog DNA Polymerase Inhibitor, Herpes Zoster Virus Nucleoside Analog DNA Polymerase Inhibitor Start: 10-31-19 End: 11-07-19 take 5 tablets by mouth every twenty-four hours Acyclovir 800 mg tablet Discontinued 800 mg PO Q4H 42 7 0 October 31, 2023 12:00am November 06, 2023 12:00am November 07, 2023 12:09am while awake; give 5 doses in 24 hours aspirin 81 mg chewable tablet (20 sources) Platelet Aggregation Inhibitor, Nonsteroidal Anti-inflammatory Drug Start: 07-05-19 End: 01-15-20 take 1 tablet by mouth twice daily Aspirin 81 mg Tablet,Chewable Discontinued 81 mg PO TWICE A DAY 60 30 0 July 04, 2021 12:00am January 14, 2022 3:25pm Take 81 mg aspirin twice daily for 4 weeks postoperatively for DVT prophylaxis atenolol 25 mg oral tablet (20 sources) beta-Adrenergic Arcelia Start: 10-28-19 End: 06-19-19 take 1 tablet by mouth once daily as needed Atenolol 25 mg tablet Discontinued 25 mg PO DAILY as needed for MIGRAINES 30 6 September 15, 2022 6:58pm June 19, 2023 5:03pm Atenolol 25 MG O ral Tablet ; 1/2 daily about 3-5 days prior to menses and then 3 days during period (25 MG) azithromycin 40 mg/ml oral suspension (20 sources) Macrolide Antimicrobial Start: 07-19-2023 End: 07-24-2023 Azithromycin 200 mg/5 mL suspension for reconstitution Discontinued 0 PO .COMPLEX 37.5 5 0 July 19, 2023 12:00am July 23, 2023 12:00am July 24, 2023 12:06am take 12.5 mL (500 mg) by mouth today (day 1), then 6.25 mL (250 mg) daily for 4 days (days 2-5) PO Start: 03-18-2023 End: 07-19-2023 take 2-5 tablets by mouth once daily Azithromycin 250 mg tablet Discontinued 0 PO .COMPLEX 6 0 March 18, 2023 1:00am July 19, 2023 1:37pm take 500 mg today (day 1), then 250 mg for 4 days (days 2-5) PO Start: 04-16-2019 End: 05-31-2019 Azithromycin 250 mg tablet Discontinued 250 mg PO daily 12 April 16, 2019 1:00am May 31, 2019 5:48pm 2 tablets today, then 1 tablet daily on days 2 through 11 Start: 07-13-2017 End: 12-13-2017 Azithromycin 250 mg tablet Discontinued 250 mg PO daily 6 0 July 13, 2017 12:00am December 13, 2017 12:32pm 2 tablets today, then 1 tablet daily on days 2 through 5 benzonatate 200 mg oral capsule (20 sources) Non-narcotic Antitussive Start: 08-10-2023 End: 10-08-2023 benzonatate 200 mg capsule ; 1 (one) Capsule every six hours as needed for 0 days Quantity: 30 {Capsule} Refills: 0 Ordered: 08-Oct-2023 MD Hal Mims Start: 10-Aug-2023 End: 08-Oct-2023 Status: Inactive Comments: Medication taken as needed. Start: 07-23-2023 benzonatate 10 0 mg capsule ; 1 (one) Capsule every six hours as needed for 0 days Quantity: 30 {Capsule} Refills: 0 Ordered: 23-Jul-2023 MD Hal Mims Start: 23-Jul-2023 Comments: Medication taken as needed. Start: 03-18-2023 End: 11-16-2023 take 2 capsules by mouth three times daily as needed for cough Benzonatate 100 mg capsule Discontinued 200 mg PO THREE TIMES A DAY as needed for cough 30 March 18, 2023 1:00am November 16, 2023 8:32am Start: 03-18-2023 take 200 mg by mouth three times daily Benzonatate Active 200 MG PO THREE TIMES A DAY March 18, 2023 12:00am Start: 01-14-2017 End: 09-21-2017 take 1 capsule by mouth every six hours as needed Benzonatate 100 MG Oral Capsule ; 1 (one) Capsule every six hours as needed for 0 days Quantity: 40 {Capsule} Refills: 0 Ordered: 21-Sep-2017 SUYAPA Quiles Start: 14-Jan-2017 End: 21-Sep-2017 Status: Inactive Comments: Medication taken as needed. Comment on above: Medication taken as needed. calcium ascorbate 500 mg oral tablet (20 sources) Start: 0 End: 2 take 1 tablet by mouth once daily Ascorbate Calcium (Vitamin C) 500 mg tablet Discontinued 500 mg PO DAILY February 27, 2020 1:00am January 14, 2022 3:25pm celecoxib (20 sources) Nonsteroidal Anti-inflammatory Drug CeleBREX Status: Inactive cephalexin 50 mg/ml oral suspension (20 sources) Cephalosporin Antibacterial Start: End: take 20 mL by mouth twice daily cephALEXin 250 mg/5 mL oral suspension ; 20 Milliliter bid for 10 days Quantity: 400 {Milliliter} Refills: 0 Ordered: 14-Jul-2023 MD Hal Mims Start: 14-Jul-2023 End: 24-Jul-2023 Status: Inactive Start: 04-03-2020 End: 04-13-2020 take 1 capsule by mouth every twelve hours Cephalexin (Keflex) 500 mg capsule Discontinued 500 mg PO Q12H 20 10 0 April 03, 2020 1:00am April 12, 2020 1:00am April 13, 2020 1:03am Start: 08-13-2018 End: 08-23-2018 take 20 mL by mouth twice daily Cephalexin 250 MG/5ML Oral Suspension Reconstituted ; 20 Milliliter bid for 10 days Quantity: 400 {Milliliter} Refills: 0 Ordered: 13-Aug-2018 MD Hal Mims Start: 13-Aug-2018 End: 23-Aug-2018 Status: Inactive cholecalciferol 0.05 mg oral capsule (20 sources) Vitamin D Start: 02-27-2020 End: 08-12-2024 take 1 capsule by mouth once daily Cholecalciferol (Vitamin D3) 50 mcg (2,000 unit) capsule Discontinued 50 ug PO DAILY February 27, 2020 1:00am August 12, 2024 10:30am Start: 09-10-2018 End: 11-11-2018 take 1 capsule by mouth every week Cholecalciferol (Vitamin D3) 50,000 unit capsule Discontinued 84386 U PO EVERY WEEK September 10, 2018 12:00am November 11, 2018 12:53pm Vitamin D ; 5,00 0 UNITS daily Status: Inactive dexamethasone 4 mg oral tablet (5 sources) Corticosteroid Start: 10-28-2024 End: 11-04-2024 dexAMETHasone 4 mg tablet ; 1 (one) tablet daily for 7 days Quantity: 7 {Tablet} Refills: 0 Ordered: 28-Oct-2024 NILSON Butcher Start: 28-Oct-2024 End: 04-Nov-2024 Status: Inactive docusate sodium 50 mg / sennosides, correction 8.6 mg oral tablet (20 sources) Start: 07-04-2021 End: 01-14-2022 Sennosides-Docusate Sodium (Stool Softener-Stimulant Laxat) 8.6-50 mg Tablet Discontinued 2 {tbl} PO TWICE A DAY 12 3 0 July 04, 2021 12:00am January 14, 2022 3:27pm Take until first bowel movement, then as needed doxycycline monohydrate 100 mg oral tablet (20 sources) Tetracycline-class Drug Start: 08-10-2023 End: 08-17-2023 doxycycline monohydrate 100 mg tablet ; 1 (one) tablet two times daily for 7 days Quantity: 14 {Tablet} Refills: 0 Ordered: 10-Aug-2023 NILSON Marley Start: 10-Aug-2023 End: 17-Aug-2023 Status: Inactive Start: 07-04-2021 End: 01-14-2022 take 1 capsule by mouth twice daily Doxycycline Monohydrate 100 mg Capsule Discontinued 100 mg PO TWICE A DAY 28 14 July 04, 2021 12:00am January 14, 2022 3:26pm Take for 2 weeks postoperatively Start: 09-16-2014 End: 09-26-2014 take 1 capsule by mouth twice daily DOXYCYCLINE HYCLATE, 100MG (Oral Capsule) ; 1 (one) Capsule two times daily for 10 days Quantity: 20 {Capsule} Refills: 0 Ordered: 16-Sep-2014 MD Leann Mason Start: 16-Sep-2014 End: 26-Sep-2014 Status: Inactive Start: 02-01-2014 End: 02-11-2014 take 1 tablet by mouth twice daily DOXYCYCLINE HYCLATE, 100MG (Oral Tablet) ; 1 (one) Tablet BID for 10 days Quantity: 20 {Tablet} Refills: 0 Ordered: 01-Feb-2014 NILSON Katz Start: 01-Feb-2014 End: 11-Feb-2014 Status: Inactive elderberry fruit 200 mg oral capsule (20 sources) Start: 02-27-2020 End: 01-14-2022 take 1 capsule by mouth once daily Elderberry Fruit 200 mg capsule Discontinued 200 mg PO DAILY February 27, 2020 1:00am January 14, 2022 3:26pm ergocalciferol 1.25 mg oral capsule (20 sources) Provitamin D2 Compound Start: 07-18-2019 End: 10-24-2019 take 1 capsule by mouth every week Ergocalciferol 1.25 MG (50189 UT) Oral Capsule ; 1 (one) Capsule q week for 0 days Quantity: 13 {Capsule} Refills: 0 Ordered: 24-Oct-2019 MD Hal Mims Start: 18-Jul-2019 End: 24-Oct-2019 Status: Inactive escitalopram 20 mg oral tablet (20 sources) Serotonin Reuptake Inhibitor Start: 05-30-2015 End: 09-15-2016 take 1 tablet by mouth once daily Lexapro 20 MG Oral Tablet ; 1 Tablet daily for 0 days Quantity: 90 {Tablet} Refills: 1 Ordered: 15-Sep-2016 ROSALEE Rand Start: 30-May-2015 End: 15-Sep-2016 Status: Inactive famotidine 20 mg oral tablet (20 sources) Histamine-2 Receptor Antagonist Start: 07-04-2021 End: 01-14-2022 take 1 tablet by mouth once daily Famotidine 20 mg Tablet Discontinued 20 mg PO DAILY 30 30 0 July 04, 2021 12:00am January 14, 2022 3:26pm fluticasone propionate 0.05 mg/actuat metered dose nasal spray (20 sources) Corticosteroid FLONASE, 50MCG/A CT (Nasal Suspension) ; 2 puffs qd (50 MCG/ACT) Status: Inactive 60 actuat fluticasone propionate 0.25 mg/actuat / salmeterol 0.05 mg/actuat dry powder inhaler (20 sources) Corticosteroid, beta2-Adrenergic Agonist Start: 08-07-2023 End: 10-08-2023 take 2 puff(s) by inhalation once daily Advair Diskus 250 mcg-50 mcg/dose powder for inhalation ; 2 (two) Puff daily for 0 days Quantity: 1 {Each} Refills: 0 Ordered: 08-Oct-2023 MD Hal Mism Start: 07-Aug-2023 End: 08-Oct-2023 Status: Inactive Start: 01-07-2017 End: 09-21-2017 Advair Diskus 250-50 MCG/DOS E Inhalation Aerosol Powder Breath Activated ; 1 (one) Aero Pow Br Act daily for 0 days Quantity: 1 {Disk} Refills: 0 Ordered: 21-Sep-2017 SUYAPA Quiles Start: 07-Jan-2017 End: 21-Sep-2017 Status: Inactive Sjuunnvc-Daag-Bxp5-C-Dontrell-Kam sw (Osteo Bi-Flex Triple Strength) 750 mg-644 mg- 30 mg-1 mg tablet (20 sources) Start: 03-06-2017 End: 09-10-2018 Qeutrxbg-Qysg-Knr8-C-Dontrell-Kam sw (Osteo Bi-Flex Triple Strength) 750 mg-644 mg- 30 mg-1 mg tablet Discontinued TABLET PO March 06, 2017 3:19pm September 10, 2018 9:34am Start: 03-06-2017 End: 09-10-2018 Rjbcfbjt-Keki-Ois9-C-Dontrell-Kam sw (Osteo Bi-Flex Triple Strength) 750 mg-644 mg- 30 mg-1 mg tablet Discontinued {tbl} PO 0 March 06, 2017 1:00am September 10, 2018 9:34am Start: 03-06-2017 End: 09-10-2018 Hfawohta-Oocy-Qnx2-C-Dontrell-Kam sw (Osteo Bi-Flex Triple Strength) 750 mg-644 mg- 30 mg-1 mg tablet Discontinued {tbl} PO March 06, 2017 1:00am September 10, 2018 9:34am Start: 03-06-2017 End: 09-10-2018 Ubkyftzd-Lswi-Hqn1-C-Dontrell-Kam sw (Osteo Bi-Flex Triple Strength) 750 mg-644 mg- 30 mg-1 mg tablet Discontinued TABLET PO March 06, 2017 12:00am September 10, 2018 8:34am Start: 03-06-2017 End: 09-10-2018 Xbtpmbbf-Wyhd-Ewp2-C-Dontrell-Kam sw (Osteo Bi-Flex Triple Strength) 750 mg-644 mg- 30 mg-1 mg tablet Discontinued TABLET PO March 06, 2017 1:00am September 10, 2018 9:34am levoFLOXacin 500 mg oral tablet (20 sources) Quinolone Antimicrobial Start: 03-17-2016 End: 03-24-2016 take 1 tablet by mouth once daily LevoFLOXacin 500 MG Oral Tablet ; 1 (one) Tablet daily for 7 days Quantity: 7 {Tablet} Refills: 0 Ordered: 27-Mar-2016 MD Paul Siegel Start: 17-Mar-2016 End: 24-Mar-2016 Status: Inactive Comments: phoned in per physician Comment on above: phoned in per physic vanessa loratadine 10 mg oral tablet (20 sources) take 1 mg by mouth once daily CLARITIN, 10MG (Oral Tablet) ; qd (10 MG) Status: Inactive meloxicam 7.5 mg oral tablet (20 sources) Nonsteroidal Anti-inflammatory Drug Start: 07-04-2021 End: 02-28-2022 take 1 tablet by mouth twice daily Meloxicam 7.5 mg Tablet Discontinued 7.5 mg PO TWICE A DAY 60 30 0 July 04, 2021 12:00am February 28, 2022 10:20am Do not take any other nonsteroidal anti-inflammatorie s while using meloxicam/Mobic. take 1 tablet by mouth once checo y Mobic 7.5 MG Oral Tablet ; 1 daily (7.5 MG) Status: Inactive Comments: Basali Comment on above: Basali methylPREDNISolone 4 mg oral tablet (20 sources) Corticosteroid Start: End: 020 take 1 tablet by mouth once Methylprednisolone (Medrol (Genaro)) 4 mg tablets,dose pack Discontinued 4 mg PO per package directions 21 5 0 May 31, 2019 12:00am June 04, 2019 12:00am June 05, 2019 12:08am Start: 07-24-2014 End: 07-30-2014 MEDROL (GENARO), 4MG (Oral Tabl et) ; 1 Tab as directed for 6 days Quantity: 1 {Dose_Pack} Refills: 0 Ordered: 24-Jul-2014 ROSALEE Walker Clementina Machuca Start: 24-Jul-2014 End: 30-Jul-2014 Status: Inactive Start: 05-06-2014 End: 05-12-2014 MEDROL (GENARO), 4MG (Oral Tabl et) ; 1 (one) Tablet as directed on pack for 6 days Quantity: 1 {Package} Refills: 0 Ordered: 06-May-2014 MD Paul Siegel Start: 06-May-2014 End: 12-May-2014 Status: Inactive naproxen 500 mg oral tablet (20 sources) Nonsteroidal Anti-inflammatory Drug Start: 03-31-2017 End: 10-24-2019 take 1 tablet by mouth twice daily at mealtime Naproxen 500 MG Oral Tablet ; 1 (one) Tablet Tablet two times daily for 0 days Quantity: 60 {Tablet} Refills: 1 Ordered: 24-Oct-2019 MD Hal Mims Start: 31-Mar-2017 End: 24-Oct-2019 Status: Inactive Comments: Do not exceed labeled dose. Take with food. Start: 03-06-2017 End: 09-10-2018 Naproxen 500 mg tablet Disco ntinued 500 mg PO 1 to 2 times per day as needed March 06, 2017 1:00am September 10, 2018 9:34am take 1 capsule by [facility] twice daily ALEVE, 220MG (Oral Capsule) ; 1 two times daily (220 MG) Status: Inactive Comments: uses occ for plantar fasciitis Comment on above: uses occ for plantar fasciitis Do not exceed labele d dose. Take with food. nitrofurantoin, macrocrystals 25 mg / nitrofurantoin, monohydrate 75 mg oral capsule (20 sources) Nitrofuran Antibacterial Start: 019 End: take 1 capsule by mouth twice daily at mealtime Nitrofurantoin Monohyd/M-Cryst (Macrobid) 100 mg capsule Discontinued 100 mg PO TWICE A DAY November 11, 2018 12:00am April 16, 2019 9:20am must administer with a meal/food ondansetron 4 mg oral tablet (20 sources) Serotonin-3 Receptor Antagonist Start: 022 End: ondansetron HCL 4 mg tablet ; 1 (one) Tablet every six to eight hours PRN nausea for 0 days Quantity: 20 {Tablet} Refills: 3 Ordered: 23-Oct-2022 ROSALEE Stevens Start: 05-Feb-2022 End: 23-Oct-2022 Status: Inactive Start: 06-09-2019 End: 02-27-2020 take 1 tablet by mouth every eight hours as needed for nausea Ondansetron 4 MG tablet Discontinued 4 mg PO EVERY 8 HOURS NEEDED as needed for Nausea June 09, 2019 12:00am February 27, 2020 2:18pm Start: 11-17-2018 End: 10-24-2019 take 1 tablet by mouth every six hours as needed for nausea Ondansetron 4 MG Oral Tablet Disintegrating ; 1 (one) tablet every six hours PRN nausea for 0 days Quantity: 30 {Tablet} Refills: 0 Ordered: 24-Oct-2019 MD Hal Mims Start: 17-Nov-2018 End: 24-Oct-2019 Status: Inactive Comment on above: Medication taken as needed. promethazine hydrochloride 1.25 mg/ml oral solution (20 sources) Phenothiazine Start: 07-17-19 End: 10-08-19 take 5 mL by mouth at bedtime promethazine 6.25 mg/5 mL oral syrup ; 5 Milliliter at bedtime for 0 days Quantity: 30 {Milliliter} Refills: 0 Ordered: 08-Oct-2023 MD Hal Mims Start: 17-Jul-2023 End: 08-Oct-2023 Status: Inactive PHENERGAN, 25MG (Rectal Suppository) ; 1 every eight hours, as needed (25 MG) Status: Inactive Comments: Medication taken as needed. Comment on above: Medication taken as needed. Utxrxvsgh-Atqfrvjuw-M orethindr (16 sources) Start: 02-28-2022 End: 05-01-2022 Igmisulyt-Vadalpmtq-Lrikc hindr (Myfembree) 40-1-0.5 mg tablet Discontinued 1 {tbl} PO DAILY 21 03February 28, 2022 1:00am May 01, 2022 10:15am Start: 02-28-2022 End: 05-01-2022 Tlzxieyny-Ekgemuvqv-Ivrbnuqa dr (Myfembree) 40-1-0.5 mg tablet Discontinued 1 {tbl} PO DAILY February 28, 2022 1:00am May 01, 2022 10:15am Start: 02-28-2022 End: 05-01-2022 take 1 tablet by mouth once daily Ouycbhqcm-Xtghnlsgf-Kkhodqlwtd (Myfembre e) 40-1-0.5 mg tablet Discontinued 1 TABLET PO DAILY February 28, 2022 12:00am May 01, 2022 9:15am Start: 02-28-2022 End: 05-01-2022 take 1 tablet by mouth once daily Wszjcdxau-Fsbbjwdvo-Jwqmytbnnl (Myfembre e) 40-1-0.5 mg tablet Discontinued 1 TABLET PO DAILY February 28, 2022 1:00am May 01, 2022 10:15am sulfamethoxazole 800 mg / trimethoprim 160 mg oral tablet (20 sources) Dihydrofolate Reductase Inhibitor Antibacterial, Sulfonamide Antimicrobial Start: 12-31-2020 End: 01-14-2021 take 1 tablet by mouth twice daily Bactrim DS 800-160 MG Oral Tablet ; 1 Tab two times daily for 14 days Quantity: 28 {Tablet} Refills: 0 Ordered: 31-Dec-2020 MD Hal Mims Start: 31-Dec-2020 End: 14-Jan-2021 Status: Inactive Start: 12-13-2017 End: 09-10-2018 Sulfamethoxazole-Trimethopri m (Bactrim Ds) 800-160 mg tablet Discontinued 1 {tbl} PO TWICE A DAY 20 0 December 13, 2017 12:00am September 10, 2018 9:34am traMADol hydrochloride 50 mg oral tablet (20 sources) Opioid Agonist Start: 06-24-2021 End: 01-14-2022 take 1 tablet by mouth three times daily as needed for pain Tramadol (Ultram) 50 mg Tablet Discontinued 50 mg PO THREE TIMES A DAY as needed for Pain June 24, 2021 12:00am January 14, 2022 3:27pm Start: 07-13-2017 End: 09-10-2018 take 1 tablet by mouth once daily Tramadol 100 mg tablet extended release 24 hr Discontinued 100 mg PO daily July 13, 2017 12:00am September 10, 2018 9:34am take 1 tablet by hu th every six hours as needed Ultram 50 MG Oral Tablet ; 1 every 6 hours prn (50 MG) Status: Inactive Comments: Dr. Merchant Comment on above: Dr. Merchant tranexamic acid 650 mg oral tablet (16 sources) Antifibrinolytic Agent Start: 05-01-2022 End: 11-16-2023 Tranexamic Acid (Lysteda) 650 mg tablet Discontinued 1300 mg PO THREE TIMES A DAY 30 5 4 May 01, 2022 1:00am November 16, 2023 8:33am begin at onset of menstrual bleeding triamcinolone acetonide 1 mg/ml topical cream (20 sources) Corticosteroid Start: 09-27-2021 End: 10-23-2022 triamcinolone acetonide 0.1 % topical cream ; 1 (one) Application(s) two times daily for 0 days Quantity: 80 {Gram} Refills: 0 Ordered: 23-Oct-2022 ROSALEE Stevens Magaly Start: 27-Sep-2021 End: 23-Oct-2022 Status: Inactive Problems Active Problems Problem Classification Problem Date Documented Date Episodic/Chronic Abdominal pain (20 sources) Abdominal pain - cause unknown; Translations: [Left upper quadrant pain] 06-10-2019 Episodic Acute bronchitis (20 sources) Acute bronchitis; Translations: [Acute bronchitis, unspecified] 03-18-2023 Episodic Administrative/social admission (20 sources) Repeated prescription; Translations: [Encounter for issue of repeat prescription] 09-15-2016 Episodic Allergic reactions (20 sources) Contact dermatitis; Translations: [Unspecified contact dermatitis, unspecified cause] 09-27-2021 Episodic Anxiety disorders (20 sources) Posttraumatic stress disorder; Translations: [Post-traumatic stress disorder, unspecified] Onset: 11-07-2024 07-07-2023 Chronic Benign neoplasm of uterus (18 sources) Submucous leiomyoma of uterus; Translations: [Submucous leiomyoma of uterus] 05-01-2022 Episodic Comment on above: lysteda for now and discussed surgery if needed Blindness and vision defects (14 sources) Eye / vision finding; Translations: [Unspecified visual disturbance] Onset: 11-03-2024 10-21-2024 Episodic Chronic obstructive pulmonary disease and bronchiectasis (20 sources) Bronchitis; Translations: [Bronchitis, not specified as acute or chronic] 04-16-2019 Episodic Complication of device; implant or graft (1 source) Pain due to internal orthopedic prosthetic devices, implants and grafts, initial encounter; Translations: [Pain due to internal orthopedic prosthetic devices, implants and grafts, initial encounter] Onset: 01-27-2025 Episodic Esophageal disorders (1 source) Gastroesophageal reflux disease without esophagitis; Translations: [Gastro-esophageal reflux disease without esophagitis] 12-20-2024 Chronic Headache; including migraine (20 sources) Menstrual migraine; Translations: [Menstrual migraine, not intractable, without status migrainosus] Onset: 11-07-2024 09-11-2018 Chronic Comment on above: Pt has done very wel l since getting on Mirena, rarely takes meds now for BOOKER atenolol daily preve ntion, if no improvement recommend ocp progestin, maybe combination- discussed neurologic risks with hormone use Headache; including migraine (20 sources) Headache; Translations: [Headache] Onset: 11-07-2024 10-21-2024 Episodic Headache; including migraine (1 source) Headache; including migraine; Translations: [Headache, unspecified] Onset: 12-13-2024 Inflammation; infection of eye (except that caused by tuberculosis or sexually transmitteddisease) (20 sources) Hordeolum externum of upper eyelid; Translations: [Hordeolum externum right upper eyelid] 07-13-2017 Episodic Inflammatory diseases of female pelvic organs (20 sources) Infection of Bartholin gland; Translations: [Other diseases of Bartholin's gland] 06-09-2019 Episodic Joint disorders and dislocations; trauma-related (20 sources) Acetabular labrum tear; Translations: [Other articular cartilage disorders, left hip] Chronic Menstrual disorders (11 sources) Irregular periods; Translations: [Irregular menstruation, unspecified] 08-12-2024 Chronic Mood disorders (20 sources) Recurrent major depressive episodes, mild ; Translations: [Major depressive disorder, recurrent, mild] Onset: 11-07-2024 07-07-2023 Chronic Mood disorders (1 source) Mood disorders 07-18-2024 Nausea and vomiting (20 sources) Nausea; Translations: [Nausea] 03-15-2016 Episodic Noninfectious gastroenteritis (20 sources) Colitis; Translations: [Noninfective gastroenteritis and colitis, unspecified] 11-02-2023 Episodic Nutritional deficiencies (20 sources) Vitamin D deficiency; Translations: [Vitamin D deficiency, unspecified] Onset: 11-07-2024 07-07-2023 Chronic Osteoarthritis (20 sources) Osteoarthritis of hip; Translations: [Osteoarthritis of hip, unspecified] Onset: 11-07-2024 Chronic Other bone disease and musculoskeletal deformities (20 sources) Segmental and somatic dysfunction; Translations: [Segmental and somatic dysfunction of lumbar region] 11-06-2020 Episodic Other bone disease and musculoskeletal deformities (2 sources) Segmental and somatic dysfunction of lumbar region; Translations: [Nonallopathic lesions, lumbar region] Onset: 01-03-2025 Episodic Other bone disease and musculoskeletal deformities (2 sources) Segmental and somatic dysfunction of pelvic region; Translations: [Nonallopathic lesions, pelvic region] Onset: 01-03-2025 Episodic Other bone disease and musculoskeletal deformities (1 source) Segmental and somatic dysfunction of thoracic region; Translations: [Segmental and somatic dysfunction of thoracic region] Onset: 01-03-2025 Episodic Other bone disease and musculoskeletal deformities (1 source) Segmental and somatic dysfunction of cervical region; Translations: [Segmental and somatic dysfunction of cervical region] Onset: 01-03-2025 Episodic Other circulatory disease (20 sources) Elevated blood pressure; Translations: [Elevated blood-pressure reading, without diagnosis of hypertension] Onset: 11-07-2024 10-11-2024 Episodic Other connective tissue disease (20 sources) History of total hip arthroplasty; Translations: [Presence of left artificial hip joint] Onset: 11-07-2024 07-04-2021 Chronic Other connective tissue disease (4 sources) Presence of left artificial hip joint; Translations: [Hip joint replacement] Onset: 01-27-2025 Chronic Other connective tissue disease (20 sources) Pain in upper limb; Translations: [Pain in arm, unspecified] 08-30-2019 Episodic Other connective tissue disease (20 sources) Foot pain; Translations: [Pain in unspecified foot] 06-09-2019 Episodic Other connective tissue disease (20 sources) Tendinitis; Translations: [Enthesopathy, unspecified] 06-09-2019 Episodic Other connective tissue disease (20 sources) Tendonitis of left wrist; Translations: [Other enthesopathies, not elsewhere classified] 06-09-2019 Episodic Other female genital disorders (20 sources) Abnormal uterine bleeding; Translations: [Abnormal uterine and vaginal bleeding, unspecified] 05-01-2022 Chronic Comment on above: likely secondary to infection, perimenopause, if persistent recommend [place] Other female genital disorders (5 sources) Abnormal uterine and vaginal bleeding, unspecified; Translations: [Unspecified disorders of menstruation and other abnormal bleeding from female genital tract] Onset: 08-12-2024 Chronic Other female genital disorders (20 sources) Vaginal discharge; Translations: [Other specified noninflammatory disorders of vagina] 01-14-2022 Episodic Comment on above: cultures pending Other lower respiratory disease (20 sources) Cough; Translations: [Cough] 07-17-2023 Episodic Other nervous system disorders (20 sources) Carpal tunnel syndrome; Translations: [Carpal tunnel syndrome, right upper limb] 08-30-2019 Chronic Other nervous system disorders (11 sources) Carpal tunnel syndrome of right wrist; Translations: [Carpal tunnel syndrome, right upper limb] 08-30-2019 Chronic Other nervous system disorders (10 sources) H/O: migraine; Translations: [Personal history of other diseases of the nervous system and sense organs] Onset: 11-07-2024 10-21-2024 Episodic Other non-traumatic joint disorders (20 sources) Hip pain; Translations: [Pain in left hip] 09-07-2020 Episodic Other non-traumatic joint disorders (20 sources) Ankle pain; Translations: [Pain in right ankle and joints of right foot] 10-12-2013 Episodic Other nutritional; endocrine; and metabolic disorders (20 sources) Body mass index 40+ - severely obese; Translations: [Body mass index (BMI) 40.0-44.9, adult] 06-09-2019 Chronic Other nutritional; endocrine; and metabolic disorders (20 sources) Obesity; Translations: [Obesity, unspecified] Onset: 11-07-2024 07-07-2023 Chronic Other skin disorders (20 sources) Closed comedone; Translations: [Acne vulgaris] 04-03-2020 Episodic Other upper respiratory disease (20 sources) Respiratory tract congestion; Translations: [Nasal congestion] 01-15-2021 Episodic Other upper respiratory infections (20 sources) Sinusitis; Translations: [Chronic sinusitis, unspecified] 03-17-2016 Chronic Other upper respiratory infections (20 sources) Acute maxillary sinusitis; Translations: [Acute maxillary sinusitis, unspecified] 05-31-2019 Episodic Otitis media and related conditions (20 sources) Otitis media; Translations: [Unspecified nonsuppurative otitis media, right ear] 09-16-2014 Episodic Screening and history of mental health and substance abuse codes (20 sources) Ex-smoker; Translations: [Personal history of nicotine dependence] 07-07-2023 Episodic Skin and subcutaneous tissue infections (20 sources) Abscess of axilla; Translations: [Cutaneous abscess of limb, unspecified] 12-31-2020 Episodic Spondylosis; intervertebral disc disorders; other back problems (10 sources) Degeneration of intervertebral disc; Translations: [Degeneration of intervertebral disc, site unspecified] Onset: 01-03-2025 12-08-2024 Chronic Spondylosis; intervertebral disc disorders; other back problems (20 sources) Low back pain; Translations: [Lumbago] Onset: 11-03-2024 05-06-2014 Episodic Sprains and strains (1 source) Strain of muscle, fascia and tendon of left hip, initial encounter; Translations: [Strain of muscle, fascia and tendon of left hip, initial encounter] Onset: 01-27-2025 Episodic Superficial injury; contusion (20 sources) Contusion of left knee; Translations: [Contusion of left knee, initial encounter] 07-24-2014 Episodic Unclassified (1 source) Unknown / UNK(Unknown) Onset: 12-16-2016 Unclassified (11 sources) Body mass index 40+ - severely obese; Translations: [Body mass index (BMI) greater than 40] 04-08-2021 Unclassified (20 sources) Number of Children 09-27-2021 Comment on above: 0. Unclassified (20 sources) Number of Pregnancies 09-27-2021 Comment on above: 1. Unclassified (20 sources) Hip pain - Note for Hip pain: patient has complaints of chronic Lt hip pain, worse with movement. received steroid injection 07-17-20, Dr Thakkar, pain management office. reviewed by B 08-14-2020 Unclassified (20 sources) Follow up for multiple chronic conditions - The patient is here for follow-up of depression and other condition(s) (PTSD). The patient always takes the prescribed medications. No side effects noted (needs refill). The patient engages in regular exercise program 1-3 times per week (goes to gym twice a week). The patient's out of office blood pressure checks occur rarely. The patient states that weight has increased (3#), they are still having trouble sleeping (reports that she is having trouble with staying asleep. Will wake up after about 3 hours of sleeping. Is sleeping for about 3 to 3 1/2 hours each day. 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 Note for Multiple chronic conditions follow-up: Reports that she needs a referral to Dr. Merchant and Dr. Mohamud. She is currently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 patient sleeps 7 hours per night. Note for Well adult female: reviewed by [facility] 10-11-2024 Unclassified (5 sources) follow up from headache - Pt states that she is still having persistent headache and nothing is helping. Has been taking tylenol, ibuprofen. Had a round of steroids, no improvement. Is still different than her normal migraines. Had MRI that showed nonspecific changes.Pt denies nausea, vomiting. 10-28-2024 Results Test Name Value Interpretation Reference Range Facility CBC W/Diff, Automatedon 11-0 Absolute Lymph 1.72 X10 3/uL Normal 0.83-4.51 [facility] Comment on above: Performed By: #### L 501.6710, L100.0100, L101.9900 #### [facility] [address] [place], [address] Absolute Neut 3.1 X10 3/uL Normal 2.0-7.7 [facility] Comment on above: Performed By: #### L 501.6710, L100.0100, L101.9900 #### [facility] [address] [place], [address] Basophils/100 WBC (Bld) 1.1 % High 0-1 [facility] Comment on above: Performed By: #### L 501.6710, L100.0100, L101.9900 #### [facility] [address] [place], [address] Eosinophils/100 WBC (Bld) 3.0 % Normal 0-5 [facility] Comment on above: Performed By: #### L 501.6710, L100.0100, L101.9900 #### [facility] [address] [place], [address] Erythrocyte distribution width (RBC) [Ratio] 12.1 % Normal 11.6-14.6 [facility] Comment on above: Performed By: #### L 501.6710, L100.0100, L101.9900 #### [facility] [address] [place], [address] Hematocrit (Bld) [Volume fraction] 40.0 % Normal 37-47 [facility] Comment on above: Performed By: #### L 501.6710, L100.0100, L101.9900 #### [facility] [address] [place], [address] Hemoglobin (Bld) [Mass/Vol] 13.7 g/dL Normal 12.0-15.0 [facility] Comment on above: Performed By: #### L 501.6710, L100.0100, L101.9900 #### [facility] [address] [place], [address] IG% 0.200 Normal 0.0-0.9 [facility] Comment on above: Result Comment: IG% - Immature Granulocytes (promyelocytes, myelocytes and metamyelocytes) > 1% indicates that a LEFT SHIFT is Present. Performed By: #### L 501.6710, L100.0100, L101.9900 #### [facility] [address] [place], [address] Lymphocytes/100 WBC (Bld) 30.6 % Normal 19-41 [facility] Comment on above: Performed By: #### L 501.6710, L100.0100, L101.9900 #### [facility] [address] [place], [address] MCH (RBC) [Entitic mass] 31.4 pg Normal 27.0-32.0 [facility] Comment on above: Performed By: #### L 501.6710, L100.0100, L101.9900 #### [facility] [address] [place], [address] MCHC (RBC) [Mass/Vol] 34.3 g/dL Normal 32-36 [facility] Comment on above: Performed By: #### L 501.6710, L100.0100, L101.9900 #### [facility] [address] [place], [address] MCV (RBC) [Entitic vol] 91.5 fL Normal 81-99 [facility] Comment on above: Performed By: #### L 501.6710, L100.0100, L101.9900 #### [facility] [address] [place], [address] Monocytes/100 WBC (Bld) 10.8 % High 0-10 [facility] Comment on above: Performed By: #### L 501.6710, L100.0100, L101.9900 #### [facility] [address] [place], [address] Neutrophils/100 WBC (Bld) 54.3 % Normal 47-70 [facility] Comment on above: Performed By: #### L 501.6710, L100.0100, L101.9900 #### [facility] [address] [place], [address] Nucleated RBC (Bld) [#/Vol] 0 10*3/uL Normal 0-5 [facility] Comment on above: Performed By: #### L 501.6710, L100.0100, L101.9900 #### [facility] [address] [place], [address] Platelet mean volume (Bld) [Entitic vol] 9.0 fL Normal 6.2-12.0 [facility] Comment on above: Performed By: #### L 501.6710, L100.0100, L101.9900 #### [facility] [address] [place], [address] Platelets (Bld) [#/Vol] 316 10*3/uL Normal 150-450 [facility] Comment on above: Performed By: #### L 501.6710, L100.0100, L101.9900 #### [facility] [address] [place], [address] RBC (Bld) [#/Vol] 4.37 10*6/uL Normal 4.2-5.4 [facility] Comment on above: Performed By: #### L 501.6710, L100.0100, L101.9900 #### [facility] [address] [place], [address] RDW SD 41.1 fl Normal 35.1-43.9 [facility] Comment on above: Performed By: #### L 501.6710, L100.0100, L101.9900 #### [facility] [address] [place], [address] WBC (Bld) [#/Vol] 5.6 10*3/uL Normal 4.4-11.0 [facility] Comment on above: Performed By: #### L 501.6710, L100.0100, L101.9900 #### [facility] [address] [place], [address] CRPon 01-23-2025 C-REACTIVE PROT 8.30 mg/L High 0.0-3.0 [facility] Comment on above: Performed By: #### L 501.6710, L100.0100, L101.9900 #### [facility] [address] [place], [address] Erythrocyte Sed Rateon 01-23 SED RATE 2 mm/hr Normal 0-30 [facility] Comment on above: Performed By: #### L 501.6710, L100.0100, L101.9900 #### [facility] [address] [place], [address] Chiropractic Reporton 2024 Chiropractic Report [facility] [address] [place] [address] OFFICE VISIT Date of Service: 01/03/25 MR#: [id number] Acct: [id number] Name: FLORIDALMA XIE Rep #: [id number] : 1970 Provider: CAIN Santillan Age/Sex: 54/F Location: [facility] [place] [facility] Status: Signed Intake Vital Signs 12/07/24 08:43 Height 5 ft Weight: 231 lb BMI 45.1 BP 138/96 H Intake Visit Reasons: BACK PAIN Chief Complaint: neck pain Allergies oxycodone HCl (From Percocet) Allergy (Verified 01/03/25 14:44) Itching Penicillins (PCN) Allergy (Verified 01/03/25 14:44) Rash acyclovir Adverse Reaction (Verified 01/03/25 14:44) Diarrhea Medications ???Medication ???Instructions ???Recorded ???Confirmed ???Type multivitamin,we-awru-qmzehah s 1 tab PO DAILY 02/27/20 01/03/25 H istory (Complete Multivitamin tablet) lorazepam 0.5 mg tablet (Ativan) 0.5 mg PO TID PRN Anxiety 06/24/21 01/03/25 History acetaminophen 500 mg tablet 1,000 mg (2 x 500 mg) PO Q6H PRN 0 07/04/21 01/03/25 Rx Pain #0 tabs atenolol 25 mg tablet 25 mg PO DAILY PRN MIGRAINES #30 0 06/19/23 01/03/25 Rx tabs bupropion HCl 300 mg 24 hr tablet, 450 mg PO DAILY 08/12/24 5 History extended release cyclobenzaprine 10 mg tablet 10 mg PO TID PRN muscle spasm #14 10/21/24 01/03/25 Rx tabs prednisone 50 mg tablet 50 mg PO DAILY 4 days #4 tabs 04/1601/03/25 Rx gabapentin 100 mg capsule 100 mg PO TID 12/07/24 01/03/25 Hi story indomethacin 25 mg capsule mg PO 12/07/24 01/03/25 History PFSH Medical History Wears glasses Alcohol use History of steroid therapy Arthritis Non-smoker Shortness of breath on exertion History of pain when walking Cardiology follow-up encounter Hay fever Migraine Anxiety Depression Surgical History History of hip surgery History of tonsillectomy and adenoidectomy S/P breast biopsy, right Status post arthroscopy of hip S/P LASIK surgery Family History Mother Breast cancer Hypertension COPD (chronic obstructive pulmonary disease) CVA (cerebral vascular accident) Father Heart disease Hypertension Other CHF (congestive heart failure) Diabetes MONICA (obstructive sleep apnea) Social History Smoking Status: Never smoker alcohol intake: current alcohol intake frequency: holidays/special occasions only details: social substance use type: does not use caffeine: Yes what type of physical activity do you participate in: walking seatbelt use: always do you feel safe at home: Yes 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 Pt. advises her last adjustment was helpful. She continues to report neck stiffness, denies vertigo, dizziness or double vision. She states she has not experienced a BOOKER/migraine recently. She treats pain and tightness with massages, taken Tylenol, Motrin, heat and ice. She is also currently taking Gabapentin and Indocin which have been helpful. She denies new injury, numbness, tingling or radiculopathy to her BUE. Pt. reports chiropractic adjustments are helpful but her stiffness gradually returns. Onset: 10/17/24 Location: neck/upper back Duration: intermittent Aggravating or associated factors: stress, work, ROM Relieving factors: chiro Pain Quality: aching and dull Exam Musc General: Yes normal posture, normal gait, joint tenderness and decreased range of motion; No muscle weakness Cervical Spine: Yes loss of normal cervical lordosis, Yes cervical muscular tenderness (improving) right greater than left diffuse , Yes cervical spasm (improving) right greater than left upper pa racervical muscles and intrinsics and Yes misalignment (C0) misalignment: C1 and C2 Thoracic/Lumber: No thoracic and lumbar spine normal to inspection (anterior hd carriage), No pain with thoraco-lumbar ROM, Yes paraspinal tenderness on the right greater than left (upper trap), Yes thoraco-lumbar spasm on the right greater than left (trap) and Yes misalignment T2, T3 and T4 Office Procedures Procedures - Chiropractic Procedures Manipulation: Cervical C1 and Thoracic T2 Manipulation: 1-2 regions Patient Response: positive Assessment and Plan Assessment and Plan (1) Segmental and somatic dysfunction of cervical region: Status: Acute (2) Segmental and somatic dysfunction of thoracic region: Status: Acute (3) DDD (degenerative disc disease): Status: Chronic Qualifiers: Mid-cervical spinal level: C5-C6 Spinal region: mid-cervical Qualified Code( (more content not included)... Normal [facility] Chiropractic Reporton 2024 Chiropractic Report [facility] [address] [place] [address] OFFICE VISIT Date of Service: 12/27/24 MR#: [id number] Acct: [id number] Name: ROJASFLORIDALMAMaicol LEUNG Rep #: [id number] : 1970 Provider: CAIN Santillan Age/Sex: 54/F Location: [facility] [place] [facility] Status: Signed Intake Vital Signs 12/07/24 08:43 Height 5 ft Weight: 231 lb BMI 45.1 BP 138/96 H Intake Visit Reasons: BACK PAIN Chief Complaint: neck pain Allergies oxycodone HCl (From Percocet) Allergy (Verified 12/27/24 15:07) Itching Penicillins (PCN) Allergy (Verified 12/27/24 15:07) Rash acyclovir Adverse Reaction (Verified 12/27/24 15:07) Diarrhea Medications ???Medication ???Instructions ???Recorded ???Confirmed ???Type multivitamin,lo-lekw-qntzajc s 1 tab PO DAILY 02/27/20 12/27/24 H istory (Complete Multivitamin tablet) lorazepam 0.5 mg tablet (Ativan) 0.5 mg PO TID PRN Anxiety 06/24/21 12/27/24 History acetaminophen 500 mg tablet 1,000 mg (2 x 500 mg) PO Q6H PRN 0 07/04/21 12/27/24 Rx Pain #0 tabs atenolol 25 mg tablet 25 mg PO DAILY PRN MIGRAINES #30 0 06/19/23 12/27/24 Rx tabs bupropion HCl 300 mg 24 hr tablet, 450 mg PO DAILY 08/12/24 5 History extended release cyclobenzaprine 10 mg tablet 10 mg PO TID PRN muscle spasm #14 10/21/24 12/27/24 Rx tabs prednisone 50 mg tablet 50 mg PO DAILY 4 days #4 tabs 08/04/1612/27/24 Rx gabapentin 100 mg capsule 100 mg PO TID 12/07/24 12/27/24 Hi story indomethacin 25 mg capsule mg PO 12/07/24 12/27/24 History PFSH Medical History Wears glasses Alcohol use History of steroid therapy Arthritis Non-smoker Shortness of breath on exertion History of pain when walking Cardiology follow-up encounter Hay fever Migraine Anxiety Depression Surgical History History of hip surgery History of tonsillectomy and adenoidectomy S/P breast biopsy, right Status post arthroscopy of hip S/P LASIK surgery Family History Mother Breast cancer Hypertension COPD (chronic obstructive pulmonary disease) CVA (cerebral vascular accident) Father Heart disease Hypertension Other CHF (congestive heart failure) Diabetes MONICA (obstructive sleep apnea) Social History Smoking Status: Never smoker alcohol intake: current alcohol intake frequency: holidays/special occasions only details: social substance use type: does not use caffeine: Yes what type of physical activity do you participate in: walking seatbelt use: always do you feel safe at home: Yes 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 Pt. advises her last adjustment was helpful. She states she has not experienced a BOOKER/migraine recently. She states her neck is mildly tight and denies vertigo, dizziness or double vision. She was seen in neurology and they do not want her to wean off her meds yet. She treats pain and tightness with massages, taken Tylenol, Motrin, heat and ice. She is also currently taking Gabapentin and Indocin which have been helpful. She denies new injury, numbness, tingling or radiculopathy to her BUE. Pt. reports chiropractic adjustments have been helpful in the past. Onset: 10/17/24 Location: neck/upper back Duration: frequent Aggravating or associated factors: stress, work, ROM Relieving factors: chiro Pain Quality: aching and dull Exam Musc General: Yes normal posture, normal gait, joint tenderness and decreased range of motion; No muscle weakness Cervical Spine: Yes loss of normal cervical lordosis, Yes cervical muscular tenderness right greater than left diffuse , Yes cervical spasm right greater than left upper paracervical muscles and intrinsics and Yes misalignment (C0) misalignment: C1 and C2 Thoracic/Lumber: No thoracic and lumbar spine normal to inspection (anterior hd carriage), No pain with thoraco-lumbar ROM, Yes paraspinal tenderness on the right greater than left (upper trap), Yes thoraco-lumbar spasm on the right greater than left (trap) and Yes misalignment T2, T3 and T4 Office Procedures Procedures - Chiropractic Procedures Manipulation: Cervical C1 and Thoracic T2 Manipulation: 1-2 regions Patient Response: positive Assessment and Plan Assessment and Plan (1) Headache: Status: Acute Qualifiers: 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 Normal [facility] Cerv Spine 2 or 3 Viewson Cerv Spine 2 or 3 Views [facility] Imaging Services [address] [place] [address] Cerv Spine 2 or 3 Views MR#: [id number] Acct: [id number] Name: FLORIDALMA XIE Rep #: [id number] : 1970 F 54 From: Curt Pompa MD PCP: Dr. Hal Mims MD Status: REG CLI Study: Cerv Spine 2 or 3 Views Date of Exam: 12/07/24 Exam# [id number] Ordering Dr: Toña Jeffries D.C. PROCEDURE: CERV SPINE 2 OR 3 VIEWS 12/07/2024 REASON FOR EXAM: NECK PAIN/BOOKER TECHNIQUE: Procedure Code: RADSPCL Modality: DX Procedure: CERV SPINE 2 OR 3 VIEWS FINDINGS: No evidence of acute fracture or dislocation. Vertebral body heights are maintained. Mild degenerative changes of the visualized spine. Normal alignment. RAD/Cerv Spine 2 or 3 Views IMPRESSION: Mild spondylosis. Disclaimer: Reading Location: [id number] CC: CAIN Jeffries; Dr. Hal Mims MD Provider Relations Manager: Signed Normal [facility] Chiropractic Reporton 2024 Chiropractic Report [facility] [address] [place] [address] OFFICE VISIT Date of Service: 12/07/24 MR#: [id number] Acct: [id number] Name: FLORIDALMA XIE XOCHITL Rep #: [id number] : 1970 Provider: CAIN Santillan Age/Sex: 54/F Location: [facility] [place] [facility] Status: Signed Intake Vital Signs 11/15/24 15:03 12/07/24 08:43 Height 5 ft 5 ft Weight: 231 lb BMI 45.1 BP 138/96 H Intake Visit Reasons: EST CARE Chief Complaint: neck pain Allergies oxycodone HCl (From Percocet) Allergy (Verified 12/07/24 08:44) Itching Penicillins (PCN) Allergy (Verified 12/07/24 08:44) Rash acyclovir Adverse Reaction (Verified 12/07/24 08:44) Diarrhea Medications ???Medication ???Instructions ???Recorded ???Confirmed ???Type multivitamin,ph-yqrr-ttvrejw s 1 tab PO DAILY 02/27/20 12/07/24 H istory (Complete Multivitamin tablet) lorazepam 0.5 mg tablet (Ativan) 0.5 mg PO TID PRN Anxiety 06/24/21 12/07/24 History acetaminophen 500 mg tablet 1,000 mg (2 x 500 mg) PO Q6H PRN 0 07/04/21 12/07/24 Rx Pain #0 tabs atenolol 25 mg tablet 25 mg PO DAILY PRN MIGRAINES #30 0 06/19/23 12/07/24 Rx tabs bupropion HCl 300 mg 24 hr tablet, 450 mg PO DAILY 08/12/24 5 History extended release cyclobenzaprine 10 mg tablet 10 mg PO TID PRN muscle spasm #14 10/21/24 12/07/24 Rx tabs prednisone 50 mg tablet 50 mg PO DAILY 4 days #4 tabs 08/04/1612/07/24 Rx gabapentin 100 mg capsule 100 mg PO TID 12/07/24 12/07/24 Hi story indomethacin 25 mg capsule mg PO 12/07/24 12/07/24 History PFSH Medical History Wears glasses Alcohol use History of steroid therapy Arthritis Non-smoker Shortness of breath on exertion History of pain when walking Cardiology follow-up encounter Hay fever Migraine Anxiety Depression Surgical History History of hip surgery History of tonsillectomy and adenoidectomy S/P breast biopsy, right Status post arthroscopy of hip S/P LASIK surgery Family History Mother Breast cancer Hypertension COPD (chronic obstructive pulmonary disease) CVA (cerebral vascular accident) Father Heart disease Hypertension Other CHF (congestive heart failure) Diabetes MONICA (obstructive sleep apnea) Social History Smoking Status: Never smoker alcohol intake: current alcohol intake frequency: holidays/special occasions only details: social substance use type: does not use caffeine: Yes what type of physical activity do you participate in: walking seatbelt use: always do you feel safe at home: Yes 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 Pt. was seen back in 2021 for low back pain. Pt. advises she experienced an intense BOOKER/migraine back at the end of September 2024. She states it was the worst BOOKER she had ever had with neck pain, blurred vision, vertigo. She has been seen and treated for this by ED and neurology. She has had numerous tests and imaging done. Her double vision was a result of dry eyes, as dx by a neuro optomologist. She has had massages, taken Tylenol, Motrin, applied heat and ice. She is currently taking Gabapentin and Indocin which have been helpful. She was seen and treated at [facility]. she states she has not experienced a BOOKER and is no longer having neck pain. She does continue to c/o neck tightness which she states is 'normal' for her. She denies back or neck injury or surgery. She denies numbness, tingling or radiculopathy to her BUE. Pt. reports chiropractic adjustments have been helpful in the past. Onset: 10/17/24 Location: neck/upper back Duration: frequent Aggravating or associated factors: stress, work, ROM Relieving factors: anti-inflammatory, massage Pain Quality: aching and dull Exam Musc General: Yes normal posture, normal gait, joint tenderness and decreased range of motion; No muscle weakness Cervical Spine: Yes loss of normal cervical lordosis, Yes cervical muscular tenderness right greater than left diffuse , Yes pain with cervical ROM (pain on R ) with lateral flexion to left, with rotation to left and with rotation to right, Yes cervical spasm right greater than left upper paracervical muscles and intrinsics and Yes misalignment (C0) misalignment: C1 and C2 Thoracic/Lumber: No thoracic and lumbar spine normal to inspection (anterior hd carriage), No pain with thoraco-lumbar ROM, Yes paraspinal tenderness on the right greater than left (upper trap), Yes thoraco-lumbar spasm on the right greater than left (more content not included)... Normal [facility] ANTINUCLEAR ANTIBODIES DIREC Ton 11-09-2024 MIKKI,DIRECT Negative Normal Negative [facility] Comment on above: Result Comment: Perf ormed at: [facility] [address] [id number] Retail Loan Officer: Sang Gonzalez PhD, Phone: [phone] Performed By: #### L 3100.5475, L101.9900, L501.6710, L3410.1110 ####[facility] [id number] [facility] [place], [address] Antiextractable Nu Agon WELFARE ADVISER Ab <0.2 Normal 0.0-0.9 [facility] Comment on above: Result Comment: AMENDED REPORT 11/09/241407 WELFARE ADVISER Ab previously reported as: Test not performed Performed By: #### L 3100.5475, L101.9900, L501.6710, L3410.1110 ####[facility] [id number] [place], [address] IRVING Ab <0.2 Normal 0.0-0.9 [facility] Comment on above: Result Comment: AMENDED REPORT 11/09/241407 IRVING Ab previously reported as: Test not performed Performed By: #### L 3100.5475, L101.9900, L501.6710, L3410.1110 ####[facility] [id number] [place], [address] CRPon 11-08-2024 C-REACTIVE PROT 3.59 mg/L High 0.0-3.0 [facility] Comment on above: Performed By: #### L 3100.5475, L101.9900, L501.6710, L3410.1110 ####[facility] [id number] [place], [address] Erythrocyte Sed Rateon 11-08 SED RATE 1 mm/hr Normal 0-30 [facility] Comment on above: Performed By: #### L 3100.5475, L101.9900, L501.6710, L3410.1110 ####[facility] [id number] [place], [address] Erythrocyte sedimentation ra teOrdered By: Jerri Awan on 11-08-2024 ESR (Bld) [Velocity] 1 mm/h 0-30 [facility] Serum or plasma C reactive p rotein measurement (mass/volume)Ordered By: Jerri Awan on 11-08-2024 CRP [Mass/Vol] 3.59 mg/L High 0.0-3.0 [facility] Brain W/WO Contraston 2024 Brain W/WO Contrast [facility] Imaging Services [address] [place], [place] [address] Brain W/WO Contrast MR#: [id number] Acct: [id number] Name: FLORIDALMA XIE Rep #: [id number] : 1970 F 54 From: Justin Brown MD PCP: Dr. Hal Mims MD Status: REG CLI Study: Brain W/WO Contrast Date of Exam: 10/28/24 Exam# [id number] Ordering Dr: Wander Lopez PROCEDURE: BRAIN W/WO CONTRAST 10/28/2024 REASON FOR EXAM: HEADACHE TECHNIQUE: BRAIN W/WO CONTRAST Multiplanar and multisequence images were obtained. CONTRAST: Clariscan VOLUME: 21 mL COMPARISON: None. FINDINGS: Brain: Few foci of hyperintense signal on T2 and FLAIR in the white matter which are nonspecific but most likely due to chronic small-vessel ischemia. No restricted diffusion. No hemorrhage. No mass-effect or midline shift. Diffusion: No restricted diffusion. Ventricles: No ventriculomegaly. Major Intracranial Vessels: Patent. Sinuses: Clear. Mastoids: Clear MRI/Brain W/WO Contrast IMPRESSION: No acute brain abnormalities or abnormal enhancement. Minimal white matter changes which are nonspecific but most likely due to chronic small-vessel ischemia. Reading Location: [facility] CC: Dr. Hal Mims MD; IDRIS Solis Provider Relations Manager: Signed Normal [facility] Magnetic resonance imaging r eportOrdered By: Justin Brown on 10-28-2024 Study report [facility] Imaging Services [address] [place], [place] [address] Brain W/WO Contrast MR#: [id number] Acct: [id number] Name: FLORIDALMA XIE Rep #: [id number] : 1970 F 54 From: Joe Brown MD PCP: Dr. Hal Mims MD Status: REG CL I Study:Brain W/WO Contrast Date of Exam: 10/28/24 Exam# [id number] Ordering Dr: Wander Blake PROCEDURE: BRAIN W/WO CONTRAST 10/28/2024 REASON FOR EXAM: HEADACHE TECHNIQUE: BRAIN W/WO CONTRAST Multiplanar and multisequence images were obtained. CONTRAST: Clariscan VOLUME: 21 mL COMPARISON: None. FINDINGS: Brain: Few foci of hyperintense signal on T2 and FLAIR in the white matter whichare nonspecific but most likely due to chronic small-vessel ischemia. No restricted diffusion. No hemorrhage. No mass-effector midline shift. Diffusion: No restricted diffusion. Ventricles: No ventriculomegaly. Major Intracranial Vessels: Patent. Sinuses: Clear. Mastoids: Clear MRI/Brain W/WO Contrast IMPRESSION: No acute brain abnormalities or abnormal enhancement. Minimal white matter changes which are nonspecific but most likely due to chronic small-vessel ischemia. Reading Location: [facility] CC: Dr. Hal Mims MD; IDRIS Solis ~ Provider Relations Manager: Signed [facility] Lyme Screen W/Reflex WBon LYME SCREEN Ab Negative Normal Negative [facility] Comment on above: Result Comment: Lyme antibodies not detected. Reflex testing is not indicated. No laboratory evidence of infection with B. burgdorferi (Lyme disease). Negative results may occur in patients recently infected (less than or equal to 14 days) with B. burgdorferi. If recent infection is suspected, repeat testing on a new sample collected in 7 to 14 days is recommended. Performed at: [address] [id number] Retail Loan Officer: Sang Gonzalez PhD, Phone: [phone] Performed By: #### L 7000.5300 #### [facility] [address] [place], [address] Laboratory - Microbiology an d Antimicrobial susceptibilityon 10-26-2024 B. burgdorferi Ab (S) [Interp] Negative Normal [facility] Urine Cultureon 10-24-2024 URC #1 Below infection l evel. 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 Submit a new specimen if indicated. Normal [facility] Comment on above: Performed By: #### M 100.2200 #### [facility] [address] [place], [place], [address] 12 Lead EKGon 10-21-2024 12 Lead EKG [facility] Cardiovascular Services [address] [place] [address] 12 Lead EKG 10/21/24 1021 MR#: [id number] Acct: [id number] Name: FLORIDALMA XIE Rep #: [id number] : 1970 54 From: James Cartagena MD Attending Dr: Status: DEP ER Ordering Dr: Junaid Keating DO Date: 10/21/24 Location: ED Sex: F C Admitted: Test Reason : Blood Pressure : */* mmHG Vent. Rate : 67 BPM Atrial Rate : 67 BPM P-R Int : 218 ms QRS Dur : 98 ms QT Int : 418 ms P-R-T Axes : 47 75 50 degrees QTcB Int : 441 ms Sinus rhythm with 1st degree A-V block Otherwise normal ECG Confirmed by RADHIKA DAO, JAMES ([id number]), material expeditor OCTAVIO LOWERY ([id number]) on 10/24/2024 6:57:39 AM Referred By: Confirmed By: JAMES CARTAGENA MD 10/24/2457 Date James Cartagena MD CC: Dr. Hal Mims MD; Dr. Junaid Keating, DO Signed Normal [facility] Absolute lymphocyte countOrd ered By: Junaid Keating on 10-21-2024 Lymphocytes Auto (Unsp spec) [#/Vol] 2.61 10*3/uL 0.83-4.51 [facility] Absolute neutrophil countOrd ered By: Junaid Keating on 10-21-2024 Neutrophils (Bld) [#/Vol] 3.5 10*3/uL 2.0-7.7 [facility] Anion gap in Serum or Plasma Ordered By: Junaid Keating on 10-21-2024 Anion gap [Moles/Vol] 12 mmol/L 5-15 [facility] Automated blood erythrocyte countOrdered By: Junaid Keating on 10-21-2024 RBC (Bld) [#/Vol] 4.52 10*6/uL Normal 4.2-5.4 [facility] Comment on above: Performed By: #### L 100.0100, L500.7648 #### [facility] [address] [place], [address] Automated blood hematocrit ( percentage)Ordered By: Junaid Keating on 10-21-2024 Hematocrit (Bld) [Volume fraction] 40.6 % Normal 37-47 [facility] Comment on above: Performed By: #### L 100.0100, L500.4050 #### [facility] [address] [place], [address] Automated lymphocyte count a s percentage of total leukocytesOrdered By: Junaid Keating on 10-21-2024 Lymphocytes/100 WBC Auto (Unsp spec) 37.2 % 19- [facility] BUN/creatinine ratioOrdered By: Junaid Keating on 10-21-2024 Urea nitrogen/Creatinine [Mass ratio] 16.0 mg/mg 10-20 [facility] Basophil percentageOrdered B y: Junaid Keating on 10-21-2024 Basophils/100 WBC (Bld) 0.9 % Normal 0-1 [facility] Comment on above: Performed By: #### L 100.0100, L500.4050 #### [facility] [address] [place], [address] Bilirubin Test strip Ql (U)O rdered By: Junaid Keating on 10-21-2024 Bilirubin Ql (U) Negative Negative [facility] Bilirubin, totalOrdered By: Junaid Keating on 10-21-2024 Bilirubin [Mass/Vol] 0.33 mg/dL 0.00-1.30 [facility] CBC W/Diff, Automatedon Absolute Lymph 2.61 X10 3/uL Normal 0.83-4.51 [facility] Comment on above: Performed By: #### L 100.0100, L500.4050 #### [facility] [address] [place], [address] Absolute Neut 3.5 X10 3/uL Normal 2.0-7.7 [facility] Comment on above: Performed By: #### L 100.0100, L500.4050 #### [facility] [address] [place], [address] IG% 0.100 Normal 0.0-0.9 [facility] Comment on above: Result Comment: IG% - Immature Granulocytes (promyelocytes, myelocytes and metamyelocytes) > 1% indicates that a LEFT SHIFT is Present. Performed By: #### L 100.0100, L500.4050 #### [facility] [address] [place], [address] Lymphocytes/100 WBC (Bld) 37.2 % Normal 19-41 [facility] Comment on above: Performed By: #### L 100.0100, L500.4050 #### [facility] [address] [place], [address] Nucleated RBC (Bld) [#/Vol] 0 10*3/uL Normal 0-5 [facility] Comment on above: Performed By: #### L 100.0100, L500.4050 #### [facility] [address] [place], [address] RDW SD 39.8 fl Normal 35.1-43.9 [facility] Comment on above: Performed By: #### L 100.0100, L500.4050 #### [facility] [address] [place], [address] CTA Head AND Neck W/ Contras ton 10-21-2024 CTA Head AND Neck W/ Contrast [facility] Imaging Services [address] [place] [address] CTA Head AND Neck W/ Contrast MR#: [id number] Acct: [id number] Name: FLORIDALMA XIE Rep #: [id number] : 1970 F 54 From: Vitaly valentin MD PCP: Dr. Hal Mims MD Status: REG ER Study: CTA Head AND Neck W/ Contrast Date of Exam: Exam# [id number] Ordering Dr: Junaid Keating DO PROCEDURE: CTA HEAD AND NECK W/ CONTRAST N/A REASON FOR EXAM: HEADACHE Neck pain. TECHNIQUE: CTA HEAD AND NECK W/ CONTRAST Multiplanar Sagittal and Coronal images were obtained. CONTRAST: Isovue 370 VOLUME: 100 mL One or more dose reduction techniques were used (e.g., Automated exposure control, adjustment of the mA and/or kV according to patient size, use of iterative reconstruction technique). RADIATION DOSE SUMMARY: CTDlvol: 27 mGy DLP: 1554.22 mGycm COMPARISON: None FINDINGS: Aortic Arch: Normal size and branching pattern. No significant atherosclerotic plaque. Brachiocephalic and Subclavians: Unremarkable RIGHT Carotid: Right CCA: Unremarkable. Right ICA: Unremarkable. Right ECA: Unremarkable. LEFT Carotid: Left CCA: Unremarkable. Left ICA: Unremarkable. Left ECA: Unremarkable. Vertebrals: Dominant left vertebral artery. RIGHT Vertebral: Unremarkable. LEFT Vertebral: Unremarkable. Anatomy: Branscomb of Crane anatomy is normal. Aneurysm or avm: No intracranial aneurysms or large vascular malformations are identified. Anterior cerebral arteries: Unremarkable: Middle cerebral arteries: Unremarkable. Basilar artery: Unremarkable. Posterior cerebral arteries: Unremarkable. Other major branches of the posterior circulation: Unremarkable. Major venous structures: Unremarkable. Other findings: Unenhanced images of the brain shows no acute abnormalities. Hyperostosis frontalis interna. CT/CTA Head AND Neck W/ Contrast IMPRESSION: No significant abnormality is seen. Reading Location: [facility] CC: Dr. Hal Mims MD; Dr. Junaid Keating DO Provider Relations Manager: Signed Normal [facility] Carbon dioxide, total [Moles /volume] in Central venous bloodOrdered By: Junaid Keating on 10-21-2024 CO2 [Moles/Vol] 23.4 mmol/L 21.0-32.0 [facility] Chloride assayOrdered By: Osmany Keating on 10-21-2024 Chloride [Moles/Vol] 104 mmol/L 98-108 [facility] Comprehensive Metabolic Prof ilon 10-21-2024 Albumin [Mass/Vol] 4.3 g/dL Normal 3.5-5.0 [facility] Comment on above: Performed By: #### L 100.0100, L500.4050 #### [facility] [place], [address] Albumin/Globulin [Mass ratio] 1.6 {ratio} Normal 0.9-2.4 [facility] Comment on above: Performed By: #### L 100.0100, L500.4050 #### [facility] [address] [place], [address] ALK PHOS 69 U/L Normal 35-104 [facility] Comment on above: Performed By: #### L 100.0100, L500.4050 #### [facility] [address] [place], [address] ALT [Catalytic activity/Vol] 28 U/L Normal <=34 [facility] Comment on above: Performed By: #### L 100.0100, L500.4050 #### [facility] [address] [place], [address] AST [Catalytic activity/Vol] 27 U/L Normal <=31 [facility] Comment on above: Performed By: #### L 100.0100, L500.4050 #### [facility] [address] [place], [address] Bilirubin [Mass/Vol] 0.33 mg/dL Normal 0.00-1.30 [facility] Comment on above: Performed By: #### L 100.0100, L500.4050 #### [facility] [address] [place], [address] BUN/CRE 16.0 RATIO Normal 10-20 [facility] Comment on above: Performed By: #### L 100.0100, L500.4050 #### [facility] [address] [place], [address] Calcium [Mass/Vol] 9.5 mg/dL Normal 7.6-11.0 [facility] Comment on above: Performed By: #### L 100.0100, L500.4050 #### [facility] [address] [place], [address] Chloride [Moles/Vol] 104 mmol/L Normal 98-108 [facility] Comment on above: Performed By: #### L 100.0100, L500.4050 #### [facility] [address] [place], [address] CO2 [Moles/Vol] 23.4 mmol/L Normal 21.0-32.0 [facility] Comment on above: Performed By: #### L 100.0100, L500.4050 #### [facility] [address] [place], [address] Creatinine [Mass/Vol] 1.00 mg/dL Normal 0.70-1.20 [facility] Comment on above: Performed By: #### L 100.0100, L500.4050 #### [facility] [address] [place], [address] ECRCL 71.83 ml/min Normal 50-250 [facility] Comment on above: Performed By: #### L 100.0100, L500.4050 #### [facility] [address] [place], [address] GAP 12 Normal 5-15 [facility] Comment on above: Performed By: #### L 100.0100, L500.4050 #### [facility] [address] [place], [address] GFR/1.73 sq M.predicted among non-blacks MDRD (S/P/Bld) [Vol rate/Area] 68 mL/min/{1.73_m2} Normal >60 [facility] Comment on above: Result Comment: mL/m in/1.73m2 CKD-EPI Creatinine Equation (2020) Performed By: #### L 100.0100, L500.4050 #### [facility] [address] [place], [address] Globulin (S) [Mass/Vol] 2.7 g/dL Normal 2.2-4.2 [facility] Comment on above: Performed By: #### L 100.0100, L500.4050 #### [facility] [address] [place], [address] Glucose [Mass/Vol] 89 mg/dL Normal 70-99 [facility] Comment on above: Performed By: #### L 100.0100, L500.4050 #### [facility] [address] [place], [address] Potassium [Moles/Vol] 3.9 mmol/L Normal 3.3-5.1 [facility] Comment on above: Performed By: #### L 100.0100, L500.4050 #### [facility] [address] [place], [address] Sodium [Moles/Vol] 139 mmol/L Normal 133-145 [facility] Comment on above: Performed By: #### L 100.0100, L500.4050 #### [facility] [address] [place], [address] T PROT 7.0 g/dL Normal 5.9-8.4 [facility] Comment on above: Performed By: #### L 100.0100, L500.4050 #### [facility] [address] [place], [address] Urea nitrogen [Mass/Vol] 16 mg/dL Normal 4-19 [facility] Comment on above: Performed By: #### L 100.0100, L500.4050 #### [facility] [address] [place], [address] Emergency Department Summary on 10-21-2024 Emergency Department Summary [facility] Medical Records Department [address] [place] [address] Emergency Department Summary 10/21/24 MR#: [id number] Acct: [id number] Name: ROJASFLORIDALMA XOCHITL Rep #: [id number] : 1970 54 From: Junaid Keating DO PCP: Dr. Hal Mims MD Status:REG ER Location: ED ADDENDUM by Dr. Junaid Keating DO on 10/21/24 at 1531 Patient's EKG showed sinus rhythm with a rate of 67 bpm first-degree AV block MD interval 218. 10/21/24 1531 Cosigner Signature (if applicable): cc: Dr. Hal Mims MD * Signed HPI History of Present Illness Chief Complaint: Other, Pain/Inj Narrative Narrative: Patient is a 54-year-old female with past medical history of migraine headache, anxiety, depression who presents to the emergency department with a chief complaint of headache. Patient states that on Thursday while at work she developed a sharp pain in her head that started in the back of her head and radiated to the front. She states that she has tried all her migraine medications and noted that this did not help the pain. Patient notes that she has also tried Robaxin as she is also complaining of some neck pain associate with this. States that she has been having trouble with double vision since July and saw her eye doctor for this they noted that since she was under a lot of stress they would give this time to see if this improves. She states that since Thursday when her pain was onset she noted that she had some worsening double vision again. Patient states that she tried to get some rest yesterday and was not able to do so and tried several different positions of comfort however this did not help prompting her to come here for further evaluation management. [facility] Medical History Wears glasses Alcohol use History of steroid therapy Arthritis Non-smoker Shortness of breath on exertion History of pain when walking Cardiology follow-up encounter Hay fever Migraine Anxiety Depression Home Medications ???Medication ???Instructions ???Recorded ???Last Taken ???Type multivitamin,qf-[id number] s 1 tab PO DAILY 02/27/20 07/02/21 H istory (Complete Multivitamin tablet) lorazepam 0.5 mg tablet (Ativan) 0.5 mg PO TID PRN Anxiety 06/24/21 07/02/21 History acetaminophen 500 mg tablet 1,000 mg (2 x 500 mg) PO Q6H PRN 0 07/04/21 07/03/21 00:00 Rx Pain #0 tabs atenolol 25 mg tablet 25 mg PO DAILY PRN MIGRAINES #30 0 06/19/23 Unknown Rx tabs bupropion HCl 300 mg 24 hr tablet, 450 mg PO DAILY 08/12/24 Unknown History extended release cyclobenzaprine 10 mg tablet 10 mg PO TID PRN muscle spasm #14 10/21/24 Unknown Rx tabs prednisone 50 mg tablet 50 mg PO DAILY 4 days #4 tabs 04/16 Unknown Rx Allergy/AdvReac Type Severity Reaction Status Date / Time oxycodone HCl (From Percocet) Allergy Itching Verified 10/21/24 09:49 Penicillins (PCN) Allergy Rash Verified 10/21/24 09:49 acyclovir AdvReac Diarrhea Verified 10/21/24 09:49 Family History Mother Breast cancer Hypertension COPD (chronic obstructive pulmonary disease) CVA (cerebral vascular accident) Father Heart disease Hypertension Other CHF (congestive heart failure) Diabetes MONICA (obstructive sleep apnea) Surgical History History of hip surgery History of tonsillectomy and adenoidectomy S/P breast biopsy, right Status post arthroscopy of hip S/P LASIK surgery Social History Smoking Status: Never smoker alcohol intake: current alcohol intake frequency: holidays/special occasions only details: social substance use type: does not use caffeine: Yes what type of physical activity do you participate in: walking seatbelt use: always do you feel safe at home: Yes 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 ROS ROS ED ROS Narrative Constitutional: Denies any fevers, chills, dizziness Eyes: Complains of double vision as noted above this has been going on since July Cardiovascular: Denies chest pain or palpitations Respiratory: Denies coughing wheezing shortness of breath Abdomen: Denies abdominal pain nausea vomit diarrhea : Denies any urinary symptoms Neurological: Denies any numbness, wheeze, tingling Musculoskeletal: Denies back pain Skin: Denies any rashes or lesions EXAM Physical Exam Narrative Exam Narrative: General: Patient was lying in bed rest comfortably did not appear to be acute distress Head: Atraumatic, normocephalic Eyes: PERRL bilaterally, EOMI blood, no conjunctival injection noted Neck: Soft, supple, trachea midline Cardiovascular: Regular in rhythm Respiratory: Clear to auscultation b (more content not included)... Normal [facility] Eosinophil percentageOrdered By: Junaid Keating on 10-21-2024 Eosinophils/100 WBC (Bld) 2.7 % Normal 0-5 [facility] Comment on above: Performed By: #### L 100.0100, L500.4050 #### [facility] [address] [place], [place], [address] Erythrocyte distribution wid th ratioOrdered By: Junaid Keating on 10-21-2024 Erythrocyte distribution width (RBC) [Ratio] 12.1 % Normal 11.6-14.6 [facility] Comment on above: Performed By: #### L 100.0100, L500.4050 #### [facility] [address] [place], [place], [address] Erythrocyte distribution wid th standard deviationOrdered By: Junaid Keating on 10-21-2024 Erythrocyte distribution width (RBC) [Ratio] 39.8 fl 35.1-43.9 [facility] Glomerular filtration rate ( GFR) estimation/1.73 sq m using serum, plasma, or whole bOrdered By: Junaid Keating on 10-21-2024 GFR/1.73 sq M.predicted among non-blacks MDRD (S/P/Bld) [Vol rate/Area] 68 mL/min/{1.73_m2} >60 [facility] Comment on above: mL/min/1.73m2 CKD-EP I Creatinine Equation (2020) Hemoglobin measurementOrdere d By: Junaid Keating on 10-21-2024 Hemoglobin (Bld) [Mass/Vol] 13.9 g/dL Normal 12.0-15.0 [facility] Comment on above: Performed By: #### L 100.0100, L500.4050 #### [facility] [address] [place], [address] Immature granulocytes/100 WB C Auto (Bld)Ordered By: Junaid Keating on 10-21-2024 Immature granulocytes/100 WBC (Bld) 0.100 % 0.0-0.9 [facility] Comment on above: IG% - Immature Granu locytes (promyelocytes, myelocytes and metamyelocytes) > 1% indicates that a LEFT SHIFT is Present. Ketones Test strip Ql (U)Ord ered By: Junaid Keating on 10-21-2024 Ketones Ql (U) Negative Negative [facility] - Chemistry and C hemistry - challengeOrdered By: Junaid Keating on 10-21-2024 AST [Catalytic activity/Vol] 27 U/L <32 [facility] MCV (mean corpuscular volume ) determinationOrdered By: Junaid Keating on 10-21-2024 MCV (RBC) [Entitic vol] 89.8 fL Normal 81-99 [facility] Comment on above: Performed By: #### L 100.0100, L500.4050 #### [facility] [address] [place], [address] Mean corpuscular hemoglobin (MCH) determinationOrdered By: Junaid Keating on 10-21-2024 MCH (RBC) [Entitic mass] 30.8 pg Normal 27.0-32.0 [facility] Comment on above: Performed By: #### L 100.0100, L500.4050 #### [facility] [address] [place], [address] Mean corpuscular hemoglobin concentration (MCHC) determinationOrdered By: Junaid Keating on 10-21-2024 MCHC (RBC) [Mass/Vol] 34.2 g/dL Normal 32-36 [facility] Comment on above: Performed By: #### L 100.0100, L500.4050 #### [facility] [address] [place], [address] Mean platelet volume determi nationOrdered By: Junaid Keating on 10-21-2024 Platelet mean volume (Bld) [Entitic vol] 8.9 fL Normal 6.2-12.0 [facility] Comment on above: Performed By: #### L 100.0100, L500.4050 #### [facility] [address] [place], [place], [address] Microscopic analysis of urin e for red blood cells (RBC)Ordered By: Junaid Keating on 10-21-2024 Microscopic analysis of urine for red blood cells (RBC) 0 SEEN /hpf 0-5 [facility] Monocyte percentageOrdered B y: Junaid Keating on 10-21-2024 Monocytes/100 WBC (Bld) 8.8 % Normal 0-10 [facility] Comment on above: Performed By: #### L 100.0100, L500.4050 #### [facility] [address] [facility] [place], [place], [id number] Mucus LM Ql (Urine sed)Order ed By: Junaid Keating on 10-21-2024 Mucus Ql (Urine sed) 1+ /hpf [facility] Neutrophil percentageOrdered By: Junaid Keating on 10-21-2024 Neutrophils/100 WBC (Bld) 50.3 % Normal 47-70 [facility] Comment on above: Performed By: #### L 100.0100, L500.4050 #### [facility] [address] [facility] [place], [place], [id number] Nitrite Test strip Ql (U)Ord ered By: Junaid Keating on 10-21-2024 Nitrite Ql (U) Negative Negative [facility] Nucleated red blood cell per centageOrdered By: Junaid Keating on 10-21-2024 Nucleated RBC/100 WBC (Bld) [Ratio] 0 % 0-5 [facility] Platelet countOrdered By: Osmany Keating on 10-21-2024 Platelets (Bld) [#/Vol] 310 10*3/uL Normal 150-450 [facility] Comment on above: Performed By: #### L 100.0100, L500.4050 #### [facility] [place], [address] Potassium measurement (mass/ volume)Ordered By: Junaid Keating on 10-21-2024 Potassium (Unsp spec) [Mass/Vol] 3.9 mmol/L 3.3-5.1 [facility] Protein Test strip Ql (U)Ord ered By: Junaid Keating on 10-21-2024 Protein Ql (U) 30 mg/dl High Negative [facility] Serum creatinine measurement (mass/volume)Ordered By: Junaid Keating on 10-21-2024 Creatinine [Mass/Vol] 1.00 mg/dL 0.70-1.20 [facility] Serum globulin measurementOr dered By: Junaid Keating on 10-21-2024 Globulin (S) [Mass/Vol] 2.7 g/dL 2.2-4.2 [facility] Serum glucose measurement (m ass/volume)Ordered By: Junaid Keating on 10-21-2024 Glucose [Mass/Vol] 89 mg/dL 70-99 [facility] Serum or plasma alanine barragan otransferase (ALT) measurementOrdered By: Junaid Keating on 10-21-2024 ALT [Catalytic activity/Vol] 28 U/L <35 [facility] Serum or plasma albumin isatu urement (mass/volume)Ordered By: Junaid Keating on 10-21-2024 Albumin [Mass/Vol] 4.3 g/dL 3.5-5.0 [facility] Serum or plasma albumin/glob ulin mass ratioOrdered By: Junaid Keating on 10-21-2024 Albumin/Globulin [Mass ratio] 1.6 {ratio} 0.9-2.4 [facility] Serum or plasma alkaline marcus sphatase measurementOrdered By: Junaid Keating on 10-21-2024 ALP [Catalytic activity/Vol] 69 U/L 35-104 [facility] Serum or plasma calcium isatu urement (mass/volume)Ordered By: Junaid Keating on 10-21-2024 Calcium [Mass/Vol] 9.5 mg/dL 7.6-11.0 [facility] Serum or plasma urea nitroge n measurement (mass/volume)Ordered By: Junaid Keating on 10-21-2024 Urea nitrogen [Mass/Vol] 16 mg/dL 4-19 [facility] Sodium levelOrdered By: Rainayris melgar Zuri on 10-21-2024 Sodium [Moles/Vol] 139 mmol/L 133-145 [facility] Squamous epithelial cells de tection in urine sediment by light microscopyOrdered By: Junaid Keating on 10-21-2024 Epithelial cells.squamous LM Ql (Urine sed) 0-5 SEEN /hpf 5-10 [facility] Total proteinOrdered By: Raina ledesma Zuri on 10-21-2024 Protein [Mass/Vol] 7.0 g/dL 5.9-8.4 [facility] Urgent Care Visit Reporton 0 10-21-2024 Urgent Care Visit Report [facility] [address], [address] [place] [address] OFFICE VISIT Date of Service: 10/21/24 MR#: [id number] Acct: [id number] Name: FLORIDALMA XIE Rep #: [id number] : 1970 Provider: IDRIS Regan Age/Sex: 54/F Location: [facility] [place] Status: Signed Intake Vital Signs 08/12/24 10:27 10/21/24 08:22 Height 5 ft BP 120/80 Position Sitting Respiration 76 H Pulse 76 Temp 97.9 F Temp Source Oral Pulse Oximetry (%) 98 Oxygen Delivery Method room air Intake Visit Reasons: HEAD PAIN Chief Complaint: head pain Accompanied by: Self Is patient in pain?: Yes Pain scale (1-10): 4 Allergies oxycodone HCl (From Percocet) Allergy (Verified 10/21/24 09:09) Itching Penicillins (PCN) Allergy (Verified 10/21/24 09:09) Rash acyclovir Adverse Reaction (Verified 10/21/24 09:09) Diarrhea Medications ???Medication ???Instructions ???Recorded ???Confirmed ???Type multivitamin,dr-cpzn-caxxdru s 1 tab PO DAILY 02/27/20 10/21/24 H istory (Complete Multivitamin tablet) lorazepam 0.5 mg tablet (Ativan) 0.5 mg PO TID PRN Anxiety 06/24/21 10/21/24 History acetaminophen 500 mg tablet 1,000 mg (2 x 500 mg) PO Q6H PRN 0 07/04/21 10/21/24 Rx Pain #0 tabs atenolol 25 mg tablet 25 mg PO DAILY PRN MIGRAINES #30 0 06/19/23 10/21/24 Rx tabs bupropion HCl 300 mg 24 hr tablet, 450 mg PO DAILY 08/12/24 5 History extended release Nurse's Note: Patient states she was walking at work on and she got a sharp pain in the back of her neck going up into the top of her head. Patient states it then went to a dull pain. Patient states she works 3rd shift so when she got home thu she took Tylenol and ibuprofen and that didn't' help it. Patient states she took a Mobic and Robaxin and that hasn't helped her. Patient states yesterday morning she was worse . Patient wasn't able to sleep yesterday before work. Patient states that her head is throbbing and consitant pain but she has no ROM issues no numbness or tingiling that goes into her arms. [facility] Medical History Wears glasses Alcohol use History of steroid therapy Arthritis Non-smoker Shortness of breath on exertion History of pain when walking Cardiology follow-up encounter Hay fever Migraine Anxiety Depression Surgical History History of hip surgery History of tonsillectomy and adenoidectomy S/P breast biopsy, right Status post arthroscopy of hip S/P LASIK surgery Family History Mother Breast cancer Hypertension COPD (chronic obstructive pulmonary disease) CVA (cerebral vascular accident) Father Heart disease Hypertension Other CHF (congestive heart failure) Diabetes MONICA (obstructive sleep apnea) Social History Smoking Status: Never smoker alcohol intake: current alcohol intake frequency: holidays/special occasions only details: social substance use type: does not use caffeine: Yes what type of physical activity do you participate in: walking seatbelt use: always do you feel safe at home: Yes 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 Patient states this has been ongoing for the past 3 days. She states that started with a sharp stabbing-like pain and then has been a persistent pain since then. She rates it currently a 4 out of 10 pain. She also states that she is send had worsening double vision since this started with the worst case being 2 days ago. She does report a history of double vision recently and has been under the care of an sewer and drain technician for this. She does state that she has a history of migraines and has taken migraine medications as well as multiple others without relief of the pain. She denies syncopal or near syncopal episodes. No head trauma. No other associated symptoms or alleviating/aggravating factors. ROS Const Constitutional: Positive for other (ROS negative x 6 except what is described above) Exam Const General: cooperative and healthy appearing [facility] Head: normocephalic and atraumatic Ears: hearing grossly normal bilaterally Nose: external nose normal Face and sinus: normal facial exam and face symmetric Eyes General: appearance normal, both eyes and all related structures Pupils: PERRL Resp Effort Inspection: normal respiratory effort Auscultation: Bilateral: Clear to Auscultation Cardio Rate: regular rate Rhythm: regular rhythm Skin General: no rashes or lesions noted Neuro (more content not included)... Normal [facility] Urinalysis, Completeon 10-21 WBC 10-25 SEEN Normal 0-5 [facility] Comment on above: Order Comment: CLEAN CATCH Performed By: #### L 400.0001 #### [facility] [address] [place], [place], [id number] EPI,SQUAMOUS 0-5 SEEN Normal 5-10 [facility] Comment on above: Order Comment: CLEAN CATCH Performed By: #### L 400.0001 #### [facility] [address] [place], [address] Mucus Ql (Urine sed) 1+ /hpf Normal [facility] Comment on above: Order Comment: CLEAN CATCH Performed By: #### L 400.0001 #### [facility] [address] [place], [address] BACTERIA 0 SEEN Normal None Seen [facility] Comment on above: Order Comment: CLEAN CATCH Performed By: #### L 400.0001 #### [facility] [address] [place], [address] RBC 0 SEEN Normal 0-5 [facility] Comment on above: Order Comment: CLEAN CATCH Performed By: #### L 400.0001 #### [facility] [address] [place], [place], [id number] Urine clarityOrdered By: Raina Keating on 10-21-2024 Clarity (U) Sl. 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HPF (Urine sed) [#/Area] 0 /[HPF] None Seen [facility] Urine specific gravity measu rementOrdered By: Junaid Keating on 10-21-2024 Specific gravity (U) [Rel density] 1.030 1.002-1.03 0 [facility] Urine urobilinogen measureme ntOrdered By: Junaid Keating on 10-21-2024 Urobilinogen Ql (U) Normal mg/dl Normal [facility] White blood cell (WBC) count Ordered By: Junaid Keating on 10-21-2024 WBC (Bld) [#/Vol] 7.0 10*3/uL Normal 4.4-11.0 [facility] Comment on above: Performed By: #### L 100.0100, L500.4050 #### [facility] [place], [address] White blood cell countOrdere d By: Junaid Keating on 10-21-2024 White blood cell count 10-25 SEEN /hpf 0-5 [facility] Absolute lymphocyte countOrd ered By: HEALTH ASSESSMENT on 09-27-2024 Lymphocytes Auto (Unsp spec) [#/Vol] 2.80 10*3/uL 0.83-4.51 [facility] Absolute neutrophil countOrd ered By: HEALTH ASSESSMENT on 09-27-2024 Neutrophils (Bld) [#/Vol] 4.5 10*3/uL 2.0-7.7 [facility] Absolute nucleated red blood cell countOrdered By: HEALTH ASSESSMENT on 09-27-2024 Nucleated RBC (Bld) [#/Vol] 0.00 10*3/uL 0- [facility] Anion gap in Serum or Plasma Ordered By: HEALTH ASSESSMENT on 09-27-2024 Anion gap [Moles/Vol] 13 mmol/L 08-04 [facility] Anion gap in Serum or Plasma Ordered By: Hal Mims on 09-27-2024 Anion gap [Moles/Vol] 11 mmol/L 08-04 [facility] Automated lymphocyte count a s percentage of total leukocytesOrdered By: HEALTH ASSESSMENT on 09-27-2024 Lymphocytes/100 WBC Auto (Unsp spec) 34.1 % - [facility] BUN/creatinine ratioOrdered By: HEALTH ASSESSMENT on 09-27-2024 Urea nitrogen/Creatinine [Mass ratio] 15.6 mg/mg - [facility] BUN/creatinine ratioOrdered By: Hal Mims on 09-27-2024 Urea nitrogen/Creatinine [Mass ratio] 15.7 mg/mg - [facility] Basophil percentageOrdered B y: HEALTH ASSESSMENT on 09-27-2024 Basophils/100 WBC (Bld) 1.0 % 0-1 [facility] Bilirubin directOrdered By: HEALTH ASSESSMENT on 09-27-2024 Bilirubin.direct [Mass/Vol] 0.20 mg/dL 0.00-0.30 [facility] Bilirubin, totalOrdered By: HEALTH ASSESSMENT on 09-27-2024 Bilirubin [Mass/Vol] 0.44 mg/dL 0.00-1.30 [facility] Bilirubin, totalon Bilirubin [Mass/Vol] 0.48 mg/dL Normal 0.00-1.30 [facility]. Comment on above: Performed By: #### L 506.1001, L500.4050 ####[facility] [address] [place], [address] CBC W/Diff, Automatedon Absolute Lymph 2.74 X10 3/uL Normal 0.83-4.51 [facility] Comment on above: Performed By: #### L 100.0100, L500.4100, L506.1001, L500.4050 ####[facility] [address] [place], [address] Absolute Neut 4.5 X10 3/uL Normal 2.0-7.7 [facility] Comment on above: Performed By: #### L 100.0100, L500.4100, L506.1001, L500.4050 ####[facility] [address] [place], [address] Basophils/100 WBC (Bld) 1.0 % Normal 0-1 [facility] Comment on above: Performed By: #### L 100.0100, L500.4100, L506.1001, L500.4050 ####[facility] [address] [place], [address] Eosinophils/100 WBC (Bld) 1.9 % Normal 0-5 [facility] Comment on above: Performed By: #### L 100.0100, L500.4100, L506.1001, L500.4050 ####[facility] [address] [place], [address] Erythrocyte distribution width (RBC) [Ratio] 12.0 % Normal 11.6-14.6 [facility] Comment on above: Performed By: #### L 100.0100, L500.4100, L506.1001, L500.4050 ####[facility] [address] [place], [address] Hematocrit (Bld) [Volume fraction] 41.4 % Normal 37-47 [facility] Comment on above: Performed By: #### L 100.0100, L500.4100, L506.1001, L500.4050 ####[facility] [address] [place], [address] Hemoglobin (Bld) [Mass/Vol] 13.7 g/dL Normal 12.0-15.0 [facility] Comment on above: Performed By: #### L 100.0100, L500.4100, L506.1001, L500.4050 ####[facility] [address] [place], [address] IG% 0.200 Normal 0.0-0.9 [facility] Comment on above: Result Comment: IG% - Immature Granulocytes (promyelocytes, myelocytes and metamyelocytes) > 1% indicates that a LEFT SHIFT is Present. Performed By: #### L 100.0100, L500.4100, L506.1001, L500.4050 ####[facility] [address] [place], [address] Lymphocytes/100 WBC (Bld) 34.1 % Normal 19-41 [facility] Comment on above: Performed By: #### L 100.0100, L500.4100, L506.1001, L500.4050 ####[facility] [address] [place], [address] MCH (RBC) [Entitic mass] 30.5 pg Normal 27.0-32.0 [facility] Comment on above: Performed By: #### L 100.0100, L500.4100, L506.1001, L500.4050 ####[facility] [address] [place], [address] MCHC (RBC) [Mass/Vol] 33.1 g/dL Normal 32-36 [facility] Comment on above: Performed By: #### L 100.0100, L500.4100, L506.1001, L500.4050 ####[facility] [address] [place], [address] MCV (RBC) [Entitic vol] 92.2 fL Normal 81-99 [facility] Comment on above: Performed By: #### L 100.0100, L500.4100, L506.1001, L500.4050 ####[facility] [address] [place], [address] Monocytes/100 WBC (Bld) 7.3 % Normal 0-10 [facility] Comment on above: Performed By: #### L 100.0100, L500.4100, L506.1001, L500.4050 ####[facility] [address] [place], [address] Neutrophils/100 WBC (Bld) 55.5 % Normal 47-70 [facility] Comment on above: Performed By: #### L 100.0100, L500.4100, L506.1001, L500.4050 ####[facility] [address] [place], [address] Nucleated RBC (Bld) [#/Vol] 0 10*3/uL Normal 0-5 [facility] Comment on above: Performed By: #### L 100.0100, L500.4100, L506.1001, L500.4050 ####[facility] [address] [place], [address] Platelet mean volume (Bld) [Entitic vol] 9.4 fL Normal 6.2-12.0 [facility] Comment on above: Performed By: #### L 100.0100, L500.4100, L506.1001, L500.4050 ####[facility] [address] [place], [address] Platelets (Bld) [#/Vol] 335 10*3/uL Normal 150-450 [facility] Comment on above: Performed By: #### L 100.0100, L500.4100, L506.1001, L500.4050 ####[facility] [address] [place], [address] RBC (Bld) [#/Vol] 4.49 10*6/uL Normal 4.2-5.4 [facility] Comment on above: Performed By: #### L 100.0100, L500.4100, L506.1001, L500.4050 ####[facility] [address] [place], [address] RDW SD 40.7 fl Normal 35.1-43.9 [facility] Comment on above: Performed By: #### L 100.0100, L500.4100, L506.1001, L500.4050 ####[facility] [address] [place], [address] WBC (Bld) [#/Vol] 8.0 10*3/uL Normal 4.4-11.0 [facility] Comment on above: Performed By: #### L 100.0100, L500.4100, L506.1001, L500.4050 ####[facility] [address] [place], [address] CBC, Employeeon 09-27-2024 Absolute Lymph 2.80 X10 3/uL Normal 0.83-4.51 [facility] Comment on above: Performed By: #### M 100.2200 #### [facility] [address] [place], [address] Absolute Neut 4.5 X10 3/uL Normal 2.0-7.7 [facility] Comment on above: Performed By: #### M 100.2200 #### [facility] [address] [place], [address] Basophils/100 WBC (Bld) 0.9 % Normal 0-1 [facility] Comment on above: Performed By: #### M 100.2200 #### [facility] [address] [place], [address] Eosinophils/100 WBC (Bld) 1.8 % Normal 0-5 [facility] Comment on above: Performed By: #### M 100.2200 #### [facility] [address] [place], [address] Erythrocyte distribution width (RBC) [Ratio] 12.0 % Normal 11.6-14.6 [facility] Comment on above: Performed By: #### M 100.2200 #### [facility] [address] [place], [address] Hematocrit (Bld) [Volume fraction] 40.7 % Normal 37-47 [facility] Comment on above: Performed By: #### M 100.2200 #### [facility] [address] [place], [address] Hemoglobin (Bld) [Mass/Vol] 13.7 g/dL Normal 12.0-15.0 [facility] Comment on above: Performed By: #### M 100.2200 #### [facility] [address] [place], [address] Lymphocytes/100 WBC (Bld) 34.3 % Normal 19-41 [facility] Comment on above: Performed By: #### M 100.2200 #### [facility] [address] [place], [address] MCH (RBC) [Entitic mass] 30.9 pg Normal 27.0-32.0 [facility] Comment on above: Performed By: #### M 100.2200 #### [facility] [address] [place], [address] MCHC (RBC) [Mass/Vol] 33.7 g/dL Normal 32-36 [facility] Comment on above: Performed By: #### M 100.2200 #### [facility] [address] [place], [address] MCV (RBC) [Entitic vol] 91.9 fL Normal 81-99 [facility] Comment on above: Performed By: #### M 100.2200 #### [facility] [address] [place], [address] Monocytes/100 WBC (Bld) 7.7 % Normal 0-10 [facility] Comment on above: Performed By: #### M 100.2200 #### [facility] [address] [place], [address] Neutrophils/100 WBC (Bld) 55.1 % Normal 47-70 [facility] Comment on above: Performed By: #### M 100.2200 #### [facility] [address] [place], [address] NRBC # 0.00 10 3/uL Normal 0-5 [facility] Comment on above: Performed By: #### M 100.2200 #### [facility] [address] [place], [address] Nucleated RBC (Bld) [#/Vol] 0 10*3/uL Normal 0-5 [facility] Comment on above: Performed By: #### M 100.2200 #### [facility] [address] [place], [address] Platelet mean volume (Bld) [Entitic vol] 8.9 fL Normal 6.2-12.0 [facility] Comment on above: Performed By: #### M 100.2200 #### [facility] [address] [place], [address] Platelets (Bld) [#/Vol] 346 10*3/uL Normal 150-450 [facility] Comment on above: Performed By: #### M 100.2200 #### [facility] [address] [place], [address] RBC (Bld) [#/Vol] 4.43 10*6/uL Normal 4.2-5.4 [facility] Comment on above: Performed By: #### M 100.2200 #### [facility] [address] [place], [address] RDW SD 41.0 fl Normal 35.1-43.9 [facility] Comment on above: Performed By: #### M 100.2200 #### [facility] [address] [place], [address] WBC (Bld) [#/Vol] 8.2 10*3/uL Normal 4.4-11.0 [facility] Comment on above: Performed By: #### M 100.2200 #### [facility] [address] [place], [address] Calculated very low density lipoprotein (VLDL) cholesterol measurementOrdered By: HEALTH ASSESSMENT on 09-27-2024 Calculated very low density lipoprotein (VLDL) cholesterol measurement 14 mg/dL 5-40 [facility] Carbon dioxide, total [Moles /volume] in Central venous bloodOrdered By: HEALTH ASSESSMENT on 09-27-2024 CO2 [Moles/Vol] 24.4 mmol/L 21.0-32.0 [facility] Carbon dioxide, total [Moles /volume] in Central venous bloodon 09-27-2024 CO2 [Moles/Vol] 26.0 mmol/L Normal 21.0-32.[address] [facility]; [facility] Comment on above: Performed By: #### L 506.1001, L500.4050 ####[facility] [address] [place], [address] Chloride assayon 09-27-2024 Chloride [Moles/Vol] 103 mmol/L Normal 98-108 [facility]; [facility] Comment on above: Performed By: #### L 100.0100, L500.4100, L506.1001, L500.4050 ####[facility] [address] [place], [address] Performed By: #### L 506.1001, L500.4050 ####[facility] [address] [place], [address] Comprehensive Metabolic Prof ilon 09-27-2024 Albumin [Mass/Vol] 4.3 g/dL Normal 3.5-5.0 [facility] Comment on above: Performed By: #### L 100.0100, L500.4100, L506.1001, L500.4050 ####[facility] [address] [place], [address] ALK PHOS 70 U/L Normal 35-104 [facility] Comment on above: Performed By: #### L 100.0100, L500.4100, L506.1001, L500.4050 ####[facility] [address] [place], [address] ALT [Catalytic activity/Vol] 30 U/L Normal <=34 [facility] Comment on above: Performed By: #### L 100.0100, L500.4100, L506.1001, L500.4050 ####[facility] [address] [place], [address] AST [Catalytic activity/Vol] 28 U/L Normal <=31 [facility] Comment on above: Performed By: #### L 100.0100, L500.4100, L506.1001, L500.4050 ####[facility] [address] [place], [address] Bilirubin [Mass/Vol] 0.46 mg/dL Normal 0.00-1.30 [facility] Comment on above: Performed By: #### L 100.0100, L500.4100, L506.1001, L500.4050 ####[facility] [address] [place], [address] BUN/CRE 15.0 RATIO Normal 10-20 [facility] Comment on above: Performed By: #### L 100.0100, L500.4100, L506.1001, L500.4050 ####[facility] [address] [place], [address] Calcium [Mass/Vol] 9.6 mg/dL Normal 7.6-11.0 [facility] Comment on above: Performed By: #### L 100.0100, L500.4100, L506.1001, L500.4050 ####[facility] [address] [place], [address] CO2 [Moles/Vol] 24.5 mmol/L Normal 21.0-32.0 [facility] Comment on above: Performed By: #### L 100.0100, L500.4100, L506.1001, L500.4050 ####[facility] [address] [place], [address] Creatinine [Mass/Vol] 1.01 mg/dL Normal 0.70-1.20 [facility] Comment on above: Performed By: #### L 100.0100, L500.4100, L506.1001, L500.4050 ####[facility] [address] [place], [address] GAP 13 Normal 5-15 [facility] Comment on above: Performed By: #### L 100.0100, L500.4100, L506.1001, L500.4050 ####[facility] [address] [place], [address] GFR/1.73 sq M.predicted among non-blacks MDRD (S/P/Bld) [Vol rate/Area] 67 mL/min/{1.73_m2} Normal >60 [facility] Comment on above: Result Comment: mL/m in/1.73m2 CKD-EPI Creatinine Equation (2020) Performed By: #### L 100.0100, L500.4100, L506.1001, L500.4050 ####[facility] [address] [place], [address] Glucose [Mass/Vol] 82 mg/dL Normal 70-99 [facility] Comment on above: Performed By: #### L 100.0100, L500.4100, L506.1001, L500.4050 ####[facility] [address] [place], [address] Potassium [Moles/Vol] 4.4 mmol/L Normal 3.3-5.1 [facility] Comment on above: Performed By: #### L 100.0100, L500.4100, L506.1001, L500.4050 ####[facility] [address] [place], [address] T PROT 7.3 g/dL Normal 5.9-8.4 [facility] Comment on above: Performed By: #### L 100.0100, L500.4100, L506.1001, L500.4050 ####[facility] [address] [place], [address] ALK PHOS 71 U/L Normal 35-[address] [facility]; [facility] Comment on above: Performed By: #### L 506.1001, L500.4050 ####[facility] [address] [place], [address] BUN/CRE 15.7 RATIO Normal 10-20 [facility] Comment on above: Performed By: #### L 506.1001, L500.4050 ####[facility] [address] [place], [address] GAP 11 Normal 5-[address] [facility]; [facility] Comment on above: Performed By: #### L 506.1001, L500.4050 ####[facility] [address] [place], [address] Potassium [Moles/Vol] 4.2 mmol/L Normal 3.3-5.1 [facility]; [facility] Comment on above: Performed By: #### L 506.1001, L500.4050 ####[facility] [address] [place], [address] T PROT 7.2 g/dL Normal 5.9-8.[address] [facility]; [facility] Comment on above: Performed By: #### L 506.1001, L500.4050 ####[facility] [address] [place], [address] AST [Catalytic activity/Vol] 25 U/L Normal <=[address] [facility]; [facility] Comment on above: Performed By: #### L 506.1001, L500.4050 ####[facility] [address] [place], [place], [id number] Eosinophil percentageOrdered By: HEALTH ASSESSMENT on 09-27-2024 Eosinophils/100 WBC (Bld) 1.9 % 0-5 [facility] Erythrocyte distribution wid th ratioOrdered By: HEALTH ASSESSMENT on 09-27-2024 Erythrocyte distribution width (RBC) [Ratio] 12.0 % 11.6-14.6 [facility] Erythrocyte distribution wid th standard deviationOrdered By: HEALTH ASSESSMENT on 09-27-2024 Erythrocyte distribution width (RBC) [Ratio] 41.0 fl 35.1-43.9 [facility] Glomerular filtration rate ( GFR) estimation/1.73 sq m using serum, plasma, or whole bOrdered By: HEALTH ASSESSMENT on 09-27-2024 GFR/1.73 sq M.predicted among non-blacks MDRD (S/P/Bld) [Vol rate/Area] 70 mL/min/{1.73_m2} >60 [facility] Comment on above: mL/min/1.73m2 CKD-EP I Creatinine Equation (2020) Glomerular filtration rate ( GFR) estimation/1.73 sq m using serum, plasma, or whole bon 09-27-2024 GFR/1.73 sq M.predicted among non-blacks MDRD (S/P/Bld) [Vol rate/Area] 69 mL/min/{1.73_m2} Normal >60 [facility]. Comment on above: mL/min/1.73m2 CKD-EP I Creatinine Equation (2020) Result Comment: mL/m in/1.73m2 CKD-EPI Creatinine Equation (2020) Performed By: #### L 506.1001, L500.4050 ####[facility] [address] [place], [place], [id number] Hematocrit Auto (Bld) [Volum e fraction]Ordered By: HEALTH ASSESSMENT on 09-27-2024 Hematocrit (Bld) [Volume fraction] 40.7 % 37-47 [facility] Hemoglobin measurementOrdere d By: HEALTH ASSESSMENT on 09-27-2024 Hemoglobin (Bld) [Mass/Vol] 13.7 g/dL 12.0-15.0 [facility] Immature granulocytes/100 WB C Auto (Bld)Ordered By: HEALTH ASSESSMENT on 09-27-2024 Immature granulocytes/100 WBC (Bld) 0.200 % 0.0-0.9 [facility] Comment on above: IG% - Immature Granu locytes (promyelocytes, myelocytes and metamyelocytes) > 1% indicates that a LEFT SHIFT is Present. LDL calc ser/plasOrdered By: HEALTH ASSESSMENT on 09-27-2024 Cholesterol in LDL [Mass/Vol] 97 mg/dL [facility] Comment on above: Rpquobrzol=931-880 m g/dL & Higher Zdws=068 mg/dL or greater Laboratory - Chemistry and C hemistry - challengeOrdered By: HEALTH ASSESSMENT on 09-27-2024 AST [Catalytic activity/Vol] 28 U/L <32 [facility] Lactate dehydrogenase (LDH) measurementOrdered By: HEALTH ASSESSMENT on 09-27-2024 LDH [Catalytic activity/Vol] 337 U/L High 84-246 [facility] Lipid Profileon 09-27-2024 CHOL:HDL 2.95 Normal [facility] Comment on above: Performed By: #### L 100.0100, L500.4100, L506.1001, L500.4050 ####[facility] [address] [place], [place], [id number] Cholesterol [Mass/Vol] 169 mg/dL Normal <=200 [facility] Comment on above: Result Comment: Chol esterol level, Desirable <200 mg/dL Borderline high cholesterol 200-239 mg/dL High cholesterol >=240 mg/dL Recommendations of the NCEP Adult Treatment Panel for the following risk-cutoff thresholds for the [place] population. Performed By: #### L 100.0100, L500.4100, L506.1001, L500.4050 ####[facility] [address] [place], [place], [id number] Cholesterol in HDL [Mass/Vol] 57 mg/dL Normal [facility] Comment on above: Result Comment: Kaitlin onal Cholesterol Education Program (NCEP) guidelines: <40 mg/dL: Low HDL-cholesterol (major risk factor for CHD) >= 60 mg/dL: High HDL-cholesterol (negative risk factor for CHD) HDL-cholesterol is affected by a number of factors, e.g. smoking, exercise, hormones, sex and age. Performed By: #### L 100.0100, L500.4100, L506.1001, L500.4050 ####[facility] [address] [place], [address] Cholesterol in LDL [Mass/Vol] 97 mg/dL Normal [facility] Comment on above: Result Comment: Bord ddorms=172-312 mg/dL Higher Ukgb=292 mg/dL or greater Performed By: #### L 100.0100, L500.4100, L506.1001, L500.4050 ####[facility] [address] [place], [address] Cholesterol in VLDL [Mass/Vol] 14 mg/dL Normal 5-40 [facility] Comment on above: Performed By: #### L 100.0100, L500.4100, L506.1001, L500.4050 ####[facility] [address] [place], [address] MCV (mean corpuscular volume ) determinationOrdered By: HEALTH ASSESSMENT on 09-27-2024 MCV (RBC) [Entitic vol] 91.9 fL 81-99 [facility] Mean corpuscular hemoglobin (MCH) determinationOrdered By: HEALTH ASSESSMENT on 09-27-2024 MCH (RBC) [Entitic mass] 30.9 pg 27.0-32.0 [facility] Mean corpuscular hemoglobin concentration (MCHC) determinationOrdered By: HEALTH ASSESSMENT on 09-27-2024 MCHC (RBC) [Mass/Vol] 33.7 g/dL 32-36 [facility] Mean platelet volume determi nationOrdered By: HEALTH ASSESSMENT on 09-27-2024 Platelet mean volume (Bld) [Entitic vol] 8.9 fL 6.2-12.0 [facility] Monocyte percentageOrdered B y: HEALTH ASSESSMENT on 09-27-2024 Monocytes/100 WBC (Bld) 7.3 % 0-10 [facility] Neutrophil percentageOrdered By: HEALTH ASSESSMENT on 09-27-2024 Neutrophils/100 WBC (Bld) 55.1 % 47-70 [facility] No Panel Informationon 09-27 BUN/CRE 15.7 {RATIO} Normal 10 - 20 {RATIO} [facility].; [facility] Nucleated red blood cell per centageOrdered By: HEALTH ASSESSMENT on 09-27-2024 Nucleated RBC/100 WBC (Bld) [Ratio] 0 % 0-5 [facility] Platelet countOrdered By: PARMJIT ALTH ASSESSMENT on 09-27-2024 Platelets (Bld) [#/Vol] 346 10*3/uL 150-450 [facility] Potassium measurement (mass/ volume)Ordered By: HEALTH ASSESSMENT on 09-27-2024 Potassium (Unsp spec) [Mass/Vol] 4.3 mmol/L 3.3-5.1 [facility] Potassium measurement (mass/ volume)Ordered By: Hal Mims on 09-27-2024 Potassium (Unsp spec) [Mass/Vol] 4.2 mmol/L 3.3-5.1 [facility] RBC Auto (Bld) [#/Vol]Ordere d By: HEALTH ASSESSMENT on 09-27-2024 RBC (Bld) [#/Vol] 4.43 10*6/uL 4.2-5.4 [facility] Screening total cholesterol/ high density lipoprotein (HDL) cholesterol ratioon 09-27-2024 Cholesterol.total/Chol esterol in HDL [Mass ratio] 2.90 {ratio} [facility]. Serum creatinine measurement (mass/volume)on 09-27-2024 Creatinine [Mass/Vol] 0.98 mg/dL Normal 0.70-1.20 [facility], [facility]. Comment on above: Performed By: #### L 506.1001, L500.4050 ####[facility] [address] [place], [place], [id number] Serum globulin measurementon 09-27-2024 Globulin (S) [Mass/Vol] 3.0 g/dL Normal 2.2-4.[address] [facility]; [facility] Comment on above: Performed By: #### L 100.0100, L500.4100, L506.1001, L500.4050 ####[facility] [address] [place], [address] Performed By: #### L 506.1001, L500.4050 ####[facility] [address] [place], [address] Serum glucose measurement (m ass/volume)Ordered By: HEALTH ASSESSMENT on 09-27-2024 Glucose [Mass/Vol] 82 mg/dL 70-99 [facility] Serum glucose measurement (m ass/volume)on 09-27-2024 Glucose [Mass/Vol] 85 mg/dL Normal 70-[address] [facility]; [facility], [facility]. Comment on above: Performed By: #### L 506.1001, L500.4050 ####[facility] [address] [place], [address] Serum or plasma alanine barragan otransferase (ALT) measurementOrdered By: HEALTH ASSESSMENT on 09-27-2024 ALT [Catalytic activity/Vol] 31 U/L <35 [facility] Serum or plasma alanine barragan otransferase (ALT) measurementon 09-27-2024 ALT [Catalytic activity/Vol] 29 U/L Normal <=[address] [facility]; [facility] Comment on above: Performed By: #### L 506.1001, L500.4050 ####[facility] [address] [place], [address] Serum or plasma albumin isatu urement (mass/volume)Ordered By: HEALTH ASSESSMENT on 09-27-2024 Albumin [Mass/Vol] 4.3 g/dL 3.5-5.0 [facility] Serum or plasma albumin isatu urement (mass/volume)on 09-27-2024 Albumin [Mass/Vol] 4.2 g/dL Normal 3.5-5.0 [facility].; [facility], [facility]. Comment on above: Performed By: #### L 506.1001, L500.4050 ####[facility] [address] [place], [address] Serum or plasma albumin/glob ulin mass ratioon 09-27-2024 Albumin/Globulin [Mass ratio] 1.4 {ratio} Normal 0.9-2.4 [facility].; [facility], [facility]. Comment on above: Performed By: #### L 100.0100, L500.4100, L506.1001, L500.4050 ####[facility] [address] [place], [address] Performed By: #### L 506.1001, L500.4050 ####[facility] [address] [place], [address] Serum or plasma alkaline marcus sphatase measurementOrdered By: HEALTH ASSESSMENT on 09-27-2024 ALP [Catalytic activity/Vol] 69 U/L 35104 [facility] Serum or plasma alkaline marcus sphatase measurementOrdered By: Hal Mims on 09-27-2024 ALP [Catalytic activity/Vol] 71 U/L 35104 [facility] Serum or plasma calcium isatu urement (mass/volume)Ordered By: HEALTH ASSESSMENT on 09-27-2024 Calcium [Mass/Vol] 9.6 mg/dL 7.6-11.0 [facility] Serum or plasma calcium isatu urement (mass/volume)on 09-27-2024 Calcium [Mass/Vol] 9.7 mg/dL Normal 7.6-11.0 [facility].; [facility], [facility]. Comment on above: Performed By: #### L 506.1001, L500.4050 ####[facility] [address] [place], [place], [id number] Serum or plasma cholesterol in HDL measurement (mass/volume)on 09-27-2024 Cholesterol in HDL [Mass/Vol] 58 mg/dL >[address] [facility] Comment on above: National Cholesterol Education Program (NCEP) guidelines:<40 mg/dL: Low HDL-cholesterol (major risk factor for CHD)>= 60 mg/dL: High HDL-cholesterol (negative risk factor for CHD)HDL-cholesterol is affected by a number of factors, e.g. smoking, exercise, hormones, sex and age. Serum or plasma cholesterol in LDL measurement (mass/volume)on 09-27-2024 Cholesterol in LDL [Mass/Vol] 96 mg/dL Normal 0-[address] [facility]; [facility] Comment on above: Order Comment: SEND LIPID RESULTS TO DR. HAL MIMS Performed By: #### M 100.2200 #### [facility] [address] [place], [address] Serum or plasma cholesterol measurement (mass/volume)on 09-27-2024 Cholesterol [Mass/Vol] 168 mg/dL <201 [facility]; [facility], [facility] Comment on above: Cholesterol level, D esirable <200 mg/dLBorderline high cholesterol 200-239 mg/dLHigh cholesterol >=240 mg/dLRecommendations of the NCEP Adult Treatment Panel for the following risk-cutoff thresholds for the [place] population. Serum or plasma urea nitroge n measurement (mass/volume)on 09-27-2024 Urea nitrogen [Mass/Vol] 15 mg/dL Normal 4-[address] [facility]; [facility] Comment on above: Performed By: #### L 100.0100, L500.4100, L506.1001, L500.4050 ####[facility] [address] [place], [place], [id number] Performed By: #### L 506.1001, L500.4050 ####[facility] [address] [place], [address] Serum or plasma uric acid me asurement (mass/volume)Ordered By: HEALTH ASSESSMENT on 09-27-2024 Urate [Mass/Vol] 5.6 mg/dL 2.6-6.0 [facility] Comment on above: The drugs N-Acetylcy steine and Metamizole may falsely depress this assay. Sodium levelon 09-27-2024 Sodium [Moles/Vol] 140 mmol/L Normal 133-145 [facility].; [facility] Comment on above: Performed By: #### L 100.0100, L500.4100, L506.1001, L500.4050 ####[facility] [address] [place], [address] Performed By: #### L 506.1001, L500.4050 ####[facility] [address] [place], [address] Total proteinOrdered By: RINKU LUI ASSESSMENT on 09-27-2024 Protein [Mass/Vol] 7.3 g/dL 5.9-8.4 [facility] Total proteinOrdered By: Flower holt Brown on 09-27-2024 Protein [Mass/Vol] 7.2 g/dL 5.9-8.4 [facility] Triglycerides measurementon 09-27-2024 Triglyceride [Mass/Vol] 71 mg/dL Normal [facility].; [facility] Comment on above: The drugs N-Acetylcy steine and Metamizole may falsely depress this assay. Normal range: <150 mg/dLBorderline High: 150-199 mg/dLHigh: 200-499 mg/dLVery High: >500 mg/dL Result Comment: The drugs N-Acetylcysteine and Metamizole may falsely depress this assay. Normal range: <150 mg/dL Borderline High: 150-199 mg/dL High: 200-499 mg/dL Very High: >500 mg/dL Performed By: #### L 100.0100, L500.4100, L506.1001, L500.4050 ####[facility] [address] [place], [place], [id number] Vitamin D,25 Hydroxyon 09-27 Vitamin D 25-OH 27.5 ng/mL Low 30-100 [facility] Comment on above: Result Comment: Misty min D Status Deficiency: <20 ng/mL (50nmol/L) Insufficiency: 20-30 ng/mL (50-75 nmol/L) Sufficiency: 30-100 ng/mL (75-250 nmol/L) Toxicity: >100 ng/mL (>250 nmol/L) Performed By: #### L 100.0100, L500.4100, L506.1001, L500.4050 ####[facility] [address] [place], [place], [id number] Vitamin D 25-OH 26.4 ng/mL Low 30-[address] [facility]; [facility] Comment on above: Result Comment: Misty min D Status Deficiency: <20 ng/mL (50nmol/L) Insufficiency: 20-30 ng/mL (50-75 nmol/L) Sufficiency: 30-100 ng/mL (75-250 nmol/L) Toxicity: >100 ng/mL (>250 nmol/L) Performed By: #### L 506.1001, L500.4050 ####[facility] [address] [place], [place], [address] White blood cell (WBC) count Ordered By: HEALTH ASSESSMENT on 09-27-2024 WBC (Bld) [#/Vol] 8.2 10*3/uL 4.4-11.0 [facility] Genital Culture Comprehensiv javier 08-15-2024 VAC Reason for Exam: vag inal discharge #1 If further studies are desired, please contact the Microbiology Laboratory within 48 hours. Genital Culture Comprehensive Genital Culture Comprehensive No yeast, Gardnerella, Neisseria or beta-hemolytic Streptococcus isolated. 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 [place], [place], [id number] Gram Stainon 08-12-2024 GS Reason for Exam: vag inal discharge Gram Stain Rare Gram positive rods Rare Gram positive cocci No Gram negative diplococci No Epithelial cells Normal [facility] Comment on above: Performed By: #### M 960.8546 #### [facility] [address] [place], [address] Gram stainOrdered By: Kait Zacarias on 08-12-2024 Microscopic observation Gram stain Nom (Unsp spec) [facility] Hose Seamer Office Visit Reporton 08-12-2024 Hose Seamer Office Visit Report [facility] [address], [address] [place] [address] OFFICE VISIT Date of Service: 08/12/24 MR#: [id number] Acct: [id number] Name: FLORIDALMA XIE Rep #: [id number] : 1970 Provider: Dr. Kait horvath MD Age/Sex: 54/F [place] [facility] [place] Signed Intake Vital Signs 11/16/23 08:35 08/12/24 10:27 Height 5 ft 5 ft Weight: 233 lb 6 oz BMI 45.6 BP 126/84 H Intake Visit Reasons: irregular bleeding + odorous vaginal discharge Er Medical Technician Required: No Is patient in pain?: No Allergies oxycodone HCl (From Percocet) Allergy (Verified 08/12/24 10:29) Itching Penicillins (PCN) Allergy (Verified 08/12/24 10:29) Rash acyclovir Adverse Reaction (Verified 08/12/24 10:29) Diarrhea Medications ???Medication ???Instructions ???Recorded ???Confirmed ???Type multivitamin,ok-mety-ccflyyz s 1 tab PO DAILY 02/27/20 08/12/24 H istory (Complete Multivitamin tablet) lorazepam 0.5 mg tablet (Ativan) 0.5 mg PO TID PRN Anxiety 06/24/21 08/12/24 History acetaminophen 500 mg tablet 1,000 mg (2 x 500 mg) PO Q6H PRN 0 07/04/21 08/12/24 Rx Pain #0 tabs atenolol 25 mg tablet 25 mg PO DAILY PRN MIGRAINES #30 0 06/19/23 08/12/24 Rx tabs bupropion HCl 300 mg 24 hr tablet, 450 mg PO DAILY 08/12/24 Histor y extended release Is last menstrual period known: Yes Last Menstrual Period: 06/13/24 (irregular with discharge ) Post menopausal: No Patient : No : No [facility] Medical History Wears glasses Alcohol use History of steroid therapy Arthritis Non-smoker Shortness of breath on exertion History of pain when walking Cardiology follow-up encounter Hay fever Migraine Anxiety Depression Surgical History History of hip surgery History of tonsillectomy and adenoidectomy S/P breast biopsy, right Status post arthroscopy of hip S/P LASIK surgery Family History Mother Breast cancer Hypertension COPD (chronic obstructive pulmonary disease) CVA (cerebral vascular accident) Father Heart disease Hypertension Other CHF (congestive heart failure) Diabetes MONICA (obstructive sleep apnea) Social History Smoking Status: Never smoker alcohol intake: current alcohol intake frequency: holidays/special occasions only details: social substance use type: does not use caffeine: Yes what type of physical activity do you participate in: walking seatbelt use: always do you feel safe at home: Yes 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 she has had discharge for the last few weeks that hasn't gone away even with monistat. she has also had increased stress with the loss of her mother. Female Reproductive History Last Menstrual Period: 06/13/24 (irregular with discharge ) History 0 Elective abortions Hx Para Spontaneous abortions Hx # Term Pregnancies Ectopic pregnancies Hx # Pregnancies Multiple births # of living children ROS Const Constitutional: Denies fatigue, fever(s), headache(s), increased appetite, poor appetite, weight gain or weight loss Cardio Card: Denies chest pain Resp Resp: Denies cough or dyspnea GI GI: Reports as per HPI; Denies abdominal pain, constipation, nausea or vomiting : Reports as per HPI, vaginal discharge, vaginal dryness, vaginal odor and vaginal pruritus; Denies difficulty voiding, dysuria, urinary frequency, urinary incontinence, urinary hesitancy or urinary urgency Skin Skin/Breast: Denies change in hair, breast mass, breast pain or breast skin changes Exam Const General: cooperative, healthy appearing, comfortable, no acute distress and well developed Nutritional Appearance: average body habitus Orientation: alert HENMT Head: normal to inspection and normocephalic Neck Neck: normal visual inspection and trachea midline Thyroid: thyroid normal Resp Effort Inspection: normal respiratory effort GI Inspection: normal to inspection and non-distended Palpation: soft and no hepatosplenomegaly General: bladder normal to palpation External Female Exam: normal external appearance and normal appearance of the urethra Urethra: normal appearance of the urethra, normal palpation and no discharge Speculum Exam - Vagina: normal appearance of the vagina and normal vaginal discharge Spe (more content not included)... Normal [facility] COVID-19 virus antigen assay Ordered By: Abdulaziz Guillaume on 02-24-2023 SARS-CoV-2 (COVID-19) Ag IA.rapid Ql (Resp) [facility] Absolute lymphocyte countOrd ered By: HEALTH ASSESSMENT on 10-11-2022 Lymphocytes Auto (Unsp spec) [#/Vol] 3.10 10*3/uL 0.83-4.51 [facility] Absolute reticulocyte countO rdered By: HEALTH ASSESSMENT on 10-11-2022 Reticulocytes (Bld) [#/Vol] 0.00 10*3/uL 0-5 [facility] Basophil percentageOrdered B y: HEALTH ASSESSMENT on 10-11-2022 Basophil percentage 3.4 mg/dL 2.5-4.9 [facility] Bilirubin [Mass/Vol] 0.20 mg/dL 0.20-1.00 [facility] Comment on above: For patients on eltr ombopag therapy, use of Dimension [place] TBIL is not recommended. Chloride [Moles/Vol] 107 mmol/L 98-107 [facility] Cholesterol [Mass/Vol] 198 mg/dL <200 [facility] Comment on above: <200 mg/dL Desirable 200-240 mg/dL Borderline >240 mg/dL High Risk Glucose [Mass/Vol] 84 mg/dL 74-106 [facility] LDH [Catalytic activity/Vol] 238 U/L 84-246 [facility] Neutrophils (Bld) [#/Vol] 4.5 10*3/uL 2.0-7.7 [facility] Potassium [Moles/Vol] 3.7 mmol/L 3.5-5.1 [facility] Protein [Mass/Vol] 7.5 g/dL 6.4-8.2 [facility] Sodium [Moles/Vol] 138 mmol/L 136-145 [facility] Triglyceride [Mass/Vol] 219 mg/dL <199 [facility] Comment on above: The drugs N-Acetylcy steine and Metamizole may falsely depress this assay.Serum Triglycerides Reference Interval Normal <150 mg/dL Borderline high 150 - 199 mg/dL High 200 - 499 mg/dL Very High > or = 500 mg/dL WBC (Bld) [#/Vol] 8.6 10*3/uL 4.4-11.0 [facility] Blood erythrocytes count (nu mber/volume)Ordered By: HEALTH ASSESSMENT on 10-11-2022 RBC (Bld) [#/Vol] 4.14 10*6/uL 4.2-5.4 [facility] Blood hemoglobin measurement (mass/volume)Ordered By: HEALTH ASSESSMENT on 10-11-2022 Hemoglobin (Bld) [Mass/Vol] 13.4 g/dL 12.0-15.0 [facility] Blood platelet mean volumeOr dered By: HEALTH ASSESSMENT on 10-11-2022 Platelet mean volume (Bld) [Entitic vol] 9.0 fL 6.2-12.0 [facility] Determination of erythrocyte mean corpuscular volume (MCV)Ordered By: HEALTH ASSESSMENT on 10-11-2022 MCV (RBC) [Entitic vol] 93.2 fL 81-99 [facility] Direct bilirubinOrdered By: HEALTH ASSESSMENT on 10-11-2022 Bilirubin.direct [Mass/Vol] 0.08 mg/dL 0.00-0.30 [facility] Hematocrit Auto (Bld) [Volum e fraction]Ordered By: HEALTH ASSESSMENT on 10-11-2022 Hematocrit (Bld) [Volume fraction] 38.6 % 37-47 [facility] Laboratory - Chemistry and C hemistry - challengeOrdered By: HEALTH ASSESSMENT on 10-11-2022 ALP [Catalytic activity/Vol] 65 U/L 45-117 [facility] ALT [Catalytic activity/Vol] 25 U/L 13-56 [facility] Cholesterol.total/Chol esterol in HDL [Mass ratio] 3.70 {ratio} [facility] CO2 [Moles/Vol] 26.0 mmol/L 21.0-32.0 [facility] Globulin (S) [Mass/Vol] 3.7 g/dL 2.2-4.2 [facility] Urea nitrogen/Creatinine [Mass ratio] 19.2 mg/mg 10-20 [facility] - Hematology and Cell countsOrdered By: HEALTH ASSESSMENT on 10-11-2022 Erythrocyte distribution width (RBC) [Entitic vol] 41.8 fL 35.1-43.9 [facility] Erythrocyte distribution width (RBC) [Ratio] 12.2 % 11.6-14.6 [facility] MCH (RBC) [Entitic mass] 32.4 pg 27.0-32.0 [facility] Nucleated RBC/100 WBC (Bld) [Ratio] 0 % 0-5 [facility] MCHC Auto (RBC) [Mass/Vol]Or dered By: HEALTH ASSESSMENT on 10-11-2022 MCHC (RBC) [Mass/Vol] 34.7 g/dL 32-36 [facility] No Panel Informationon 10-11 Vitamin D 25-OH 25.2 ng/mL Normal [facility] No Panel InformationOrdered By: HEALTH ASSESSMENT on 10-11-2022 Estimated GFR (MDRD) Amer 76 mL/min >60 [facility] Comment on above: GFR Calc Estimated GFR (MDRD) Non-Af Amer 63 mL/min >60 [facility] Comment on above: Non- GFR Calc No Panel InformationOrdered By: Hal Mims on 10-11-2022 Vitamin D 25-Hydroxy 25.2 ng/mL [facility] Comment on above: Vitamin D 25(OH) Sta tus Range Deficiency <20 ng/mL (50nmol/L) Insufficiency 20 - 30 ng/mL (50 - 75 nmol/L) Sufficiency 30 - 100 ng/mL (75 - 250 nmol/L) Toxicity >100 ng/mL (>250 nmol/L) Platelets bldOrdered By: RINKU [facility] ASSESSMENT on 10-11-2022 Platelets (Bld) [#/Vol] 366 10*3/uL 150-450 [facility] Segmented neutrophils/100 WB C Auto (Bld)Ordered By: HEALTH ASSESSMENT on 10-11-2022 Segmented neutrophils/100 WBC (Bld) 52.7 % 47-70 [facility] Serum or plasma albumin isatu urement (mass/volume)Ordered By: HEALTH ASSESSMENT on 10-11-2022 Albumin [Mass/Vol] 3.8 g/dL 3.2-5.0 [facility] Serum or plasma albumin/glob ulin mass ratioOrdered By: HEALTH ASSESSMENT on 10-11-2022 Albumin/Globulin [Mass ratio] 1.0 {ratio} 0.9-2.4 [facility] Serum or plasma calcium isatu urement (mass/volume)Ordered By: HEALTH ASSESSMENT on 10-11-2022 Calcium [Mass/Vol] 9.2 mg/dL 8.5-10.1 [facility] Serum or plasma cholesterol in HDL measurement (mass/volume)Ordered By: HEALTH ASSESSMENT on 10-11-2022 Cholesterol in HDL [Mass/Vol] 53 mg/dL >40 [facility] Comment on above: The drugs N-Acetylcy steine and Metamizole may falsely depress this assay. Reference Range HDL <40 mg/dL Low HDL Cholesterol HDL >or= 60 mg/dL High HDL Cholesterol Serum or plasma cholesterol in VLDL measurement (mass/volume)Ordered By: HEALTH ASSESSMENT on 10-11-2022 Cholesterol in VLDL [Mass/Vol] 44 mg/dL 5-40 [facility] Serum or plasma creatinine m easurement (mass/volume)Ordered By: HEALTH ASSESSMENT on 10-11-2022 Creatinine [Mass/Vol] 0.99 mg/dL 0.55-1.02 [facility] Comment on above: The validity of the calculated GFR & GFRAA in patients over 70 years has not been determined. Clinical correlation is essential. Serum or plasma low density lipoprotein (LDL) cholesterol measurement (mass/volume)Ordered By: HEALTH ASSESSMENT on 10-11-2022 Cholesterol in LDL [Mass/Vol] 101 mg/dL 0-130 [facility] Serum or plasma urea nitroge n measurement (mass/volume)Ordered By: HEALTH ASSESSMENT on 10-11-2022 Urea nitrogen [Mass/Vol] 19 mg/dL 7-18 [facility] Serum or plasma uric acid me asurement (mass/volume)Ordered By: HEALTH ASSESSMENT on 10-11-2022 Urate [Mass/Vol] 5.0 mg/dL 2.6-6.0 [facility] Comment on above: The drugs N-Acetylcy steine and Metamizole may falsely depress this assay. Thin prep Papanicolaou smear with manual screeningOrdered By: HEALTH ASSESSMENT on 10-11-2022 Thin prep Papanicolaou smear with manual screening 21 U/L 15-37 [facility] Thin prep Papanicolaou smear with manual screening 5 5-15 [facility] Laboratory - Chemistry and C hemistry - challengeOrdered By: Dr. Zacarias on 05-29-2022 Free T4 [Mass/Vol] 0.86 ng/dL 0.76-1.46 [facility] No Panel InformationOrdered By: Dr. Zacarias on 05-29-2022 Thyroglobulin Antibody < 1.0 IU/mL 0.0-0.9 [facility] Comment on above: Thyroglobulin Antibo dy measured by LightTableMethodologyPerformed at: [facility] - [facility] [address] Director: Sang Gonzalez PhD, Phone: [phone] Thyroid Stimulating Hormone (TSH) 1.20 uIU/mL 0.358-3.74 [facility] Serum or plasma thyroperoxid ase antibody assay (units/volume)Ordered By: Dr. Zacarias on 05-29-2022 TPO Ab Qn [IU]/mL 0-34 [facility] Absolute lymphocyte countOrd ered By: Dr. Zacarias on 02-28-2022 Lymphocytes Auto (Unsp spec) [#/Vol] 3.50 10*3/uL 0.83-4.51 [facility] Basophil percentageOrdered B y: Dr. Zacarias on 02-28-2022 Basophils/100 WBC (Bld) 0.9 % 0-1 [facility] Eosinophils/100 WBC (Bld) 2.4 % 0-5 [facility] Neutrophils (Bld) [#/Vol] 4.6 10*3/uL 2.0-7.7 [facility] Neutrophils/100 WBC (Bld) 51.1 % 47-70 [facility] WBC (Bld) [#/Vol] 9.1 10*3/uL 4.4-11.0 [facility] Blood erythrocytes count (nu mber/volume)Ordered By: Dr. Zacarias on 02-28-2022 RBC (Bld) [#/Vol] 4.51 10*6/uL 4.2-5.4 [facility] Blood hemoglobin measurement (mass/volume)Ordered By: Dr. Zacarias on 02-28-2022 Hemoglobin (Bld) [Mass/Vol] 13.8 g/dL 12.0-15.0 [facility] Blood lymphocytes/100 leukoc ytesOrdered By: Dr. Zacarias on 02-28-2022 Lymphocytes/100 WBC (Bld) 38.5 % 19-41 [facility] Blood monocytes/100 leukocyt esOrdered By: Dr. Zacarias on 02-28-2022 Monocytes/100 WBC (Bld) 6.9 % 0-10 [facility] Blood platelet mean volumeOr dered By: Dr. Zacarias on 02-28-2022 Platelet mean volume (Bld) [Entitic vol] 8.8 fL 6.2-12.0 [facility] Cervical or vagninal specime n microscopic examination by cytology stain (reported asOrdered By: Dr. Zacarias on 02-28-2022 Cytology report Cyto stain Doc (Cvx/Vag) Comment . [facility] Comment on above: The Pap smear is a s creening test designed to aid in thedetection of premalignant and malignant conditions of theuterine cervix. It is not a diagnostic procedure andshould not be used as the sole means of detecting cervicalcancer. Both false-positive and false-negative reports dooccur. Detection in cervical specim en of any of human papilloma virus (HPV) 16, 18, 31, 33,Ordered By: Dr. Zacarias on 02-28-2022 HPV 16+18+31+33+35+39+45+5 1+52+56+58+59+66+68 DNA Probe+sig amp Ql (Cvx) Negative Negative [facility] Comment on above: This nucleic acid am plification test detects fourteen high- risk HPV types (16,18,31,33,35,39,45,51,52,56,58,59,66,68)without differentiation. Determination of erythrocyte mean corpuscular volume (MCV)Ordered By: Dr. Zacarias on 02-28-2022 MCV (RBC) [Entitic vol] 92.7 fL 81-99 [facility] Hematocrit Auto (Bld) [Volum e fraction]Ordered By: Dr. Zacarias on 02-28-2022 Hematocrit (Bld) [Volume fraction] 41.8 % 37-47 [facility] Laboratory - Chemistry and C hemistry - challengeOrdered By: Dr. Zacarias on 02-28-2022 Free T4 [Mass/Vol] 1.10 ng/dL 0.76-1.46 [facility] Laboratory - CytologyOrdered By: Dr. Zacarias on 02-28-2022 [employer] Manager Cyto stain Nom (Cvx/Vag) [ID] Comment . [facility] Comment on above: Shamar Tinsley ytotechnologist ([facility]) Laboratory - Hematology and Cell countsOrdered By: Dr. Zacarias on 02-28-2022 Erythrocyte distribution width (RBC) [Entitic vol] 41.1 fL 35.1-43.9 [facility] Erythrocyte distribution width (RBC) [Ratio] 12.0 % 11.6-14.6 [facility] Immature granulocytes/100 WBC (Bld) 0.200 % 0.0-0.9 [facility] Comment on above: IG% - Immature Granu locytes (promyelocytes, myelocytes and metamyelocytes) > 1% indicates that a LEFT SHIFT is Present. MCH (RBC) [Entitic mass] 30.6 pg 27.0-32.0 [facility] Nucleated RBC/100 WBC (Bld) [Ratio] 0 % 0-5 [facility] Laboratory - Miscellaneous t estsOrdered By: Dr. Zacarias on 02-28-2022 Service comment (Unsp spec) [Interp] Comment . [facility] Comment on above: This liquid based Th inPrep(R) pap test was screened withthe use of an image guided system. Service comment (Unsp spec) [Interp] . . [facility] Liquid-based cerv Pap + CT/G C by MICHELLE w reflex to high-risk HPV for ASCUSOrdered By: Dr. Zacarias on 02-28-2022 Cytology report Cyto stain.thin prep Doc (Cvx/Vag) Comment . [facility] Comment on above: Criteria not met, HP V Genotype not performed.Performed at: [facility] - [facility] [id number] Director: Rose Nolan MD, Phone: [phone] at: =[facility] - [facility] [id number] Director: Rose Nolan MD, Phone: [phone] MCHC Auto (RBC) [Mass/Vol]Or dered By: Dr. Zacarias on 02-28-2022 MCHC (RBC) [Mass/Vol] 33.0 g/dL 32-36 [facility] No Panel InformationOrdered By: Dr. Zacarias on 02-28-2022 Pathology report final diagnosis Narrative Comment . [facility] Comment on above: NEGATIVE FOR INTRAEP ITHELIAL LESION OR MALIGNANCY. Thyroid Stimulating Hormone (TSH) 4.53 uIU/mL 0.358-3.74 [facility] Platelets bldOrdered By: Dr. Zacarias on 02-28-2022 Platelets (Bld) [#/Vol] 403 10*3/uL 150-450 [facility] No Panel Informationon 01-14 POC Bacterial Vaginitis (Rapid) Negative [facility] Work Phone: Absolute lymphocyte counton 10-22-2021 Lymphocytes Auto (Unsp spec) [#/Vol] 2.40 10*3/uL 0.83-4.51 [facility] Work Phone: Absolute reticulocyte counto n 10-22-2021 Reticulocytes (Bld) [#/Vol] 0.00 10*3/uL 0-5 [facility] Work Phone: Basophil percentageon 2021 Basophil percentage 3.7 mg/dL 2.5-4.9 [facility] Work Phone: Bilirubin [Mass/Vol] 0.30 mg/dL 0.20-1.00 [facility] Work Phone: Comment on above: For patients on eltr ombopag therapy, use of Dimension [place] TBIL is not recommended. Chloride [Moles/Vol] 110 mmol/L 98-107 [facility] Work Phone: Cholesterol [Mass/Vol] 185 mg/dL <200 [facility] Work Phone: Comment on above: <200 mg/dL Desirable 200-240 mg/dL Borderline >240 mg/dL High Risk Glucose [Mass/Vol] 92 mg/dL 74-106 [facility] Work Phone: Neutrophils (Bld) [#/Vol] 3.2 10*3/uL 2.0-7.7 [facility] Work Phone: [phone] Potassium [Moles/Vol] 3.6 mmol/L 3.5-5.1 [facility] Work Phone: Protein [Mass/Vol] 7.0 g/dL 6.4-8.2 [facility] Work Phone: Sodium [Moles/Vol] 141 mmol/L 136-145 [facility] Work Phone: Triglyceride [Mass/Vol] 241 mg/dL <199 [facility] Work Phone: Comment on above: The drugs N-Acetylcy steine and Metamizole may falsely depress this assay.Serum Triglycerides Reference Interval Normal <150 mg/dL Borderline high 150 - 199 mg/dL High 200 - 499 mg/dL Very High > or = 500 mg/dL WBC (Bld) [#/Vol] 6.4 10*3/uL 4.4-11.0 [facility] Work Phone: Blood erythrocytes count (nu mber/volume)on 10-22-2021 RBC (Bld) [#/Vol] 4.24 10*6/uL 4.2-5.4 [facility] Work Phone: Blood hemoglobin measurement (mass/volume)on 10-22-2021 Hemoglobin (Bld) [Mass/Vol] 12.9 g/dL 12.0-15.0 [facility] Work Phone: [phone] Blood platelet mean volumeon 10-22-2021 Platelet mean volume (Bld) [Entitic vol] 8.7 fL 6.2-12.0 [facility] Work Phone: [phone] Determination of erythrocyte mean corpuscular volume (MCV)on 10-22-2021 MCV (RBC) [Entitic vol] 92.5 fL 81-99 [facility] Work Phone: Direct bilirubinon Bilirubin.direct [Mass/Vol] 0.06 mg/dL 0.00-0.30 [facility] Work Phone: Hematocrit Auto (Bld) [Volum e fraction]on 10-22-2021 Hematocrit (Bld) [Volume fraction] 39.2 % 37-47 [facility] Work Phone: Laboratory - Chemistry and C hemistry - challengeon 10-22-2021 ALP [Catalytic activity/Vol] 58 U/L 45-117 [facility] Work Phone: ALT [Catalytic activity/Vol] 21 U/L 13-56 [facility] Work Phone: [phone] Cholesterol.total/Chol esterol in HDL [Mass ratio] 3.80 {ratio} [facility] Work Phone: [phone] CO2 [Moles/Vol] 27.0 mmol/L 21.0-32.0 [facility] Work Phone: [phone] Globulin (S) [Mass/Vol] 3.5 g/dL 2.2-4.2 [facility] Work Phone: Urea nitrogen/Creatinine [Mass ratio] 15.5 mg/mg 10-20 [facility] Work Phone: Laboratory - Hematology and Cell countson 10-22-2021 Erythrocyte distribution width (RBC) [Entitic vol] 40.4 fL 35.1-43.9 [facility] Work Phone: Erythrocyte distribution width (RBC) [Ratio] 12.0 % 11.6-14.6 [facility] Work Phone: MCH (RBC) [Entitic mass] 30.4 pg 27.0-32.0 [facility] Work Phone: Nucleated RBC/100 WBC (Bld) [Ratio] 0 % 0-5 [facility] Work Phone: MCHC Auto (RBC) [Mass/Vol]on 10-22-2021 MCHC (RBC) [Mass/Vol] 32.9 g/dL 32-36 [facility] Work Phone: No Panel Informationon 10-22 Estimated GFR (MDRD) Amer 85 mL/min >60 [facility] Work Phone: Comment on above: GFR Calc Estimated GFR (MDRD) Non-Af Amer 70 mL/min >60 [facility] Work Phone: Comment on above: Non- GFR Calc Platelets bldon 10-22-2021 Platelets (Bld) [#/Vol] 322 10*3/uL 150-450 [facility] Work Phone: Segmented neutrophils/100 WB C Auto (Bld)on 10-22-2021 Segmented neutrophils/100 WBC (Bld) 50.4 % 47-70 [facility] Work Phone: Serum or plasma albumin isatu urement (mass/volume)on 10-22-2021 Albumin [Mass/Vol] 3.5 g/dL 3.2-5.0 [facility] Work Phone: Serum or plasma albumin/glob ulin mass ratioon 10-22-2021 Albumin/Globulin [Mass ratio] 1.0 {ratio} 0.9-2.4 [facility] Work Phone: Serum or plasma calcium isatu urement (mass/volume)on 10-22-2021 Calcium [Mass/Vol] 8.6 mg/dL 8.5-10.1 [facility] Work Phone: Serum or plasma cholesterol in HDL measurement (mass/volume)on 10-22-2021 Cholesterol in HDL [Mass/Vol] 49 mg/dL >40 [facility] Work Phone: Comment on above: The drugs N-Acetylcy steine and Metamizole may falsely depress this assay. Reference Range HDL <40 mg/dL Low HDL Cholesterol HDL >or= 60 mg/dL High HDL Cholesterol Serum or plasma cholesterol in VLDL measurement (mass/volume)on 10-22-2021 Cholesterol in VLDL [Mass/Vol] 48 mg/dL 5-40 [facility] Work Phone: Serum or plasma creatinine m easurement (mass/volume)on 10-22-2021 Creatinine [Mass/Vol] 0.91 mg/dL 0.55-1.02 [facility] Work Phone: Comment on above: The validity of the calculated GFR & GFRAA in patients over 70 years has not been determined. Clinical correlation is essential. Serum or plasma low density lipoprotein (LDL) cholesterol measurement (mass/volume)on 10-22-2021 Cholesterol in LDL [Mass/Vol] 88 mg/dL 0-130 [facility] Work Phone: Serum or plasma urea nitroge n measurement (mass/volume)on 10-22-2021 Urea nitrogen [Mass/Vol] 14 mg/dL 7-18 [facility] Work Phone: Serum or plasma uric acid me asurement (mass/volume)on 10-22-2021 Urate [Mass/Vol] 4.1 mg/dL 2.6-6.0 [facility] Work Phone: Comment on above: The drugs N-Acetylcy steine and Metamizole may falsely depress this assay. Thin prep Papanicolaou smear with manual screeningon 10-22-2021 Thin prep Papanicolaou smear with manual screening 19 U/L 15-37 [facility] Work Phone: [phone] Thin prep Papanicolaou smear with manual screening 4 5-15 [facility] Work Phone: Thin prep Papanicolaou smear with manual screening 277 U/L 84-246 [facility] Work Phone: Basophil percentageon 2021 Chloride [Moles/Vol] 108 mmol/L 98-107 [facility] Work Phone: Glucose [Mass/Vol] 127 mg/dL 74-106 [facility] Work Phone: Comment on above: Fasting Glucose resu lt greater than or equal to 126 mg/dL suggests DIABETES MELLITUS per A.D.A. criteria. Potassium [Moles/Vol] 3.8 mmol/L 3.5-5.1 [facility] Work Phone: Sodium [Moles/Vol] 139 mmol/L 136-145 [facility] Work Phone: WBC (Bld) [#/Vol] 7.4 10*3/uL 4.4-11.0 [facility] Work Phone: Blood erythrocytes count (nu mber/volume)on 07-04-2021 RBC (Bld) [#/Vol] 3.39 10*6/uL 4.2-5.4 [facility] Work Phone: Blood hemoglobin measurement (mass/volume)on 07-04-2021 Hemoglobin (Bld) [Mass/Vol] 10.7 g/dL 12.0-15.0 [facility] Work Phone: Blood platelet mean volumeon 07-04-2021 Platelet mean volume (Bld) [Entitic vol] 9.0 fL 6.2-12.0 [facility] Work Phone: Determination of erythrocyte mean corpuscular volume (MCV)on 07-04-2021 MCV (RBC) [Entitic vol] 93.5 fL 81-99 [facility] Work Phone: Hematocrit Auto (Bld) [Volum e fraction]on 07-04-2021 Hematocrit (Bld) [Volume fraction] 31.7 % 37-47 [facility] Work Phone: Laboratory - Chemistry and C hemistry - challengeon 07-04-2021 CO2 [Moles/Vol] 26.0 mmol/L 21.0-32.0 [facility] Work Phone: Urea nitrogen/Creatinine [Mass ratio] 13.2 mg/mg 10-20 [facility] Work Phone: Laboratory - Hematology and Cell countson 07-04-2021 Erythrocyte distribution width (RBC) [Entitic vol] 40.8 fL 35.1-43.9 [facility] Work Phone: Erythrocyte distribution width (RBC) [Ratio] 11.9 % 11.6-14.6 [facility] Work Phone: MCH (RBC) [Entitic mass] 31.6 pg 27.0-32.0 [facility] Work Phone: MCHC Auto (RBC) [Mass/Vol]on 07-04-2021 MCHC (RBC) [Mass/Vol] 33.8 g/dL 32-36 [facility] Work Phone: No Panel Informationon 07-04 Estimated Creatinine Clearance Calc 58.89 ml/min [facility] Work Phone: Estimated GFR (MDRD) Amer 94 mL/min >60 [facility] Work Phone: Comment on above: GFR Calc Estimated GFR (MDRD) Non-Af Amer 78 mL/min >60 [facility] Work Phone: Comment on above: Non- GFR Calc Platelets bldon 07-04-2021 Platelets (Bld) [#/Vol] 265 10*3/uL 150-450 [facility] Work Phone: Serum or plasma calcium isatu urement (mass/volume)on 07-04-2021 Calcium [Mass/Vol] 7.9 mg/dL 8.5-10.1 [facility] Work Phone: Serum or plasma creatinine m easurement (mass/volume)on 07-04-2021 Creatinine [Mass/Vol] 0.83 mg/dL 0.55-1.02 [facility] Work Phone: Comment on above: The validity of the calculated GFR & GFRAA in patients over 70 years has not been determined. Clinical correlation is essential. Serum or plasma urea nitroge n measurement (mass/volume)on 07-04-2021 Urea nitrogen [Mass/Vol] 11 mg/dL 7-18 [facility] Work Phone: Thin prep Papanicolaou smear with manual screeningon 07-04-2021 Thin prep Papanicolaou smear with manual screening 5 5-15 [facility] Work Phone: Glucose Glucometer (BldC) [M ass/Vol]on 07-03-2021 Glucose [Mass/Vol] 91 mg/dL 74-106 [facility] Work Phone: Comment on above: MANAGEMENT OF PATIEN T CARE PER NURSING PROTOCOL Laboratory - Chemistry and C hemistry - challengeon 07-03-2021 HCG ( test) Ql (U) Negative [facility] Work Phone: Comment on above: Very dilute urine sp ecimens, as indicated by a low specificgravity, may not contain contact center representative levels of hCG. If is still suspected, a first morning urinespecimen should be collected 48 hours later and tested. No Panel Informationon 06-26 Vitamin D 25-OH 47.3 ng/mL Normal [facility] Vitamin D 25-Hydroxy 47.3 ng/mL [facility] Work Phone: Comment on above: Vitamin D 25(OH) Sta tus Range Deficiency <20 ng/mL (50nmol/L) Insufficiency 20 - 30 ng/mL (50 - 75 nmol/L) Sufficiency 30 - 100 ng/mL (75 - 250 nmol/L) Toxicity >100 ng/mL (>250 nmol/L) Absolute lymphocyte counton 06-25-2021 Lymphocytes Auto (Unsp spec) [#/Vol] 2.90 10*3/uL 0.83-4.51 [facility] Work Phone: [phone] Basophil percentageon 2021 Basophils/100 WBC (Bld) 1.0 % 0-1 [facility] Work Phone: Eosinophils/100 WBC (Bld) 1.9 % 0-5 [facility] Work Phone: [phone] Neutrophils (Bld) [#/Vol] 4.0 10*3/uL 2.0-7.7 [facility] Work Phone: Neutrophils/100 WBC (Bld) 51.4 % 47-70 [facility] Work Phone: Blood lymphocytes/100 leukoc yteson 06-25-2021 Lymphocytes/100 WBC (Bld) 37.2 % 19-41 [facility] Work Phone: Blood monocytes/100 leukocyt eson 06-25-2021 Monocytes/100 WBC (Bld) 8.2 % 0-10 [facility] Work Phone: Laboratory - Chemistry and C hemistry - challengeon 06-25-2021 Magnesium [Mass/Vol] 1.7 mg/dL 1.6-2.6 [facility] Work Phone: [phone] Laboratory - Hematology and Cell countson 06-25-2021 Immature granulocytes/100 WBC (Bld) 0.300 % 0.0-0.9 [facility] Work Phone: Comment on above: IG% - Immature Granu locytes (promyelocytes, myelocytes and metamyelocytes) > 1% indicates that a LEFT SHIFT is Present. Nucleated RBC/100 WBC (Bld) [Ratio] 0 % 0-5 [facility] Work Phone: No Panel Informationon 06-25 Nasal Screen MRSA/MSSA [facility] Work Phone: Serum or plasma albumin isatu urement (mass/volume)on 06-25-2021 Albumin [Mass/Vol] 3.9 g/dL 3.2-5.0 [facility] Work Phone: Laboratory - Microbiology an d Antimicrobial susceptibilityon 04-05-2021 SARS-CoV-2 (COVID-19) RNA MICHELLE+probe Ql (Unsp spec) Detected [facility] Work Phone: No Panel Informationon 10-04 Vitamin D 25-OH 25.8 ng/mL Normal [employer] No Panel Informationon 10-04 Vitamin D 25-OH 58.8 ng/mL Normal [employer] Work Phone: No Panel Informationon 03-14 Vitamin D 25-OH 27.5 ng/mL Abnormal 29.95 - 100.01 ng/mL [employer]; [employer] No Panel Informationon 11-08 Vitamin D 25-OH 29.6 ng/mL Abnormal 29.95 - 100.01 ng/mL [employer]; [employer] No Panel Informationon 08-21 Vitamin D 25-OH 27.6 ng/mL Abnormal 29.95 - 100.01 ng/mL [employer]; [employer] No Panel Informationon 02-24 Vitamin D 25-OH 35.6 ng/mL Normal 29.95 - 100.01 ng/mL [employer] No Panel Informationon 11-19 Vitamin D 25-OH 9.6 ng/mL Abnormal 29.95 - 100.01 ng/mL [employer]; [employer] Laboratory - Chemistry and C hemistry - challengeon 11-16-2017 Bilirubin.direct [Mass/Vol] 0.11 mg/dL Normal 0.00 - 0.30 mg/dL [employer]; [employer] Work Phone: Laboratory - Microbiology an d Antimicrobial susceptibilityon 01-08-2017 Bacteria identified Cx Nom (Sput) See Note Normal [employer]; [employer] No Panel Informationon 06-25 TSH 1.44 {uIU/mL} Normal 0.358 - 3.74 {uIU/mL} [facility] No Panel Informationon 06-13 MIKKI-DIRECT Negative Normal [facility]; [facility] Work Phone: C-REACTIVE PROT 4.68 mg/L Abnormal 0.0 - 3.0 mg/L [facility]; [facility] RHEUMATOID FAC < 10.[address] [facility]; [facility] Laboratory - Microbiology an d Antimicrobial susceptibilityOrdered By: Franca High on 09-13-2014 S. pyogenes Ag EIA Ql (Throat) Negative Normal [facility]; 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 Hal Mims MD Work Phone: [facility] 12-07-2024 08:43-0400 Body mass index (BMI) [Ratio] 45.1 kg/m2 Dr. Hal Mims MD Work Phone: [facility] 12-07-2024 08:43-0400 Body weight 104.[address] Hal Mims MD Work Phone: [facility] 12-07-2024 08:43-0400 Diastolic blood pressure 96 mm[Hg] Dr. Hal Mims MD Work Phone: [facility] 12-07-2024 08:43-0400 Systolic blood pressure 138 mm[Hg] Dr. Hal Mims MD Work Phone: [facility] 10-28-2024 13:29-0400 Body height 154.94 cm Iveth Denis [facility], [facility] 10-28-2024 13:29-0400 Body mass index (BMI) [Ratio] 44.59 kg/m2 Iveth Denis [facility], [facility]. 10-28-2024 13:29-0400 Body surface area Derived from formula 2.03 m2 Iveth Denis [facility], [facility].; [facility] 10-28-2024 13:29-0400 Body weight 107.05 kg Iveth Denis [facility], [facility].; [place] [employer] [facility]. 10-28-2024 13:29-0400 Diastolic blood pressure 85 mm[Hg] [facility].; [place] [employer]. Comment on above: Patient Position: Sitting; Cuff Location : Left Arm; Cuff Size: Standard 10-28-2024 13:29-0400 Heart rate 75 /min Iveth Denis [facility], [facility].; [employer]. Comment on above: Pattern: Regular 10-28-2024 13:29-0400 Systolic blood pressure 139 mm[Hg] Iveth Denis [facility], [facility].; [place] [employer]. Comment on above: Patient Position: Sitting; Cuff Location : Left Arm; Cuff Size: Standard 10-25-2024 09:39-0400 Diastolic blood pressure 80 mm[Hg] Ravinder Butcher PA-C Work Phone: [facility].; [place] [employer]. Comment on above: Patient Position: Sitting; Cuff Location : Right Arm; Cuff Size: Standard 10-25-2024 09:39-0400 Systolic blood pressure 144 mm[Hg] Ravinder Butcher PA-C Work Phone: [place] [facility] [facility].; [employer]. Comment on above: Patient Position: Sitting; Cuff Location : Right Arm; Cuff Size: Standard 10-25-2024 09:02-0400 Body height 154.94 cm Nicole Vazquez [place] [facility].; [facility] 10-25-2024 09:02-0400 Body mass index (BMI) [Ratio] 43.76 kg/m2 [facility].; [facility] 10-25-2024 09:02-0400 Body surface area Derived from formula 2.[address] [facility].; [facility] 10-25-2024 09:02-0400 Body weight 105.05 kg [facility]; [facility] 10-25-2024 09:02-0400 Diastolic blood pressure 80 mm[Hg] [facility].; [facility]. Comment on above: Patient Position: Sitting; Cuff Location : Left Arm; Cuff Size: Standard 10-25-2024 09:02-0400 Heart rate 97 /min [facility]; [facility]. Comment on above: Pattern: Regular 10-25-2024 09:02-0400 Systolic blood pressure 164 mm[Hg] [facility].; [facility]. Comment on above: Patient Position: Sitting; Cuff Location : Left Arm; Cuff Size: Standard 10-21-2024 15:47-0400 Body temperature 98.2 [degF] Dr. Hal Mims MD Work Phone: [facility] 10-21-2024 15:47-0400 Diastolic blood pressure 78 mm[Hg] Dr. Hal Mims MD Work Phone: [facility] 10-21-2024 15:47-0400 Heart rate 85 /min Dr. Hal Mims MD Work Phone: [facility] 10-21-2024 15:47-0400 Respiratory rate 15 /min Dr. Hal Mims MD Work Phone: [facility] 10-21-2024 15:47-0400 SaO2% (BldA) [Mass fraction] 99 % Dr. Hal Mims MD Work Phone: 3(523)[phone] [place] [address] 10-21-2024 15:47-0400 Systolic blood pressure 141 mm[Hg] Dr. Hal Mims MD Work Phone: 4(129)721-465882 [place] [address] 10-21-2024 09:10-0400 Body height 152.[address] Hal Mims MD Work Phone: 4(836)[phone] [place] [address] 10-21-2024 09:10-0400 Body mass index (BMI) [Ratio] 45 kg/m2 Dr. Hal Mims MD Work Phone: 7(073)404-794982 [place] [address] 10-21-2024 09:10-0400 Body weight 104.[address] Hal Mims MD Work Phone: 6(054)900-774082 [place] [address] 10-21-2024 08:22-0400 Body temperature 97.9 [degF] Dr. Hal Mims MD Work Phone: 9(793)717-052482 [place] [address] 10-21-2024 08:22-0400 Diastolic blood pressure 80 mm[Hg] Dr. Hal Mims MD Work Phone: 7(237)486-728482 [place] [address] 10-21-2024 08:22-0400 Heart rate 76 /min Dr. Hal Mims MD Work Phone: 1(794)916-510382 [place] [address] 10-21-2024 08:22-0400 Respiratory rate 76 /min Dr. Hal Mims MD Work Phone: 3(659)518-558964 [address] 10-21-2024 08:22-0400 SaO2% (BldA) [Mass fraction] 98 % Dr. Hal Mims MD Work Phone: 3(777)992-525864 [address] 10-21-2024 08:22-0400 Systolic blood pressure 120 mm[Hg] Dr. Hal Mims MD Work Phone: 7(437)859-078864 [address] 10-11-2024 08:45-0400 Body height 154.94 cm Hal Mims MD Work Phone: [facility].; [facility]. 10-11-2024 08:45-0400 Body mass index (BMI) [Ratio] 43.51 kg/m2 Hal Mims MD Work Phone: [facility].; [facility]. 10-11-2024 08:45-0400 Body surface area Derived from formula 2.01 m2 Hal Mims MD Work Phone: [facility].; [place] [employer] [facility]. 10-11-2024 08:45-0400 Body weight 104.46 kg Hal Mims MD Work Phone: [facility].; [place] [employer]. 10-11-2024 08:45-0400 Diastolic blood pressure 92 mm[Hg] Hal Mims MD Work Phone: [facility].; [place] [employer]. Comment on above: Patient Position: Sitting; Cuff Location : Left Arm; Cuff Size: Standard 10-11-2024 08:45-0400 Heart rate 84 /min Hal Mims MD Work Phone: [facility].; [place] [employer]. Comment on above: Pattern: Regular 10-11-2024 08:45-0400 Systolic blood pressure 144 mm[Hg] Hal Mims MD Work Phone: [facility].; [place] [employer] [facility]. Comment on above: Patient Position: Sitting; Cuff Location : Left Arm; Cuff Size: Standard 08-12-2024 10:27-0400 Body height 152.[address] Hal Mims MD Work Phone: [facility] 08-12-2024 10:27-0400 Body mass index (BMI) [Ratio] 45.6 kg/m2 Dr. Hal Mims MD Work Phone: [facility] 08-12-2024 10:27-0400 Body weight 105.[address] Hal Mims MD Work Phone: [facility] 08-12-2024 10:27-0400 Diastolic blood pressure 84 mm[Hg] Dr. Hal Mims MD Work Phone: [facility] 08-12-2024 10:27-0400 Systolic blood pressure 126 mm[Hg] Dr. Hal Mims MD Work Phone: [facility] 07-18-2024 13:35-0400 Body height 154.94 cm Magaly Stevens LPN [facility] [employer] 07-18-2024 13:35-0400 Body mass index (BMI) [Ratio] 44.21 kg/m2 Magaly Stevens LPN [facility] [employer] 07-18-2024 13:35-0400 Body surface area Derived from formula 2.02 m2 Magaly Stevens LPN [place] [facility] [employer] 07-18-2024 13:35-0400 Body weight 106.14 kg Magaly Stevens LPN [place] [facility] [employer] 07-18-2024 13:35-0400 Diastolic blood pressure 91 mm[Hg] Magaly Stevens LPN [place] [facility] [employer] Comment on above: Patient Position: Sitting; Cuff Location : Left Arm; Cuff Size: Standard 07-18-2024 13:35-0400 Heart rate 103 /min Magaly Stevens LPN [place] [facility] [employer] Comment on above: Pattern: Regular 07-18-2024 13:35-0400 Systolic blood pressure 152 mm[Hg] Magaly Stevens LPN [place] [facility] [employer] Comment on above: Patient Position: Sitting; Cuff Location : Left Arm; Cuff Size: Standard 11-02-2023 09:34-0400 Body height 154.94 cm Clementina Walker LPN [place] [facility] [employer] 11-02-2023 09:34-0400 Body mass index (BMI) [Ratio] 44.21 kg/m2 Clementina Walker LPN [employer] [facility] [employer] 11-02-2023 09:34-0400 Body surface area Derived from formula 2.02 m2 Clementina Walker LPN [place] [facility] [employer] 11-02-2023 09:34-0400 Body weight 106.14 kg Rosmery Covel [facility], [facility].; [employer]. 11-02-2023 09:34-0400 Diastolic blood pressure 80 mm[Hg] Clementina Walker [facility], [facility].; [employer]. Comment on above: Patient Position: Sitting; Cuff Location : Left Arm; Cuff Size: Large 11-02-2023 09:34-0400 Heart rate 78 /min Clementina Walker [facility], [facility] [employer], [place]. Comment on above: Pattern: Regular 11-02-2023 09:34-0400 Systolic blood pressure 150 mm[Hg] Clementina Walker [facility] [facility] [employer], [place]. Comment on above: Patient Position: Sitting; Cuff Location : Left Arm; Cuff Size: Large 10-08-2023 10:53-0400 Body height 154.94 cm Hal Mims MD Work Phone: [place] [facility], [place].; [employer]. 10-08-2023 10:53-0400 Body mass index (BMI) [Ratio] 44.21 kg/m2 Hal Mims MD Work Phone: [facility] [facility], [place].; [employer]. 10-08-2023 10:53-0400 Body surface area Derived from formula 2.02 m2 Hal Mims MD Work Phone: [employer], [place].; [employer]. 10-08-2023 10:53-0400 Body weight 106.14 kg Hal Mims MD Work Phone: [employer].; [employer]. 10-08-2023 10:53-0400 Diastolic blood pressure 74 mm[Hg] Hal Mims MD Work Phone: [employer].; [employer]. Comment on above: Patient Position: Sitting; Cuff Location : Left Arm; Cuff Size: Standard 10-08-2023 10:53-0400 Heart rate 90 /min Hal iMms MD Work Phone: [employer].; [employer] Comment on above: Pattern: Regular 10-08-2023 10:53-0400 Systolic blood pressure 128 mm[Hg] Hal Mims MD Work Phone: [facility]; [place] [employer]. Comment on above: Patient Position: Sitting; Cuff Location : Left Arm; Cuff Size: Standard 08-07-2023 09:01-0400 Body height 154.94 cm [address]ria Junior MA [facility].; [facility] [employer]. 08-07-2023 09:01-0400 Body mass index (BMI) [Ratio] 44.02 kg/m2 Demetria Junior MA [facility].; [place] [facility]. 08-07-2023 09:01-0400 Body surface area Derived from formula 2.02 [address] [facility].; [place] [employer]. 08-07-2023 09:01-0400 Body temperature 97.5 [degF] Demetria Junior [facility].; [employer]. Comment on above: Method: Tympanic 08-07-2023 09:01-0400 Body weight 105.69 [address] [facility].; [place] [employer]. 08-07-2023 09:01-0400 Diastolic blood pressure 82 mm[Hg] Demetria Junior MA [facility].; [employer]. Comment on above: Patient Position: Sitting; Cuff Location : Left Arm; Cuff Size: Standard 08-07-2023 09:01-0400 Heart rate 83 /min Demetria Junior [facility].; [employer]. Comment on above: Pattern: Regular 08-07-2023 09:01-0400 Inhaled oxygen concentration 21 % Demetria Junior MA [facility].; [employer]. Comment on above: Room air 08-07-2023 09:01-0400 SaO2% (BldA) [Mass fraction] 98 % Demetria Junior MA [facility].; [place] [employer]. 08-07-2023 09:01-0400 Systolic blood pressure 135 mm[Hg] Demetria Junior MA [employer].; [employer]. Comment on above: Patient Position: Sitting; Cuff Location : Left Arm; Cuff Size: Standard 07-23-2023 09:58-0400 Body height 154.94 cm Hal Mims MD Work Phone: [employer]; [employer]. 07-23-2023 09:58-0400 Body mass index (BMI) [Ratio] 43.84 kg/m2 Hal Mims MD Work Phone: [employer]; [employer]. 07-23-2023 09:58-0400 Body surface area Derived from formula 2.01 m2 Hal Mims MD Work Phone: [employer].; [employer]. 07-23-2023 09:58-0400 Body temperature 97.1 [degF] Hal Mims MD Work Phone: [employer]; [employer]. Comment on above: Method: Tympanic 07-23-2023 09:58-0400 Body weight 105.24 kg Hal Mims MD Work Phone: [employer]; [employer]. 07-23-2023 09:58-0400 Diastolic blood pressure 91 mm[Hg] Hal Mims MD Work Phone: [employer].; [employer]. Comment on above: Patient Position: Sitting; Cuff Location : Left Arm; Cuff Size: Standard 07-23-2023 09:58-0400 Heart rate 80 /min Hal Mims MD Work Phone: [employer]; [employer]. Comment on above: Pattern: Regular 07-23-2023 09:58-0400 Inhaled oxygen concentration 21 % Hal iMms MD Work Phone: [employer]; [employer]. Comment on above: Room air 07-23-2023 09:58-0400 SaO2% (BldA) [Mass fraction] 97 % Hal Mims MD Work Phone: [employer]; [employer]. 07-23-2023 09:58-0400 Systolic blood pressure 157 mm[Hg] Hal Mims MD Work Phone: [employer]; [employer]. Comment on above: Patient Position: Sitting; Cuff Location : Left Arm; Cuff Size: Standard 07-14-2023 08:15-0400 Body height 154.94 cm Hal Mims MD Work Phone: [employer]; [employer] 07-14-2023 08:15-0400 Body mass index (BMI) [Ratio] 43.27 kg/m2 Hal Mims MD Work Phone: [employer]; [employer] 07-14-2023 08:15-0400 Body surface area Derived from formula 2 m2 Hal Mims MD Work Phone: [employer]; [employer] 07-14-2023 08:15-0400 Body temperature 98.5 [degF] Hal Mims MD Work Phone: [employer]; [employer]. Comment on above: Method: Tympanic 07-14-2023 08:15-0400 Body weight 103.87 kg Hal Mims MD Work Phone: [employer]; [employer]. 07-14-2023 08:15-0400 Heart rate 82 /min Hal Mims MD Work Phone: [employer]; [employer]. Comment on above: Pattern: Regular 07-14-2023 08:15-0400 Inhaled oxygen concentration 21 % Hal Mims MD Work Phone: [employer]; [employer]. Comment on above: Room air 07-14-2023 08:15-0400 SaO2% (BldA) [Mass fraction] 97 % Hal Mims MD Work Phone: [facility]; [facility] 07-07-2023 08:20-0400 Body height 154.94 cm [facility] Denise [facility]; [facility] 07-07-2023 08:20-0400 Body mass index (BMI) [Ratio] 43.27 kg/m2 [facility]; [facility] 07-07-2023 08:20-0400 Body surface area Derived from formula [address] [facility]; [facility] 07-07-2023 08:20-0400 Body weight 103.87 kg [facility] 07-07-2023 08:20-0400 Diastolic blood pressure 89 mm[Hg] [facility] [place] [facility].; [facility] Comment on above: Patient Position: Sitting; Cuff Location : Left Arm; Cuff Size: Large 07-07-2023 08:20-0400 Heart rate 90 /min [facility]; [facility] Comment on above: Pattern: Regular 07-07-2023 08:20-0400 Systolic blood pressure 158 mm[Hg] [facility]; [facility]. Comment on above: Patient Position: Sitting; Cuff Location : Left Arm; Cuff Size: Large 03-18-2023 08:09-0500 Body temperature 97.6 [degF] Dr. Hal Mims Work Phone: [facility] 03-18-2023 08:09-0500 Diastolic blood pressure 92 mm[Hg] Dr. Hal Mims Work Phone: [facility] 03-18-2023 08:09-0500 Heart rate 79 /min Dr. Hal Mims Work Phone: [facility] 03-18-2023 08:09-0500 Respiratory rate 17 /min Dr. Hal Mims Work Phone: [facility] 03-18-2023 08:09-0500 SaO2% (BldA) [Mass fraction] 98 % Dr. Hal Mims Work Phone: [facility] 03-18-2023 08:09-0500 Systolic blood pressure 142 mm[Hg] Dr. Hal Mims Work Phone: [facility] 10-23-2022 10:02-0400 Body height 154.94 cm Magaly Stevens LPN [facility], [facility].; [facility] 10-23-2022 10:02-0400 Body mass index (BMI) [Ratio] 43.46 kg/m2 Magaly Stevens [facility].; [facility] 10-23-2022 10:02-0400 Body surface area Derived from formula 2 m2 Magaly Stevens GRAPHICS MANAGER [facility].; [facility] 10-23-2022 10:02-0400 Body weight 104.33 kg Magaly Stevens [facility].; [facility] 10-23-2022 10:02-0400 Diastolic blood pressure 79 mm[Hg] Magaly Stevens GRAPHICS MANAGER [facility].; [facility], [facility]. Comment on above: Patient Position: Sitting; Cuff Location : Left Arm; Cuff Size: Standard 10-23-2022 10:02-0400 Heart rate 73 /min Magaly Stevens GRAPHICS MANAGER [facility].; [place] [facility], [facility]. Comment on above: Pattern: Regular 10-23-2022 10:02-0400 Systolic blood pressure 115 mm[Hg] Magaly Stevens [facility].; [place] [employer], [facility]. Comment on above: Patient Position: Sitting; Cuff Location : Left Arm; Cuff Size: Standard 05-01-2022 09:15-0500 Body height 152.[address] Hal Mims Work Phone: [facility] 05-01-2022 09:14-0500 Body mass index (BMI) [Ratio] 45.3 kg/m2 Dr. Hal Mims Work Phone: 4(010)320-501152 [place] [address] 05-01-2022 09:14-0500 Body weight 105.[address] Hal Mims Work Phone: 5(954)295-501982 [place] [address] 05-01-2022 09:14-0500 Diastolic blood pressure 89 mm[Hg] Dr. Hal Mims Work Phone: 0(710)829-590664 [address] 05-01-2022 09:14-0500 Systolic blood pressure 146 mm[Hg] Dr. Hal Mims Work Phone: 0(832)574-754682 [place] [address] 02-28-2022 09:15-0500 Body mass index (BMI) [Ratio] 44.1 kg/m2 Dr. Hal Mims Work Phone: 8(709)493-723282 [place] [address] 02-28-2022 09:15-0500 Body weight 102.[address] Hal Mims Work Phone: 5(809)152-884564 [address] 02-28-2022 09:15-0500 Diastolic blood pressure 84 mm[Hg] Dr. Hal Mims Work Phone: 7(392)786-331764 [address] 02-28-2022 09:15-0500 Systolic blood pressure 137 mm[Hg] Dr. Hal Mims Work Phone: 9(184)771-691082 [place] [address] 01-14-2022 15:31-0400 Body height 152.[address] Hal Mims Work Phone: 0(129)248-720552 [place] [address] Work Phone: 01-14-2022 15:14-0400 Body mass index (BMI) [Ratio] 43 kg/m2 Dr. Hal Mims Work Phone: [facility] Work Phone: 01-14-2022 15:14-0400 Body weight 99.[address] Hal Mims Work Phone: [facility] Work Phone: 01-14-2022 15:14-0400 Diastolic blood pressure 92 mm[Hg] Dr. Hal Mims Work Phone: 0(410)915-738052 [place] [address] Work Phone: 01-14-2022 15:14-0400 Systolic blood pressure 130 mm[Hg] Dr. Hal Mims Work Phone: [facility] Work Phone: 10-22-2021 14:35-0400 Body height 154.94 cm Hal Mims MD Work Phone: [employer].; [employer] 10-22-2021 14:35-0400 Body mass index (BMI) [Ratio] 42.51 kg/m2 Hal Mims MD Work Phone: [employer]; [employer]. 10-22-2021 14:35-0400 Body surface area Derived from formula 1.99 m2 Hal Mims MD Work Phone: [employer]; [employer]. 10-22-2021 14:35-0400 Body weight 102.06 kg Hal Mims MD Work Phone: [employer]; [employer] 10-22-2021 14:35-0400 Diastolic blood pressure 85 mm[Hg] Hal Mims MD Work Phone: [employer].; [employer]. Comment on above: Patient Position: Sitting; Cuff Location : Left Arm; Cuff Size: Standard 10-22-2021 14:35-0400 Heart rate 79 /min Hal Mims MD Work Phone: [employer]; [employer]. Comment on above: Pattern: Regular 10-22-2021 14:35-0400 Systolic blood pressure 142 mm[Hg] Hal Mims MD Work Phone: [employer].; [employer]. Comment on above: Patient Position: Sitting; Cuff Location : Left Arm; Cuff Size: Standard 09-27-2021 13:17-0400 Body height 154.94 cm Gris Pan CMA [employer].; [employer]. 09-27-2021 13:17-0400 Body mass index (BMI) [Ratio] 42.32 kg/m2 Gris Pan [facility].; [employer] [facility]. 09-27-2021 13:17-0400 Body surface area Derived from formula 1.98 m2 Gris Pan [facility].; [employer]. 09-27-2021 13:17-0400 Body weight 101.61 kg Gris Pan [facility].; [employer] [facility]. 09-27-2021 13:17-0400 Diastolic blood pressure 77 mm[Hg] Gris Pan [facility].; [place] [employer] [facility]. Comment on above: Patient Position: Sitting; Cuff Location : Left Arm; Cuff Size: Standard 09-27-2021 13:17-0400 Heart rate 81 /min Gris Pan [facility].; [employer]. Comment on above: Pattern: Regular 09-27-2021 13:17-0400 Systolic blood pressure 137 mm[Hg] Gris Pan [facility].; [employer]. Comment on above: Patient Position: Sitting; Cuff Location : Left Arm; Cuff Size: Standard 07-04-2021 13:39-0400 Body temperature 98.6 [degF] Dr. Hal Mims Work Phone: [facility] Work Phone: 07-04-2021 13:39-0400 Diastolic blood pressure 80 mm[Hg] Dr. Hal Mims Work Phone: [facility] Work Phone: 07-04-2021 13:39-0400 Heart rate 90 /min Dr. Hal Mims Work Phone: [facility] Work Phone: 07-04-2021 13:39-0400 Respiratory rate 14 /min Dr. Hal Mims Work Phone: [facility] Work Phone: 07-04-2021 13:39-0400 SaO2% (BldA) [Mass fraction] 98 % Dr. Hal Mims Work Phone: [facility] Work Phone: 07-04-2021 13:39-0400 Systolic blood pressure 141 mm[Hg] Dr. Hal Mims Work Phone: [facility] Work Phone: 07-03-2021 15:10-0400 Inhaled oxygen flow rate 2 L/min Dr. Hal Mims Work Phone: [facility] Work Phone: 07-03-2021 13:27-0400 Body height 152.[address] Hal Mims Work Phone: [facility] Work Phone: 07-03-2021 13:27-0400 Body mass index (BMI) [Ratio] 43.4 kg/m2 Dr. Hal Mims Work Phone: [facility] Work Phone: 07-03-2021 13:27-0400 Body weight [address] Hal Mims Work Phone: [facility] Work Phone: 06-19-2021 13:06-0400 Body height 154.94 cm Hal Mims MD Work Phone: [employer] [facility].; [employer]. 06-19-2021 13:06-0400 Body mass index (BMI) [Ratio] 41.57 kg/m2 Hal Mims MD Work Phone: [employer] 06-19-2021 13:06-0400 Body surface area Derived from formula 1.97 m2 Hal Mims MD Work Phone: [employer] 06-19-2021 13:06-0400 Body weight 99.79 kg Hal Mims MD Work Phone: [employer]. 06-19-2021 13:06-0400 Diastolic blood pressure 78 mm[Hg] Hal Mims MD Work Phone: [facility].; [facility] Comment on above: Patient Position: Sitting; Cuff Location : Left Arm; Cuff Size: Standard 06-19-2021 13:06-0400 Heart rate 77 /min Hal Mims MD Work Phone: [facility].; [place] [employer]. Comment on above: Pattern: Regular 06-19-2021 13:06-0400 Systolic blood pressure 134 mm[Hg] Hal Mims MD Work Phone: [facility]; [facility] Comment on above: Patient Position: Sitting; Cuff Location : Left Arm; Cuff Size: Standard 04-09-2021 18:21-0500 Body temperature 97.6 [degF] Dr. Hal Mims Work Phone: [facility] Work Phone: 04-09-2021 18:21-0500 Diastolic blood pressure 91 mm[Hg] Dr. Hal Mims Work Phone: [facility] Work Phone: 04-09-2021 18:21-0500 Heart rate 64 /min Dr. Hal Mims Work Phone: [facility] Work Phone: 04-09-2021 18:21-0500 Respiratory rate 16 /min Dr. Hal Mims Work Phone: [facility] Work Phone: 04-09-2021 18:21-0500 SaO2% (BldA) [Mass fraction] 100 % Dr. Hal Mims Work Phone: [facility] Work Phone: 04-09-2021 18:21-0500 Systolic blood pressure 156 mm[Hg] Dr. Hal Mims Work Phone: [facility] Work Phone: 04-09-2021 16:46-0500 Body mass index (BMI) [Ratio] 42 kg/m2 Dr. Hal Mims Work Phone: [facility] Work Phone: 04-09-2021 16:46-0500 Body weight 97.[address] Hal Mims Work Phone: [facility] Work Phone: 04-09-2021 15:59-0500 Body temperature 98.2 [degF] Dr. Hal Mims Work Phone: [facility] Work Phone: 04-09-2021 15:59-0500 Diastolic blood pressure 96 mm[Hg] Dr. Hal Mims Work Phone: [facility] Work Phone: 04-09-2021 15:59-0500 Heart rate 85 /min Dr. Hal Mims Work Phone: [facility] Work Phone: 04-09-2021 15:59-0500 Respiratory rate 16 /min Dr. Hal Mims Work Phone: [facility] Work Phone: 04-09-2021 15:59-0500 SaO2% (BldA) [Mass fraction] 98 % Dr. Hal Mims Work Phone: [facility] Work Phone: 04-09-2021 15:59-0500 Systolic blood pressure 140 mm[Hg] Dr. Hal Mims Work Phone: [facility] Work Phone: 12-17-2020 11:43-0400 Body height 154.94 cm [facility], [facility] [facility], [facility]. 12-17-2020 11:43-0400 Body mass index (BMI) [Ratio] 41 kg/m2 [facility], [facility]. 12-17-2020 11:43-0400 Body surface area Derived from formula 1.96 m2 [facility], [facility].; [employer] [facility], [place]. 12-17-2020 11:43-0400 Body temperature 98 [degF] Clementina Walker [facility], [facility].; [employer] [facility], [place]. Comment on above: Method: Tympanic 12-17-2020 11:43-0400 Body weight 98.43 kg Clementina Walker [facility], [facility].; [employer], [place]. 12-17-2020 11:43-0400 Diastolic blood pressure 87 mm[Hg] Clementina Walker [facility], [facility].; [employer], [place]. Comment on above: Patient Position: Sitting; Cuff Location : Left Arm; Cuff Size: Large 12-17-2020 11:43-0400 Heart rate 95 /min Clementina Walker [facility], [facility].; [employer]. Comment on above: Pattern: Regular 12-17-2020 11:43-0400 Systolic blood pressure 148 mm[Hg] Clementina Walker [facility], [facility].; [employer], [place]. Comment on above: Patient Position: Sitting; Cuff Location : Left Arm; Cuff Size: Large 10-31-2020 08:44-0400 Body height 154.94 cm Hal Mims MD Work Phone: [facility], [facility].; [employer]. 10-31-2020 08:44-0400 Body mass index (BMI) [Ratio] 41.76 kg/m2 Hal Mims MD Work Phone: [facility].; [employer]. 10-31-2020 08:44-0400 Body surface area Derived from formula 1.97 m2 Hal Mims MD Work Phone: [place] [employer] [facility].; [employer]. 10-31-2020 08:44-0400 Body weight 100.25 kg Hal Mims MD Work Phone: [place] [employer] [facility].; [employer]. 10-31-2020 08:44-0400 Diastolic blood pressure 70 mm[Hg] Hal Mims MD Work Phone: [facility].; [employer]. Comment on above: Patient Position: Sitting; Cuff Location : Left Arm; Cuff Size: Standard 10-31-2020 08:44-0400 Heart rate 71 /min Hal Mims MD Work Phone: [facility].; [employer]. Comment on above: Pattern: Regular 10-31-2020 08:44-0400 Systolic blood pressure 126 mm[Hg] Hal Mims MD Work Phone: [facility].; [employer]. Comment on above: Patient Position: Sitting; Cuff Location : Left Arm; Cuff Size: Standard 08-14-2020 13:18-0400 Body height 154.94 cm [address] Fish [facility].; [facility] 08-14-2020 13:18-0400 Body mass index (BMI) [Ratio] 41.38 kg/m2 Pretty Fish [facility].; [employer] [facility], [facility]. 08-14-2020 13:18-0400 Body surface area Derived from formula 1.96 m[address] [facility].; [employer] [facility], [facility]. 08-14-2020 13:18-0400 Body weight 99.34 kg Prettylaura Fish [facility].; [employer] [facility], [facility]. 08-14-2020 13:18-0400 Diastolic blood pressure 76 mm[Hg] Pretty Fish [facility].; [employer]. Comment on above: Patient Position: Sitting; Cuff Location : Left Arm; Cuff Size: Standard 08-14-2020 13:18-0400 Heart rate 88 /min Pretty Fish MA [facility].; [employer]. Comment on above: Pattern: Regular 08-14-2020 13:18-0400 Systolic blood pressure 126 mm[Hg] Pretty Fish [facility].; [employer]. Comment on above: Patient Position: Sitting; Cuff Location : Left Arm; Cuff Size: Standard 10-24-2019 08:12-0400 Body height 154.94 cm Cami Quiles RN [facility].; [employer] [facility]. 10-24-2019 08:12-0400 Body mass index (BMI) [Ratio] 40.43 kg/m2 Cami Quiles [facility].; [employer] 10-24-2019 08:12-0400 Body surface area Derived from formula 1.94 m[address] Qu[address] [facility].; [employer] [facility]. 10-24-2019 08:12-0400 Body weight 97.07 kg Cami Quiles RN [facility].; [employer] [facility]. 10-24-2019 08:12-0400 Diastolic blood pressure 88 mm[Hg] Cami Quiles [facility].; [employer]. Comment on above: Patient Position: Sitting; Cuff Location : Right Arm; Cuff Size: Standard 10-24-2019 08:12-0400 Heart rate 90 /min Cami Quiles RN [place] [employer] [facility].; [employer]. Comment on above: Pattern: Regular 10-24-2019 08:12-0400 Systolic blood pressure 127 mm[Hg] Cami Quiles RN [place] [facility].; [employer]. Comment on above: Patient Position: Sitting; Cuff Location : Right Arm; Cuff Size: Standard 09-03-2019 09:14-0400 Body height 154.94 cm Magaly Stevens LPN [place] [facility].; [employer]. 09-03-2019 09:14-0400 Body mass index (BMI) [Ratio] 40.62 kg/m2 Magaly Stevens LPN [place] [facility].; [employer]. 09-03-2019 09:14-0400 Body surface area Derived from formula 1.95 m[address] L[facility].; [employer]. 09-03-2019 09:14-0400 Body weight 97.52 kg Magaly Stevens LPN [facility], [facility].; [facility] [facility], [facility]. 09-03-2019 09:14-0400 Diastolic blood pressure 84 mm[Hg] Magaly Rodney TURK [facility], [facility].; [employer] [facility], [facility]. Comment on above: Patient Position: Sitting; Cuff Location : Left Arm; Cuff Size: Standard 09-03-2019 09:14-0400 Heart rate 76 /min Magaly Rodney GRAPHICS MANAGER [facility] [employer], [place]. Comment on above: Pattern: Regular 09-03-2019 09:14-0400 Systolic blood pressure 130 mm[Hg] Magaly Rodney TURK [facility], [facility].; [employer], [place]. Comment on above: Patient Position: Sitting; Cuff Location : Left Arm; Cuff Size: Standard 06-09-2019 15:02-0400 Body height 154.94 cm Neilee L Vess [facility], [facility].; [employer], [place]. 06-09-2019 15:02-0400 Body mass index (BMI) [Ratio] 40.43 kg/m2 Neilee L Vess [facility], [facility].; [employer], [place]. 06-09-2019 15:02-0400 Body surface area Derived from formula 1.94 m2 Neilee L Vess GRAPHICS MANAGER [facility], [facility].; [employer], [facility]. 06-09-2019 15:02-0400 Body temperature 98.7 [degF] Coilee L Vess [facility] [employer] [facility], [facility].; [employer], [place]. Comment on above: Method: Tympanic 06-09-2019 15:02-0400 Body weight 97.07 kg Neilee L Vess GRAPHICS MANAGER [facility], [facility].; [employer], [place]. 06-09-2019 15:02-0400 Diastolic blood pressure 87 mm[Hg] Neilee L Vess GRAPHICS MANAGER [place] [employer] [facility], [facility].; [employer], [place]. Comment on above: Patient Position: Sitting; Cuff Location : Left Arm; Cuff Size: Standard 06-09-2019 15:02-0400 Heart rate 108 /min Neilee L Vess GRAPHICS MANAGER [facility] [employer], [place]. Comment on above: Pattern: Regular 06-09-2019 15:02-0400 Systolic blood pressure 137 mm[Hg] Sandeep Garcia LPN [employer].; [employer]. Comment on above: Patient Position: Sitting; Cuff Location : Left Arm; Cuff Size: Standard 11-17-2018 11:51-0400 Body height 154.94 cm Hal Mims MD Work Phone: [employer].; [employer]. 11-17-2018 11:51-0400 Body mass index (BMI) [Ratio] 41.57 kg/m2 Hal Mims MD Work Phone: [employer].; [employer]. 11-17-2018 11:51-0400 Body surface area Derived from formula 1.97 m2 Hla Mims MD Work Phone: [employer].; [employer]. 11-17-2018 11:51-0400 Body weight 99.79 kg Hal Mims MD Work Phone: [employer].; [employer]. 11-17-2018 11:51-0400 Diastolic blood pressure 82 mm[Hg] Hal Mims MD Work Phone: [employer].; [employer]. Comment on above: Patient Position: Sitting; Cuff Location : Left Arm; Cuff Size: Large 11-17-2018 11:51-0400 Heart rate 99 /min Hal Mims MD Work Phone: [employer].; [employer]. Comment on above: Pattern: Regular 11-17-2018 11:51-0400 Systolic blood pressure 130 mm[Hg] Hal Mims MD Work Phone: [employer].; [employer]. Comment on above: Patient Position: Sitting; Cuff Location : Left Arm; Cuff Size: Large 08-13-2018 13:04-0400 Body height 154.94 cm Cami Quiles RN [employer].; [employer]. 08-13-2018 13:04-0400 Body mass index (BMI) [Ratio] 41.38 kg/m2 Cami Quiles RN [employer].; [employer]. 08-13-2018 13:04-0400 Body surface area Derived from formula 1.96 m2 Cami Quiles RN [employer].; [employer]. 08-13-2018 13:04-0400 Body temperature 98.1 [degF] Cami Quiles RN [employer].; [employer]. Comment on above: Method: Tympanic 08-13-2018 13:04-0400 Body weight 99.34 kg Cami Quiles RN [employer].; [employer]. 08-13-2018 13:04-0400 Diastolic blood pressure 84 mm[Hg] Cami Quiles RN [employer].; [employer]. Comment on above: Patient Position: Sitting; Cuff Location : Left Arm; Cuff Size: Large 08-13-2018 13:04-0400 Heart rate 89 /min Cami Quiles RN [employer].; [employer]. Comment on above: Pattern: Regular 08-13-2018 13:04-0400 Systolic blood pressure 132 mm[Hg] Cami Quiles RN [employer].; [employer]. Comment on above: Patient Position: Sitting; Cuff Location : Left Arm; Cuff Size: Large 12-07-2017 09:03-0400 Body height 154.94 cm Hal Mims MD Work Phone: [employer].; [employer]. 12-07-2017 09:03-0400 Body mass index (BMI) [Ratio] 41.76 kg/m2 Hal Mims MD Work Phone: [employer].; [employer]. 12-07-2017 09:03-0400 Body surface area Derived from formula 1.97 m2 Hal Mims MD Work Phone: [employer].; [employer]. 12-07-2017 09:03-0400 Body weight 100.25 kg Hal Mims MD Work Phone: [place] [employer].; [employer]. 12-07-2017 09:03-0400 Diastolic blood pressure 86 mm[Hg] Hal Mims MD Work Phone: [place] [employer].; [employer]. Comment on above: Patient Position: Sitting; Cuff Location : Left Arm; Cuff Size: Large 12-07-2017 09:03-0400 Heart rate 86 /min Hal Mims MD Work Phone: [place] [employer].; [employer]. Comment on above: Pattern: Regular 12-07-2017 09:03-0400 Systolic blood pressure 132 mm[Hg] Hal Mims MD Work Phone: [place] [employer].; [employer]. Comment on above: Patient Position: Sitting; Cuff Location : Left Arm; Cuff Size: Large 11-17-2017 14:17-0400 Body height 154.94 cm RosmeryBrigette Walker [facility] [employer] [facility], [place].; [employer] 11-17-2017 14:17-0400 Body mass index (BMI) [Ratio] 40.81 kg/m2 [facility], [facility].; [employer] 11-17-2017 14:17-0400 Body surface area Derived from formula 1.95 m2 [facility] [employer].; [employer] 11-17-2017 14:17-0400 Body weight 97.98 kg [facility] Denise [facility].; [employer]. 11-17-2017 14:17-0400 Diastolic blood pressure 91 mm[Hg] [facility] Denise [facility].; [employer]. Comment on above: Patient Position: Sitting; Cuff Location : Left Arm; Cuff Size: Large 11-17-2017 14:17-0400 Heart rate 70 /min [facility] Denise [facility].; [employer]. Comment on above: Pattern: Regular 11-17-2017 14:17-0400 Systolic blood pressure 138 mm[Hg] Clementina Walker ROSALEE [place] [employer].; [employer]. Comment on above: Patient Position: Sitting; Cuff Location : Left Arm; Cuff Size: Large 09-21-2017 08:21-0400 Body height 154.94 cm Cami Quiles RN [employer] 09-21-2017 08:21-0400 Body mass index (BMI) [Ratio] 40.81 kg/m2 Cami Quiles RN [employer].; [employer]. 09-21-2017 08:21-0400 Body surface area Derived from formula 1.95 m2 Cami Quiles RN [employer].; [employer]. 09-21-2017 08:21-0400 Body weight 97.98 kg Cami Quiles RN [employer].; [employer]. 09-21-2017 08:21-0400 Diastolic blood pressure 84 mm[Hg] Cami Quiles RN [employer].; [employer]. Comment on above: Patient Position: Sitting; Cuff Location : Right Arm; Cuff Size: Standard 09-21-2017 08:21-0400 Heart rate 75 /min Cami Quiles RN [employer].; [employer]. Comment on above: Pattern: Regular 09-21-2017 08:21-0400 Systolic blood pressure 135 mm[Hg] Cami Quiles RN [employer].; [employer]. Comment on above: Patient Position: Sitting; Cuff Location : Right Arm; Cuff Size: Standard 01-07-2017 14:43-0400 Body height 154.94 cm [facility] Work Phone: [employer].; [employer]. 01-07-2017 14:43-0400 Body mass index (BMI) [Ratio] 40.25 kg/m2 [facility] Work Phone: [employer]; [employer]. 01-07-2017 14:43-0400 Body surface area Derived from formula 1.94 m2 Alexandra Nolascoy GRAPHICS MANAGER Work Phone: [employer]; [employer]. 01-07-2017 14:43-0400 Body temperature 98.3 [degF] Alexandra Nolascoy GRAPHICS MANAGER Work Phone: [employer]; [employer]. Comment on above: Method: Tympanic 01-07-2017 14:43-0400 Body weight 96.62 kg Alexandra Hemal GRAPHICS MANAGER Work Phone: [employer]; [employer]. 01-07-2017 14:43-0400 Diastolic blood pressure 98 mm[Hg] Alexandra Nolascoy GRAPHICS MANAGER Work Phone: [employer]; [employer]. Comment on above: Patient Position: Sitting; Cuff Location : Left Arm; Cuff Size: Large 01-07-2017 14:43-0400 Heart rate 90 /min Alexandra Nolascoy GRAPHICS MANAGER Work Phone: [employer]; [employer]. Comment on above: Pattern: Regular 01-07-2017 14:43-0400 Systolic blood pressure 142 mm[Hg] Alexandra Nolascoy GRAPHICS MANAGER Work Phone: [employer]; [employer]. Comment on above: Patient Position: Sitting; Cuff Location : Left Arm; Cuff Size: Large 11-21-2016 09:48-0400 Body height 154.94 cm Hal Mims MD Work Phone: [employer]; [employer]. 11-21-2016 09:48-0400 Body mass index (BMI) [Ratio] 40.25 kg/m2 Hal Mims MD Work Phone: [employer]; [employer]. 11-21-2016 09:48-0400 Body surface area Derived from formula 1.94 m2 Hal Mims MD Work Phone: [employer].; [employer]. 11-21-2016 09:48-0400 Body weight 96.62 kg Hal Mims MD Work Phone: [employer].; [employer]. 11-21-2016 09:48-0400 Diastolic blood pressure 78 mm[Hg] Hal Mims MD Work Phone: [employer].; [employer]. Comment on above: Patient Position: Sitting; Cuff Location : Left Arm; Cuff Size: Standard 11-21-2016 09:48-0400 Heart rate 84 /min Hal Mims MD Work Phone: [employer].; [employer]. Comment on above: Pattern: Regular 11-21-2016 09:48-0400 Systolic blood pressure 138 mm[Hg] Hal Mims MD Work Phone: [employer].; [employer]. Comment on above: Patient Position: Sitting; Cuff Location : Left Arm; Cuff Size: Standard 09-15-2016 10:08-0400 Body weight 97.52 kg Vera Rand LPN [employer].; [employer]. 09-15-2016 10:08-0400 Diastolic blood pressure 84 mm[Hg] Vera Rand LPN [employer].; [employer]. Comment on above: Patient Position: Sitting; Cuff Location : Left Arm; Cuff Size: Standard 09-15-2016 10:08-0400 Heart rate 74 /min Vera Rand LPN [employer].; [employer]. Comment on above: Pattern: Regular 09-15-2016 10:08-0400 Systolic blood pressure 152 mm[Hg] Vera Rand LPN [employer].; [employer]. Comment on above: Patient Position: Sitting; Cuff Location : Left Arm; Cuff Size: Standard 03-14-2016 13:54-0500 Body height 154.94 cm Hal Mims MD Work Phone: [employer].; [employer]. 03-14-2016 13:54-0500 Body mass index (BMI) [Ratio] 42.14 kg/m2 Hal Mims MD Work Phone: [employer]; [employer]. 03-14-2016 13:54-0500 Body surface area Derived from formula 1.98 m2 Hal Mims MD Work Phone: [employer]; [employer]. 03-14-2016 13:54-0500 Body temperature 97.9 [degF] Hal Mims MD Work Phone: [employer]; [employer]. Comment on above: Method: Tympanic 03-14-2016 13:54-0500 Body weight 101.15 kg Hal Mims MD Work Phone: [employer]; [employer] 03-14-2016 13:54-0500 Diastolic blood pressure 74 mm[Hg] Hal Mims MD Work Phone: [employer]; [employer]. Comment on above: Patient Position: Sitting; Cuff Location : Left Arm; Cuff Size: Large 03-14-2016 13:54-0500 Heart rate 82 /min Hal Mims MD Work Phone: [employer]; [employer] Comment on above: Pattern: Regular 03-14-2016 13:54-0500 Inhaled oxygen concentration 21 % Hal Mims MD Work Phone: [employer]; [employer] Comment on above: Room air 03-14-2016 13:54-0500 SaO2% (BldA) [Mass fraction] 97 % Hal Mims MD Work Phone: [employer]; [employer]. 03-14-2016 13:54-0500 Systolic blood pressure 141 mm[Hg] Hal Mims MD Work Phone: [employer]; [employer] Comment on above: Patient Position: Sitting; Cuff Location : Left Arm; Cuff Size: Large 03-10-2016 08:17-0500 Body weight 101.61 kg Vera Rand LPN [employer]. 03-10-2016 08:17-0500 Diastolic blood pressure 85 mm[Hg] Vera Rand LPN [employer]. Comment on above: Patient Position: Sitting; Cuff Location : Left Arm; Cuff Size: Standard 03-10-2016 08:17-0500 Heart rate 98 /min Vera Rand LPN [employer]. Comment on above: Pattern: Regular 03-10-2016 08:17-0500 Systolic blood pressure 136 mm[Hg] Vera Rand LPN [employer], [place].; [employer]. Comment on above: Patient Position: Sitting; Cuff Location : Left Arm; Cuff Size: Standard 12-10-2015 09:41-0400 Body height 154.94 cm Hal Mims MD Work Phone: [employer].; [employer]. 12-10-2015 09:41-0400 Body mass index (BMI) [Ratio] 41.95 kg/m2 Hal Mims MD Work Phone: [employer].; [employer]. 12-10-2015 09:41-0400 Body surface area Derived from formula 1.97 m2 Hal Mims MD Work Phone: [employer].; [employer]. 12-10-2015 09:41-0400 Body weight 100.7 kg Hal Mims MD Work Phone: [employer].; [employer]. 12-10-2015 09:41-0400 Diastolic blood pressure 82 mm[Hg] Hal Mims MD Work Phone: [employer].; [employer]. Comment on above: Patient Position: Sitting; Cuff Location : Left Arm; Cuff Size: Standard 12-10-2015 09:41-0400 Heart rate 70 /min Hal Mims MD Work Phone[facility].; [employer]. Comment on above: Pattern: Regular 12-10-2015 09:41-0400 Systolic blood pressure 132 mm[Hg] Hal Mims MD Work Phone: [facility], [place].; [employer]. Comment on above: Patient Position: Sitting; Cuff Location : Left Arm; Cuff Size: Standard 11-27-2015 08:30-0400 Body height 154.94 cm Clementina Walker [facility], [place].; [employer]. 11-27-2015 08:30-0400 Body mass index (BMI) [Ratio] 43.08 kg/m2 Clementina Walker [facility], [place].; [employer], [place]. 11-27-2015 08:30-0400 Body surface area Derived from formula 2 m2 [facility] Denise [facility] [facility], [place].; [employer], [place]. 11-27-2015 08:30-0400 Body weight 103.42 kg Clementina Walker [facility] [employer] [facility], [place].; [employer]. 11-27-2015 08:30-0400 Diastolic blood pressure 82 mm[Hg] Clementina Walker [facility], [place].; [employer]. Comment on above: Patient Position: Sitting; Cuff Location : Left Arm; Cuff Size: Large 11-27-2015 08:30-0400 Heart rate 83 /min Clementina Walker [facility], [place].; [employer]. Comment on above: Pattern: Regular 11-27-2015 08:30-0400 Systolic blood pressure 140 mm[Hg] Clementina Walker [facility] [employer] [facility], [place].; [employer]. Comment on above: Patient Position: Sitting; Cuff Location : Left Arm; Cuff Size: Large 06-06-2015 08:45-0400 Body height 154.94 cm Clementina Walker [facility] [employer] [facility], [place].; [employer]. 06-06-2015 08:45-0400 Body mass index (BMI) [Ratio] 42.89 kg/m2 Clementina Machuca Denise [facility], Inc.; [employer] 06-06-2015 08:45-0400 Body surface area Derived from formula 1.99 m2 [facility] [employer] 06-06-2015 08:45-0400 Body weight 102.97 kg [facility] [employer] [facility], [facility].; [employer] 06-06-2015 08:45-0400 Diastolic blood pressure 68 mm[Hg] [facility] Denise [facility] [employer] [facility], [facility].; [employer], [place]. Comment on above: Patient Position: Sitting; Cuff Location : Left Arm; Cuff Size: Large 06-06-2015 08:45-0400 Heart rate 72 /min [facility] [employer]. Comment on above: Pattern: Regular 06-06-2015 08:45-0400 Systolic blood pressure 121 mm[Hg] [facility] Denise [facility] [employer] [facility], [facility].; [employer]. Comment on above: Patient Position: Sitting; Cuff Location : Left Arm; Cuff Size: Large 12-06-2014 08:44-0400 Body height 154.94 cm Hal Mims MD Work Phone: [employer], [place].; [employer]. 12-06-2014 08:44-0400 Body mass index (BMI) [Ratio] 41.95 kg/m2 Hal Mims MD Work Phone: [employer].; [employer]. 12-06-2014 08:44-0400 Body surface area Derived from formula 1.97 m2 Hal Mims MD Work Phone: [employer].; [employer]. 12-06-2014 08:44-0400 Body weight 100.7 kg Hal Mims MD Work Phone: [employer].; [employer]. 12-06-2014 08:44-0400 Diastolic blood pressure 78 mm[Hg] Hal Mims MD Work Phone: [employer].; [employer]. Comment on above: Patient Position: Sitting; Cuff Location : Left Arm; Cuff Size: Large 12-06-2014 08:44-0400 Heart rate 67 /min Hal Mims MD Work Phone: [employer].; [employer]. Comment on above: Pattern: Regular 12-06-2014 08:44-0400 Systolic blood pressure 122 mm[Hg] Hal Mims MD Work Phone: [employer].; [employer]. Comment on above: Patient Position: Sitting; Cuff Location : Left Arm; Cuff Size: Large 09-16-2014 08:55-0400 Body height 154.94 cm Floridalma Jo RN [employer].; [employer]. 09-16-2014 08:55-0400 Body mass index (BMI) [Ratio] 41.89 kg/m2 Floridalma Jo RN [employer].; [employer]. 09-16-2014 08:55-0400 Body surface area Derived from formula 1.97 m2 Floridalma Jo RN [employer].; [employer]. 09-16-2014 08:55-0400 Body temperature 98.9 [degF] Floridalma Jo RN [employer].; [employer]. Comment on above: Method: Tympanic 09-16-2014 08:55-0400 Body weight 100.56 kg Floridalma Jo RN [employer].; [employer]. 09-16-2014 08:55-0400 Diastolic blood pressure 72 mm[Hg] Floridalma Jo RN [employer].; [employer]. Comment on above: Patient Position: Sitting; Cuff Location : Left Arm; Cuff Size: Standard 09-16-2014 08:55-0400 Heart rate 86 /min Floridalma Jo RN [employer].; [employer]. Comment on above: Pattern: Regular 09-16-2014 08:55-0400 Inhaled oxygen concentration 21 % Floridalma Jo RN [facility], [facility].; [employer], [place]. Comment on above: Room air 09-16-2014 08:55-0400 SaO2% (BldA) [Mass fraction] 98 % Floridalma Jo RN [facility], [facility].; [employer], [place]. 09-16-2014 08:55-0400 Systolic blood pressure 155 mm[Hg] Floridalma Jo RN [facility], [facility].; [employer]. Comment on above: Patient Position: Sitting; Cuff Location : Left Arm; Cuff Size: Standard 09-13-2014 15:58-0400 Body height 154.94 cm Franca Arcelia Carlyersbaugh GRAPHICS MANAGER [facility], [facility].; [employer], [place]. 09-13-2014 15:58-0400 Body mass index (BMI) [Ratio] 42.32 kg/m2 Franca K Mutersbaugh GRAPHICS MANAGER [facility], [facility].; [employer] 09-13-2014 15:58-0400 Body surface area Derived from formula 1.98 m2 Franca K Mutersbaugh GRAPHICS MANAGER [facility], [facility].; [employer], [place]. 09-13-2014 15:58-0400 Body temperature 98.8 [degF] Franca K Mutersbaugh GRAPHICS MANAGER [facility] [employer] 09-13-2014 15:58-0400 Body weight 101.61 kg Franca K Mutersbaugh GRAPHICS MANAGER [facility] [employer], [place]. 09-13-2014 15:58-0400 Diastolic blood pressure 85 mm[Hg] Franca K Mutersbaugh GRAPHICS MANAGER [place] [employer] [facility], [facility] [employer]. Comment on above: Patient Position: Sitting; Cuff Location : Left Arm; Cuff Size: Standard 09-13-2014 15:58-0400 Heart rate 77 /min Franca K Mutersbaugh GRAPHICS MANAGER [place] [employer], [facility] [employer]. Comment on above: Pattern: Regular 09-13-2014 15:58-0400 Systolic blood pressure 129 mm[Hg] Franca K Mutersbaugh GRAPHICS MANAGER [place] [employer] [facility], [facility] [place] [facility], [place]. Comment on above: Patient Position: Sitting; Cuff Location : Left Arm; Cuff Size: Standard 08-16-2014 13:42-0400 Body height 149.86 cm Clementina Walker [facility], [facility] [place] [facility], [place]. 08-16-2014 13:42-0400 Body mass index (BMI) [Ratio] 46.25 kg/m2 Clementina Walker [facility].; [place] [employer] [facility] 08-16-2014 13:42-0400 Body surface area Derived from formula 1.95 m2 Clementina Walker [facility] [place] [employer], [place]. 08-16-2014 13:42-0400 Body temperature 98.2 [degF] Clementina Walker [facility] [employer], [place]. Comment on above: Method: Tympanic 08-16-2014 13:42-0400 Body weight 103.87 kg Clementina Walker [facility], [facility].; [place] [facility], [facility] 08-16-2014 13:42-0400 Diastolic blood pressure 87 mm[Hg] Clementina Walker [facility] [employer], [place]. Comment on above: Patient Position: Sitting; Cuff Location : Left Arm; Cuff Size: Large 08-16-2014 13:42-0400 Heart rate 85 /min Clementina Walker [facility] [place] [employer], [place]. Comment on above: Pattern: Regular 08-16-2014 13:42-0400 Systolic blood pressure 129 mm[Hg] Clementina Walker [facility] [employer], [place]. Comment on above: Patient Position: Sitting; Cuff Location : Left Arm; Cuff Size: Large 07-18-2014 10:56-0400 Body height 149.86 cm Jerri Virginia GRAPHICS MANAGER [facility] [place] [employer], [place]. 07-18-2014 10:56-0400 Body mass index (BMI) [Ratio] 47.36 kg/m2 Jerri Virginia [facility] 07-18-2014 10:56-0400 Body surface area Derived from formula 1.97 m2 Jer[address] Juarezfaby TURK [facility] 07-18-2014 10:56-0400 Body weight 106.37 kg Jerri Juarezfaby TURK [facility] [place] [facility], [facility] 07-18-2014 10:56-0400 Diastolic blood pressure 91 mm[Hg] Jerri Juarezfaby TURK [facility], [facility].; [employer] [facility] Comment on above: Patient Position: Sitting; Cuff Location : Left Arm; Cuff Size: Standard 07-18-2014 10:56-0400 Heart rate 76 /min Jerri Juarezfaby TURK [facility] [place] [employer] Comment on above: Pattern: Regular 07-18-2014 10:56-0400 Systolic blood pressure 140 mm[Hg] Jerri Juarezfaby TURK [facility] [employer] Comment on above: Patient Position: Sitting; Cuff Location : Left Arm; Cuff Size: Standard 05-06-2014 09:56-0500 Body height 149.86 cm Clementina Mooreuckey GRAPHICS MANAGER [facility] [place] [facility] 05-06-2014 09:56-0500 Body mass index (BMI) [Ratio] 47.26 kg/m2 Clementina Machuca Covel GRAPHICS MANAGER [facility] [place] [employer] 05-06-2014 09:56-0500 Body surface area Derived from formula 1.97 m[address] ROSALEE [facility] [place] [employer] [facility], [facility] 05-06-2014 09:56-0500 Body weight 106.14 kg Clementina Mooreuckey [facility] [place] [employer] 05-06-2014 09:56-0500 Diastolic blood pressure 84 mm[Hg] Clementina Mooreuckey GRAPHICS MANAGER [facility] [employer] Comment on above: Patient Position: Sitting; Cuff Location : Left Arm; Cuff Size: Large 05-06-2014 09:56-0500 Heart rate 76 /min Clementina Walker GRAPHICS MANAGER [place] [employer]. Comment on above: Pattern: Regular 05-06-2014 09:56-0500 Systolic blood pressure 139 mm[Hg] Clementina Walker GRAPHICS MANAGER [place] [employer], [place]. Comment on above: Patient Position: Sitting; Cuff Location : Left Arm; Cuff Size: Large 02-01-2014 09:45-0500 Body height 149.86 cm Jerri Coleman LPN [place] [employer] [facility], [facility] [employer]. 02-01-2014 09:45-0500 Body mass index (BMI) [Ratio] 46.28 kg/m2 Jerrigiovanni Coleman [facility] [employer] 02-01-2014 09:45-0500 Body surface area Derived from formula 1.95 m2 [facility]ri [facility] [employer], [employer], [place]. 02-01-2014 09:45-0500 Body temperature 98.1 [degF] [facility]ri [facility]aby [facility], [place].; [employer]. Comment on above: Method: Tympanic 02-01-2014 09:45-0500 Body weight 103.93 kg Jrerigiovanni Coleman LPN [employer] 02-01-2014 09:45-0500 Diastolic blood pressure 92 mm[Hg] Jerri Coleman [facility], Inc.; [employer]. Comment on above: Patient Position: Sitting; Cuff Location : Left Arm; Cuff Size: Standard 02-01-2014 09:45-0500 Heart rate 75 /min Jerri Coleman LPN [employer] [place].; [employer]. Comment on above: Pattern: Regular 02-01-2014 09:45-0500 Systolic blood pressure 141 mm[Hg] Jerri Coleman LPPresbyterian HospitalBubbleball, Inc.; [employer]. Comment on above: Patient Position: Sitting; Cuff Location : Left Arm; Cuff Size: Standard 12-14-2013 10:38-0400 Body height 149.86 cm Jerri Coleman ROSALEE [place] [employer] [place] [employer] 12-14-2013 10:38-0400 Body mass index (BMI) [Ratio] 45.65 kg/m2 Jerri Juarezfaby TURK [facility] [place] [employer] 12-14-2013 10:38-0400 Body surface area Derived from formula 1.94 m2 Jerri Juarezfaby [employer]K [place] [facility] [employer] 12-14-2013 10:38-0400 Body weight 102.51 kg Jerri Juarezfaby [facility] [employer] [facility] [employer] 12-14-2013 10:38-0400 Diastolic blood pressure 81 mm[Hg] Jerri Juarezfaby [facility] [employer] Comment on above: Patient Position: Sitting; Cuff Location : Left Arm; Cuff Size: Standard 12-14-2013 10:38-0400 Heart rate 62 /min Jerri Juarezfaby [facility], [facility] [employer] Comment on above: Pattern: Regular 12-14-2013 10:38-0400 Systolic blood pressure 118 mm[Hg] Jerri Coleman ROSALEE [place] [facility], [facility] [employer] Comment on above: Patient Position: Sitting; Cuff Location : Left Arm; Cuff Size: Standard 10-12-2013 09:32-0400 Body height 149.86 cm Clementina Walker GRAPHICS MANAGER [place] [facility], [facility] [employer] 10-12-2013 09:32-0400 Body mass index (BMI) [Ratio] 43.83 kg/m2 Rosmery Denise GRAPHICS MANAGER [place] [employer], [facility] [employer] 10-12-2013 09:32-0400 Body surface area Derived from formula 1.91 m2 Rosmery Covel GRAPHICS MANAGER [place] [facility] [employer], [place]. 10-12-2013 09:32-0400 Body weight 98.43 kg Clementina Walker ROSALEE [facility] [employer] 10-12-2013 09:32-0400 Diastolic blood pressure 66 mm[Hg] Clementina Walker ROSALEE [facility] [employer] Comment on above: Patient Position: Sitting; Cuff Location : Left Arm; Cuff Size: Large 10-12-2013 09:32-0400 Heart rate 86 /min Clementina Walker ROSALEE [facility] [employer] Comment on above: Pattern: Regular 10-12-2013 09:32-0400 Systolic blood pressure 135 mm[Hg] Clementina Walker ROSALEE [place] [facility] [employer] Comment on above: Patient Position: Sitting; Cuff Location : Left Arm; Cuff Size: Large 09-21-2013 10:28-0400 Body height 149.86 cm Jerri Coleman LPN [place] [facility] [employer] 09-21-2013 10:28-0400 Body mass index (BMI) [Ratio] 43.02 kg/m2 [facility]ri [facility] [employer] 09-21-2013 10:28-0400 Body surface area Derived from formula 1.89 m2 Jerri Coleman LPN [place] [facility] [employer] 09-21-2013 10:28-0400 Body weight 96.62 kg Jerri Coleman LPN [place] [facility] [employer] 09-21-2013 10:28-0400 Diastolic blood pressure 76 mm[Hg] Jerri Coleman [facility] Hospital [employer] [facility] [employer], [place]. Comment on above: Patient Position: Sitting; Cuff Location : Left Arm; Cuff Size: Standard 09-21-2013 10:28-0400 Heart rate 64 /min Jerri Coleman LPN [place] [employer], [facility] [employer] Comment on above: Pattern: Regular 09-21-2013 10:28-0400 Systolic blood pressure 126 mm[Hg] Jerri Coleman LPN [facility]. Comment on above: Patient Position: Sitting; Cuff Location : Left Arm; Cuff Size: Standard Encounters Encounter Date Encounter Type Care Provider Facility Start: 02-07-2025 ambulatory Hal Mims Facility:[facility] Start: 01-31-2025 ambulatory Hal Mims Facility:[facility] Start: 01-23-2025 [facility]ulatory [facility] Start: 01-03-2025 End: 01-03-[address] Toña Jeffries DC -[facility] Work Phone: Start: 01-03-2025 End: 01-03-[address] Hal Mims MD Work Phone: [facility] Start: 12-27-2024 End: 12-27-[address] Toña Jeffries DC -[facility] Work Phone: Start: 12-27-2024 End: 12-27-[address] Hal Mims MD Work Phone: -[facility] Start: 12-20-2024 End: 12-20-2024 Office outpatient visit 40 minutes Jerri Awan APRN-[facility] Work Phone: [facility] Comment on above: Hemicrania continua (Primary Dx); New daily persistent headache; Diplopia; Occipital neuralgia of right side; Gastroesophageal reflux disease without esophagitis Start: 12-20-2024 End: 12-20-2024 ambulatory [facility] Start: 12-07-2024 End: 12-07-[address] Toña Jeffries DC -[facility] Work Phone: Start: 12-07-2024 End: 12-07-[address] Hal Mims MD Work Phone: -[facility] Start: 12-07-2024 End: 12-07-2024 ambulatory Toña Jeffries Facility:[facility] Start: 11-24-2024 End: 11-24-2024 ambulatory [facility] Ambulatory Start: 11-08-2024 End: 11-08-[address] Hal Mims MD Work Phone: -Laboratory Start: 11-08-2024 End: 11-08-[address] Jerri Awan MD -Laboratory Work Phone: Start: 11-08-2024 End: 11-08-2024 ambulatory Hal Mims Facility:[facility] Start: 11-03-2024 End: 11-03-2024 ambulatory JERRI L [facility] Ambulatory Start: 11-03-2024 End: 11-03-2024 Office outpatient new 60 minutes Jerri Awan MOBILITY SPECIALIST-COMMUNICATIONS OPERATOR Work Phone: [facility] Comment on above: New daily persistent headache (Primary Dx); Diplopia; Occipital neuralgia of right side Start: 11-01-2024 Registered Recurring Self Referred - Physical Therapy Work Phone: Start: 11-01-2024 ambulatory Hal Mims Facility:[facility] Start: 10-28-2024 End: 10-28-2024 Office outpatient visit 15 minutes Hal Mims MD Work Phone: [facility] Start: 10-28-2024 End: 10-28-[address] Hal Mims MD Work Phone: [facility] Start: 10-28-2024 End: 10-28-2024 Patient encounter procedure Wander Lopez PA -[facility] Work Phone: Start: 10-28-2024 End: 10-28-2024 ambulatory Hal Mims Facility:[facility] Start: 10-26-2024 End: 10-26-[address] Hal Mims MD Work Phone: -Laboratory Start: 10-26-2024 End: 10-26-2024 Patient encounter procedure Ravinder Butcher PA-C -Laboratory Work Phone: Start: 10-26-2024 End: 10-26-2024 ambulatory Hal Mims Facility:[facility] Start: 10-25-2024 End: 10-25-2024 Orders Hal Mims MD Work Phone: [employer] Start: 10-25-2024 End: 10-25-2024 Office outpatient visit 15 minutes Hal Mims MD Work Phone: [employer] Start: 10-24-2024 End: 10-24-2024 Telephone follow-up Hal Mims MD Work Phone: [employer] Start: 10-21-2024 End: 10-21-2024 Emergency department patient visit Dr. Hal Mims MD Work Phone: -Emergency Department Work Phone: Start: 10-21-2024 End: 10-21-2024 Patient encounter procedure Marques Mccrary [facility] -[facility] Work Phone: Start: 10-21-2024 End: 10-21-[address] Hal Mims MD Work Phone: [facility] Start: 10-11-2024 Review Hal Mims MD Work Phone: [employer] Start: 10-11-2024 End: 10-11-2024 Periodic preventive med est patient 40-64yrs Hal Mims MD Work Phone: [employer] Start: 10-11-2024 End: 10-11-2024 Physical examination Hal Mims MD Work Phone: [employer]; [employer] Start: 09-27-2024 Registered Referred [facility] Start: 09-27-2024 End: 09-27-[address] Hal Mims MD Work Phone: -Laboratory Start: 09-27-2024 End: 09-27-[address] Hal Mims MD -Laboratory Work Phone: Start: 09-27-2024 End: 09-27-2024 ambulatory Hal Mims Facility:[facility] Start: 08-22-2024 End: 08-23-2024 Orders Hal Mims MD Work Phone: [employer] Start: 08-12-2024 End: 08-12-[address] Hal Mims MD Work Phone: [facility] Work Phone: Start: 08-12-2024 End: 08-12-[address] Kait Zacarias MD -Laboratory Specimen Work Phone: Start: 08-12-2024 End: 08-12-[address] Kait Zacarias MD -[facility] Work Phone: Start: 08-12-2024 End: 08-12-2024 ambulatory Hal Mims Facility:[facility] Start: 08-12-2024 End: 08-12-2024 ambulatory Hal Mims Facility:[facility] Start: 07-18-2024 End: 07-18-2024 Office outpatient visit 15 minutes Hal Mims MD Work Phone: [employer] Start: 07-18-2024 Follow-up encounter Hal keating MD Work Phone: [employer]. Start: 11-02-2023 End: 11-02-2023 Office outpatient visit 15 minutes Hal Mims MD Work Phone: [employer]. Start: 10-08-2023 End: 10-08-2023 Patient encounter procedure Hal Mims MD Work Phone: [employer]; [employer]. Start: 10-08-2023 End: 10-08-2023 Periodic preventive med est patient 40-64yrs Hal Mims MD Work Phone: [employer]. Start: 08-10-2023 End: 08-10-2023 Medication Hal Mims MD Work Phone: [employer]. Start: 08-07-2023 End: 08-07-2023 Office outpatient visit 15 minutes Hal Mims MD Work Phone: [employer] Start: 07-23-2023 End: 07-23-2023 Office outpatient visit 15 minutes Hal Mims MD Work Phone: [employer]. Start: 07-17-2023 End: 07-17-2023 Orders Hal Mims MD Work Phone: [employer]. Start: 07-16-2023 End: 07-16-2023 Medication Hal Mims MD Work Phone: [employer] Start: 07-14-2023 End: 07-14-2023 Office outpatient visit 15 minutes Hal Mims MD Work Phone: [employer] Start: 07-07-2023 End: 07-07-2023 Office outpatient visit 15 minutes Hal Mims MD Work Phone: [employer] Start: 03-18-2023 End: 03-18-[address] Hal Mims Work Phone: [facility] Work Phone: Start: 02-24-2023 End: 03-22-[address] Hal Mims Work Phone: [facility] Work Phone: Start: 02-24-2023 End: 03-22-[address] Hal Mims Work Phone: [facility] Start: 01-12-2023 End: 01-12-2023 ambulatory [facility] Work Phone: Start: 01-12-2023 End: 01-12-2023 Patient encounter procedure [facility]-Outpatient [facility] Imaging Work Phone: Start: 10-23-2022 End: 10-23-2022 Patient encounter procedure Hal Mims MD Work Phone: [employer]; [employer]. Start: 10-23-2022 End: 10-23-2022 Periodic preventive med est patient 40-64yrs Hal Mims MD Work Phone: [facility]. Start: 10-11-2022 End: 10-11-2022 ambulatory [facility] Work Phone: Start: 10-11-2022 End: 10-11-2022 Patient encounter procedure [facility]-Laboratory Work Phone: Start: 10-11-2022 Registered Referred [facility] Start: 09-30-2022 End: 09-30-2022 Orders Hal Mims MD Work Phone: [facility] Start: 06-24-2022 End: 06-24-2022 ambulatory [facility] Work Phone: Start: 06-24-2022 End: 06-24-2022 Discharged Recurring [facility]-Physical Therapy Start: 05-29-2022 End: 05-29-[address] Hal Mims Work Phone: [facility] Work Phone: Start: 05-29-2022 End: 05-29-[address] Hal Mims Work Phone: [facility]-Laboratory Start: 05-01-2022 End: 05-01-[address] Hal Mims Work Phone: [facility] Start: 02-28-2022 End: 02-28-[address] Hal Mims Work Phone: [facility]-Laboratory, Specimen Start: 02-28-2022 End: 02-28-[address] Hal Mims Work Phone: [facility] Start: 01-22-2022 End: 01-22-[address] Hal Mims Work Phone: [facility] Work Phone: Start: 01-22-2022 End: 01-22-[address] Hal Mims Work Phone: [facility]-Ultrasound, [facility] Start: 01-14-2022 End: 01-14-[address] Hal Mims Work Phone: [facility] Start: 01-14-2022 End: 01-14-[address] Hal Mims Work Phone: [facility] Work Phone: Start: 01-14-2022 End: 01-14-[address] Hal Mims Work Phone: [facility]-Laboratory, Specimen Start: 11-21-2021 End: 11-21-2021 Orders Hal Mims MD Work Phone: [place] [employer] Start: 11-14-2021 End: 11-14-2021 ambulatory [facility] Work Phone: Start: 11-14-2021 End: 11-14-2021 Patient encounter procedure [facility]-Outpatient Breast Imaging Start: 10-22-2021 End: 10-22-2021 Initial preventive medicine new patient 40-64yrs Hal Mims MD Work Phone: [employer] Start: 10-22-2021 End: 10-22-2021 Physical examination Hal Mims MD Work Phone: [employer]; [employer]. Start: 10-22-2021 Registered Referred [facility] Start: 10-07-2021 End: 10-20-[address] Hal Mims Work Phone: [facility] Start: 10-01-2021 End: 10-01-2021 Orders Hal Mims MD Work Phone: [employer]. Start: 09-27-2021 End: 09-27-2021 Office outpatient visit 15 minutes Hal Mims MD Work Phone: [employer] Start: 09-03-2021 End: 09-03-[address] Hal Mims Work Phone: [facility]Physical Therapy Start: 07-04-2021 Non-patient / Non-visit Dr. Hal Mims Work Phone: [facility] Start: 07-03-2021 Non-patient / Non-visit Dr. Hal Mims Work Phone: [facility] Start: 07-03-2021 End: 07-04-2021 Evaluation and management of [facility] Start: 06-28-2021 End: 06-28-[address] [facility] Start: 06-28-[address] [facility] Start: 06-26-2021 End: 06-26-[address] Hal Mims Work Phone: [facility]Laboratory Start: 06-25-2021 End: 06-25-2021 Orders [facility] Start: 06-25-2021 End: 06-25-[address] Hal Mims Work Phone: [facility]Laboratory Start: 06-25-2021 Non-patient / Non-visit Dr. Hal Mims Work Phone: [facility] Start: 06-19-2021 End: 06-19-2021 Office outpatient visit 25 minutes Hal Mims MD Work Phone: [place] [facility] [facility] Start: 06-19-2021 End: 06-19-2021 Physical examination [facility] MD [facility] [employer]. Start: 05-09-2021 End: 05-09-[address] Hal Mims Work Phone: [facility] Start: 05-07-2021 End: 05-07-2021 Orders Hal Mims MD Work Phone: [employer]. Start: 04-09-2021 End: 04-09-[address] Hal Mims Work Phone: [facility] 3 Outp Start: 04-09-2021 End: 04-09-[address] Hal M[facility] Work Phone: [facility] Start: 04-05-2021 End: 04-05-[address] Hal Mims Work Phone: [facility] Start: 12-31-2020 End: 12-31-2020 Medication Hal Mims MD Work Phone: [employer]. Start: 12-17-2020 End: 12-17-2020 Office outpatient visit 15 minutes Hal Mims MD Work Phone: [employer]. Start: 12-11-2020 End: 12-11-2020 Orders Hal Mims MD Work Phone: [employer]. Start: 10-31-2020 End: 10-31-2020 Initial preventive medicine new patient 40-64yrs Hal Mims MD Work Phone: [employer]. Start: 10-31-2020 End: 10-31-2020 Patient encounter procedure Hal Mims MD Work Phone: [employer] Start: 10-24-2020 End: 10-24-2020 Orders Hal Mims MD Work Phone: [employer]. Start: 10-04-2020 End: 10-04-2020 Orders Hal Mims MD Work Phone: [employer]. Start: 10-02-2020 End: 10-02-2020 Orders Hal Mims MD Work Phone: [employer]. Start: 09-07-2020 End: 09-07-2020 Medication Hal Mims MD Work Phone: [employer]. Start: 08-21-2020 End: 08-21-2020 Orders Hal Mims MD Work Phone: [employer]. Start: 08-14-2020 End: 08-14-2020 Office outpatient visit 15 minutes Hal Mims MD Work Phone: [employer]. Start: 03-21-2020 End: 03-21-2020 Medication Hal Mims MD Work Phone: [employer]. Start: 03-19-2020 End: 03-19-2020 Orders Hal Mims MD Work Phone: [employer]. Start: 10-26-2019 End: 10-26-2019 Orders Hal Mims MD Work Phone: [employer]. Start: 10-24-2019 End: 10-24-2019 Patient encounter procedure Hal Mims MD Work Phone: [employer] Start: 10-24-2019 End: 10-24-2019 Periodic preventive med est patient 40-64yrs Hal Mims MD Work Phone: [employer]. Start: 09-21-2019 End: 09-21-2019 Orders Hal Mims MD Work Phone: [employer]. Start: 09-03-2019 End: 09-03-2019 Office outpatient visit 15 minutes Hal Mims MD Work Phone: [employer]. Start: 07-21-2019 End: 07-22-2019 Orders Hal Mims MD Work Phone: [employer]. Start: 06-15-2019 End: 06-15-2019 Telephone follow-up Hal Mims MD Work Phone: [employer] Start: 06-09-2019 End: 06-09-2019 Patient encounter procedure Hal Mims MD Work Phone: [employer]. Start: 03-07-2019 End: 03-07-2019 Orders Hal Mims MD Work Phone: [employer]. Start: 11-17-2018 End: 11-17-2018 Initial preventive medicine new patient 40-64yrs Hal Mims MD Work Phone: [employer]. Start: 11-17-2018 End: 11-17-2018 Patient encounter procedure Hal Mims MD Work Phone: [employer] Start: 11-08-2018 End: 11-08-2018 Orders Hal Mims MD Work Phone: [employer]. Start: 08-23-2018 End: 08-23-2018 Orders Hal Mims MD Work Phone: [employer]. Start: 08-13-2018 End: 08-13-2018 Office outpatient visit 15 minutes Hal Mims MD Work Phone: [employer]. Start: 01-29-2018 End: 01-29-2018 Medication Hal Mims MD Work Phone: [employer]. Start: 12-07-2017 End: 12-07-2017 Patient encounter procedure Hal Mims MD Work Phone: [employer] Start: 12-07-2017 End: 12-07-2017 Periodic preventive med est patient 40-64yrs Hal Mims MD Work Phone: [employer]. Start: 12-01-2017 End: 12-01-2017 Orders Hal Mims MD Work Phone: [employer]. Start: 11-17-2017 End: 11-17-2017 Office outpatient visit 15 minutes Hal Mims MD Work Phone: [employer]. Start: 11-13-2017 End: 11-13-2017 Orders Hal Mims MD Work Phone: [employer]. Start: 11-09-2017 End: 11-09-2017 Orders Hal Mims MD Work Phone: [employer] Start: 09-24-2017 End: 09-24-2017 Orders Hal Mims MD Work Phone: [employer]. Start: 09-21-2017 End: 09-21-2017 Office outpatient visit 15 minutes Hal Mims MD Work Phone: [employer]. Start: 01-14-2017 End: 01-27-2017 Orders Hal Mims MD Work Phone: [employer]. Start: 01-07-2017 End: 01-07-2017 Patient encounter procedure Hal Mims MD Work Phone: [employer]. Start: 12-30-2016 End: 12-30-2016 Orders Hal Mims MD Work Phone: [employer]. Start: 12-17-2016 End: 12-17-2016 Orders Hal Mims MD Work Phone: [employer]. Start: 12-16-2016 Ambulatory NATE Maicol BRIDGES [facility] Start: 11-21-2016 End: 11-21-2016 Patient encounter procedure Hal Mims MD Work Phone: [employer].; [employer] Start: 11-21-2016 End: 11-21-2016 Periodic preventive med est patient 40-64yrs Hal Mims MD Work Phone: [employer]. Start: 09-15-2016 End: 09-15-2016 Office outpatient visit 15 minutes Hal Mims MD Work Phone: [employer]. Start: 08-27-2016 End: 08-27-2016 Orders Hal Mims MD Work Phone: [employer]. Start: 07-14-2016 End: 07-14-2016 Orders Hal Mims MD Work Phone: [employer]. Start: 05-07-2016 End: 05-07-2016 Medication Hal Mims MD Work Phone: [employer]. Start: 03-17-2016 End: 03-17-2016 Patient encounter procedure Hal Mims MD Work Phone: [employer]. Start: 03-14-2016 End: 03-15-2016 Medication Hal Mims MD Work Phone: [employer]. Start: 03-14-2016 End: 03-14-2016 Patient encounter procedure Hal Mims MD Work Phone: [employer]. Start: 03-10-2016 End: 03-10-2016 Office outpatient visit 15 minutes Hal Mims MD Work Phone: [employer]. Start: 12-10-2015 End: 12-10-2015 Patient encounter procedure Hal Mims MD Work Phone: [employer].; [employer]. Start: 12-10-2015 End: 12-10-2015 Periodic preventive med est patient 40-64yrs Hal Mims MD Work Phone: [employer]. Start: 11-27-2015 End: 11-27-2015 Office outpatient visit 15 minutes Hal Mims MD Work Phone: [employer]. Start: 11-02-2015 End: 11-05-2015 Orders Hal Mims MD Work Phone: [employer]. Start: 10-29-2015 End: 11-02-2015 Orders Hal Mims MD Work Phone: [employer]. Start: 10-05-2015 End: 10-05-2015 Historical Summary Hal Mims MD Work Phone: [employer]. Start: 07-10-2015 End: 07-10-2015 Medication Hal Mims MD Work Phone: [employer]. Start: 07-09-2015 End: 07-09-2015 Orders Hal Mims MD Work Phone: [employer]. Start: 07-02-2015 End: 07-02-2015 Medication Hal Mims MD Work Phone: [employer]. Start: 06-25-2015 End: 06-26-2015 Orders Hal Mims MD Work Phone: [employer]. Start: 06-22-2015 End: 06-22-2015 Orders Hal Mims MD Work Phone: [employer]. Start: 06-06-2015 End: 06-06-2015 Office outpatient visit 15 minutes Hal Mims MD Work Phone: [employer]. Start: 12-06-2014 End: 12-06-2014 Patient encounter procedure Hal Mims MD Work Phone: [employer] Start: 12-06-2014 End: 12-06-2014 Periodic preventive med est patient 40-64yrs Hal Mims MD Work Phone: [employer]. Start: 11-14-2014 End: 11-14-2014 Medication Hal Mims MD Work Phone: [employer]. Start: 09-16-2014 End: 09-16-2014 Office outpatient visit 15 minutes Hal Mims MD Work Phone: [employer]. Start: 09-13-2014 End: 09-13-2014 Patient encounter procedure Hal Mims MD Work Phone: [employer]. Start: 08-16-2014 End: 08-16-2014 Office outpatient visit 15 minutes Hal Mims MD Work Phone: [employer]. Start: 08-12-2014 End: 08-15-2014 Orders Hal Mims MD Work Phone: [employer]. Start: 07-24-2014 End: 07-24-2014 Medication Hal Mims MD Work Phone: [employer]. Start: 07-18-2014 End: 07-18-2014 Office outpatient visit 15 minutes Hal Mims MD Work Phone: [employer]. Start: 05-06-2014 End: 05-06-2014 Office outpatient visit 15 minutes Hal Mims MD Work Phone: [employer]. Start: 04-21-2014 End: 04-21-2014 Medication Hal Mims MD Work Phone: [employer]. Start: 02-01-2014 End: 02-01-2014 Patient encounter procedure Hal Mims MD Work Phone: [employer]. Start: 12-28-2013 End: 12-28-2013 Medication Hal Mims MD Work Phone: [employer]. Start: 12-14-2013 End: 12-14-2013 Patient encounter procedure Hal Mims MD Work Phone: [employer]. Start: 10-12-2013 End: 10-12-2013 Office outpatient visit 15 minutes Hal Mims MD Work Phone: [employer] Start: 09-21-2013 End: 09-21-2013 Office outpatient visit 15 minutes Hal Mims MD Work Phone: [employer] Patient encounter procedure Hal Mims MD Work Phone: [employer] [employer]. Patient encounter procedure Hal Mims MD Work Phone: [employer].; [employer]. Physical examination [facility] N [facility].; [employer]. Physical examination [facility] N [facility].; [employer]. Procedures Date Procedure Procedure Detail Performing Clinician Start: 12-07-2024 X-ray of cervical spine Dr. Hal Mims MD Work Phone: Start: 11-08-[address] Flower Mims MD Work Phone: Comment on above: Performed at: [address] [id number] Director: Sang Gonzalez PhD, Phone: [phone] Start: 11-08-2024 Antibody to extracta ble nuclear antigen measurement Dr. aHl Mims MD Work Phone: Comment on above: Previous reported re sult: TNP AIEdited by: JOSE on 11/09/24:1408 AMENDED REPORT 11/09/24 1408 IRVING Ab previously reported as: Test not performed Start: 11-08-2024 WELFARE ADVISER antibody measurement Dr. Hal Mims MD Work Phone: Comment on above: Previous reported re sult: TNP AIEdited by: JOSE on 11/09/24:1408 AMENDED REPORT 11/09/24 140 WELFARE ADVISER Ab previously reported as: Test not performed Start: 10-28-2024 End: 10-28-2024 Dexamethasone sodium phos Ravinder Butcher PA-C Work Phone: Start: 10-28-2024 MRI of brain with contrast Dr. Hal Mims MD Work Phone: Start: 10-26-2024 Measurement of Borre kee burgdorferi antibody Dr. Hal Mims MD Work Phone: Comment on above: Lyme antibodies not detected. Reflex testing is notindicated.No laboratory evidence of infection with B. burgdorferi(Lyme disease). Negative results may occur in patientsrecently infected (less than or equal to 14 days) with B.burgdorferi. If recent infection is suspected, repeattesting on a new sample collected in 7 to 14 days isrecommended.Performed at: [address] [id number] Director: Sang Gonzalez PhD, Phone: [phone] Start: 10-21-[address] Hal Mims MD Work Phone: Start: 10-21-2024 Urnls dip stick/tabl et reagent auto microscopy Dr. Hal Mims MD Work Phone: Start: 10-21-[address] Hal Mims MD Work Phone: Start: 10-21-2024 CT angiography of he ad and neck Dr. Hal Mims MD Work Phone: Start: 10-11-2024 End: 10-10-2024 Depression screening Hal Mims MD Work Phone: Start: 10-11-2024 End: 07-21-2025 Pos clin depres scrn f/u doc Hal squires MD Work Phone: Start: 10-11-2024 End: 10-10-2024 Scr dep neg, no plan reqd Hal Mims MD Work Phone: Start: 09-27-2024 End: 09-27-2024 Lab findings surveillance Nicole singleton Comment on above: CMP 85 Start: 09-27-2024 End: 09-27-2024 Lipid panel results documented & reviewed Nicole Vazquez Comment on above: TC 168, HDL 58, TRI 71, LDL 96 Start: 09-27-2024 End: 09-27-2024 Vitamin D Nicole Vazquez Comment on above: 26.4 Start: 09-27-2024 Serum inorganic phos phate measurement Dr. Hal Mims MD Work Phone: Start: 09-27-2024 End: 09-27-2024 Vitamin D, 25-hydroxy measurement Dr. Hal Mims MD Work Phone: Comment on above: Vitamin D StatusDefi ciency: <20 ng/mL (50nmol/L)Insufficiency: 20-30 ng/mL (50-75 nmol/L)Sufficiency: 30-100 ng/mL (75-250 nmol/L)Toxicity: >100 ng/mL (>250 nmol/L) Start: 09-27-2024 Lipid 1996 panel - S saloni or Plasma Jerri Awan MOBILITY SPECIALIST-COMMUNICATIONS OPERATOR Work Phone: Start: 08-12-2024 Gram stain microscopy Donald Mims MD Work Phone: Start: 08-12-2024 End: 08-12-2024 Microscopic examination of cervical Papanicolaou smear Nicole Vazquez Comment on above: [facility] Start: 08-12-2024 End: 08-12-[address] Hal Mims MD Work Phone: Start: 10-08-2023 End: 10-08-2023 Depression screening Hal Mims MD Work Phone: Start: 10-08-2023 End: 10-08-2023 Scr dep neg, no plan reqd Hal Mims MD Work Phone: Start: 10-01-2023 End: 10-01-2023 Lab findings surveillance Wilner Rivero PN Comment on above: CMP 95 Start: 10-01-2023 End: 10-01-2023 Lipid panel results documented & reviewed Wilner Manzanares LPN Comment on above: TC 203, HDL 55, TRI 106, LDL 127 Start: 08-07-2023 End: 08-10-2023 Chest x-ray Liberty Marley PA-C Work Phone: Start: 02-24-[address] Hal Mims Work Phone: Start: 01-12-2023 Screening mammography Start: 10-23-2022 End: 10-22-2022 Depression screening Hal Mims MD Work Phone: Start: 10-23-2022 End: 10-22-2022 Scr dep neg, no plan reqd Hal Mims MD Work Phone: Start: 01-22-[address] Ora Mims Work Phone: Start: 01-22-[address] Hal Mims Work Phone: Start: 11-21-2021 End: 11-21-2021 FIT DNA test Clementina Walker LP N Comment on above: Negative Finding. Ayala laura Cologkandi Start: 11-14-2021 End: 11-14-2021 Screening mammography Clementina Walker GRAPHICS MANAGER Comment on above: Normal. Start: 10-22-2021 End: 10-22-2021 Depression screening Hal Mims MD Work Phone: Start: 10-22-2021 End: 11-21-2021 Oncology colorectal screening sammie 10 dna markrs Hal Mims MD Work Phone: Start: 10-22-2021 End: 10-22-2021 Scr dep neg, no plan reqd Hal Mims MD Work Phone: Start: 10-22-2021 End: 11-14-2021 Screening digital breast tomosynthesis bi Hal Mims MD Work Phone: Start: 07-03-2021 Plain X-ray of hip Dr. Hal Mims Work Phone: Start: 07-03-2021 Fluoroscopic guidance Donald Mims Work Phone: Start: 07-03-2021 Plain x-ray of pelvi s and lower extremity Dr. Hal Mims Work Phone: Start: 07-03-2021 Total replacement of hip Dr. Hal Mims Work Phone: Start: 06-25-2021 Nasal Screen MRSA/MSSA Dr. Hal Mims Work Phone: Start: 10-31-2020 End: 10-31-2020 Depression screening Hal Mims MD Work Phone: Start: 10-31-2020 End: 10-31-2020 Scr dep neg, no plan reqd Hal Mims MD Work Phone: Start: 10-24-2020 End: 11-28-2020 Mri lower extrem oth/thn jt w/o contr matrl Hal Mims MD Work Phone: Start: 08-14-2020 End: 08-21-2020 Radex hip unilateral with pelvis 2-3 views Hal Mims MD Work Phone: Start: 10-24-2019 End: 10-24-2019 Depression screening Hal Mims MD Work Phone: Start: 10-24-2019 End: 10-24-2019 Scr dep neg, no plan reqd Hal Mims MD Work Phone: Start: 10-05-2019 End: 10-05-2019 Lipid panel results documented & reviewed RosmeryBrigette Walker GRAPHICS MANAGER Start: 11-17-2018 End: 11-17-2018 Depression screening Hal Mims MD Work Phone: Start: 11-17-2018 End: 11-17-2018 Scr dep neg, no plan reqd Hal Mims MD Work Phone: Start: 11-17-2017 End: 07-09-2021 Radex wrist complete minimum 3 views Hal Mims MD Work Phone: Start: 01-07-2017 End: 01-07-2017 Body mass index documented Marco Antonio murry MD Work Phone: Start: 01-07-2017 End: 01-07-2017 Flu immunize order/admin Marco Antonio friend MD Work Phone: Start: 07-14-2016 End: 07-14-2016 Screening mammography bi 2-view breast inc cad Hal Mims MD Work Phone: Start: 11-27-2015 End: 11-27-2015 Triamcinolone acet inj NOS Hal Mims MD Work Phone: Start: 06-14-2015 End: 06-15-2015 Hip 2-3 Views with Pelvis Hal Mims MD Work Phone: Start: 06-06-2015 End: 06-18-2015 Radex hip unilateral with pelvis 2-3 views Hal Mims MD Work Phone: Start: 12-14-2013 End: 06-29-2015 Mammogram, screening Herlinda Jaimes Work Phone: Start: 09-21-2013 End: 09-26-2013 Radex ankle complete minimum 3 views Hal Mims MD Work Phone: Start: 03-23-2013 End: 03-23-2013 Microscopic examination of cervical Papanicolaou smear Clementina Walker GRAPHICS MANAGER arthroplasty-hip 2007 akrenee Snow MA arthroplasty-hip 2007 cynthia Manzanares GRAPHICS MANAGER arthroplasty-hip 2007 cynthia Vazquez Cytopathology proced ure, preparation of smear, genital source Dr. Hal Mims Work Phone: hysteroscopy D-C 2013 [facility] Atiya Snow MA hysteroscopy D-C 2013 [facility] Luis Miguel Manzanares GRAPHICS MANAGER hysteroscopy D-C 2013 [facility] Romain Vazquez Investigation of tra nsfusion reaction Dr. Hal Mims Work Phone: Nasal Screen MRSA/MSSA Dr. Ora Mims Work Phone: Viral antigen assay Dr. Evangelist Mims Work Phone: Plan of Treatment Date Care Activity Detail Author Start: 09-27-2029 Lipid panel Lipid Panel [facility] Start: 10-12-2025 Yearly Adult Physical Yearly Adult P hysical [facility] Start: 04-21-2025 DTaP/Tdap/Td Vaccine s (4 - Td or Tdap) DTaP/Tdap/Td Vaccines (4 - Td or Tdap) [facility] Start: 12-07-2024 Chiropractic manipulation [facility] Start: 12-07-2024 X-ray of cervical spine Cerv S pine 2 or 3 Views [facility] Start: 12-07-2024 XR Cervical spine 2 or 3 Views [facility] Start: 11-21-2024 COVID-19 Vaccine ( season) COVID-19 Vaccine () [facility] Start: 11-21-2024 Influenza vaccination Influenza Vacc ine (#1) [facility] Start: 11-13-2024 Screening for malign ant neoplasm of colon [facility] Start: 11-03-2024 End: 11-03-2025 C reactive protein [Mass/volume] in Serum or Plasma C-Reactive Protein Lab Routine New daily persistent headache Occipital neuralgia of right side Expected: 11/03/2024 (Approximate), Expires: 11/03/2025 [facility] Work Phone: Comment on above: Expected: 11/03/2024 (Approximate), Expires: 11/03/2025 Start: 11-03-2024 End: 11-03-2025 Erythrocyte sedimentation rate Sedimentation Rate Lab Routine New daily persistent headache Occipital neuralgia of right side Expected: 11/03/2024 (Approximate), Expires: 11/03/2025 [facility] Work Phone: Comment on above: Expected: 11/03/2024 (Approximate), Expires: 11/03/2025 Start: 11-03-2024 End: 11-03-2025 Nuclear Ab [Presence] in Serum by Hep2 substrate MIKKI with Reflex to EL Lab Routine New daily persistent headache Occipital neuralgia of right side Expected: 11/03/2024 (Approximate), Expires: 11/03/2025 [facility] Work Phone: Comment on above: Expected: 11/03/2024 (Approximate), Expires: 11/03/2025 Start: 10-25-2024 End: 10-31-2024 Mri brain brain stem w/o w/contrast material [facility] [employer] Start: 10-25-2024 Antibody borrelia burgdorferi lyme disease Lyme Titer/EIA, reflex IgM and IgG ([id number]) Start: 25-Oct-2024 09:25-04:00 Request [facility].; [employer]. Start: 10-21-2024 [facility] Start: 10-11-2024 Oncology colorectal screening sammie 10 dna markrs COLOGUARD COLON CANCER SCREENING USING STOOL DNA AT POINT OF CARE ([id number]) Start: 11-Oct-2024 Intent [facility].; [employer]. Start: 10-11-2024 Patient encounter procedure Me dical; PHYSICAL - awv [employer]. Start: 11-Oct-2024 08:50-04:00 MD Hal Mims Appointment Request [facility]. Start: 08-22-2024 Comprehensive metabo lic panel CMP w/ GFR* ([id number]) Start: 22-Aug-2024 13:55-04:00 Request [facility].; [employer]. Start: 08-22-2024 Lipid panel LIPID PANEL ([id number]) Start: 22-Aug-2024 13:55-04:00 Request [facility].; [employer]. Start: 08-22-2024 25 hydroxy includes fractions if performed Vitamin D, 25-Hydroxy, LC/MS/MS ([id number]) Start: 22-Aug-2024 13:55-04:00 Request [facility], [place]. Start: 11-22-2023 COVID-19 Vaccine ( season) COVID-19 Vaccine (2023- season) [facility] Start: 10-08-2023 Patient encounter procedure Me dical; [facility] Start: 08-Oct-2023 10:50-04:00 MD Hal Mims Appointment [facility] Start: 08-07-2023 Chest x-ray CHEST X-RAY, P A AND LATERAL ([id number]) Start: 07-Aug-[address] [facility] [employer]. Start: 10-23-2022 25 hydroxy includes fractions if performed Vitamin D, 25-Hydroxy, LC/MS/MS ([id number]) Start: 23-Oct-2022 Request [facility]; [employer]. Start: 10-23-2022 Comprehensive metabo lic panel CMP w/ GFR* ([id number]) Start: 23-Oct-2022 Request [facility]; [employer]. Start: 10-23-2022 Lipid panel LIPID PANEL (8 0061) Start: 23-Oct-2022 Request [facility]; [employer]. Start: 10-22-2022 Screening for malign ant neoplasm of breast Mammogram [facility] Start: 2022 Pneumococcal vaccination Pneum ococcal Vaccine (1 of 1 - PCV) [facility] Start: 2022 Zoster Vaccines (1 of 2) Zoste r Vaccines (1 of 2) [facility] Start: 07-04-2021 [facility] Start: 07-03-2021 Anesthesia open tota l hip arthroplasty ANESTH HIP ARTHROPLASTY [facility] Work Phone: Start: 07-03-2021 Arthrp acetblr/prox fem prostc agrft/algrft TOTAL HIP ARTHROPLASTY [facility] Work Phone: Start: 07-03-2021 Following clinical p athway protocol [facility] Work Phone: Start: 07-03-2021 Provision of overbed trapeze [facility] Work Phone: Start: 07-03-2021 Admission procedure [facility] Work Phone: Start: 07-03-2021 Ambulation therapy management [facility] Work Phone: Start: 07-03-2021 Application of antithromboembolic stockings [facility] Work Phone: Start: 07-03-2021 Application of device [facility] Work Phone: Start: 07-03-2021 Application of inter mittent pneumatic compression device [facility] Work Phone: Start: 07-03-2021 Assessment of risk o f venous thromboembolism [facility] Work Phone: Start: 07-03-2021 Catheterization of vein [facility] Work Phone: Start: 07-03-2021 Consultation [facility] Work Phone: Start: 07-03-2021 Exercises [facility] Work Phone: Start: 07-03-2021 Following clinical p athway protocol [facility] Work Phone: Start: 07-03-2021 Incentive spirometry [facility] Work Phone: Start: 07-03-2021 Introduction of urin elías catheter [facility] Work Phone: Start: 07-03-2021 Measuring intake and output [facility] Work Phone: Start: 07-03-2021 Neurovascular assessment [facility] Work Phone: Start: 07-03-2021 Patient education [facility] Work Phone: Start: 07-03-2021 Procedure discontinued [facility] Work Phone: Start: 07-03-2021 Provision of activit y privileges [facility] Work Phone: Start: 07-03-2021 Referral to occupati onal therapist [facility] Work Phone: Start: 07-03-2021 Referral to service [facility] Work Phone: Start: 07-03-2021 Vital signs measurements [facility] Work Phone: Start: 07-03-2021 Wound care [facility] Work Phone: Start: 07-03-2021 [facility] Work Phone: Start: 12-07-2009 Hepatitis B Vaccines (3 of 3 - 19+ 3-dose series) Hepatitis B Vaccines (3 of 3 - 19+ 3-dose series) [facility] Start: 1993 Screening for malign ant neoplasm of cervix [facility] Start: 1990 Diabetes mellitus screening Diabetes Screening [facility] Start: 1990 Hepatitis C screening Hepatitis C [facility] Start: 1973 MMR Vaccines (1 of 1 - Standard series) MMR Vaccines (1 of 1 - Standard series) [facility] Start: 1972 HIV screening [facility] Start: 1972 Screening for malign ant neoplasm of colon [facility] Patient referral [facility] Work Phone: Urine culture [facility] US Pelvis [facility] Work Phone: US Pelvis transvaginal [facility] Work Phone: dexAMETHasone so d phos (bulk) 100 % powder Ordered: 28-Oct-2024 [facility] Immunizations Immunization Date Immunization Notes Care Provider [facility] 01-05-2025 influenza, seasonal, injectable, preservative free Dr. Hal Mims MD Work Phone: [facility] 12-21-2023 influenza, seasonal, injectable, preservative free Dr. Hal Mims MD Work Phone: [facility] 12-21-2023 influenza virus vaccine, unspecified formulation Jerri Awan MOBILITY SPECIALIST-COMMUNICATIONS OPERATOR Work Phone: [facility] Work Phone: 02-06-2023 influenza, injectabl e, quadrivalent, preservative free Dr. Hal Mims Work Phone: [facility] 12-24-2021 influenza, injectabl e, quadrivalent, preservative free [facility] 12-24-2021 influenza, seasonal, injectable Dr. Hal Mims Work Phone: [facility] 02-05-2021 Covid (Moderna) Dr. Hal Hoyos own Work Phone: [facility] 01-05-2021 influenza, injectabl e, quadrivalent, preservative free [facility] 01-05-2021 influenza, seasonal, injectable Dr. Hal Mims Work Phone: [facility] 04-17-2020 Zackid (Moderna) Dr. Hal Hoyos own Work Phone: [facility] 03-20-2020 Covid (Moderna) Dr. Hal Hoyos own Work Phone: [facility] 01-01-2020 influenza, injectabl e, quadrivalent, preservative free [facility] 01-01-2020 influenza, seasonal, injectable Dr. Hal Mims Work Phone: [facility] 01-09-2019 influenza, injectabl e, quadrivalent, preservative free [facility] 01-09-2019 influenza, seasonal, injectable Dr. Hal Mims Work Phone: [facility] 12-16-2017 influenza, injectabl e, quadrivalent, preservative free [facility] 12-16-2017 influenza, seasonal, injectable Dr. Hal Mims Work Phone: [facility] 12-20-2016 influenza, injectabl e, quadrivalent, contains preservative Hal Mims MD Work Phone: [facility] [place]. Comment on above: at work 12-18-2016 influenza, injectabl e, quadrivalent, preservative free [facility] 12-18-2016 influenza, seasonal, injectable Dr. Hal Mims Work Phone: [facility] 12-31-2015 influenza, injectabl e, quadrivalent, preservative free [facility] 12-31-2015 influenza, seasonal, injectable Dr. Hal Mims Work Phone: [facility] 12-11-2015 influenza, seasonal, injectable Hal Mims MD Work Phone[facility]. Comment on above: received at work. 04-21-2015 tetanus toxoid, redu shira diphtheria toxoid, and acellular pertussis vaccine, adsorbed Dr. Hal Mims Work Phone: [facility] 12-20-2014 influenza, injectabl e, quadrivalent, preservative free [facility] 12-20-2014 influenza, seasonal, injectable Dr. Hal Mims Work Phone: [facility] 12-21-2013 influenza, injectabl e, quadrivalent, preservative free [facility] 12-21-2013 influenza, seasonal, injectable Dr. Hal Mims Work Phone: [facility] 12-21-2012 influenza, seasonal, injectable Hal Mims MD Work Phone: [facility]. 03-23-2005 tetanus toxoid, redu shira diphtheria toxoid, and acellular pertussis vaccine, adsorbed Hal Mims MD Work Phone: [facility] Payers Date Payer Category Payer Self-pay [id number] 2023 Managed Care (Private) [facility] [id number] 2023 Unknown [id number] 2016 Unknown [id number] 1972 Unknown [id number] 1972 Unknown [id number] 1972 Unknown [id number] Unknown [facility] [id number] Unknown [facility] Unknown [id number] 2.16.840.1.584256.3.579.2. 462 Unknown [id number] 2.16.840.1.456056.3.579.2. 462 Unknown [id number] 2.16.840.1.045184.3.579.2. 462 Unknown [id number] 2.16.840.1.706806.3.579.2. 462 Unknown [id number] 2.16.840.1.729395.3.579.2. 462 Unknown [id number] 2.16.840.1.680051.3.579.2. 462 Unknown [id number] 2.16.840.1.331118.3.579.2. 462 Unknown [id number] 2.16.840.1.576765.3.579.2. 462 Unknown [id number] 2.16.840.1.548434.3.579.2. 462 Unknown [id number] 2.16.840.1.458719.3.579.2. 462 Unknown [id number] 2.16.840.1.635499.3.579.2. 462 Unknown [id number] 2.16.840.1.493311.3.579.2. 462 Unknown [id number] 2.16.840.1.213848.3.579.2. 462 Unknown [id number] 2.16.840.1.567353.3.579.2. 462 Unknown [id number] 2.16.840.1.688955.3.579.2. 462 Unknown [id number] 2.16.840.1.236728.3.579.2. 462 Unknown [id number] 2.16.840.1.900655.3.579.2. 462 Unknown [id number] 2.16.840.1.446917.3.579.2. 462 Social History Date Type Detail Facility [facility] Work Phone: Start: 05-09-2021 End: 03-18-2023 Tobacco smoking status NHIS Unknown if ever smoked [facility] Start: 1970 Sex Assigned At Female W [facility] Start: 11-17-2024 End: 11-24-[address] [facility] Marital status: Marital status: ; Single. [facility] Tobacco Use: Tobacco Use: ; F ormer smoker. [facility] [employer] Single [facility] [employer] Work Phone: Start: 11-17-2024 Ex-smoker [facility] Start: 07-19-2023 End: 11-15-2024 Tobacco smoking status NHIS Never smoked tobacco (finding) [facility] Start: 1970 Sex assigned at Not on file [facility] Work Phone: Start: 10-31-2024 Sex Female [facility] Start: 11-24-2024 Gender identity Not on file [facility] History of tobacco use [facility] Work [facility]: History of tobacco use [facility] Work [facility]: Start: 11-17-2024 Tobacco use and exposure Smokeless tobacco non-user [facility] Work Phone: Start: 12-18-2024 Alcoholic beverage intake Current drinker of alcohol (finding) [facility] Work Phone: Start: 11-17-2024 Tobacco Comment i didn't smoke daily i was a social smoker [facility] Work Phone: Start: 11-17-2024 Alcohol Comment 1-2 drinks/jose rter. it's rate [facility] Work Phone: NEGATED: Highlighted row No Social History Information Available No Social History Information Available [facility] Work Phone: Medical Equipment Procedure Code Equipment Code Equipment Origin al Text Equipment Identifier Dates Minimally invasive total replacement of hip joint by anterior approach ([id number]) Acetabular shell ()[id number] FDA Start: 07-03-2021 Minimally invasive total replacement of hip joint by anterior approach ([id number]) Coated hip femur prosthesis, modular ()[id number] FDA Start: 07-03-2021 Minimally invasive total replacement of hip joint by anterior approach ([id number]) Metallic femoral head prosthesis ()[id number] FDA Start: 07-03-2021 Minimally invasive total replacement of hip joint by anterior approach ([id number]) Non-constrained polyethylene acetabular liner ()[id number] FDA Start: 07-03-2021 Minimally invasive total replacement of hip joint by anterior approach ([id number]) Acetabular shell ()[id number] FDA Start: 07-03-2021 Goals Date Patient Goal Desired Activity /State Functional Status Date Assessment Result Facility 07-04-2021 Functional status Chair [facility] Work Phone: 07-03-2021 Functional status Rolling Walker [facility] Work Phone: Mental Status Date Assessment Result Facility 10-21-2024 Cognitive function Level Of Cons ciousness Awake;Alert;Appropriate;Follow s Commands [facility] Work Phone: 07-04-2021 Cognitive function Level Of Cons ciousness Awake;Alert;Appropriate;Follow s Commands [facility] Work Phone: 07-03-2021 Cognitive function Voice/Name [facility] Work Phone: 04-09-2021 Cognitive function Voice/Name;To uch/Shaking;Light Pain;Deep Pain [facility] Work Phone: Clinical Notes 02-28-2022 to 01-03-2025 Note Date & Type Note Facility 01-03-2025 Progress note [facility] 01-03-2025 Progress note Note Date/Time January 03, 2025 2:58pm [facility] [address] [place], [place] [id number] OFFICE VISIT Date of Service: 01/03/25 MR#: [id number] Acct: [id number] Name: FLORIDALMA XIE Rep #: [id number] : 1970 Provider: CAIN Jeffries Age/Sex: 54/F Location: [facility] Status: Signed Intake Vital Signs 12/07/24 08:43 Height 5 ft Weight: 231 lb BMI 45.1 BP 138/96 H Intake Visit Reasons: BACK PAIN Chief Complaint: neck pain Allergies oxycodone HCl (From Percocet) Allergy (Verified 01/03/25 14:44) Itching Penicillins (PCN) Allergy (Verified 01/03/25 14:44) Rash acyclovir Adverse Reaction (Verified 01/03/25 14:44) Diarrhea Medications ?Medication ?Instructions ?Recorded ?Confirmed ?Type multivitamin,ku-ztok-xreuaeew 1 tab PO DAILY 02/27/20 01/03/25 History (Complete Multivitamin tablet) lorazepam 0.5 mg tablet (Ativan) 0.5 mg PO TID PRN Anx iety 06/24/21 01/03/25 History acetaminophen 500 mg tablet 1,000 mg (2 x 500 mg) PO Q 6H PRN 07/04/21 01/03/25 Rx Pain #0 tabs atenolol 25 mg tablet 25 mg PO DAILY PRN MIGRAINES #30 06/19/23 01/03/25 Rx tabs bupropion HCl 300 mg 24 hr tablet, 450 mg PO DAILY 01/03/25 History extended release cyclobenzaprine 10 mg tablet 10 mg PO TID PRN muscle s pasm #14 10/21/24 01/03/25 Rx tabs prednisone 50 mg tablet 50 mg PO DAILY 4 days #4 tab s 10/21/24 01/03/25 Rx gabapentin 100 mg capsule 100 mg PO TID 12/07/2401/03 History indomethacin 25 mg capsule mg PO 12/07/24 01/03/25 His tory [facility] Medical History Wears glasses Alcohol use History of steroid therapy Arthritis Non-smoker Shortness of breath on exertion History of pain when walking Cardiology follow-up encounter Hay fever Migraine Anxiety Depression Surgical History History of hip surgery History of tonsillectomy and adenoidectomy S/P breast biopsy, right Status post arthroscopy of hip S/P LASIK surgery Family History Mother Breast cancer Hypertension COPD (chronic obstructive pulmonary disease) CVA (cerebral vascular accident) Father Heart disease Hypertension Other CHF (congestive heart failure) Diabetes MONICA (obstructive sleep apnea) Social History Smoking Status: Never smoker alcohol intake: current alcohol intake frequency: holidays/special occasions only details: social substance use type: does not use caffeine: Yes what type of physical activity do you participate in: walking seatbelt use: always do you feel safe at home: Yes 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 Pt. advises her last adjustment was helpful. She continues to report neck stiffness, denies vertigo, dizziness or double vision. She states she has not experienced a BOOKER/migraine recently. She treats pain and tightness with massages, taken Tylenol, Motrin, heat and ice. She is also currently taking Gabapentin and Indocin which have been helpful. She denies new injury, numbness, tingling or radiculopathy to her BUE. Pt. reports chiropractic adjustments are helpful but her stiffness gradually returns. Onset: 10/17/24 Location: neck/upper back Duration: intermittent Aggravating or associated factors: stress, work, ROM Relieving factors: chiro Pain Quality: aching and dull Exam Musc General: Yes normal posture, normal gait, joint tenderness and decreased range of motion; No muscle weakness Cervical Spine: Yes loss of normal cervical lordosis, Yes cervical muscular tenderness (improving) right greater than left diffuse , Yes cervical spasm (improving) right greater than left upper paracervical muscles and intrinsics and Yes misalignment (C0) misalignment: C1 and C2 Thoracic/Lumber: No thoracic and lumbar spine normal to inspection (anterior hd carriage), No pain with thoraco-lumbar ROM, Yes paraspinal tenderness on the right greater than left (upper trap), Yes thoraco-lumbar spasm on the right greater than left (trap) and Yes misalignment T2, T3 and T4 Office Procedures Procedures - Chiropractic Procedures Manipulation: Cervical C1 and Thoracic T2 Manipulation: 1-2 regions Patient Response: positive Assessment and Plan Assessment and Plan (1) Segmental and somatic dysfunction of cervical region: Status: Acute (2) Segmental and somatic dysfunction of thoracic region: Status: Acute (3) DDD (degenerative disc disease): Status: Chronic Qualifiers: Mid-cervical spinal level: C5-C6 Spinal region: mid-cervical QualifiedCode(s): M50.322 - Other cervical disc degeneration at C5-C6 level Orders: Orders Chiropractic Treatments Today M50.322 - Other cervical disc degeneration at C5-C6 level, M99.01 - Segmental and somatic dysfunction of cervical region, M99.02 - Segmental and somatic dysfunction of thoracic region, M99.03 - Segmental and somatic dysfunction of lumbar region, M99.05 - Segmental and somatic dysfunctionof pelvic region Plan Patient was treated with Gibbs technique-well tolerated. She has show positive improvement with better alignment and decreased spasm. Follow up in 1 month and monitor patient for symptom stabilization. Instructed to return shouldshe experience any of her previous symptoms. Plan Details Goals & Barriers: Goals Decrease pain Decrease spasm Decrease inflammation Decrease HAs Target Due Date 01/07/25 Barriers Cervical DDD Follow Up: 1 Month Coding Level of Care Code No Charge Diagnoses Segmental and somatic dysfunction of cervical region M99.01 Segmental and somatic dysfunction of thoracic region M99.02 Degeneration of intervertebral disc at C5-C6 level M50.322 Mid-cervical spinal level: C5-C6 Spinal region: mid-cervical CPT Codes Procedures - Manipulation: 1-2 regions (47407) 01/03/25 1645 <Electronically signed by Toña Simmons> Date _ Toña Jeffries D.C. Cosigner Signature: Date (if applicable) CC: ~ [facility] Work Phone: 1(115) 962-232009-30-2025 Evaluation + Plan note* Assessment & Plan Note - TIANNA Saavedra - 12/20/2024 11:00 AM EDTAssociated Problem(s): Headache Orders: Follow Up In Neurology indomethacin SR (Indocin SR) 75 mg ER capsule; Take 1 capsule (75 mg) by mouth 2 times daily (morning and late afternoon). Do not crush or chew. [facility] Work Phone: 1(523) 928-492909-30-2025 Evaluation + Plan note* Assessment & Plan Note - TIANNA Saavedra - 12/20/2024 11:00 AM EDTAssociated Problem(s): Headache Orders: indomethacin SR (Indocin SR) 75 mg ER capsule; Take 1 capsule (75 mg) by mouth 2 times daily (morning and late afternoon). Do not crush or chew. [facility] Work Phone: 1([phone]) 137-438509-30-2025 History of Present illness Narrative* TIANNA Saavedra - 12/20/2024 11:00 AM EDT Chief Complaint Patient presents with Headache Follow up visit Subjective HPI Floridalma Xie is a 54 y.o. year old female who presents with chief complaint Hemicrania continua [G44.51]. PMH anxiety/depression, headaches, menstrual migraine, obesity, vitamin d deficiency, osteoarthritis, and hip pain. PMH of migraines 20+ years. No longer using decadron or other steroids. Once indomethacin was up to 50 mg TID with gabapentin 100 mg TID, but it caused grogginess. She has continued indomethacin 50 mg TID, gabapentin PRN TID. States that although the indomethacin has been effective, she has difficulty taking it 3 times a day with her work schedule. Daily esomeprazole has been effective to reduce GERD symptoms. States she has not had any issues with blood in the stool or abdominal pain. Plans to continue taking the medication while using indomethacin. Floridalma completed the ordered labs outside of , will have the results faxed for us to scan into theEMR. The results that she provided were as follows: ESR- 1 CRP- 3.59 MIKKI- neg WELFARE ADVISER Antibody- <0.2 SNP antibody- <0.[address] Randolph raised no concern for any neuro-ophthalmologic conditions. RECALL: Shingles May 13, 2024. Acyclovir caused GI bleed. Patient stats she has had many life stressors over the last several months. Shingles in April, Acyclovir caused a GI bleed. Mid- July 2024, had blurriness in vision, went to patent lawyer, was told her eyes were mis-aligned, that she needed a prescription with prisms. Social Services Assistant ruled out mis-alignment. Completed full exam with dilation, no concerns on exam for papilledema. (Bilateral Lasik surgery 2000). 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 The pain felt like an electrical shock/ zap that radiated towards the front of the head. She states 1 hour later, started to feel a dull ache in the right occipital area. 10/19/2024: when at home, started to experience double vision (vision was stacked). No associated tinnitus. Went to bed, woke up the next morning, symptoms continued, but were less intense. Symptoms were very intense, she was restless. Had a feeling of a golf ball needing to come out No ipsilateral ptosis, excess lacrimation, rhinorrhea. Endorses puffiness in the back of the head related to the head pain. ED 10/21/24: CT was clear. Was given Reglan/Benadryl/fluids, 30 mg Toradol, valium, prednisone, IM norflex, PO prednisone 50 mg 5-day course. Recently, PCP placed her on cyclobenzaprine and a 7-day course of 4 mg decadron, is at the end of the course. Intermittent double vision since the onset of symptoms in July. Occasional dizziness, but unsure if due to the steroids she has been taking. She denies associated exertional symptoms. She has had ongoing pain 2/ (currently taking 4 mg decadron) states it dull throbbing pressure right occipital. Patient states that her head position does affect the occipital area. States with head back, will feelgreater pressure. Usually left side sleeper. Now prefers right side with firmer pillow (counter- pressure to the occipital area) is helpful. Floridalma has experienced menstrual migraines for more than 20 years. Always triggered by hormone shifts, no aura. Pain 4/10, right frontal, non-radiating (worst on 2nd day of period). Some associated photophobia, nausea, and difficulty with speech. *Associated symptoms worse than the head pain. Rizatri ptan always effective to relieve pain. Hormone status/periods: periods once every 8 to 12 months Endorses regular vision checkups. Endorses regular dental checkups. The patient denies the presence of any associated double vision, speech problems, confusion, facialor extremity weakness or numbness or problems with coordination. Denies other neurological history of seizures, stroke, or TIA. Medications Preventive: Atenolol on first day of menstrual symptoms Indomethacin 50 mg TID Rescue: Rizatriptan- on 2nd day of menstrual cycle Gabapentin 100 mg TID PRN- using sparingly Current Medications[1] RX Allergies[2] Medical History[3] Surgical History[4] Family History[5] brother glioblastoma end of April, doing well with post- radiation MRIs. Social History Tobacco Use Smoking status: Former Current packs/day: 0.25 Average packs/day: 0.3 packs/day for 8.0 years (2.0 ttl pk-yrs) Types: Cigarettes Smokeless tobacco: Never Tobacco comments: i didn't smoke daily i was a social smoker Substance Use Topics Alcohol use: Yes Comment: 1-2 drinks/quarter. it's rate Social History Substance and Sexual Activity Drug Use Never ROS As noted in HPI, otherwise all other systems have been reviewed are negative for complaint. Objective General Appearance: Floridalma is well-developed, well-nourished, 54 y.o. year old female, in no acute distress. Makes good eye contact, is alert, interactive, and cooperative. Demonstrates recent & remote memory recall. Subjective information consistent with objective assessment. Cervicogenic tenderness at base of right occiput. *Awaiting fax of documented lab results. (Patient will inquire with performing lab). ESR 1 CRP 3.59 MIKKI neg WELFARE ADVISER Antibody <0.2 SNP antibody <0.2 RECORDS REVIEW: Previous records (provider notes, laboratory reports, and imaging studies were reviewed and summarized). Brain W/WO Contrast on 10-28-2024 [facility] Imaging Services [address] [place], [place] [address] Brain W/WO Contrast MR#: [id number] Acct: [id number] Name: FLORIDALMA XIE Rep #: [id number] : 1970 F 54 From: Justin Brown MD PCP: Dr. Hal Mims MD Status: REG CLI Study: Brain W/WO Contrast Date of Exam: 10/28/24 Exam# [id number] Ordering Dr: Wander Lopez PROCEDURE: BRAIN W/WO CONTRAST 10/28/2024 REASON FOR EXAM: HEADACHE TECHNIQUE: BRAIN W/WO CONTRAST Multiplanar and multisequence images were obtained. CONTRAST: Clariscan VOLUME: 21 mL COMPARISON: None. FINDINGS: Brain: Few foci of hyperintense signal on T2 and FLAIR in the white matter which are nonspecific but most likely due to chronic small-vessel ischemia. No restricted diffusion. No hemorrhage. No mass-effect or midline shift. Diffusion: No restricted diffusion. Ventricles: No ventriculomegaly. Major Intracranial Vessels: Patent. Sinuses: Clear. Mastoids: Clear MRI/Brain W/WO Contrast IMPRESSION: No acute brain abnormalities or abnormal enhancement. Minimal white matter changes which are nonspecific but most likely due to chronic small-vessel ischemia. Reading Location: [facility] CC: Dr. Hal Mims MD; IDRIS Solis No MRI brain results found for the past [address] head results found for the past [address] Angio Head Results found for the past year No CT Angio Neck Results found for the past year Assessment & Plan New daily persistent headache Orders: Follow Up In Neurology indomethacin SR (Indocin SR) 75 mg ER capsule; Take 1 capsule (75 mg) by mouth 2 times daily (morning and late afternoon). Do not crush or chew. Diplopia Orders: Follow Up In Neurology Occipital neuralgia of right side Orders: Follow Up In Neurology Hemicrania continua Orders: indomethacin SR (Indocin SR) 75 mg ER capsule; Take 1 capsule (75 mg) by mouth 2 times daily (morning and late afternoon). Do not crush or chew. Gastroesophageal reflux disease without esophagitis Orders: esomeprazole (NexIUM) [address] capsule; Take 1 capsule (40 mg) by mouth once daily in the morning. Take before meals. Do not open capsule. ASSESSMENT/PLAN: Continue esomeprazole 40 mg daily We will switch indomethacin to long-acting. Indomethacin SR 75 mg BID. Start a 2- week course of OTC omeprazole or esomeprazole to protect Continue to use gabapentin for breakthrough pain/occipital neuralgia I personally spent 44 minutes today, exclusive of procedures, providing care for this patient, including preparation, face to face time, documentation and other services such as review of medical records, diagnostic result, patient education, counseling, coordination of care as specified in the encounter. Jerri Awan, MOBILITY SPECIALIST-COMMUNICATIONS OPERATOR [1] Current Outpatient Medications: acetaminophen (Tylenol) 500 mg tablet, Take 2 tablets (1,000 mg) by mouth every 6 hours if needed for mild pain (1 - 3)., Disp: , Rfl: atenolol (Tenormin) 25 mg tablet, Take 1 tablet (25 mg) by mouth once daily as needed (for menstrual migraine prevention)., Disp: , Rfl: buPROPion XL (Wellbutrin XL) 150 mg 24 hr tablet, Take 1 tablet (150 mg) by mouth once daily. Do not crush, chew, or split., Disp: , Rfl: buPROPion XL (Wellbutrin XL) 300 mg 24 hr tablet, Take 1 tablet (300 mg) by mouth once daily. Do not crush, chew, or split., Disp: , Rfl: cyclobenzaprine (Flexeril) 10 mg tablet, Take 1 tablet (10 mg) by mouth 3 times a day as needed formuscle spasms., Disp: , Rfl: esomeprazole (NexIUM) [address] capsule, Take 1 capsule (40 mg) by mouth once daily in the morning. Take before meals. Do not open capsule., Disp: 30 capsule, Rfl: 11 famotidine (Pepcid) 20 mg tablet, Take 1 tablet (20 mg) by mouth once daily as needed for heartburn., Disp: , Rfl: gabapentin (Neurontin) 100 mg capsule, Take 1 capsule (100 mg) by mouth 3 times a day., Disp: 90 capsule, Rfl: 2 indomethacin SR (Indocin SR) 75 mg ER capsule, Take 1 capsule (75 mg) by mouth 2 times daily (morning and late afternoon). Do not crush or chew., Disp: 180 capsule, Rfl: 1 LORazepam (Ativan) 0.5 mg tablet, Take 1 tablet (0.5 mg) by mouth 3 times a day as needed for anxiety., Disp: , Rfl: multivitamin tablet, Take 1 tablet by mouth once daily., Disp: , Rfl: predniSONE (Deltasone) 50 mg tablet, Take 1 tablet (50 mg) by mouth once daily., Disp: , Rfl: [2] Allergies Allergen Reactions Oxycodone Itching Penicillins Rash Acyclovir GI bleeding Benzoyl Peroxide Other Facial burn per pt Oxycodone-Acetaminophen Itching [3] Past Medical History: Diagnosis Date Arthritis Migraine Optic neuritis 07/2024 [4] Past Surgical History: Procedure Laterality Date LASIK 11/2019 [5] Family History Problem Relation Name Age of Onset Cancer Mother 60 - 69 Diabetes Mother 70 - 79 Hypertension Mother 50 - 59 Stroke Mother 60 - 69 Thyroid disease Mother Cataracts Mother Hypertension Father 50 - 59 Thyroid disease Father [facility] Phone: 1(508) 503-331109-30-2025 Instructions* Patient Instructions* TIANNA Saavedra - 12/20/2024 11:00 AM EDT Floridalma, Thank you for attending your virtual visit today with [facility]. It was apleasure caring for you today. The best way to contact me for medication refills or questions aboutyour care is through [employer]. Otherwise, you can contact the office by phone: . In-depth discussions about your treatment plan and medication changes will be addressed at follow-up appointments. Please note that when starting new medications, it may take up to a few months to fully evaluate the effectiveness. Test results ordered today will be reviewed with you at your follow up appointment unless there arefindings that require further diagnostics or interventions. JerriTIANNA Perez PLAN: Continue esomeprazole 40 mg daily We will switch indomethacin to long-acting. Indomethacin SR 75 mg BID. Start a 2- week course of OTC omeprazole or esomeprazole to protect Continue to use gabapentin for breakthrough pain/occipital neuralgia documented in this [facility] Work Phone: 1(870) 147-853909-30-2025 Miscellaneous Notes* Assessment & Plan Note - TIANNA Saavedra - 12/20/2024 11:00 AM EDTAssociated Problem(s): Headache Orders: Follow Up In Neurology indomethacin SR (Indocin SR) 75 mg ER capsule; Take 1 capsule (75 mg) by mouth 2 times daily (morning and late afternoon). Do not crush or chew. * Assessment & Plan Note - TIANNA Saavedra - 12/20/2024 11:00 AM EDT Associated Problem(s): Headache Orders: indomethacin SR (Indocin SR) 75 mg ER capsule; Take 1 capsule (75 mg) by mouth 2 times daily (morning and late afternoon). Do not crush or chew. documented in this [facility] Work Phone: 1(794) 730-684209-19-2025 Radiology Diagnostic study note [facility] Imaging Services [address] [place] [address] Cerv Spine 2 or 3 Views MR#: [id number] Acct: [id number] Name: FLORIDALMA XIE Rep #: [id number] : 1970 F 54 From: Markos Pompa MD PCP: Dr. Hal Mims MD Status: REG CL I Study:Cerv Spine 2 or 3 Views Date of Exam: 12/07/24 Exam# [id number] Ordering Dr: Edson Jeffries D.C. PROCEDURE: CERV SPINE 2 OR 3 VIEWS 12/07/2024 REASON FOR EXAM: NECK PAIN/BOOKER TECHNIQUE: Procedure Code: RADSPCL Modality: DX Procedure: CERV SPINE 2 OR 3 VIEWS FINDINGS: No evidence of acute fracture or dislocation. Vertebral body heights are maintained. Mild degenerative changes of the visualized spine. Normal alignment. RAD/Cerv Spine 2 or 3 Views IMPRESSION: Mild spondylosis. Disclaimer: Reading Location: [id number] CC: [place] Dr. Toña Jeffries; Dr. Hal Mims MD ~ Provider Relations Manager: Signed [facility]08-14-2025 Evaluation + Plan note* Assessment & Plan Note - TIANNA Saavedra - 11/03/2024 2:00 PM EDTAssociated Problem(s): Headache Orders: Sedimentation Rate; Future C-Reactive Protein; Future MIKKI with Reflex to EL; Future indomethacin (Indocin) 25 mg capsule; Take 25mg three times a day for 1 week, then increase to 50mgthree times a day for 1 week, then increase to 75mg three times a day Referral to Neurology; Future Follow Up In Neurology; Future [facility] Work Phone: [phone] 115-557208-14-2025 History of Present illness Narrative* TIANNA Saavedra - 11/03/2024 2:00 PM EDT Chief Complaint Patient presents with Headache Subjective HPI Floridalma Xie is a 54 y.o. year old female who presents with chief complaint New daily persistent headache [G44.52] PMH anxiety/depression, headaches, menstrual migraine, obesity, vitamin d deficiency, osteoarthritis, and hip pain. PMH of migraines 20+ years. Shingles May 13, 2024. Acyclovir caused GI bleed. Patient stats she has had many life stressors over the last several months. Shingles in April, Acyclovir caused a GI bleed. Mid- July 2024, had blurriness in vision, went to patent lawyer, was told her eyes were mis-aligned, that she needed a prescription with prisms. Social Services Assistant ruled out mis-alignment. Completed full exam with dilation, no concerns on exam for papilledema. (Bilateral Lasik surgery 2000). 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 The pain felt like an electrical shock/ zap that radiated towards the front of the head. She states 1 hour later, started to feel a dull ache in the right occipital area. 10/19/2024: when at home, started to experience double vision (vision was stacked). No associated tinnitus. Went to bed, woke up the next morning, symptoms continued, but were less intense. Symptoms were very intense, she was restless. Had a feeling of a golf ball needing to come out No ipsilateral ptosis, excess lacrimation, rhinorrhea. Endorses puffiness in the back of the head related to the head pain. ED 10/21/24: CT was clear. Was given Reglan/Benadryl/fluids, 30 mg Toradol, valium, prednisone, IM norflex, PO prednisone 50 mg 5-day course. Recently, PCP placed her on cyclobenzaprine and a 7-day course of 4 mg decadron, is at the end of the course. Intermittent double vision since the onset of symptoms in July. Occasional dizziness, but unsure if due to the steroids she has been taking. She denies associated exertional symptoms. She has had ongoing pain 2/10 (currently taking 4 mg decadron) states it dull throbbing pressure right occipital. Patient states that her head position does affect the occipital area. States with head back, will feelgreater pressure. Usually left side sleeper. Now prefers right side with firmer pillow (counter- pressure to the occipital area) is helpful. Floridalma has experienced menstrual migraines for more than 20 years. Always triggered by hormone shifts, no aura. Pain 4/10, right frontal, non-radiating (worst on 2nd day of period). Some associated photophobia, nausea, and difficulty with speech. *Associated symptoms worse than the head pain. Rizatri ptan always effective to relieve pain. Hormone status/periods: periods once every 8 to 12 months Endorses regular vision checkups. Endorses regular dental checkups. The patient denies the presence of any associated double vision, speech problems, confusion, facialor extremity weakness or numbness or problems with coordination. Denies other neurological history of seizures, stroke, or TIA. Medications Preventive: Atenolol on first day of menstrual symptoms Rescue: Rizatriptan- on 2nd day of menstrual cycle Current Medications[1] RX Allergies[2] Medical History[3] Surgical History[4] Family History[5] brother glioblastoma end of April, doing well with post- radiation MRIs. Social History Tobacco Use Smoking status: Not on file Smokeless tobacco: Not on file Substance Use Topics Alcohol use: Not on file Social History Substance and Sexual Activity Drug Use Not on file ROS As noted in HPI, otherwise all other systems have been reviewed are negative for complaint. Objective General Appearance: Floridalma is well-developed, well-nourished, 54 y.o. year old female, in no acute distress. Makes good eye contact, is alert, interactive, and cooperative. Demonstrates recent & remote memory recall. Subjective information consistent with objective assessment. Cervicogenic tenderness at base of right occiput. Eye Exam OPHTHALMOSCOPIC: The ophthalmoscopic exam was normal. The fundi were well visualized with normal disc margins, clearvessels and vascular pulsations. No disc edema. The cup/disk ratio was not enlarged. No hemorrhagesor exudates were present in the posterior segments that were visualized. Neurological Exam CRANIAL NERVES: CN 2: Visual diego full to confrontation. CN 3, 4, 6: Pupils round, 4 mm in diameter, equally reactive to light. Eyelids symmetric; no ptosis. EOMs normal alignment, full range with normal saccades, pursuit, & convergence. No noted nystagmus. CN 5: Facial sensation intact bilaterally. CN 7: Normal and symmetric facial strength. Nasolabial folds symmetric. CN 8: Hearing intact to conversation and finger rub. CN 9, 10: Palate elevates symmetrically. CN 11: Normal strength of shoulder shrug and neck turning. CN 12: Tongue midline, with normal bulk and strength; no fasciculations. MOTOR: Muscle bulk and tone were normal in both upper and lower extremities. No pronator drift bilaterally. No fasciculations, tremor or other abnormal movements evident with the patient examined clothed. SENSORY: Sensation intact to light touch throughout all extremities REFLEXES: R L Biceps 2 2 Triceps 2 2 Patellar 2 2 RECORDS REVIEW: Previous records (provider notes, laboratory reports, and imaging studies were reviewed and summarized). No MRI brain results found for the past [address] head results found for the past [address] Angio Head Results found for the past year No CT Angio Neck Results found for the past year Assessment & Plan New daily persistent headache Orders: Sedimentation Rate; Future C-Reactive Protein; Future MIKKI with Reflex to EL; Future indomethacin (Indocin) 25 mg capsule; Take 25mg three times a day for 1 week, then increase to 50mgthree times a day for 1 week, then increase to 75mg three times a day Referral to Neurology; Future Follow Up In Neurology; Future Diplopia Orders: Referral to Neurology; Future Follow Up In Neurology; Future Occipital neuralgia of right side Orders: Sedimentation Rate; Future C-Reactive Protein; Future MIKKI with Reflex to EL; Future gabapentin (Neurontin) 100 mg capsule; Take 1 capsule (100 mg) by mouth 3 times a day. Referral to Neurology; Future Follow Up In Neurology; Future ASSESSMENT/PLAN: Start a 2- week course of OTC omeprazole or esomeprazole to protect your GI tract while treating head pain. Take in the morning, 30 minutes prior any other foods. Complete ordered labs. Wean off of decadron Start indomethacin trial Gabapentin for breakthrough pain Make appointment with neuro-ophthalmology. If you need assistance scheduling, please call the [facility] Practical Nurse Clinical Coordinator: The fisheries officer phone number is [phone]. Follow up in 6 weeks I personally spent 104 minutes today, exclusive of procedures, providing care for this patient, including preparation, face to face time, documentation and other services such as review of medical records, diagnostic result, patient education, counseling, coordination of care as specified in the encounter. Jerri Awan, MOBILITY SPECIALIST-COMMUNICATIONS OPERATOR [1] Current Outpatient Medications: acetaminophen (Tylenol) 500 mg tablet, Take 2 tablets (1,000 mg) by mouth every 6 hours if needed for mild pain (1 - 3)., Disp: , Rfl: atenolol (Tenormin) 25 mg tablet, Take 1 tablet (25 mg) by mouth once daily as needed (for menstrual migraine prevention)., Disp: , Rfl: buPROPion XL (Wellbutrin XL) 150 mg 24 hr tablet, Take 1 tablet (150 mg) by mouth once daily. Do not crush, chew, or split., Disp: , Rfl: buPROPion XL (Wellbutrin XL) 300 mg 24 hr tablet, Take 1 tablet (300 mg) by mouth once daily. Do not crush, chew, or split., Disp: , Rfl: cyclobenzaprine (Flexeril) 10 mg tablet, Take 1 tablet (10 mg) by mouth 3 times a day as needed formuscle spasms., Disp: , Rfl: famotidine (Pepcid) 20 mg tablet, Take 1 tablet (20 mg) by mouth once daily as needed for heartburn., Disp: , Rfl: LORazepam (Ativan) 0.5 mg tablet, Take 1 tablet (0.5 mg) by mouth 3 times a day as needed for anxiety., Disp: , Rfl: multivitamin tablet, Take 1 tablet by mouth once daily., Disp: , Rfl: predniSONE (Deltasone) 50 mg tablet, Take 1 tablet (50 mg) by mouth once daily., Disp: , Rfl: gabapentin (Neurontin) 100 mg capsule, Take 1 capsule (100 mg) by mouth 3 times a day., Disp: 90 capsule, Rfl: 2 indomethacin (Indocin) 25 mg capsule, Take 25mg three times a day for 1 week, then increase to 50mgthree times a day for 1 week, then increase to 75mg three times a day, Disp: 130 capsule, Rfl: 0 [2] Allergies Allergen Reactions Oxycodone Itching Penicillins Rash Acyclovir GI bleeding [3] No past medical history on file. [4] No past surgical history on file. [5] No family history on file. [facility] Phone: [phone] Instructions* Patient Instructions* TIANNA Saavedra - 11/03/2024 2:00 PM EDT Dear Floridalma, Thank you for coming to [facility]. It was a pleasure caring for you today. The best way to contact me for medication refills or questions about your care is through [employer]. Otherwise, you can contact the office by phone: . TIANNA Saavedra PLAN: Start a 2- week course of OTC omeprazole or esomeprazole to protect your GI tract while treating head pain. Take in the morning, 30 minutes prior any other foods. Complete ordered labs. Wean off of decadron Start indomethacin trial Gabapentin for breakthrough pain Make appointment with neuro-ophthalmology. If you need assistance scheduling, please call the [facility] Practical Nurse Clinical Coordinator: The fisheries officer phone number is [phone]. Follow up in 6 weeks [facility] Phone: [phone] 475-867808-14-2025 Miscellaneous Notes* Assessment & Plan Note - TIANNA Saavedra - 11/03/2024 2:00 PM EDTAssociated Problem(s): Headache Orders: Sedimentation Rate; Future C-Reactive Protein; Future MIKKI with Reflex to EL; Future indomethacin (Indocin) 25 mg capsule; Take 25mg three times a day for 1 week, then increase to 50mgthree times a day for 1 week, then increase to 75mg three times a day Referral to Neurology; Future Follow Up In Neurology; Future documented in this [facility] Work Phone: [phone]) 440-637708-01-2025 Discharge summary [facility] Medical Records Department [address] [place] [address] Emergency Department Summary 10/21/24 MR#: [id number] Acct: [id number] Name: FLORIDALMA XIE Rep #:[id number] : 1970 54 From: Junaid Keating DO PCP: Dr. Hal Mims MD Status:[facility] ER Location: ED ADDENDUM by Dr. Junaid Keating DO on 10/21/24 at 1531 Patient's EKG showed sinus rhythm with a rate of 67 bpm first-degree AV block PRinterval 218. 10/21/24 1531 Cosigner Signature (if applicable): cc: Dr. Hal Mims MD ~* Signed HPI History of Present Illness Chief Complaint: Other, Pain/Inj Narrative Narrative: Patient is a 54-year-old female with past medical history of migraine headache, anxiety, depressionwho presents to the emergency department with a chief complaint of headache. Patient states that onWednesday while at work she developed a sharp pain in her head that started in the back of her headand radiated to the front. She states that she has tried all her migraine medications and noted that this did not help the pain. Patient notes that she has also tried Robaxin as she is also complaining of some neck pain associate with this. States that she has been having trouble with double visionsince Mayand saw her eye doctor for this they noted that since she was under a lot of stress they would give this time to see if this improves. She states that sinceWednesday when her pain was onset she noted that she had some worsening double vision again. Patient states that she tried to get somerest yesterday and was not able to do so and tried several different positions of comfort however this did not help prompting her to come here for further evaluation management. [facility] Medical History Wears glasses Alcohol use History of steroid therapy Arthritis Non-smoker Shortness of breath on exertion History of pain when walking Cardiology follow-up encounter Hay fever Migraine Anxiety Depression Home Medications ?Medication ?Instructions ?Recorded ?Last Taken ?Type multivitamin,pr-rsyt-izmsrjgo 1 tab PO DAILY 02/27/20 07/02/21 History (Complete Multivitamin tablet) lorazepam 0.5 mg tablet (Ativan) 0.5 mg PO TID PRN Anx iety 06/24/21 07/02/21 History acetaminophen 500 mg tablet 1,000 mg (2 x 500 mg) PO Q 6H PRN 07/04/21 07/03/21 00:00 Rx Pain #0 tabs atenolol 25 mg tablet 25 mg PO DAILY PRN MIGRAINES #30 06/19/23 Unknown Rx tabs bupropion HCl 300 mg 24 hr tablet, 450 mg PO DAILY Unknown History extended release cyclobenzaprine 10 mg tablet 10 mg PO TID PRN muscle s pasm #14 10/21/24 Unknown Rx tabs prednisone 50 mg tablet 50 mg PO DAILY 4 days #4 tab s 10/21/24 Unknown Rx Allergy/AdvReac Type Severity Reaction Status Date / Time oxycodone HCl (From Percocet) Allergy Itching Verified 10/21/24 09:49 Penicillins (PCN) Allergy Rash Verified 10/21/24 09:49 acyclovir AdvReac Diarrhea Verified 10/21/24 09:49 Family History Mother Breast cancer Hypertension COPD (chronic obstructive pulmonary disease) CVA (cerebral vascular accident) Father Heart disease Hypertension Other CHF (congestive heart failure) Diabetes MONICA (obstructive sleep apnea) Surgical History History of hip surgery History of tonsillectomy and adenoidectomy S/P breast biopsy, right Status post arthroscopy of hip S/P LASIK surgery Social History Smoking Status: Never smoker alcohol intake: current alcohol intake frequency: holidays/special occasions only details: social substance use type: does not use caffeine: Yes what type of physical activity do you participate in: walking seatbelt use: always do you feel safe at home: Yes 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 ROS ROS ED ROS Narrative Constitutional: Denies any fevers, chills, dizziness Eyes: Complains of double vision as noted above this has been going on since July Cardiovascular: Denies chest pain or palpitations Respiratory: Denies coughing wheezing shortness of breath Abdomen: Denies abdominal pain nausea vomit diarrhea : Denies any urinary symptoms Neurological: Denies any numbness, wheeze, tingling Musculoskeletal: Denies back pain Skin: Denies any rashes or lesions EXAM Physical Exam Narrative Exam Narrative: General: Patient was lying in bed rest comfortably did not appear to be acute distress Head: Atraumatic, normocephalic Eyes: PERRL bilaterally, EOMI blood, no conjunctival injection noted Neck: Soft, supple, trachea midline Cardiovascular: Regular in rhythm Respiratory: Clear to auscultation bilaterally Abdomen: Soft, nondistended, Extremities: +5 system strength noted in the bilateral upper and lower extremities, radial pulse +2/4 in bilateral upper extremities, Neurological: Patient follow commands that she was at [facility] year is 2024. NIH of 0 GCS 15 Skin: Warm, dry, tact no rashes or lesions noted Const Vital Signs: 10/21/24 09:10 10/21/24 09:49 10/21/24 11:09 Temperature 98.1 F Temperature Source Temporal Pulse Rate 80 75 Respiratory Rate 16 16 Respiratory Effort Normal Respiratory Pattern Normal Blood Pressure 161/97 H 142/78 H Blood Pressure Mean 118 99 Pulse Ox 99 98 Oxygen Delivery Method Room Air Room Air 10/21/24 13:00 10/21/24 15:00 Temperature Temperature Source Pulse Rate 90 85 Respiratory Rate 16 15 Respiratory Effort Respiratory Pattern Blood Pressure 166/84 H 141/78 H Blood Pressure Mean 111 99 Pulse Ox 98 99 Oxygen Delivery Method Room Air Room Air MDM MDM MDM Narrative Medical decision making narrative: Patient is a 54-year-old female who presented to the emergency department chief complaint of headache. On differential diagnose includes but not limited to migraine headache, tension headache, aneurysm, carotid artery dissection, intracranial hemorrhage. Once workup is obtained and reviewed she will be reevaluated. Patient be given IV fluids and Reglan. Patient CBC reviewed showed no evidence leukocytosis white blood count normal at7, hemoglobin was 13.9, platelet count was 310. Patient sodium 139, potassium normal 3.9, creatinine normal at 1. Patient's AST normal at 27 ALT normal at 28. Patient's urinalysis reviewed and showed 500 leukocyte esterase 10-25 whitecells with no bacteria this will be sent for culture she is not have any urinarysymptoms at this point time. Patient's CT head CTA head and neck were reviewed and showed no acute abnormalities identified. Patient still complained of pain therefore she was given Toradol. She was then observed. Patient still complain of pain she is given oral Valium. States that she was starting to feel slightly better and wants to go home at this point in time. Patient was inquiring about steroids which will be given a dose here as well as prescription. Patient will be given a prescription for prednisoneas well. Sheis advised to follow-up with her doctor in the outpatient setting and return with worsening symptoms or other concerns. She is advised to rotate Tylenol andibuprofen [id number]. Allquestion concerns answered she was discharged home in stable condition. Lab Data Labs: Laboratory Results - last 24 hr 10/21/24 10/21/24 09:54 10:46 WBC 7.0 RBC 4.52 Hgb 13.9 Hct 40.6 MCV 89.8 MCH 30.8 MCHC 34.2 RDW Std Deviation 39.8 RDW Coeff of Pepito 12.1 Plt Count 310 MPV 8.9 Immature Gran % (Auto) 0.100 Neut % (Auto) 50.3 Lymph % (Auto) 37.2 [place] % (Auto) 8.8 Eos % (Auto) 2.7 Baso % (Auto) 0.9 Absolute Neuts (auto) 3.5 Absolute Lymphs (auto) 2.61 Nucleated RBC % 0 Sodium 139 Potassium 3.9 Chloride 104 Carbon Dioxide 23.4 Anion Gap 12 BUN 16 Creatinine 1.00 Estim Creat Clear Calc 71.83 Est GFR (MDRD) Non-Af 68 BUN/Creatinine Ratio 16.0 Glucose 89 Calcium 9.5 Total Bilirubin 0.33 AST 27 ALT 28 Alkaline Phosphatase 69 Total Protein 7.0 Albumin 4.3 Globulin 2.7 Albumin/Globulin Ratio 1.6 Urine Color Yellow Urine Clarity Sl. Cloudy Urine pH 5.0 Ur Specific [place] 1.030 Urine Protein 30 H Urine Glucose (UA) Normal Urine Ketones Negative Urine Occult Blood 10 H Urine Nitrite Negative Urine Bilirubin Negative Urine Urobilinogen Normal Ur Leukocyte Esterase 500 H Urine RBC 0 SEEN Urine WBC 10-25 SEEN Ur Squamous Epith Cells 0-5 SEEN Urine Bacteria 0 SEEN Urine Mucus 1+ Radiography Diagnostic Testing: Clinical Impression(s) from Imaging Studies Head/Neck CTA 10/21/24 09:49 IMPRESSION: No significant abnormality is seen. Reading Location: [id number] Discharge Plan Triage Chief Complaint: Other, Pain/Inj ED Provider: Junaid Keating Dx/Rx/DC Orders Clinical Impression: Headache, Changes in vision, History of migraine Prescriptions: New cyclobenzaprine 10 mg tablet 10 mg PO TID PRN (Reason: muscle spasm) Qty: 14 0RF prednisone 50 mg tablet 50 mg PO DAILY 4 Days Qty: 4 0RF No Action Complete Multivitamin Tablet 1 tab PO DAILY bupropion HCl 300 mg tablet extended release 24 hr 450 mg PO DAILY lorazepam [Ativan] 0.5 mg Tablet 0.5 mg PO TID PRN (Reason: Anxiety) acetaminophen 500 mg Tablet 1,000 mg PO Q6H PRN (Reason: Pain) Qty: 0 0RF Rx Instructions: Do not take more than 3000 mg Tylenol in a 24-hour period. atenolol 25 mg tablet 25 mg PO DAILY PRN (Reason: MIGRAINES) Qty: 30 6RF Primary Care Provider: Hal Mims Referrals: Hal Mims MD [Primary Care Provider] - Activity Restrictions/Additional Instructions: Follow-up your doctor in outpatient setting. Your CTA head and neck did not show any acute findingsyour blood work did not show any acute findings. RotateTylenol and I Profen [id number] when you do this you take something every 3hours for pain max dose Tylenol in 24 hours 4000 mg. Max dose ofibuprofen in 24 hours 3200 mg. Do not take the cyclobenzaprine if you are going to take Robaxin. Fol low-up and urine culture with your doctor. Print Language: Andorran Disposition Disposition: Home, Self Care What to do if you have Problems For any increased pain, shortness of breath, bleeding, nausea or vomiting, chestpain, or any unexpected problems, contact your Primary Care Provider. Call [facility] ([phone]) or report tothe closest Emergency Room. Call 911 if necessary. 10/21/24 1531 Cosigner Signature (if applicable): CC: Dr. Hal Mims MD ~ Signed [facility]08-01-2025 Discharge summary Author Junaid Keating [facility] Note Date/Time October 21, 2024 3:3 1pm [facility] Medical Records Department [address] [place] [address] Emergency Department Summary 10/21/24 MR#: [id number] Acct: [id number] Name: FLORIDALMA XIE Rep #:[id number] : 1970 54 From: Junaid Keating DO PCP: Dr. Hal Mims MD Status:[facility] ER Location: ED ADDENDUM by Dr. Junaid Keating DO on 10/21/24 at 1531 Patient's EKG showed sinus rhythm with a rate of 67 bpm first-degree AV block PRinterval 218. 10/21/24 1531<Electronically signed by Junaid Keating DO> Cosigner Signature (if applicable): cc: Dr. Hal Mims MD ~* Signed HPI History of Present Illness Chief Complaint: Other, Pain/Inj Narrative Narrative: Patient is a 54-year-old female with past medical history of migraine headache, anxiety, depression who presents to the emergency department with a chief complaint of headache. Patient states that on Thursday while at work she developed a sharp pain in her head that started in the back of her head and radiated to the front. She states that she has tried all her migraine medications and noted that this did not help the pain. Patient notes that she has also tried Robaxin as she is also complaining of some neck pain associate with this. States that she has been having trouble with double vision since Julyand saw her eye doctor for this they noted that since she was under a lot of stress they would give this time to see if this improves. She states that sinceWe when her pain was onset she noted that she had some worsening double vision again. Patient states that she tried to get some rest yesterday and was not able to do so and tried several different positions of comfort however this did not help prompting her to come here for further evaluation management. [facility] Medical History Wears glasses Alcohol use History of steroid therapy Arthritis Non-smoker Shortness of breath on exertion History of pain when walking Cardiology follow-up encounter Hay fever Migraine Anxiety Depression Home Medications ?Medication ?Instructions ?Recorded ?Last Taken ?Type multivitamin,vl-ihph-demjaibi 1 tab PO DAILY 02/27/20 07/02/21 History (Complete Multivitamin tablet) lorazepam 0.5 mg tablet (Ativan) 0.5 mg PO TID PRN Anx iety 06/24/21 07/02/21 History acetaminophen 500 mg tablet 1,000 mg (2 x 500 mg) PO Q 6H PRN 07/04/21 07/03/21 00:00 Rx Pain #0 tabs atenolol 25 mg tablet 25 mg PO DAILY PRN MIGRAINES #30 06/19/23 Unknown Rx tabs bupropion HCl 300 mg 24 hr tablet, 450 mg PO DAILY Unknown History extended release cyclobenzaprine 10 mg tablet 10 mg PO TID PRN muscle s pasm #14 10/21/24 Unknown Rx tabs prednisone 50 mg tablet 50 mg PO DAILY 4 days #4 tab s 10/21/24 Unknown Rx Allergy/AdvReac Type Severity Reaction Status Date / Time oxycodone HCl (From Percocet) Allergy Itching Verified 10/21/24 09:49 Penicillins (PCN) Allergy Rash Verified 10/21/24 09:49 acyclovir AdvReac Diarrhea Verified 10/21/24 09:49 Family History Mother Breast cancer Hypertension COPD (chronic obstructive pulmonary disease) CVA (cerebral vascular accident) Father Heart disease Hypertension Other CHF (congestive heart failure) Diabetes MONICA (obstructive sleep apnea) Surgical History History of hip surgery History of tonsillectomy and adenoidectomy S/P breast biopsy, right Status post arthroscopy of hip S/P LASIK surgery Social History Smoking Status: Never smoker alcohol intake: current alcohol intake frequency: holidays/special occasions only details: social substance use type: does not use caffeine: Yes what type of physical activity do you participate in: walking seatbelt use: always do you feel safe at home: Yes 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[facility] ROS ROS ED ROS Narrative Constitutional: Denies any fevers, chills, dizziness Eyes: Complains of double vision as noted above this has been going on since July Cardiovascular: Denies chest pain or palpitations Respiratory: Denies coughing wheezing shortness of breath Abdomen: Denies abdominal pain nausea vomit diarrhea : Denies any urinary symptoms Neurological: Denies any numbness, wheeze, tingling Musculoskeletal: Denies back pain Skin: Denies any rashes or lesions EXAM Physical Exam Narrative Exam Narrative: General: Patient was lying in bed rest comfortably did not appear to be acute distress Head: Atraumatic, normocephalic Eyes: PERRL bilaterally, EOMI blood, no conjunctival injection noted Neck: Soft, supple, trachea midline Cardiovascular: Regular in rhythm Respiratory: Clear to auscultation bilaterally Abdomen: Soft, nondistended, Extremities: +5 system strength noted in the bilateral upper and lower extremities, radial pulse +2/4 in bilateral upper extremities, Neurological: Patient follow commands that she was at [facility] year is 2024. NIH of 0 GCS 15 Skin: Warm, dry, tact no rashes or lesions noted Const Vital Signs: 10/21/24 09:10 10/21/24 09:49 10/21/24 11:09 Temperature 98.1 F Temperature Source Temporal Pulse Rate 80 75 Respiratory Rate 16 16 Respiratory Effort Normal Respiratory Pattern Normal Blood Pressure 161/97 H 142/78 H Blood Pressure Mean 118 99 Pulse Ox 99 98 Oxygen Delivery Method Room Air Room Air 10/21/24 13:00 10/21/24 15:00 Temperature Temperature Source Pulse Rate 90 85 Respiratory Rate 16 15 Respiratory Effort Respiratory Pattern Blood Pressure 166/84 H 141/78 H Blood Pressure Mean 111 99 Pulse Ox 98 99 Oxygen Delivery Method Room Air Room Air MDM MDM MDM Narrative Medical decision making narrative: Patient is a 54-year-old female who presented to the emergency department chief complaint of headache. On differential diagnose includes but not limited to migraine headache, tension headache, aneurysm, carotid artery dissection, intracranial hemorrhage. Once workup is obtained and reviewed she will be reevaluated. Patient be given IV fluids and Reglan. Patient CBC reviewed showed no evidence leukocytosis white blood count normal at7, hemoglobin was 13.9, platelet count was 310. Patient sodium 139, potassium normal 3.9, creatinine normal at 1. Patient's AST normal at 27 ALT normal at 28. Patient's urinalysis reviewed and showed 500 leukocyte esterase 10-25 whitecells with no bacteria this will be sent for culture she is not have any urinarysymptoms at this point time. Patient's CT head CTA head and neck were reviewed and showed no acute abnormalities identified. Patient still complained of pain therefore she was given Toradol. She was then observed. Patient still complain of pain she is given oral Valium. States that she was starting to feel slightly better and wants to go home at this point in time. Patient was inquiring about steroids which will be given a dose here as well as prescription. Patient will be given a prescription for prednisone as well. Sheis advised to follow-up with her doctor in the outpatient setting and return with worsening symptoms or other concerns. She is advised to rotate Tylenol andibuprofen [id number]. All question concerns answered she was discharged home in stable condition. Lab Data Labs: Laboratory Results - last 24 hr 10/21/24 10/21/24 09:54 10:46 WBC 7.0 RBC 4.52 Hgb 13.9 Hct 40.6 MCV 89.8 MCH 30.8 MCHC 34.2 RDW Std Deviation 39.8 RDW Coeff of [place] 12.1 Plt Count 310 MPV 8.9 Immature Gran % (Auto) 0.100 Neut % (Auto) 50.3 Lymph % (Auto) 37.2 [place] % (Auto) 8.8 Eos % (Auto) 2.7 Baso % (Auto) 0.9 Absolute Neuts (auto) 3.5 Absolute Lymphs (auto) 2.61 Nucleated RBC % 0 Sodium 139 Potassium 3.9 Chloride 104 Carbon Dioxide 23.4 Anion Gap 12 BUN 16 Creatinine 1.00 Estim Creat Clear Calc 71.83 Est GFR (MDRD) Non-Af 68 BUN/Creatinine Ratio 16.0 Glucose 89 Calcium 9.5 Total Bilirubin 0.33 AST 27 ALT 28 Alkaline Phosphatase 69 Total Protein 7.0 Albumin 4.3 Globulin 2.7 Albumin/Globulin Ratio 1.6 Urine Color Yellow Urine Clarity Sl. Cloudy Urine pH 5.0 Ur Specific [place] 1.030 Urine Protein 30 H Urine Glucose (UA) Normal Urine Ketones Negative Urine Occult Blood 10 H Urine Nitrite Negative Urine Bilirubin Negative Urine Urobilinogen Normal Ur Leukocyte Esterase 500 H Urine RBC 0 SEEN Urine WBC 10-25 SEEN Ur Squamous Epith Cells 0-5 SEEN Urine Bacteria 0 SEEN Urine Mucus 1+ Radiography Diagnostic Testing: Clinical Impression(s) from Imaging Studies Head/Neck CTA 10/21/24 09:49 IMPRESSION: No significant abnormality is seen. Reading Location: [id number] Discharge Plan Triage Chief Complaint: Other, Pain/Inj ED Provider: Junaid Keating Dx/Rx/DC Orders Clinical Impression: Headache, Changes in vision, History of migraine Prescriptions: New cyclobenzaprine 10 mg tablet 10 mg PO TID PRN (Reason: muscle spasm) Qty: 14 0RF prednisone 50 mg tablet 50 mg PO DAILY 4 Days Qty: 4 0RF No Action Complete Multivitamin Tablet 1 tab PO DAILY bupropion HCl 300 mg tablet extended release 24 hr 450 mg PO DAILY lorazepam [Ativan] 0.5 mg Tablet 0.5 mg PO TID PRN (Reason: Anxiety) acetaminophen 500 mg Tablet 1,000 mg PO Q6H PRN (Reason: Pain) Qty: 0 0RF Rx Instructions: Do not take more than 3000 mg Tylenol in a 24-hour period. atenolol 25 mg tablet 25 mg PO DAILY PRN (Reason: MIGRAINES) Qty: 30 6RF Primary Care Provider: Hal Mims Referrals: Hal Mims MD [Primary Care Provider] - Activity Restrictions/Additional Instructions: Follow-up your doctor in outpatient setting. Your CTA head and neck did not show any acute findings your blood work did not show any acute findings. RotateTylenol and I Profen [id number] when you do this you take something every 3hours for pain max dose Tylenol in 24 hours 4000 mg. Max dose of ibuprofen in 24 hours 3200 mg. Do not take the cyclobenzaprine if you are going to take Robaxin. Follow-up and urine culture with your doctor. Print Language: Andorran Disposition Disposition: Home, Self Care What to do if you have Problems For any increased pain, shortness of breath, bleeding, nausea or vomiting, chestpain, or any unexpected problems, contact your Primary Care Provider. Call [facility] ([phone]) or report to the closest Emergency Room. Call 911 if necessary. 10/21/24 1531 <Electronically signed by Junaid Keating DO> Cosigner Signature (if applicable): CC: Dr. Hal Mims MD ~ Signed [facility] Work Phone: 1(637) 868-480208-01-2025 Radiology Diagnostic study note [facility] Imaging Services [address] [place], [place] [address] CTA Head AND Neck W/ Contrast MR#: [id number] Acct: [id number] Name: FLORIDALMA XIE Rep #: [id number] : 1970 F 54 From: Aftab Ventura MD PCP: Dr. Hal Mims MD Status: REG ER Study:CTA Head AND Neck W/ Contrast Date of E xam: 10/21/24 Exam# [id number] Ordering Dr: Fredrick Keating DO PROCEDURE: CTA HEAD AND NECK W/ CONTRAST N/A REASON FOR EXAM: HEADACHE Neck pain. TECHNIQUE: CTA HEAD AND NECK W/ CONTRAST Multiplanar Sagittal and Coronal images were obtained. CONTRAST: Isovue 370 VOLUME: 100 mL One or more dose reduction techniques were used (e.g., Automated exposure control, adjustment of the mA and/or kV according to patient size, use of iterative reconstruction technique). RADIATION DOSE SUMMARY: CTDlvol: 27 mGy DLP: 1554.22 mGycm COMPARISON: None FINDINGS: Aortic Arch: Normal size and branching pattern. No significant atherosclerotic plaque. Brachiocephalic and Subclavians: Unremarkable RIGHT Carotid: Right CCA: Unremarkable. Right ICA: Unremarkable. Right ECA: Unremarkable. LEFT Carotid: Left CCA: Unremarkable. Left ICA: Unremarkable. Left ECA: Unremarkable. Vertebrals: Dominant left vertebral artery. RIGHT Vertebral: Unremarkable. LEFT Vertebral: Unremarkable. Anatomy: Branscomb of Crane anatomy is normal. Aneurysm or avm: No intracranial aneurysms or large vascular malformations are identified. Anterior cerebral arteries: Unremarkable: Middle cerebral arteries: Unremarkable. Basilar artery: Unremarkable. Posterior cerebral arteries: Unremarkable. Other major branches of the posterior circulation: Unremarkable. Major venous structures: Unremarkable. Other findings: Unenhanced images of the brain shows no acute abnormalities. Hyperostosis frontalisinterna. CT/CTA Head AND Neck W/ Contrast IMPRESSION: No significant abnormality is seen. Reading Location: [id number] CC: Dr. Hal Mims MD; Dr. Junaid Keating, DO ~ Provider Relations Manager: Signed [facility]08-01-2025 Evaluation note* Diagnosis Onset Date Resolution Status Admit Date Headache acute October 21 8:22am Headache acute November 8:29am Segmental and somatic dysfunction of cervical region acute December 07, 2024 8:29am Segmental and somatic dysfunction of thoracic region acute December 07, 2024 8:29am DDD (degenerative disc disease) chronic December 07, 2024 8:29am [facility] Work Phone: [phone]) 934-449908-01-2025 Evaluation note* Diagnosis Onset Date Resolution Status Admit Date Headache acute October 21 8:22am Headache acute November 8:29am Segmental and somatic dysfunction of cervical region acute December 07, 2024 8:29am Segmental and somatic dysfunction of thoracic region acute December 07, 2024 8:29am DDD (degenerative disc disease) chronic December 07, 2024 8:29am Headache acute December 27, 2:57pm Segmental and somatic dysfunction of cervical region acute December 27 2:57pm Segmental and somatic dysfunction of thoracic region acute December 27 2:57pm DDD (degenerative disc disease) chronic December 27 2:57pm [facility] Work Phone: 1([phone]) 982-656408-01-2025 Evaluation note* Diagnosis Onset Date Resolution Status Admit Date Headache acute October 21 8:22am Headache acute November 8:29am Segmental and somatic dysfunction of cervical region acute December 07, 2024 8:29am Segmental and somatic dysfunction of thoracic region acute December 07, 2024 8:29am DDD (degenerative disc disease) chronic December 07, 2024 8:29am Headache acute December 27, 2 025 2:57pm Segmental and somatic dysfunction of cervical region acute December 27 2:57pm Segmental and somatic dysfunction of thoracic region acute December 27 2:57pm DDD (degenerative disc disease) chronic December 27 2:57pm Segmental and somatic dysfunction of cervical region acute January 03 2:23pm Segmental and somatic dysfunction of thoracic region acute January 03 2:23pm DDD (degenerative disc disease) chronic January 03 2:23pm [facility] Work Phone: 1([phone]) 126-772305-23-2025 Evaluation note* Diagnosis Onset Date Resolution Status Admit Date Abnormal uterine bleeding (AUB) acut e August 12, 2024 10:04am Vaginal discharge acute July 10:04am [facility] Work Phone: 1([phone] 277-641905-23-2025 Evaluation note* Diagnosis Onset Date Resolution Status Admit Date Abnormal uterine bleeding (AUB) acut e August 12, 2024 10:04am Vaginal discharge acute July 10:04am Headache acute October 21 8:22am [facility] Work Phone: 1([phone]) 623-482905-23-2025 Evaluation note* Diagnosis Onset Date Resolution Status Admit Date Abnormal uterine bleeding (AUB) acute August 12, 2024 1 0:04am Vaginal discharge acute July 10:04am Headache acute October 21 8:22am Headache acute November 8:29am [facility] Work Phone: [phone] 134-736806-20-2023 Discharge summary Author Mp Rivera [facility] September 09, 2022 11:34am Note Date/Time September 09, 2022 11:3 4am [facility] Physical Therapy Health[address] [place] [address] / REHABILITATION SERVICES DISCHARGE SUMMARY MR#: [id number] Acct: [id number] Name: ROJASFLORIDALMA XOCHITL Rep #: [id number] : 1970 52 From: Mp Rivera DPT, OCS, CSCS Referring Dr.: NILSON Guillermo Status: REG RCR Insurance: D4P/[facility] SELF PAY INSURANCE FLORIDALMA XIE was seen in my office for initial evaluation on 06/13/22. The following Plan of Care was established for this patient: Initial Frequency: 2-3x /Week Initial Duration: 4-6 Weeks Patient/Client Instruction: Educate patient on: Condition, Plan of Care For the Purpose of:: To decrease pain, To increase ROM, To improve nutrient delivery to tissue, To improve muscle performance and motor function, To increase tolerance to activity/condition/position Therapeutic Exercise to Include: Strength training, Flexibilty training, Gait and locomotor training, Passive ROM, Active ROM For the Purpose of:: To decrease pain, To increase ROM, To improve nutrient delivery to tissue, To improve muscle performance and motor function Manual Therapy Techniques to Include: Soft tissue mobilization For the Purpose of:: To decrease pain, To increase ROM, To improve nutrient delivery to tissue This patient was last seen in our office 06/24/22. Pertinent comments regardingtheir Physical therapy will appear below: Pt seen for two visits of HEP instruct for her hip and was much better at her second f/u. She was to follow up one more time to ensure progress but did not schedule or attend that visit. at this point, it has been over two months and Iwill discontinue from my care. At this point I will be discontinuing this patient from physical therapy. I would be happy to see this patient again in the future if found appropriate by the physician. Thank you! Mp Rivera, CHAPO, OCS, CSCS Balance/Gait/Functional tests - Balance/Special Test Scores Oswestry Low Back Score: 8 <Electronically signed by Mp Rivera DPT, PAULINO, CSCS> 09/09/22 1134 CC: NILSON Guillermo; Dr. Hal Mims MD ~ EBG Signed [facility] Work Phone: [phone]) 168-687412-09-2022 NotePap Smear Specimen AdequacyDecember 2021 4:24pmComment.Satisfactory for evaluation. No endocervical component is identified.[facility] INTER[facility]ACED A#[id number] Community HospitalComment on above:Satisfactory for evaluation. No endocervical component is identified.Chief complaint+Reason for visit Narrative* Chief Complaint COVID-19 +COVID, WORSENING SYMPTOMS COVID POS left hip pain LAB & EKG LEFT HIP OA/AQUACTIC/PT HAS RX ANTERIOR LT TOTAL HIP ANTERIOR LT TOTAL HIP ANTERIOR LT TOTAL HIP Reason for Visit COVID-19 Degenerative tear of acetabular labrum of left hip Segmental and somatic dysfunction of lumbar region Segmental and somatic dysfunction of pelvic region Hip osteoarthritis S/P total left hip arthroplasty [facility] Work Phone: Evaluation note* Diagnosis Onset Date Resolution Status COVID-19 acute Degenerative tear of acetabular labrum of left hip acute Segmental and somatic dysfunction of lumbar region acute Segmental and somatic dysfunction of pelvic region acute Hip osteoarthritis acute S/P total left hip arthroplasty acute [facility] Work Phone: Evaluation note* Diagnosis Onset Date Resolution Status Hip osteoarthritis acute S/P total left hip arthroplasty acute [facility] Work Phone: Evaluation noteNo assessment information available [facility] Work Phone: Evaluation note* Diagnosis Onset Date Resolution Status Abnormal uterine bleeding (AUB) acute Vaginal discharge acute [facility] Work Phone: Evaluation note* Diagnosis Onset Date Resolution Status Abnormal uterine bleeding (AUB) acute Submucous uterine fibroid ac [place] Encounter for routine gynecological examination noneactive Abnormal thyroid function test acute Abnormal uterine bleeding (AUB) acute Submucous uterine fibroid ac [place] [facility] Work Phone: Evaluation note* Diagnosis Onset Date Resolution Status Acute bronchitis acute [facility] Work Phone: Evaluation note* Diagnosis New daily persistent headache- Primary Diplopia Occipital neuralgia of right side documented in this encounter [facility] Work Phone: Evaluation note* Diagnosis New daily persistent headache- Primary Diplopia Occipital neuralgia of right side Hemicrania continua- Primary New daily persistent headache Diplopia Occipital neuralgia of right side Gastroesophageal reflux disease without esophagitis Esophageal reflux documented in this encounter [facility] Work Phone: Hospital Discharge instructionsAdditional Instructions Follow-up your doctor in outpatient setting. Your CTA head and neck did not show any acute findings your blood work did not show any acute findings. Rotate Tylenol and I Profen [id number] when you do this you take something every 3 hours for pain max dose Tylenol in 24 hours 4000 mg. Max dose of ibuprofen in 24 hours 3200 mg. Do not take the cyclobenzaprine if you are going to take Robaxin. Follow-up and urine culture with your doctor.[facility] Work Phone: Reason for referral (narrative)No reason for referral information availableWSouthern [facility] Work Phone: Summary Purpose Family History No Family History Records Found Relationship Condition Age at Onset Recorded Date/T bry Not Specified Obstructive sleep apnea syndrome Unknown Diabetes mellitus Unknown Congestive heart failure Unknown mother Malignant neoplasm of breast Unknown Hypertension Unknown Chronic obstructive pulmonary disease Unk nown Cerebrovascular accident (CVA) Unknown father Cardiac disease Unknown arthritis-mother and father Status:Active Breast Cancer Status:Active Comments:Mother. Cerebrovascular Accident Status:Active Comment s:Mother. COPD-mother Status:Active Coronary Artery Disease Status:Active Comments :Father. Diabetes Mellitus Type II Status:Active Commen ts:Mother. Hypertension Status:Active Comments:Mother. Father. Skin Cancer Status:Active Comments:Father. thyroid -father Status:Active arthritis-mother and father Status:Active Breast Cancer Status:Active Comments:Mother. Cerebrovascular Accident Status:Active Comment s:Mother. COPD-mother Status:Active Coronary Artery Disease Status:Active Comments :Father. Diabetes Mellitus Type II Status:Active Commen ts:Mother. Hypertension Status:Active Comments:Mother. Father. Skin Cancer Status:Active Comments:Father. thyroid -father Status:Active arthritis-mother and father Status:Active Breast Cancer Status:Active Comments:Mother. Cerebrovascular Accident Status:Active Comment s:Mother. COPD-mother Status:Active Coronary Artery Disease Status:Active Comments :Father. Diabetes Mellitus Type II Status:Active Commen ts:Mother. Hypertension Status:Active Comments:Mother. Father. Skin Cancer Status:Active Comments:Father. thyroid -father Status:Active arthritis-mother and father Status:Active Breast Cancer Status:Active Comments:Mother. Cerebrovascular Accident Status:Active Comment s:Mother. COPD-mother Status:Active Coronary Artery Disease Status:Active Comments :Father. Diabetes Mellitus Type II Status:Active Commen ts:Mother. Hypertension Status:Active Comments:Mother. Father. Skin Cancer Status:Active Comments:Father. thyroid -father Status:Active arthritis-mother and father Status:Active Breast Cancer Status:Active Comments:Mother. Cerebrovascular Accident Status:Active Comment s:Mother. COPD-mother Status:Active Coronary Artery Disease Status:Active Comments :Father. Diabetes Mellitus Type II Status:Active Commen ts:Mother. Hypertension Status:Active Comments:Mother. Father. Skin Cancer Status:Active Comments:Father. thyroid -father Status:Active arthritis-mother and father Status:Active Breast Cancer Status:Active Comments:Mother. Cerebrovascular Accident Status:Active Comment s:Mother. COPD-mother Status:Active Coronary Artery Disease Status:Active Comments :Father. Diabetes Mellitus Type II Status:Active Commen ts:Mother. Hypertension Status:Active Comments:Mother. Father. Skin Cancer Status:Active Comments:Father. thyroid -father Status:Active arthritis-mother and father Status:Active Breast Cancer Status:Active Comments:Mother. Cerebrovascular Accident Status:Active Comment s:Mother. COPD-mother Status:Active Coronary Artery Disease Status:Active Comments :Father. Diabetes Mellitus Type II Status:Active Commen ts:Mother. Hypertension Status:Active Comments:Mother. Father. Skin Cancer Status:Active Comments:Father. thyroid -father Status:Active arthritis-mother and father Status:Active Breast Cancer Status:Active Comments:Mother. Cerebrovascular Accident Status:Active Comment s:Mother. COPD-mother Status:Active Coronary Artery Disease Status:Active Comments :Father. Diabetes Mellitus Type II Status:Active Commen ts:Mother. Hypertension Status:Active Comments:Mother. Father. Skin Cancer Status:Active Comments:Father. thyroid -father Status:Active arthritis-mother and father Status:Active Breast Cancer Status:Active Comments:Mother. Cerebrovascular Accident Status:Active Comment s:Mother. COPD-mother Status:Active Coronary Artery Disease Status:Active Comments :Father. Diabetes Mellitus Type II Status:Active Commen ts:Mother. Hypertension Status:Active Comments:Mother. Father. Skin Cancer Status:Active Comments:Father. thyroid -father Status:Active arthritis-mother and father Status:Active Breast Cancer Status:Active Comments:Mother. Cerebrovascular Accident Status:Active Comment s:Mother. COPD-mother Status:Active Coronary Artery Disease Status:Active Comments :Father. Diabetes Mellitus Type II Status:Active Commen ts:Mother. Hypertension Status:Active Comments:Mother. Father. Skin Cancer Status:Active Comments:Father. thyroid -father Status:Active arthritis-mother and father Status:Active Breast Cancer Status:Active Comments:Mother. Cerebrovascular Accident Status:Active Comment s:Mother. COPD-mother Status:Active Coronary Artery Disease Status:Active Comments :Father. Diabetes Mellitus Type II Status:Active Commen ts:Mother. Hypertension Status:Active Comments:Mother. Father. Skin Cancer Status:Active Comments:Father. thyroid -father Status:Active arthritis-mother and father Status:Active Breast Cancer Status:Active Comments:Mother. Cerebrovascular Accident Status:Active Comment s:Mother. COPD-mother Status:Active Coronary Artery Disease Status:Active Comments :Father. Diabetes Mellitus Type II Status:Active Commen ts:Mother. Hypertension Status:Active Comments:Mother. Father. Skin Cancer Status:Active Comments:Father. thyroid -father Status:Active arthritis-mother and father Status:Active Breast Cancer Status:Active Comments:Mother. Cerebrovascular Accident Status:Active Comment s:Mother. COPD-mother Status:Active Coronary Artery Disease Status:Active Comments :Father. Diabetes Mellitus Type II Status:Active Commen ts:Mother. Hypertension Status:Active Comments:Mother. Father. Skin Cancer Status:Active Comments:Father. thyroid -father Status:Active arthritis-mother and father Status:Active Breast Cancer Status:Active Comments:Mother. Cerebrovascular Accident Status:Active Comment s:Mother. COPD-mother Status:Active Coronary Artery Disease Status:Active Comments :Father. Diabetes Mellitus Type II Status:Active Commen ts:Mother. Hypertension Status:Active Comments:Mother. Father. Skin Cancer Status:Active Comments:Father. thyroid -father Status:Active arthritis-mother and father Status:Active Breast Cancer Status:Active Comments:Mother. Cerebrovascular Accident Status:Active Comment s:Mother. COPD-mother Status:Active Coronary Artery Disease Status:Active Comments :Father. Diabetes Mellitus Type II Status:Active Commen ts:Mother. Hypertension Status:Active Comments:Mother. Father. Skin Cancer Status:Active Comments:Father. thyroid -father Status:Active arthritis-mother and father Status:Active Breast Cancer Status:Active Comments:Mother. Cerebrovascular Accident Status:Active Comment s:Mother. COPD-mother Status:Active Coronary Artery Disease Status:Active Comments :Father. Diabetes Mellitus Type II Status:Active Commen ts:Mother. Hypertension Status:Active Comments:Mother. Father. Skin Cancer Status:Active Comments:Father. thyroid -father Status:Active arthritis-mother and father Status:Active Breast Cancer Status:Active Comments:Mother. Cerebrovascular Accident Status:Active Comment s:Mother. COPD-mother Status:Active Coronary Artery Disease Status:Active Comments :Father. Diabetes Mellitus Type II Status:Active Commen ts:Mother. Hypertension Status:Active Comments:Mother. Father. Skin Cancer Status:Active Comments:Father. thyroid -father Status:Active arthritis-mother and father Status:Active Breast Cancer Status:Active Comments:Mother. Cerebrovascular Accident Status:Active Comment s:Mother. COPD-mother Status:Active Coronary Artery Disease Status:Active Comments :Father. Diabetes Mellitus Type II Status:Active Commen ts:Mother. Hypertension Status:Active Comments:Mother. Father. Skin Cancer Status:Active Comments:Father. thyroid -father Status:Active arthritis-mother and father Status:Active Breast Cancer Status:Active Comments:Mother. Cerebrovascular Accident Status:Active Comment s:Mother. COPD-mother Status:Active Coronary Artery Disease Status:Active Comments :Father. Diabetes Mellitus Type II Status:Active Commen ts:Mother. Hypertension Status:Active Comments:Mother. Father. Skin Cancer Status:Active Comments:Father. thyroid -father Status:Active arthritis-mother and father Status:Active Breast Cancer Status:Active Comments:Mother. Cerebrovascular Accident Status:Active Comment s:Mother. COPD-mother Status:Active Coronary Artery Disease Status:Active Comments :Father. Diabetes Mellitus Type II Status:Active Commen ts:Mother. Hypertension Status:Active Comments:Mother. Father. Skin Cancer Status:Active Comments:Father. thyroid -father Status:Active arthritis-mother and father Status:Active Breast Cancer Status:Active Comments:Mother. Cerebrovascular Accident Status:Active Comment s:Mother. COPD-mother Status:Active Coronary Artery Disease Status:Active Comments :Father. Diabetes Mellitus Type II Status:Active Commen ts:Mother. Hypertension Status:Active Comments:Mother. Father. Skin Cancer Status:Active Comments:Father. thyroid -father Status:Active arthritis-mother and father Status:Active Breast Cancer Status:Active Comments:Mother. Cerebrovascular Accident Status:Active Comment s:Mother. COPD-mother Status:Active Coronary Artery Disease Status:Active Comments :Father. Diabetes Mellitus Type II Status:Active Commen ts:Mother. Hypertension Status:Active Comments:Mother. Father. Skin Cancer Status:Active Comments:Father. thyroid -father Status:Active arthritis-mother and father Status:Active Breast Cancer Status:Active Comments:Mother. Cerebrovascular Accident Status:Active Comment s:Mother. COPD-mother Status:Active Coronary Artery Disease Status:Active Comments :Father. Diabetes Mellitus Type II Status:Active Commen ts:Mother. Hypertension Status:Active Comments:Mother. Father. Skin Cancer Status:Active Comments:Father. thyroid -father Status:Active arthritis-mother and father Status:Active Breast Cancer Status:Active Comments:Mother. Cerebrovascular Accident Status:Active Comment s:Mother. COPD-mother Status:Active Coronary Artery Disease Status:Active Comments :Father. Diabetes Mellitus Type II Status:Active Commen ts:Mother. Hypertension Status:Active Comments:Mother. Father. Skin Cancer Status:Active Comments:Father. thyroid -father Status:Active arthritis-mother and father Status:Active Breast Cancer Status:Active Comments:Mother. Cerebrovascular Accident Status:Active Comment s:Mother. COPD-mother Status:Active Coronary Artery Disease Status:Active Comments :Father. Diabetes Mellitus Type II Status:Active Commen ts:Mother. Hypertension Status:Active Comments:Mother. Father. Skin Cancer Status:Active Comments:Father. thyroid -father Status:Active arthritis-mother and father Status:Active Breast Cancer Status:Active Comments:Mother. Cerebrovascular Accident Status:Active Comment s:Mother. COPD-mother Status:Active Coronary Artery Disease Status:Active Comments :Father. Diabetes Mellitus Type II Status:Active Commen ts:Mother. Hypertension Status:Active Comments:Mother. Father. Skin Cancer Status:Active Comments:Father. thyroid -father Status:Active arthritis-mother and father Status:Active Breast Cancer Status:Active Comments:Mother. Cerebrovascular Accident Status:Active Comment s:Mother. COPD-mother Status:Active Coronary Artery Disease Status:Active Comments :Father. Diabetes Mellitus Type II Status:Active Commen ts:Mother. Hypertension Status:Active Comments:Mother. Father. Skin Cancer Status:Active Comments:Father. thyroid -father Status:Active arthritis-mother and father Status:Active Breast Cancer Status:Active Comments:Mother. Cerebrovascular Accident Status:Active Comment s:Mother. COPD-mother Status:Active Coronary Artery Disease Status:Active Comments :Father. Diabetes Mellitus Type II Status:Active Commen ts:Mother. Hypertension Status:Active Comments:Mother. Father. Skin Cancer Status:Active Comments:Father. thyroid -father Status:Active arthritis-mother and father Status:Active Breast Cancer Status:Active Comments:Mother. Cerebrovascular Accident Status:Active Comment s:Mother. COPD-mother Status:Active Coronary Artery Disease Status:Active Comments :Father. Diabetes Mellitus Type II Status:Active Commen ts:Mother. Hypertension Status:Active Comments:Mother. Father. Skin Cancer Status:Active Comments:Father. thyroid -father Status:Active arthritis-mother and father Status:Active Breast Cancer Status:Active Comments:Mother. Cerebrovascular Accident Status:Active Comment s:Mother. COPD-mother Status:Active Coronary Artery Disease Status:Active Comments :Father. Diabetes Mellitus Type II Status:Active Commen ts:Mother. Hypertension Status:Active Comments:Mother. Father. Skin Cancer Status:Active Comments:Father. thyroid -father Status:Active arthritis-mother and father Status:Active Breast Cancer Status:Active Comments:Mother. Cerebrovascular Accident Status:Active Comment s:Mother. COPD-mother Status:Active Coronary Artery Disease Status:Active Comments :Father. Diabetes Mellitus Type II Status:Active Commen ts:Mother. Hypertension Status:Active Comments:Mother. Father. Skin Cancer Status:Active Comments:Father. thyroid -father Status:Active arthritis-mother and father Status:Active Breast Cancer Status:Active Comments:Mother. Cerebrovascular Accident Status:Active Comment s:Mother. COPD-mother Status:Active Coronary Artery Disease Status:Active Comments :Father. Diabetes Mellitus Type II Status:Active Commen ts:Mother. Hypertension Status:Active Comments:Mother. Father. Skin Cancer Status:Active Comments:Father. thyroid -father Status:Active arthritis-mother and father Status:Active Breast Cancer Status:Active Comments:Mother. Cerebrovascular Accident Status:Active Comment s:Mother. COPD-mother Status:Active Coronary Artery Disease Status:Active Comments :Father. Diabetes Mellitus Type II Status:Active Commen ts:Mother. Hypertension Status:Active Comments:Mother. Father. Skin Cancer Status:Active Comments:Father. thyroid -father Status:Active arthritis-mother and father Status:Active Breast Cancer Status:Active Comments:Mother. Cerebrovascular Accident Status:Active Comment s:Mother. COPD-mother Status:Active Coronary Artery Disease Status:Active Comments :Father. Diabetes Mellitus Type II Status:Active Commen ts:Mother. Hypertension Status:Active Comments:Mother. Father. Skin Cancer Status:Active Comments:Father. thyroid -father Status:Active arthritis-mother and father Status:Active Breast Cancer Status:Active Comments:Mother. Cerebrovascular Accident Status:Active Comment s:Mother. COPD-mother Status:Active Coronary Artery Disease Status:Active Comments :Father. Diabetes Mellitus Type II Status:Active Commen ts:Mother. Hypertension Status:Active Comments:Mother. Father. Skin Cancer Status:Active Comments:Father. thyroid -father Status:Active arthritis-mother and father Status:Active Breast Cancer Status:Active Comments:Mother. Cerebrovascular Accident Status:Active Comment s:Mother. COPD-mother Status:Active Coronary Artery Disease Status:Active Comments :Father. Diabetes Mellitus Type II Status:Active Commen ts:Mother. Hypertension Status:Active Comments:Mother. Father. Skin Cancer Status:Active Comments:Father. thyroid -father Status:Active arthritis-mother and father Status:Active Breast Cancer Status:Active Comments:Mother. Cerebrovascular Accident Status:Active Comment s:Mother. COPD-mother Status:Active Coronary Artery Disease Status:Active Comments :Father. Diabetes Mellitus Type II Status:Active Commen ts:Mother. Hypertension Status:Active Comments:Mother. Father. Skin Cancer Status:Active Comments:Father. thyroid -father Status:Active arthritis-mother and father Status:Active Breast Cancer Status:Active Comments:Mother. Cerebrovascular Accident Status:Active Comment s:Mother. COPD-mother Status:Active Coronary Artery Disease Status:Active Comments :Father. Diabetes Mellitus Type II Status:Active Commen ts:Mother. Hypertension Status:Active Comments:Mother. Father. Skin Cancer Status:Active Comments:Father. thyroid -father Status:Active arthritis-mother and father Status:Active Breast Cancer Status:Active Comments:Mother. Cerebrovascular Accident Status:Active Comment s:Mother. COPD-mother Status:Active Coronary Artery Disease Status:Active Comments :Father. Diabetes Mellitus Type II Status:Active Commen ts:Mother. Hypertension Status:Active Comments:Mother. Father. Skin Cancer Status:Active Comments:Father. thyroid -father Status:Active arthritis-mother and father Status:Active Breast Cancer Status:Active Comments:Mother. Cerebrovascular Accident Status:Active Comment s:Mother. COPD-mother Status:Active Coronary Artery Disease Status:Active Comments :Father. Diabetes Mellitus Type II Status:Active Commen ts:Mother. Hypertension Status:Active Comments:Mother. Father. Skin Cancer Status:Active Comments:Father. thyroid -father Status:Active arthritis-mother and father Status:Active Breast Cancer Status:Active Comments:Mother. Cerebrovascular Accident Status:Active Comment s:Mother. COPD-mother Status:Active Coronary Artery Disease Status:Active Comments :Father. Diabetes Mellitus Type II Status:Active Commen ts:Mother. Hypertension Status:Active Comments:Mother. Father. Skin Cancer Status:Active Comments:Father. thyroid -father Status:Active arthritis-mother and father Status:Active Breast Cancer Status:Active Comments:Mother. Cerebrovascular Accident Status:Active Comment s:Mother. COPD-mother Status:Active Coronary Artery Disease Status:Active Comments :Father. Diabetes Mellitus Type II Status:Active Commen ts:Mother. Hypertension Status:Active Comments:Mother. Father. Skin Cancer Status:Active Comments:Father. thyroid -father Status:Active arthritis-mother and father Status:Active Breast Cancer Status:Active Comments:Mother. Cerebrovascular Accident Status:Active Comment s:Mother. COPD-mother Status:Active Coronary Artery Disease Status:Active Comments :Father. Diabetes Mellitus Type II Status:Active Commen ts:Mother. Hypertension Status:Active Comments:Mother. Father. Skin Cancer Status:Active Comments:Father. thyroid -father Status:Active arthritis-mother and father Status:Active Breast Cancer Status:Active Comments:Mother. Cerebrovascular Accident Status:Active Comment s:Mother. COPD-mother Status:Active Coronary Artery Disease Status:Active Comments :Father. Diabetes Mellitus Type II Status:Active Commen ts:Mother. Hypertension Status:Active Comments:Mother. Father. Skin Cancer Status:Active Comments:Father. thyroid -father Status:Active arthritis-mother and father Status:Active Breast Cancer Status:Active Comments:Mother. Cerebrovascular Accident Status:Active Comment s:Mother. COPD-mother Status:Active Coronary Artery Disease Status:Active Comments :Father. Diabetes Mellitus Type II Status:Active Commen ts:Mother. Hypertension Status:Active Comments:Mother. Father. Skin Cancer Status:Active Comments:Father. thyroid -father Status:Active arthritis-mother and father Status:Active Breast Cancer Status:Active Comments:Mother. Cerebrovascular Accident Status:Active Comment s:Mother. COPD-mother Status:Active Coronary Artery Disease Status:Active Comments :Father. Diabetes Mellitus Type II Status:Active Commen ts:Mother. Hypertension Status:Active Comments:Mother. Father. Skin Cancer Status:Active Comments:Father. thyroid -father Status:Active arthritis-mother and father Status:Active Breast Cancer Status:Active Comments:Mother. Cerebrovascular Accident Status:Active Comment s:Mother. COPD-mother Status:Active Coronary Artery Disease Status:Active Comments :Father. Diabetes Mellitus Type II Status:Active Commen ts:Mother. Hypertension Status:Active Comments:Mother. Father. Skin Cancer Status:Active Comments:Father. thyroid -father Status:Active arthritis-mother and father Status:Active Breast Cancer Status:Active Comments:Mother. Cerebrovascular Accident Status:Active Comment s:Mother. COPD-mother Status:Active Coronary Artery Disease Status:Active Comments :Father. Diabetes Mellitus Type II Status:Active Commen ts:Mother. Hypertension Status:Active Comments:Mother. Father. Skin Cancer Status:Active Comments:Father. thyroid -father Status:Active arthritis-mother and father Status:Active Breast Cancer Status:Active Comments:Mother. Cerebrovascular Accident Status:Active Comment s:Mother. COPD-mother Status:Active Coronary Artery Disease Status:Active Comments :Father. Diabetes Mellitus Type II Status:Active Commen ts:Mother. Hypertension Status:Active Comments:Mother. Father. Skin Cancer Status:Active Comments:Father. thyroid -father Status:Active arthritis-mother and father Status:Active Breast Cancer Status:Active Comments:Mother. Cerebrovascular Accident Status:Active Comment s:Mother. COPD-mother Status:Active Coronary Artery Disease Status:Active Comments :Father. Diabetes Mellitus Type II Status:Active Commen ts:Mother. Hypertension Status:Active Comments:Mother. Father. Skin Cancer Status:Active Comments:Father. thyroid -father Status:Active arthritis-mother and father Status:Active Breast Cancer Status:Active Comments:Mother. Cerebrovascular Accident Status:Active Comment s:Mother. COPD-mother Status:Active Coronary Artery Disease Status:Active Comments :Father. Diabetes Mellitus Type II Status:Active Commen ts:Mother. Hypertension Status:Active Comments:Mother. Father. Skin Cancer Status:Active Comments:Father. thyroid -father Status:Active arthritis-mother and father Status:Active Breast Cancer Status:Active Comments:Mother. Cerebrovascular Accident Status:Active Comment s:Mother. COPD-mother Status:Active Coronary Artery Disease Status:Active Comments :Father. Diabetes Mellitus Type II Status:Active Commen ts:Mother. Hypertension Status:Active Comments:Mother. Father. Skin Cancer Status:Active Comments:Father. thyroid -father Status:Active arthritis-mother and father Status:Active Breast Cancer Status:Active Comments:Mother. Cerebrovascular Accident Status:Active Comment s:Mother. COPD-mother Status:Active Coronary Artery Disease Status:Active Comments :Father. Diabetes Mellitus Type II Status:Active Commen ts:Mother. Hypertension Status:Active Comments:Mother. Father. Skin Cancer Status:Active Comments:Father. thyroid -father Status:Active arthritis-mother and father Status:Active Breast Cancer Status:Active Comments:Mother. Cerebrovascular Accident Status:Active Comment s:Mother. COPD-mother Status:Active Coronary Artery Disease Status:Active Comments :Father. Diabetes Mellitus Type II Status:Active Commen ts:Mother. Hypertension Status:Active Comments:Mother. Father. Skin Cancer Status:Active Comments:Father. thyroid -father Status:Active arthritis-mother and father Status:Active Breast Cancer Status:Active Comments:Mother. Cerebrovascular Accident Status:Active Comment s:Mother. COPD-mother Status:Active Coronary Artery Disease Status:Active Comments :Father. Diabetes Mellitus Type II Status:Active Commen ts:Mother. Hypertension Status:Active Comments:Mother. Father. Skin Cancer Status:Active Comments:Father. thyroid -father Status:Active arthritis-mother and father Status:Active Breast Cancer Status:Active Comments:Mother. Cerebrovascular Accident Status:Active Comment s:Mother. COPD-mother Status:Active Coronary Artery Disease Status:Active Comments :Father. Diabetes Mellitus Type II Status:Active Commen ts:Mother. Hypertension Status:Active Comments:Mother. Father. Skin Cancer Status:Active Comments:Father. thyroid -father Status:Active arthritis-mother and father Status:Active Breast Cancer Status:Active Comments:Mother. Cerebrovascular Accident Status:Active Comment s:Mother. COPD-mother Status:Active Coronary Artery Disease Status:Active Comments :Father. Diabetes Mellitus Type II Status:Active Commen ts:Mother. Hypertension Status:Active Comments:Mother. Father. Skin Cancer Status:Active Comments:Father. thyroid -father Status:Active Advance Directives No Advanced Directives Records Found Advance Directive Response Recorded Date/ Time Advance Directives No October 25 021 9:47am Living Will No July 03, 2021 1:27pm Power of Dental Technology Advisor No July 03 1:27pm Advance Directive Response Recorded Date/ Time Name of Medical Power of Dental Technology Advisor AUDRA MENDOZA June 24, 2021 10:16am Advance Directives No October 25 021 9:47am Living Will No July 03, 2021 1:27pm Power of Dental Technology Advisor No July 03 1:27pm Advance Directive Response Recorded Date/ Time Advance Directives No January 13, 2022 9:59am Living Will No January 13 9:59am Power of Dental Technology Advisor No January 13, 2022 9:59am Advance Directive Response Recorded Date/ Time Advance Directives No January 13, 2022 8:59am Living Will No January 13 8:59am Power of Dental Technology Advisor No January 13, 2022 8:59am Advance Directive Response Recorded Date/ Time Advance Directives No July 18 1:20pm Advance Directive Response Recorded Date/ Time Do you have a Healthcare Power of Dental Technology Advisor? Yes October 21, 2024 9:49am Advance Directives No July 18 1:20pm Advance Directive Response Recorded Date/ Time Do you have a Healthcare Power of Dental Technology Advisor? Yes October 21, 2024 9:49am Advance Directives No November 02, 2024 9:43am Advance Directive Response Recorded Date/ Time Advance Directives No November 15, 2024 3:03pm Do you have a Healthcare Power of Dental Technology Advisor? 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 RX HERE PT REQUESTED EG Chief Complaint LT HIP PAIN. 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 Chief Complaint EMPLOYEE LABS SCREENING Chief Complaint SCREENING COUGH, CONGESTION Reason for Visit Acute bronchitis Chief Complaint Admit Date irregular bleeding + odorous vaginal dis charge August 12, 2024 10:04am Reason for Visit Admit Date Abnormal uterine bleeding (AUB) July 10:04am Vaginal discharge August 12, 2024 10:04 am Chief Complaint Admit Date irregular bleeding + odorous vaginal dis charge August 12, 2024 10:04am EMPLOYEE LABS September 27, 2024 7:42a m Chief Complaint Admit Date irregular bleeding + odorous vaginal dis charge August 12, 2024 10:04am EMPLOYEE LABS September 27, 2024 7:42a m HEAD PAIN October 21, 2024 8:2 2am Chief Complaint Admit Date irregular bleeding + odorous vaginal dis charge August 12, 2024 10:04am EMPLOYEE LABS September 27, 2024 7:42a m HEAD PAIN October 21, 2024 8:2 2am neck pain October 21, 2024 9:0 8am Reason for Visit Admit Date Abnormal uterine bleeding (AUB) July 10:04am Vaginal discharge August 12, 2024 10:04 am Headache October 21, 2024 8:2 2am Chief Complaint Admit Date irregular bleeding + odorous vaginal dis charge August 12, 2024 10:04am EMPLOYEE LABS September 27, 2024 7:42a m HEAD PAIN October 21, 2024 8:2 2am neck pain October 21, 2024 9:0 8am HEADACHE October 28, 2024 10: 21am DRY NEEDLE November 01, 2024 11 :27am Chief Complaint Admit Date irregular bleeding + odorous vaginal dis charge August 12, 2024 10:04am EMPLOYEE LABS September 27, 2024 7:42a m HEAD PAIN October 21, 2024 8:2 2am neck pain October 21, 2024 9:0 8am HEADACHE October 28, 2024 10: 21am DRY NEEDLE November 01, 2024 11 :27am EST CARE December 07, 2024 8:29am Headache, neck pain December 07, 2024 8:50am Reason for Visit Admit Date Abnormal uterine bleeding (AUB) July 10:04am Vaginal discharge August 12, 2024 10:04 am Headache October 21, 2024 8:2 2am Headache December 07, 2024 8:29am Chief Complaint Admit Date EMPLOYEE LABS September 27, 2024 7:42a m HEAD PAIN October 21, 2024 8:2 2am neck pain October 21, 2024 9:0 8am HEADACHE October 28, 2024 10: 21am DRY NEEDLE November 01, 2024 11 :27am EST CARE December 07, 2024 8:29am Headache, neck pain December 07, 2024 8:50am Reason for Visit Admit Date Headache October 21, 2024 8:2 2am Headache December 07, 2024 8:29am Segmental and somatic dysfunction of cer vical region December 07, 2024 8:29am Segmental and somatic dysfunction of tho racic region December 07, 2024 8:29am DDD (degenerative disc disease) [facility] 2024 8:29am Chief Complaint Admit Date EMPLOYEE LABS September 27, 2024 7:42a m HEAD PAIN October 21, 2024 8:2 2am neck pain October 21, 2024 9:0 8am HEADACHE October 28, 2024 10: 21am DRY NEEDLE November 01, 2024 11 :27am EST CARE December 07, 2024 8:29am Headache, neck pain December 07, 2024 8:50am BACK PAIN December 27, 2024 2: 57pm Reason for Visit Admit Date Headache October 21, 2024 8:2 2am Headache December 07, 2024 8:29am Segmental and somatic dysfunction of cer vical region December 07, 2024 8:29am Segmental and somatic dysfunction of tho racic region December 07, 2024 8:29am DDD (degenerative disc disease) [facility] 2024 8:29am Headache December 27, 2024 2: 57pm Segmental and somatic dysfunction of cer vical region December 27, 2024 2:57pm Segmental and somatic dysfunction of tho racic region December 27, 2024 2:57pm DDD (degenerative disc disease) December 27, 2024 2:57pm Chief Complaint Admit Date EMPLOYEE LABS September 27, 2024 7:42a m HEAD PAIN October 21, 2024 8:2 2am neck pain October 21, 2024 9:0 8am HEADACHE October 28, 2024 10: 21am DRY NEEDLE November 01, 2024 11 :27am EST CARE December 07, 2024 8:29am Headache, neck pain December 07, 2024 8:50am BACK PAIN December 27, 2024 2: 57pm BACK PAIN January 03, 2025 2 :23pm Reason for Visit Admit Date Headache October 21, 2024 8:2 2am Headache December 07, 2024 8:29am Segmental and somatic dysfunction of cer vical region December 07, 2024 8:29am Segmental and somatic dysfunction of tho racic region December 07, 2024 8:29am DDD (degenerative disc disease) Septembe r 2024 8:29am Headache December 27, 2024 2: 57pm Segmental and somatic dysfunction of cer vical region December 27, 2024 2:57pm Segmental and somatic dysfunction of tho racic region December 27, 2024 2:57pm DDD (degenerative disc disease) December 27, 2024 2:57pm Segmental and somatic dysfunction of cer vical region January 03, 2025 2:23pm Segmental and somatic dysfunction of tho racic region January 03, 2025 2:23pm DDD (degenerative disc disease) January 03, 2025 2:23pm Additional Source Comments INFORMATION SOURCE (unrecogn ized section and content) DATE CREATED AUTHOR 09/16/2017 [facility] DATE CREATED AUTHOR AUTHOR'S ORGANIZ ATION 12/25/2024 [facility] DATE CREATED AUTHOR AUTHOR'S ORGANIZ ATION 01/31/2025 [facility] Care Teams (unrecognized sec tion and content) Team Status: Active Member Role Status Dates Dr. Hal Mims MD Family Provider Active Dr. Hal Mims MD Primary Care Provider Active Team Status: Inactive Member Role Status Dates Dr. Hal Mims MD Primary Care Provider, Referring Provider Active Dr. Kait Zacarias MD Attending Provider Active Team Status: Inactive Member Role Status Dates Dr. Hal Mims MD Primary Care Provider Active Dr. Kait Zacarias MD Attending Provider, Referr ing Provider Active Team Status: Inactive Member Role Status Dates Dr. Hal Mims MD Primary Care Provider Active Dr. Kait Zacarias MD Attending Provider Active Team Status: Inactive Member Role Status Dates Dr. Hal Mims MD Primary Care Provider Active IDRIS Howell-C Attending Provider, Referring Pr gelacio Active Team Status: Inactive Member Role Status Dates Dr. Hal Mims MD Primary Care Provid er, Attending Provider, Referring Provider Active Team Status: Active Member Role Status Dates Dr. Hal Mims MD Primary Care Provider Active Health Risk Assessment Attending Provider, Referring P kaira Active Team Status: Inactive Member Role Status Dates Dr. Kait Zacarias MD Attending Provider, Referr ing Provider Active Dr. Hal Mims MD Primary Care Provider Active Team Status: Inactive Member Role Status Dates Dr. Hal Mims MD Primary Care Provider, Referring Provider Active Marques STEINBERG PA Attending Provider Active Team Status: Inactive Member Role Status Dates Dr. Hal Mims MD Primary Care Provider Active Dr. Abdulaziz Guillaume MD Attending Provider Active Team Status: Inactive Member Role Status Dates Dr. Hal Mims MD Primary Care Provider Active Start: August 12, 2024 End: August 12, 2024 Dr. Hal Mims MD Referring Provider Active S tart: August 12, 2024 End: August 12, 2024 Dr. Kait Zacarias MD Attending Provider Active Start: August 12, 2024 End: August 12, 2024 Team Status: Inactive Member Role Status Dates Dr. Hal Mims MD Primary Care Provider Active Start: August 12, 2024 End: August 12, 2024 Dr. Kait Zacarias MD Attending Provider Active Start: August 12, 2024 End: August 12, 2024 Dr. Kait Zacarias MD Referring Provider Active Start: August 12, 2024 End: August 12, 2024 Team Status: Active Member Role/Relationship Status Dates Dr. Hal Mims MD Primary Care Provider Active Team Status: Inactive Member Role/Relationship Status Dates Dr. Hal Mims MD Primary Care Provider Active Start: August 12, 2024 End: August 12, 2024 Dr. Hal Mims MD Referring Provider Active S tart: August 12, 2024 End: August 12, 2024 Dr. Kait Zacarias MD Attending Provider Active Start: August 12, 2024 End: August 12, 2024 Team Status: Inactive Member Role/Relationship Status Dates Dr. Hal Mims MD Primary Care Provider Active Start: August 12, 2024 End: August 12, 2024 Dr. Kait Zacarias MD Attending Provider Active Start: August 12, 2024 End: August 12, 2024 Dr. Kait Zacarias MD Referring Provider Active Start: August 12, 2024 End: August 12, 2024 Team Status: Inactive Member Role/Relationship Status Dates Dr. Hal Mims MD Primary Care Provider Active Start: September 27, 2024 End: September 27, 2024 Dr. Hal Mims MD Attending Provider Active S tart: September 27, 2024 End: September 27, 2024 Dr. Hal Mims MD Referring Provider Active S tart: September 27, 2024 End: September 27, 2024 Team Status: Active Member Role/Relationship Status Dates Dr. Hal Mims MD Primary Care Provider Active Start: September 27, 2024 Health Risk Assessment Attending Provider Active Start: September 27, 2024 Health Risk Assessment Referring Provider Active Start: September 27, 2024 Team Status: Inactive Member Role/Relationship Status Dates Dr. Hal Mims MD Primary Care Provider Active Start: October 21, 2024 End: October 21, 2024 Dr. Hal Mims MD Referring Provider Active S tart: October 21, 2024 End: October 21, 2024 IDRIS Ewing Attending Provider Active Sta rt: October 21, 2024 End: October 21, 2024 Team Status: Inactive Member Role/Relationship Status Dates Dr. Hal Mims MD Primary Care Provider Active Start: October 21, 2024 End: October 21, 2024 Dr. Junaid Keating DO Emergency Provider Active Start: October 21, 2024 End: October 21, 2024 Team Status: Inactive Member Role/Relationship Status Dates Dr. Hal Mims MD Primary Care Provider Active Start: October 26, 2024 End: October 26, 2024 Ravinder Butcher PA-C Attending Provider Active Sta rt: October 26, 2024 End: October 26, 2024 Ravinder Butcher PA-C Referring Provider Active Sta rt: October 26, 2024 End: October 26, 2024 Team Status: Active Member Role/Relationship Status Dates Dr. Hal Mims MD Primary Care Provider Active Start: October 28, 2024 IDRIS Solis Attending Provider Active Start: October 28, 2024 IDRIS Solis Referring Provider Active Start: October 28, 2024 Team Status: Active Member Role/Relationship Status Dates Dr. Hal Mims MD Primary Care Provider Active Start: November 01, 2024 Self Referred Attending Provider Active Start: 2024 Self Referred Referring Provider Active Start: A 2024 Team Status: Inactive Member Role/Relationship Status Dates Dr. Hal Mims MD Primary Care Provider Active Start: October 21, 2024 End: October 21, 2024 Dr. Junaid Keating DO Attending Provider Active Start: October 21, 2024 End: October 21, 2024 Dr. Junaid Keating DO Emergency Provider Active Start: October 21, 2024 End: October 21, 2024 Team Status: Inactive Member Role/Relationship Status Dates Dr. Hal Mims MD Primary Care Provider Active Start: October 28, 2024 End: October 28, 2024 IDRIS Solis Attending Provider Active Start: October 28, 2024 End: October 28, 2024 IDRIS Solis Referring Provider Active Start: October 28, 2024 End: October 28, 2024 Manager Float Relationship Specialty Start Date End Date Hal Mims MD [address] [place] [address] [place] [address] PCP - General Family Medicine 11/03/24 Team Status: Inactive Member Role/Relationship Status Dates Dr. Hal Mims MD Primary Care Provider Active Start: November 08, 2024 End: November 08, 2024 Dr. Jerri Awan MD Attending Provider Active Start: November 08, 2024 End: November 08, 2024 Dr. Jerri Awan MD Referring Provider Active Start: November 08, 2024 End: November 08, 2024 Team Status: Active Member Role/Relationship Status Dates Dr. Hal Mmis MD Primary care physician Active Team Status: Inactive Member Role/Relationship Status Dates Dr. Hal Mims MD Primary care physician Active Start: August 12, 2024 End: August 12, 2024 Dr. Hal Mims MD Referring Provider Active S tart: August 12, 2024 End: August 12, 2024 Dr. Kait Zacarias MD Attending physician Active Start: August 12, 2024 End: August 12, 2024 Team Status: Inactive Member Role/Relationship Status Dates Dr. Hal Mims MD Primary care physician Active Start: August 12, 2024 End: August 12, 2024 Dr. Kait Zacarias MD Attending physician Active Start: August 12, 2024 End: August 12, 2024 Dr. Kait Zacarias MD Referring Provider Active Start: August 12, 2024 End: August 12, 2024 Team Status: Inactive Member Role/Relationship Status Dates Dr. Hal Mims MD Primary care physician Active Start: September 27, 2024 End: September 27, 2024 Dr. Hal Mims MD Attending physician Active Start: September 27, 2024 End: September 27, 2024 Dr. Hal Mims MD Referring Provider Active S tart: September 27, 2024 End: September 27, 2024 Team Status: Active Member Role/Relationship Status Dates Dr. Hal Mims MD Primary care physician Active Start: September 27, 2024 Health Risk Assessment Attending physician Active Start: September 27, 2024 Health Risk Assessment Referring Provider Active Start: September 27, 2024 Team Status: Inactive Member Role/Relationship Status Dates Dr. Hal Mims MD Primary care physician Active Start: October 21, 2024 End: October 21, 2024 Dr. Hal Mims MD Referring Provider Active S tart: October 21, 2024 End: October 21, 2024 IDRIS Ewing Attending physician Active St art: October 21, 2024 End: October 21, 2024 Team Status: Inactive Member Role/Relationship Status Dates Dr. Hal Mims MD Primary care physician Active Start: October 21, 2024 End: October 21, 2024 Dr. Junaid Keating DO Attending physician Active Start: October 21, 2024 End: October 21, 2024 Dr. Junaid Keating DO Emergency Department Physician A ctive Start: October 21, 2024 End: October 21, 2024 Team Status: Inactive Member Role/Relationship Status Dates Dr. Hal Mims MD Primary care physician Active Start: October 26, 2024 End: October 26, 2024 Ravinder Butcher PA-C Attending physician Active St art: October 26, 2024 End: October 26, 2024 Ravinder Butcher PA-C Referring Provider Active Sta rt: October 26, 2024 End: October 26, 2024 Team Status: Inactive Member Role/Relationship Status Dates Dr. Hal Mims MD Primary care physician Active Start: October 28, 2024 End: October 28, 2024 IDRIS Solis Attending physician Active Start: October 28, 2024 End: October 28, 2024 IDRIS Solis Referring Provider Active Start: October 28, 2024 End: October 28, 2024 Team Status: Active Member Role/Relationship Status Dates Dr. Hal Mims MD Primary care physician Active Start: November 01, 2024 Self Referred Attending physician Active Start: November 01, 2024 Self Referred Referring Provider Active Start: A 2024 Team Status: Inactive Member Role/Relationship Status Dates Dr. Hal Mims MD Primary care physician Active Start: November 08, 2024 End: November 08, 2024 Dr. Jerri Awan MD Attending physician Active Start: November 08, 2024 End: November 08, 2024 Dr. Jerri Awan MD Referring Provider Active Start: November 08, 2024 End: November 08, 2024 Team Status: Inactive Member Role/Relationship Status Dates Dr. Hal Mims MD Primary care physician Active Start: December 07, 2024 End: December 07, 2024 Dr. Hal Mims MD Referring Provider Active S tart: December 07, 2024 End: December 07, 2024 Dr. Toña Jeffries DC Attending physician Active Start: December 07, 2024 End: December 07, 2024 Team Status: Active Member Role/Relationship Status Dates Dr. Hal Mims MD Primary care physician Active Start: December 07, 2024 Dr. Toña Jeffries DC Attending physician Active Start: December 07, 2024 Dr. Toña Jeffries DC Referring Provider Active S tart: December 07, 2024 Team Status: Inactive Member Role/Relationship Status Dates Dr. Hal Mims MD Primary care physician Active Start: September 27, 2024 End: September 27, 2024 Dr. Hal Mims MD Attending physician Active Start: September 27, 2024 End: September 27, 2024 Dr. Hal Mims MD Referring Provider Active S tart: September 27, 2024 End: September 27, 2024 Team Status: Active Member Role/Relationship Status Dates Dr. Hal Mims MD Primary care physician Active Start: September 27, 2024 Health Risk Assessment Attending physician Active Start: September 27, 2024 Health Risk Assessment Referring Provider Active Start: September 27, 2024 Team Status: Inactive Member Role/Relationship Status Dates Dr. Hal Mims MD Primary care physician Active Start: October 21, 2024 End: October 21, 2024 Dr. Hal Mims MD Referring Provider Active S tart: October 21, 2024 End: October 21, 2024 Marques STEINBERG PA Attending physician Active St art: October 21, 2024 End: October 21, 2024 Team Status: Inactive Member Role/Relationship Status Dates Dr. Hal Mims MD Primary care physician Active Start: October 21, 2024 End: October 21, 2024 Dr. Junaid Keating DO Attending physician Active Start: October 21, 2024 End: October 21, 2024 Dr. Junaid Keating DO Emergency Department Physician A ctive Start: October 21, 2024 End: October 21, 2024 Team Status: Inactive Member Role/Relationship Status Dates Dr. Hal Mims MD Primary care physician Active Start: October 26, 2024 End: October 26, 2024 Ravinder Butcher PA-C Attending physician Active St art: October 26, 2024 End: October 26, 2024 Ravinder Butcher PA-C Referring Provider Active Sta rt: October 26, 2024 End: October 26, 2024 Team Status: Inactive Member Role/Relationship Status Dates Dr. Hal Mims MD Primary care physician Active Start: October 28, 2024 End: October 28, 2024 IDRIS Solis Attending physician Active Start: October 28, 2024 End: October 28, 2024 IDRIS Solis Referring Provider Active Start: October 28, 2024 End: October 28, 2024 Team Status: Active Member Role/Relationship Status Dates Dr. Hal Mims MD Primary care physician Active Start: November 01, 2024 Self Referred Attending physician Active Start: November 01, 2024 Self Referred Referring Provider Active Start: A 2024 Team Status: Inactive Member Role/Relationship Status Dates Dr. Hal Mims MD Primary care physician Active Start: November 08, 2024 End: November 08, 2024 Dr. Jerri Awan MD Attending physician Active Start: November 08, 2024 End: November 08, 2024 Dr. Jerri Awan MD Referring Provider Active Start: November 08, 2024 End: November 08, 2024 Team Status: Inactive Member Role/Relationship Status Dates Dr. Hal Mims MD Primary care physician Active Start: December 07, 2024 End: December 07, 2024 Dr. Hal Mims MD Referring Provider Active S tart: December 07, 2024 End: December 07, 2024 Dr. Toña Jeffries DC Attending physician Active Start: December 07, 2024 End: December 07, 2024 Team Status: Inactive Member Role/Relationship Status Dates Dr. Hal Mims MD Primary care physician Active Start: December 07, 2024 End: December 07, 2024 Dr. Toña Jeffries DC Attending physician Active Start: December 07, 2024 End: December 07, 2024 Dr. Toña Jeffries DC Referring Provider Active S tart: December 07, 2024 End: December 07, 2024 Manager Float Relationship Specialty Start Date End Date Hal Mims MD [address] [place] [address] [place] [address] PCP - General Family Medicine 11/03/24 Team Status: Inactive Member Role/Relationship Status Dates Dr. Hal Mims MD Primary care physician Active Start: December 27, 2024 End: December 27, 2024 Dr. Hal Mims MD Referring Provider Active S tart: December 27, 2024 End: December 27, 2024 Dr. Toña Jeffries DC Attending physician Active Start: December 27, 2024 End: December 27, 2024 Team Status: Inactive Member Role/Relationship Status Dates Dr. Hal Mims MD Primary care physician Active Start: January 03, 2025 End: January 03, 2025 Dr. Hal Mims MD Referring Provider Active S tart: January 03, 2025 End: January 03, 2025 Dr. Toña Jeffries DC Attending physician Active Start: January 03, 2025 End: January 03, 2025 Reason for Visit (unrecogniz ed section and content) Reason Comments Headache Reason Comments Headache Follow up visit Specialty Diagnoses / Procedures Referred By Contcelsa t Referred To Contact Neurology Diagnoses New daily persistent headache Diplopia Occipital neuralgia of right side Procedures Follow Up In Neurology Jerri Awan, MOBILITY SPECIALIST-COMMUNICATIONS OPERATOR [address] [address] Phone: tel: fax: Referral ID Status Reason Start Date Expiration Date V isits Requested Visits Authorized [id number] Authorized 11/03/2024 11/03/2025 1 1 FOR RECORDS PERTAINING TO PATIENTS WHO ARE OR HAVE BEEN ENROLLED IN A CHEMICAL DEPENDENCY/SUBSTANCEABUSE PROGRAM, SOME INFORMATION MAY BE OMITTED. This clinical summary was aggregated from multiple sources. Caution should be exercised in using it in the provision of clinical care. This summary normalizes information from multiple sources, and as a consequence, information in this document may materially change the coding, format and clinical context of patient data. In addition, data may be omitted in some cases. CLINICAL DECISIONS SHOULD BE BASED ON THE PRIMARY CLINICAL RECORDS. [facility] [employer] provides no warranty or guarantee of the accuracy or completeness of information in this document.
--- NOTE | 2025-02-01 07:00 | MRI_ITS ---
PROCEDURE: LOWER EXT JOINT ONLY (ROUTINE) 02/01/2025 REASON FOR EXAM: PAIN DUE TO INTERNAL ORTHOPEDIC PROSTH DEV/GRFT, STRAIN OF MUSCLE TECHNIQUE: Procedure Code: [id number] Modality: MR Procedure: LOWER EXT JOINT ONLY (ROUTINE) T1, T2, PD, multiplanar and multisequence images were obtained of the left hip without IV contrast administration. COMPARISON: COMPARISON : None FINDINGS: Bone marrow and osseous structures: There is a total hip prosthesis in position with metallic artifact, which obscures anatomic detail. There is no visible marrow edema in the included portion of the femur, acetabulum, or pelvic bones. Hip abductors: The gluteus medius and minimus tendons are intact without tendinosis or tear. There is a trace amount of fluid in the trochanteric bursa. The hamstring origins appear intact. Iliopsoas tendon: Intact without tendinosis or tear. No iliopsoas bursitis. MRI/Lower Ext Joint Only (Routine) IMPRESSION: There is a total hip prosthesis in position. There is a trace amount of fluid in the trochanteric bursa, with bursitis. Reading Location: [facility]
== END | disposition home or self-care (01) ==
LOC: OPMRI 06:54
PROVIDERS: PCP Family Medicine; Referring Provider Specialist; Visit Provider Specialist
DX: S76.012A Strain of muscle, fascia and tendon of left hip, initial encounter (principal); T84.84XA Pain due to internal orthopedic prosthetic devices, implants and grafts, initial encounter; Z96.642 Presence of left artificial hip joint
CPT/HCPCS: 73721

== ENCOUNTER → 2025-03-08 | Outpatient (CLI) | payer OTHER, SELFPAY ==
--- NOTE | 2025-03-08 12:15 | BI_ITS ---
EXAM: SCRN MAMM (CAD)W/MARY JO BILAT DATE: 03/08/2025 CLINICAL HISTORY: F, Age 54 y/o , SCREENING TECHNIQUE: Procedure Code: [id number] Modality: MG Procedure: SCRN MAMM (CAD)W/MARY JO BILAT COMPARISON: Prior exam(s) were compared FINDINGS: TISSUE DENSITY: The breasts are heterogeneously dense, which may obscure small masses. Bilateral Breast Mammographic Findings: No significant masses, calcifications or other abnormalities are identified. BI/SCRN MAMM (CAD)W/MARY JO BILAT IMPRESSION: No mammographic evidence of malignancy. OVERALL FINAL ASSESSMENT BI-RADS 1: NEGATIVE. RECOMMENDATION: Routine annual follow-up in 1 Year Additional Recommendation none A letter with findings and recommendations will be mailed to the patient. Reading Location: [id number]
== END | disposition home or self-care (01) ==
LOC: OPBI 11:59
PROVIDERS: PCP Family Medicine; Referring Provider Obstetrics & Gynecology; Visit Provider Obstetrics & Gynecology
DX: Z12.31 Encounter for screening mammogram for malignant neoplasm of breast (principal)
CPT/HCPCS: 77063; 77067